=== PATIENT | male | born 1960 | race Caucasian/White ===

== ENCOUNTER 2020-02-11 12:26 | Emergency (ER) | payer MEDICARE, SELFPAY ==
[2020-02-11 12:27] VITALS: BP 150/74; PULSE 84; RESP 20; TEMP 36.9; O2SAT 97; BMI 57.3
--- NOTE | 2020-02-11 12:37 | XR_ITS ---
PROCEDURE: XR CHEST PORTABLE CLINICAL HISTORY: SOA COMPARISON: No exams were available for comparison FINDINGS: Study is limited technically due to patient's body habitus and performed with portable technique. Normal heart size. No evidence of CHF. Increased markings are present in the right lower lobe suspicious for right lower lobe pneumonia with effusion. IMPRESSION: Suspect right lower lobe pneumonia with effusion Dictated by: Wilder Teran MD 02/11/2020 14:08 Electronically signed by Wilder Teran MD in [place] 02/11/2020 14:08
--- NOTE | 2020-02-11 12:37 | HMH.EDGENADL ---
ED Disposition Clinical Impression: Community acquired pneumonia Qualifiers: Laterality: right Lung location: lower lobe of lung Qualified Code(s): J18.9 - Pneumonia, unspecified organism Disposition: Home, Self-Care Condition on Discharge: Good Instructions: DI for Pneumonia -- Adult Prescriptions: Azithromycin [Z-Virgil 250mg Tab*] 250 mg PO UD DOSE PK #6 tab Prescription Printed Referrals: Provider,Referral, MD [Primary Care Provider] - 3 days - Critical Care Critical Care Time: No Attestation: On 02/11/20, the high probability of a clinically significant, sudden or life threatening deterioration of the following system(s) required my full and direct attention, intervention and personal management. The time I documented below is in addition to time spent performing reported procedures but includes the following listed in this critical care notation. Medical Decision Making - Medical Records Medical records reviewed: Yes: I reviewed the patient's medical records. - Fito Inquiry Pt receiving controlled substance: No Vital Signs: 02/11/20 12:27 02/11/20 12:39 02/11/20 12:47 Temperature 98.5 F Temperature Source Oral Pulse Rate [Right Radial] 84 79 Respiratory Rate 20 Blood Pressure [Right Arm] 150/74 H 129/61 Blood Pressure Mean [Right Arm] 99 83 Blood Pressure Source [Right Arm] Automatic Cuff Automatic Cuff Blood Pressure Position [Right Arm] Sitting Sitting 02 Sat by Pulse Oximetry 97 97 97 Oxygen Delivery Method Room Air Nasal Cannula Nasal Cannula Oxygen Flow Rate (LPM) 2 2 - Lab Data Lab Results 02/11/20 12:37: WBC 7.0, RBC 4.09 L, Hgb 11.2 L, Hct 35.8 L, MCV 87.4, MCH 27.3, MCHC 31.2 L, RDW 15.9, Plt Count 253, MPV 8.7, Neut % (Auto) 76.7, Lymph % (Auto) 13.0, [place] % (Auto) 7.4, Eos % (Auto) 2.2, Baso % (Auto) 0.6, Neut # (Auto) 5.4, Lymph # (Auto) 0.9, [place] # (Auto) 0.5, Eos # (Auto) 0.2, Baso # (Auto) 0.0 02/11/20 12:37: Sodium 140, Potassium 3.0 L, Chloride 101, Carbon Dioxide 34 H, Anion Gap 8.0, BUN 10, Creatinine 0.70, Estimated Creat Clear 120, Estimated GFR 115, Est GFR ( Amer) 139, Glucose 176 H, Calcium 8.7, Total Bilirubin 0.7, AST 15 L, ALT 15, Alkaline Phosphatase 93, Troponin I < 0.01, Total Protein 6.0 L, Albumin 3.1 L, Globulin 2.9, Albumin/Globulin Ratio 1.1 02/11/20 12:37: D-Dimer 140 Result diagrams: 02/11/20 12:37 02/11/20 12:37 Orders (Tests/Meds): ED MEDICATIONS Discontinued Medications Generic Name Dose Route Start Last Admin Trade Name Freq PRN Reason Stop Dose Admin Potassium Chloride 20 meq 02/11/20 13:22 Klor-Con 20meq Tablet PO 02/11/20 13:23 ONCE ONE ORDERS Category Date Time Status Troponin I Q3H Lab 02/11/20 15:45 Ordered Troponin I Q3H Lab 02/11/20 18:45 Ordered - Radiology Data #1 Image(s): Chest Image Reviewed: Yes I reviewed the patient's radiology results Right lower lobe pneumonia - ECG Data Tracing #1 EKG at 1244 shows a sinus rhythm with a rate of 76. No acute ST segment elevation or depression. No hyperacute T waves. Normal intervals. EKG interpreted by me. Medical Decision Narrative: Patient with shortness of breath increasing over the last several days. He has a right lower lobe pneumonia on the chest x-ray. He is afebrile with no significant leukocytosis. Does not meet sepsis criteria. Will discharge home with prescription for antibiotics. D-dimer negative, unlikely pulmonary embolus and troponin is negative as well, no signs of acute ischemia on EKG and I have very low suspicion for ACS. Advised follow-up with primary care provider in 2 to 3 days for reevaluation. General Adult HPI - General Chief complaint: Shortness of Breath/Dyspnea Stated complaint: weakness Time Seen by Provider: 02/11/20 12:38 Mode of Arrival: EMS Limitations: No Limitations Description of Symptoms (Recalled from ER Triage Doc. by RN): Pt c/o increased SOA with exertion. Pt reports when h
[2020-02-11 12:39] VITALS: O2SAT 97
--- NOTE | 2020-02-11 12:44 | ECG_ITS ---
APPROVED REPORT Exam: Resting ECG HR:76 bpm ECG Measurements Heart Rate 76 AXES [place] 180 P 26 QRSd 142 QRS 264 QT 422 T -27 QTc 474 <Conclusion> Normal sinus rhythm Right bundle branch block Abnormal ECG Electronically signed by : Lenard Wiley, 02/13/2020 08:46:17
[2020-02-11 12:47] VITALS: BP 129/61; PULSE 79; O2SAT 97
[2020-02-11 12:51] LABS: Basophils % 0.6 % (0.1-2.0); Eosinophils # 0.2 K/mm3 (0.0-0.4); Eosinophils % 2.2 % (0.1-12.0); Hematocrit 35.8 % (42.0-52.0); Hemoglobin 11.2 g/dL (14.1-18.0); Lymphocytes # 0.9 K/mm3 (0.7-4.5); Mean Corpuscular HGB Conc 31.2 g/dL (31.8-35.4); Mean Corpuscular Hemoglobin 27.3 pg (27.0-31.2); Mean Corpuscular Volume 87.4 fl (80-94); Mean Platelet Volume 8.7 fl (7.4-10.4); Monocytes # 0.5 K/mm3 (0.1-1.0); Monocytes % 7.4 % (1.7-9.3); Neutrophils # 5.4 K/mm3 (1.8-7.8); Neutrophils % 76.7 % (37.0-80.0); Platelet Count 253 K/mm3 (142-424); Red Blood Count 4.09 M/mm3 (4.60-6.20); Red Cell Distribution Width 15.9 % (11.5-17.5)
[2020-02-11 12:55] LABS: Chloride 101 mmol/L (98-107); Sodium 140 mmol/L (136-145)
[2020-02-11 12:58] LABS: Alanine Aminotransferase 15 U/L (12-78); Albumin Level 3.1 g/dl (3.5-5.0); Albumin/Globulin Ratio 1.1 (1.1-1.8); Alkaline Phosphatase 93 U/L (38-126); Aspartate Amino Transferase 15 U/L (17-59); Bilirubin,Total 0.7 mg/dl (0.2-1.3); Blood Urea Nitrogen 10 mg/dl (9-20); Calcium 8.7 mg/dl (8.4-10.2); Carbon Dioxide 34 mmol/L (22.0-30.0); Creatinine Clearance Estimated 120 mL/min (50-200); Estimated Glomerular Filt Rate 115 ml/min (>60); GFR (African American) 139 ML/MIN (>60); Globulin 2.9 g/dL (1.3-3.2); Glucose 176 mg/dl (74-100)
[2020-02-11 13:18] LABS: Troponin I < 0.01 ng/ml (0.00-0.034)
[2020-02-11 13:34] LABS: D-Dimer 140 ng/mL (0-400)
[2020-02-11 14:51] VITALS: BP 155/74; PULSE 78; RESP 22; TEMP 36.6; O2SAT 98
== END 2020-02-11 14:53 | disposition home or self-care (01) ==
PROVIDERS: Emergency Provider Emergency Medicine
DX: J18.9 Pneumonia, unspecified organism (principal); I10 Essential (primary) hypertension; E11.65 Type 2 diabetes mellitus with hyperglycemia; E66.01 Morbid (severe) obesity due to excess calories; Z68.43 Body mass index [BMI] 50.0-59.9, adult; Z88.0 Allergy status to penicillin; Z88.5 Allergy status to narcotic agent
CPT/HCPCS: 36415; 71045; 80053; 84484; 85025; 85378; 93005; 99283

== ENCOUNTER 2024-04-05 11:07 | Outpatient (CLI) | payer MEDICARE, SELFPAY ==
[2024-04-05 11:54] LABS: Alanine Aminotransferase 12 U/L (12-78); Albumin Level 3.4 g/dl (3.5-5.0); Albumin/Globulin Ratio 1.2 (1.1-1.8); Alkaline Phosphatase 161 U/L (38-126); Anion Gap 8.6 mEq/L (5-15); Aspartate Amino Transferase 13 U/L (17-59); Bilirubin,Total 0.4 mg/dl (0.2-1.3); Blood Urea Nitrogen 18 mg/dl (9-20); Calcium 9.1 mg/dl (8.4-10.2); Carbon Dioxide 29 mmol/L (22.0-30.0); Chloride 102 mmol/L (98-107); Estimated Glomerular Filt Rate 85 ml/min (>60); GFR (African American) 103 ML/MIN (>60); Globulin 2.9 g/dL (1.3-3.2); Glucose 247 mg/dl (74-100); Potassium 4.6 mmoL/L (3.5-5.1); Sodium 135 mmol/L (136-145); Total Protein,Serum 6.3 g/dl (6.3-8.2)
[2024-04-05 12:11] LABS: Basophils % 0.5 % (0.1-2.0); Eosinophils # 0.2 K/mm3 (0.0-0.4); Eosinophils % 3.4 % (0.1-12.0); Hematocrit 37.6 % (42.0-52.0); Hemoglobin 12.3 g/dL (14.1-18.0); Lymphocytes # 1.1 K/mm3 (0.7-4.5); Lymphocytes % 20.4 % (10-50); Mean Corpuscular HGB Conc 32.7 g/dL (31.8-35.4); Mean Corpuscular Hemoglobin 27.1 pg (27.0-31.2); Mean Corpuscular Volume 83.1 fl (80-94); Mean Platelet Volume 7.6 fl (7.4-10.4); Monocytes # 0.3 K/mm3 (0.1-1.0); Monocytes % 6.1 % (1.7-9.3); Neutrophils # 3.8 K/mm3 (1.8-7.8); Neutrophils % 69.6 % (37.0-80.0); Platelet Count 243 K/mm3 (142-424); Red Blood Count 4.52 M/mm3 (4.60-6.20); Red Cell Distribution Width 16.3 % (11.5-17.5); White Blood Count 5.4 K/mm3 (4.8-10.8)
== END 2024-04-05 23:59 | disposition home or self-care (01) ==
LOC: LAB 11:10
PROVIDERS: PCP Family Medicine; Visit Provider Family Medicine
DX: R79.9 Abnormal finding of blood chemistry, unspecified (principal); R73.09 Other abnormal glucose; Z13.228 Encounter for screening for other metabolic disorders
CPT/HCPCS: 80053; 83036; 85025

== ENCOUNTER 2025-02-23 16:55 | Inpatient (IN) | payer MEDICARE, SELFPAY ==
--- OUTSIDE RECORDS SUMMARY | 2015-12-19 10:19 | XMS_ITS | Encounter Summary ---
Author Organization [place] [address] Care Team Providers Care Guidance Counselor Name Role Phone Kris Chavez DO, Viral Primary Care Provider [phone] Encounter Details Date Type Department Care Team (Latest Contact Info) Description 12/19/2015 10:19 AM EDT Hospital Encounter [facility] [place] [address] [place] [address] Spring Gaytan APRN [address] [place] [address] Left without seen Social History Tobacco Use Types Packs/Day Years Used Date Smoking Tobacco: Former Cigarettes 0 09/20/1972 - 10/21/1972 Smokeless Tobacco: Former Comments:SMOKED FOR 1 WEEK A S A TEENAGER Alcohol Use Standard Drinks/Week Comments No 0 (1 standard drink = 0.6 oz pur e alcohol) [facility] Utilities Answer Date Recorded In the past 12 months has [employer], gas, oil, or water company threatened to shut off services in your home? No 09/26/2024 Overall Financial Resource Strain (CARDIA) Answe r Date Recorded How hard is it for you to pa y for the very basics like food, housing, medical care, and heating? Somewhat hard 09/26/2024 PHQ-2 Answer Date Recorded PHQ-2 Total Score 2 09/26/2024 [facility] of Occupat ional [facility] - Occupational Stress Questionnaire Answer Date [...] things needed for daily living? No 09/14/2023 [facility] IP Transportation Answer D ate Recorded In [...] as of this encounter Functional Status * Cognitive and Functional Status Question Answer Date of Assessment Author Is the person deaf or does he/she have serious difficulty hearing? No 05/25/2023 9:54 AM EDT Patsy Vilchis CCMA Is the person blind or does he/she have serious difficulty seeing even when wearing glasses? No 05/25/2023 9:54 AM Patsy Sparks CCMA Does this person have seriou s difficulty walking or climbing stairs? No 05/25/2023 9:54 AM Patsy Sparks CCMA Does this person have difficulty dressing or bathing? No 05/25/2023 9:54 AM Patsy Sparks CCMA * Alcohol Screening Score Answer Date of Assessment Author 0 09/25/2024 12:00 AM Juana Griffith RN * Drug Screening Score Answer Date of Assessment Author 0 09/25/2024 12:00 AM Juana Griffith RN * Question Answer Date of Assessment Author How often do you have a drin k containing alcohol? 0 09/25/2024 12:00 AM Juana Griffith R N How many drinks containing a lcohol do you have on a typical day when you are drinking? 0 09/25/2024 12:00 AM Juana Griffith R N How often do you have six or more drinks on one occasion? 0 09/25/2024 12:00 AM Jamie Griffith RN AUDIT-C to Determine Rows 4-10 0 09/25/2024 12:00 AM Juana Griffith RN * Question Answer Date of Assessment Author Little interest or pleasure in doing things 1 09/26/2024 12:44 PM Osvaldo Redman RN Feeling down, depressed, or hopeless 1 09/26/2024 12:44 PM Osvaldo Redman RN PHQ-2 Total Score 2 09/26/2024 12:44 PM Jocelyn Redman RN * PHQ-9 Total Score Answer Date of Assessment Author 2 09/26/2024 12:44 PM Jocelyn Dover RN * Suicide Severity Rating Answer Date of Assessment Author No Risk 09/24/2024 2:00 PM Cassie Cee RN * [place] Suicide Severity Rating Scale (Q shift for moderate and high) Question Answer Date of Assessment Author 1. In the past month, have y ou wished you were or wished you could go to sleep and not wake up? 0 09/24/2024 2:00 PM Grecia Cee RN 2. In the past month, have y ou actually had any thoughts of killing yourself? (If no, skip to question 6) 0 09/24/2024 2:00 PM Zara Cee RN 6. Have you ever done anythi ng, started to do anything, or prepared to do anything to end your life? 0 09/24/2024 2:00 PM Zara Heart RN documented as of this encounter Mental Status * Cognitive and Functional Status Question Answer Entry Date Author Because of a physical, menta l or emotional condition, does this person have difficulty doing errands alone such as visiting a doctor's office or shopping? No 05/25/2023 9:54 AM Patsy Sparks CCMA Because of a physical, menta l or emotional condition, does this person have serious difficulty concentrating, remembering or making decisions? No 05/25/2023 9:54 AM Patsy Sparks CCMA documented in this encounter Plan of [...] documented as of this encounter Care Teams Guidance Counselor Relationship Specialty Start Date End Date Sunny Ponce DO [address] [place] [phone] PCP - General Family Medicine 07/22/11 documented as of this encounter
--- OUTSIDE RECORDS SUMMARY | 2015-12-19 10:19 | XMS_ITS | Encounter Summary ---
Author Organization [place] [address] Care Team Providers Care Floor Sander Name Role Phone Kris Chavez DO, Viral Primary Care Provider [phone] Encounter Details Date Type Department Care Team (Latest Contact Info) Description 12/19/2015 10:19 AM EDT Hospital Encounter [facility] W[facility] [place] [address] [place] [address] Spring Gaytan APRN [address] [place] [address] Left without seen Social History Tobacco Use Types Packs/Day Years Used Date Smoking Tobacco: Former Cigarettes 0 09/20/1972 - 10/21/1972 Smokeless Tobacco: Former Comments:SMOKED FOR 1 WEEK A S A TEENAGER Alcohol Use Standard Drinks/Week Comments No 0 (1 standard drink = 0.6 oz pur e alcohol) [facility] Utilities Answer Date Recorded In the past 12 months has [employer], gas, oil, or water company threatened to shut off services in your home? No 09/26/2024 Overall Financial Resource Strain (CARDIA) Answe r Date Recorded How hard is it for you to pa y for the very basics like food, housing, medical care, and heating? Somewhat hard 09/26/2024 PHQ-2 Answer Date Recorded PHQ-2 Total Score 2 09/26/2024 [facility] of Occupat ional [facility] - Occupational Stress Questionnaire Answer Date [...] things needed for daily living? No 09/14/2023 [facility] IP Transportation Answer D ate Recorded In [...] 09/24/2024 2:00 PM Cassie Cee RN * [place] Suicide Severity Rating Scale (Q shift for [...] documented as of this encounter Care Teams Floor Sander Relationship Specialty Start Date End Date Sunny Ponce DO [address] [place] [phone] PCP - General Family Medicine 07/22/11 documented as of this encounter
--- OUTSIDE RECORDS SUMMARY | 2019-11-29 14:21 | XMS_ITS | Encounter Summary ---
Author Organization [place] [address] Care Team Providers Care Leaf Size Picker Name Role Phone Kris Chavez DO, Viral Primary Care Provider [phone] Rajwinder Landaverde RN Unavailable Unavailable Encounter Details Date Type Department Care Team (Late st Contact Info) Description 11/29/2019 2:21 PM EDT Hospital Encounter [facility] Referral Lab 1 [place] [phone] Mario Tierney MD [address] [facility] [address] [place] [address] Social History Tobacco Use Types Packs/Day Years Used Date Smoking Tobacco: Former Cigarettes 0 09/20/1972 - 10/21/1972 Smokeless Tobacco: Former Comments:SMOKED FOR 1 WEEK A S A TEENAGER Alcohol Use Standard Drinks/Week Comments No 0 (1 standard drink = 0.6 oz pur e alcohol) [facility] Utilities Answer Date Recorded In the past 12 months has [employer], gas, oil, or water [employer] threatened to shut off services in your home? No 09/26/2024 Overall Financial Resource Strain (CARDIA) Answe r Date Recorded How hard is it for you to pa y for the very basics like food, housing, medical care, and heating? Somewhat hard 09/26/2024 PHQ-2 Answer Date Recorded PHQ-2 Total Score 2 09/26/2024 [facility] - Occupational Stress Questionnaire Answer [...] things needed for daily living? No 09/14/2023 [facility] IP Transportation Answer D ate Recorded [...] 09/24/2024 2:00 PM Cassie Cee RN * [place] Suicide Severity Rating Scale (Q shift for [...] or shopping? No 05/25/2023 9:54 AM Patsy Spraks CCMA Because of a physical, menta l [...] URINE ORDERABLES Final Result [facility], [employer] [address] [facility] [facility] , [address] [place] [phone] documented in this encounter Visit Diagnoses Not [...] documented as of this encounter Care Teams Leaf Size Picker Relationship Specialty Start Date End Date Sunny Ponce V, DO [address] [place] [phone] PCP - General Family Medicine 07/22/11 Rajwinder Landaverde, RN Aircraft Skin Burnisher 11/20/19 01/28/20 documented as of this encounter
--- OUTSIDE RECORDS SUMMARY | 2019-11-29 14:21 | XMS_ITS | Encounter Summary ---
Author Organization [place] [address] Care Team Providers Care Talent Acquisition Sourcer Name Role Phone Kris Chavez DO, Viral Primary Care Provider [phone] Rajwinder Landaverde RN Unavailable Unavailable Encounter Details Date Type Department Care Team (Late st Contact Info) Description 11/29/2019 2:21 PM EDT [facility] Ref[facility] 1 [place] [phone] Mario Tierney MD [address] [facility] [address] [place] [address] Social History Tobacco Use Types Packs/Day Years Used Date Smoking Tobacco: Former Cigarettes 0 09/20/1972 - 10/21/1972 Smokeless Tobacco: Former Comments:SMOKED FOR 1 WEEK A S A TEENAGER Alcohol Use Standard Drinks/Week Comments No 0 (1 standard drink = 0.6 oz pur e alcohol) [facility] Utilities Answer Date Recorded In the past 12 months has [employer], gas, oil, or water [employer] threatened to shut off services in your home? No 09/26/2024 Overall Financial Resource Strain (CARDIA) Answe r Date Recorded How hard is it for you to pa y for the very basics like food, housing, medical care, and heating? Somewhat hard 09/26/2024 PHQ-2 Answer Date Recorded PHQ-2 Total Score 2 09/26/2024 [facility] - Occupational Stress Questionnaire Answer Date [...] things needed for daily living? No 09/14/2023 [facility] IP Transportation Answer D ate [...] 09/24/2024 2:00 PM Cassie Cee RN * [place] Suicide Severity Rating Scale (Q shift for [...] URINE ORDERABLES Final Result [facility], [employer] 1 [facility] , [address] [place] [phone] documented in this encounter Visit Diagnoses Not [...] documented as of this encounter Care Teams Talent Acquisition Sourcer Relationship Specialty Start Date End Date Sunny Ponce V, DO [address] [place] [phone] PCP - General Family Medicine 07/22/11 Rajwinder Landaverde, RN Decontamination Technician 11/20/19 01/28/20 documented as of this encounter
--- OUTSIDE RECORDS SUMMARY | 2019-12-04 05:00 | XMS_ITS | Encounter Summary ---
Author Organization [place] [address] Care Team Providers Care Director Of Dance Name Role Phone Kris Chavez DO, Viral Primary Care Provider [phone] Rajwinder Landaverde RN Unavailable Unavailable Encounter Details Date Type Department Care Team (Late st Contact Info) Description 12/04/2019 5:00 AM EDT Hospital Encounter [facility] Referral Lab 1 [place] [phone] Mario Tierney MD [address] [facility] [address] [place] [address] Social History Tobacco Use Types Packs/Day Years Used Date Smoking Tobacco: Former Cigarettes 0 09/20/1972 - 10/21/1972 Smokeless Tobacco: Former Comments:SMOKED FOR 1 WEEK A S A TEENAGER Alcohol Use Standard Drinks/Week Comments No 0 (1 standard drink = 0.6 oz pur e alcohol) [facility] Utilities Answer Date Recorded In the past 12 months has [employer], gas, oil, or water [employer] threatened to shut off services in your home? No 09/26/2024 Overall Financial Resource Strain (CARDIA) Answe r Date Recorded How hard is it for you to pa y for the very basics like food, housing, medical care, and heating? Somewhat hard 09/26/2024 PHQ-2 Answer Date Recorded PHQ-2 Total Score 2 09/26/2024 [facility] - Occupational Stress Questionnaire Answer Date [...] things needed for daily living? No 09/14/2023 [facility] IP Transportation Answer [...] 09/24/2024 2:00 PM Cassie Cee RN * [place] Suicide Severity Rating Scale (Q shift for [...] documented as of this encounter Care Teams Director Of Dance Relationship Specialty Start Date End Date Sunny Ponce V, [address] [place] [phone] PCP - General Family Medicine 07/22/11 Rajwinder Landaverde, RN Double Bass Player 11/20/19 01/28/20 documented as of this encounter
--- OUTSIDE RECORDS SUMMARY | 2019-12-04 05:00 | XMS_ITS | Encounter Summary ---
Author Organization [place] [address] Care Team Providers Care Building Economist Name Role Phone Kris Chavez DO, Viral Primary Care Provider [phone] Rajwinder Landaverde RN Unavailable Unavailable Encounter Details Date Type Department Care Team (Late st Contact Info) Description 12/04/2019 5:00 AM EDT Hospital Encounter [facility] Referral Lab 1 [place] [phone] Mario Tierney MD [address] [facility] [address] [place] [address] Social History Tobacco Use Types Packs/Day Years Used Date Smoking Tobacco: Former Cigarettes 0 09/20/1972 - 10/21/1972 Smokeless Tobacco: Former Comments:SMOKED FOR 1 WEEK A S A TEENAGER Alcohol Use Standard Drinks/Week Comments No 0 (1 standard drink = 0.6 oz pur e alcohol) [facility] Utilities Answer Date Recorded In the past 12 months has [employer], gas, oil, or water [employer] threatened to shut off services in your home? No 09/26/2024 Overall Financial Resource Strain (CARDIA) Answe r Date Recorded How hard is it for you to pa y for the very basics like food, housing, medical care, and heating? Somewhat hard 09/26/2024 PHQ-2 Answer Date Recorded PHQ-2 Total Score 2 09/26/2024 [facility] - Occupational Stress Questionnaire Answer Date [...] things needed for daily living? No 09/14/2023 [facility] IP Transportation Answer D ate [...] 09/24/2024 2:00 PM Cassie Cee RN * [place] Suicide Severity Rating Scale (Q shift for [...] documented as of this encounter Care Teams Building Economist Relationship Specialty Start Date End Date Sunny Ponce V, [address] [place] [phone] PCP - General Family Medicine 07/22/11 Rajwinder Landaverde, RN Service Liaison Representative 11/20/19 01/28/20 documented as of this encounter
[2025-02-23] VITALS (10 sets, daily range): BP systolic 121–142; BP diastolic 62–84; PULSE 67–75; RESP 17–25; TEMP 37.1; O2SAT 91–99; BMI 62.7; BMI 59.6
--- OUTSIDE RECORDS SUMMARY | 2025-02-23 17:02 | XMS_ITS | Encounter Summary ---
Author Organization [facility] [address] Care Team Providers Care Template Worker Name Role Phone Kris Chavez DO, Viral Primary Care Provider Reason for Visit * Reason Comments Medication Refill Encounter Details Date Type Department Care Team (Late st Contact Info) Description 01/24/2025 [facility]ill [facility] [address] [place] [address] Sunny Ponce V, DO [address] [place] [address] Medication Refill Social History Tobacco Use Types Packs/Day Years Used Date Smoking Tobacco: Former Cigarettes 0 09/20/1972 - 10/21/1972 Smokeless Tobacco: Former Comments:SMOKED FOR 1 WEEK A S A TEENAGER Alcohol Use Standard Drinks/Week Comments No 0 (1 standard drink = 0.6 oz pur e alcohol) [facility] Utilities Answer Date Recorded In the past 12 months has [employer], gas, oil, or water [employer] threatened to shut off services in your home? No 09/26/2024 Overall Financial Resource Strain (CARDIA) Answe r Date Recorded How hard is it for you to pa y for the very basics like food, housing, medical care, and heating? Somewhat hard 09/26/2024 PHQ-2 Answer Date Recorded PHQ-2 Total Score 2 09/26/2024 [facility] - Occupational Stress Questionnaire Answer [...] things needed for daily living? No 09/14/2023 [facility] IP Transportation Answer D ate [...] on file Sexual Orientation Not on file documented as of this encounter Functional Status * Is the person deaf or does he/she have serious difficulty hearing? Answer Date of Assessment Author No 05/25/2023 9:54 AM Brenda Sparks CCMA * Is the person blind or does he/she have serious difficulty seeing even when wearing glasses? Answer Date of Assessment Author No 05/25/2023 9:54 AM Brenda Sparks CCMA * Does this person have serious difficulty walking or climbing stairs? Answer Date of Assessment Author No 05/25/2023 9:54 AM EDT Brenda Vilchis CCMA * Does this person have difficulty dressing or bathing? Answer Date of Assessment Author No 05/25/2023 9:54 AM EDT Brenda Vilchis CCMA * Because of a physical, mental or emotional condition, does this person have difficulty doing errands alone such as visiting a doctor's office or shopping? Answer Date of Assessment Author No 05/25/2023 9:54 AM EDT Brenda Vilchis CCMA documented as of this encounter Mental Status * Because of a physical, mental or emotional condition, does this person have serious difficulty concentrating, remembering or making decisions? Answer Entry Date Author No 05/25/2023 9:54 AM EDBrenda Dickson CCMA documented in this encounter Ordered Prescriptions Prescription Sig Dispense Quantity Refills Last Filled Start Date End Date atorvastatin (LIPITOR) 40 mg Oral TabletIndications:H yperlipidemia with target LDL less than 100 Take 1 tablet by mouth once daily 100 Tablet 2 01/25/2025 documented in this encounter Miscellaneous Notes * Telephone Encounter - Cristy Bolton CPhT - 01/25/2025 10:25 AM EDT Atorvastatin 40mg - Future Visit: na Last Assessed Visit: 10-02-24 Follow-Up Date: 10-02-25 All protocols passed. Refills approved and sent to requesting pharmacy. Routed to [facility] if applicable. documented in this encounter Plan of Treatment [...] General Not on track(2024 10:49 AM EST) Ursula Aguiar, RN Note: Patient will maintain optimal edema [...] documented as of this encounter Visit Diagnoses Diagnosis Hyperlipidemia with target LDL less than 100 Other and unspecified hyperlipidemia documented in this encounter Discontinued Medications Medication Sig Discontinue Reason Start Date End Da te atorvastatin (LIPITOR) 40 mg Oral TabletIndications:Hyperl ipidemia with target LDL less than 100 Take 1 Tablet by mouth daily. 06/20/2024 01/25/2025 documented as of this encounter Additional Health Concerns Assessment Noted Time PHQ-9 Depression Total Score: 2 09/26/19 12:44 PM EST PHQ-2 Depression Total Score: 2 09/26/19 12:44 PM EST documented as of this encounter Care Teams Template Worker Relationship Specialty Start Date End Date Sunny Ponce DO [address] [place] [address] PCP - General Family Medicine 07/22/11 documented as of this encounter
--- OUTSIDE RECORDS SUMMARY | 2025-02-23 17:02 | XMS_ITS | Encounter Summary ---
Author Organization [place] [address] Care Team Providers Care Administrative Tech Name Role Phone Kris Chavez DO, Viral Primary Care Provider Reason for Visit * Reason Comments Medication Refill Encounter Details Date Type Department Care Team (Late st Contact Info) Description 02/21/2025 Refill [facility] [address] [place] [address] Sunny Ponce V, DO [address] [place] [address] Medication Refill Social History Tobacco Use Types Packs/Day Years Used Date Smoking Tobacco: Former Cigarettes 0 09/20/1972 - 10/21/1972 Smokeless Tobacco: Former Comments:SMOKED FOR 1 WEEK A S A TEENAGER Alcohol Use Standard Drinks/Week Comments No 0 (1 standard drink = 0.6 oz pur e alcohol) [facility] Utilities Answer Date Recorded In the past 12 months has [employer], gas, oil, or water [employer] threatened to shut off services in your home? No 09/26/2024 Overall Financial Resource Strain (CARDIA) Answe r Date Recorded How hard is it for you to pa y for the very basics like food, housing, medical care, and heating? Somewhat hard 09/26/2024 PHQ-2 Answer Date Recorded PHQ-2 Total Score 2 09/26/2024 [facility] - Occupational Stress Questionnaire Answer Date [...] things needed for daily living? No 09/14/2023 [facility] IP Transportation Answer D ate Recorded In [...] Refills Last Filled Start Date End Date carvediloL (COREG) 12.5 mg Oral TabletIndications:E ssential hypertension Take 1 tablet by mouth twice daily 200 Tablet 2 02/21/2025 documented in this encounter Miscellaneous Notes * Telephone Encounter - Linda Guerra CPhT - 02/21/2025 1:54 PM EDT Carvedilol - Future Visit: N/A Last Assessed Visit: 10/02/24 Follow-Up Date: 10/02/25 All protocols passed. Refills approved and sent to requesting pharmacy. Routed to [facility] if applicable. documented in this encounter [...] as of this encounter Visit Diagnoses Diagnosis Essential hypertension Unspecified essential hypertension documented in this encounter Discontinued Medications Medication Sig Discontinue Reason Start Date End Da te carvediloL (COREG) 12.5 mg Oral TabletIndications:Jen al hypertension Take 1 Tablet by mouth 2 times daily. 11/21/2024 02/21/2025 documented as of this encounter Additional Health Concerns Assessment Noted Time PHQ-9 Depression Total Score: 2 09/26/19 12:44 PM EST PHQ-2 Depression Total Score: 2 09/26/19 12:44 PM EST documented as of this encounter Care Teams Administrative Tech Relationship Specialty Start Date End Date Sunny Ponce DO [address] [place] [address] PCP - General Family Medicine 07/22/11 documented as of this encounter
--- OUTSIDE RECORDS SUMMARY | 2025-02-23 17:02 | XMS_ITS | Clinical Summary ---
Author Organization [facility] are Address [address] [place] [address] Phone Care Team Providers Care Baller Tender Name Role Phone Dale Jeffries MD Primary Care Physician [phone] [ ] Conditions or Problems No information available. Medications No information available. Medications Administered No information available. Allergies, Adverse Reactions, Alerts No information available. Results No information available. Plan of Care No information available. Procedures No information available. Vital Signs No information available. Immunizations No information available. Advance Directives No information available.
--- OUTSIDE RECORDS SUMMARY | 2025-02-23 17:03 | XMS_ITS | Encounter Summary ---
Author Organization [place] [address] Care Team Providers Care Journalism Teacher Name Role Phone Ponce V, DO, Viral Primary Care Provider [phone] Miriam Muller BA, COS Unavailable Unavailable Miriam Muller BA, COS Unavailable Unavailable Rajwinder Landaverde RN Unavailable Unavailable Simran Hdz, COS Unavailable Unavail able Qi Mauricio RN Unavailable Unavailable Jenny Ortega RN Unavailable Unavail able Encounter Details Date Type Department Care Team (Late st Contact Info) Description 06/29/2018 Patient Outreach [facility] [address] [place] [address] Ponce, Viral V, DO [address] [place] [address] Social History Tobacco Use Types Packs/Day Years Used Date Smoking Tobacco: Former Cigarettes Smokeless Tobacco: Never Alcohol Use Standard Drinks/Week Comments No 0 (1 standard drink = 0.6 oz pur e alcohol) Sex and Gender Information Value Date Recorded Sex Assigned at Not on file Legal Sex Male 11:38 PM EDT Gender Identity Not on file Sexual Orientation Not on file documented as of this encounter Functional Status * Is the person deaf or does he/she have serious difficulty hearing? Answer Date of Assessment Author No 04/04/2018 3:30 PM EDT Devine RMA * Is the person blind or does he/she have serious difficulty seeing even when wearing glasses? Answer Date of Assessment Author No 04/04/2018 3:30 PM EDT Devine RMA * Does this person have serious difficulty walking or climbing stairs? Answer Date of Assessment Author Yes 04/04/2018 3:30 PM EDT Devine RMA * Does this person have difficulty dressing or bathing? Answer Date of Assessment Author No 04/04/2018 3:30 PM EDT Devine RMA * Because of a physical, mental or emotional condition, does this person have difficulty doing errands alone such as visiting a doctor's office or shopping? Answer Date of Assessment Author Yes 04/04/2018 3:30 PM EDT Devine RMA documented as of this encounter Mental Status * Because of a physical, mental or emotional condition, does this person have serious difficulty concentrating, remembering or making decisions? 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) 1 Occurrences starting 06/29/2018 until 09/29/2018 HEMOGLOBIN A1C Lab Routine 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 (HCC) 1 Occurrences starting 06/29/2018 until 09/29/2018 HEPATIC FUNCTION PANEL Lab Routine 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 (HCC) 1 Occurrences starting 06/29/2018 until 09/29/2018 LIPID SCREEN Lab Routine 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 (HCC) 1 Occurrences starting 06/29/2018 until 09/29/2018 documented as of this encounter Goals Goal [...] as of this encounter Visit Diagnoses Diagnosis 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 (HCC) documented in this encounter Orders Lab Orders Without Results Count Last Ordered D ate First Ordered Date MICROALBUMIN/CREATININE RATIO URINE 1 06/29 documented in this encounter Additional Health Concerns Infection Onset Date Last Indicated Resolved Time Ectoparasite (Lice, Bed Bugs , Scabies) 06/09/2023 06/10/2023 06/30/2023 10:12 PM EDT R/O COVID-19 09/10/2023 09/10/2023 09/10/2023 4:21 PM EST COVID-19 09/10/2023 09/10/2023 09/30/2023 10:1 2 PM EST Ectoparasite (Lice, Bed Bugs , Scabies) 09/28/2024 09/28/2024 10/18/2024 10:12 PM EST documented as of this encounter Care Teams Journalism Teacher Relationship Specialty Start Date End Date Ponce, Sunny Chavez DO [address] [place] [phone] PCP - General Family Medicine 07/22/11 Miriam Muller BA, COS Case Cool Roofing Installer 03/07/1902/18 Miriam Muller BA, COS Case Cool Roofing Installer 03/09/1902/19 Rajwinder Landaverde, RN Signals Intelligence Superintendent 11/20/19 01/28/20 Simran Hdz, BS, COS Case Cool Roofing Installer 01/15/23 02/02/23 Qi Mauricio, RN Signals Intelligence Superintendent Registered Nurse 09/21/23 10/19/23 Jenny Ortega, RN Signals Intelligence Superintendent 09/29/24 10/01/24 documented as of this encounter
--- OUTSIDE RECORDS SUMMARY | 2025-02-23 17:03 | XMS_ITS | Encounter Summary ---
Author Organization [place] [address] Care Team Providers Care Test Data Developer Name Role Phone Ponce V, DO, Viral Primary Care Provider [phone] Miriam Muller BA, COS Unavailable Unavailable Miriam Muller BA, COS Unavailable Unavailable Rajwinder Landaverde RN Unavailable Unavailable Simran Hdz, COS Unavailable Unavail able Qi Mauricio RN Unavailable Unavailable Jenny Ortega RN Unavailable Unavail able Encounter Details Date Type Department Care Team (Late st Contact Info) Description 05/24/2018 Patient Outreach [facility] [address] [place] [address] Ponce, Viral V, DO [address] [place] [address] Social History Tobacco Use Types [...] fat layer exposed (HCC) 1 Occurrences starting 05/24/2018 until 08/23/2018 HEMOGLOBIN A1C Lab Routine 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 (HCC) 1 Occurrences starting 05/24/2018 until 08/23/2018 HEPATIC FUNCTION PANEL Lab Routine 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 (HCC) 1 Occurrences starting 05/24/2018 until 08/23/2018 LIPID SCREEN Lab Routine 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 (HCC) 1 Occurrences starting 05/24/2018 until 08/23/2018 documented as of this encounter Goals Goal [...] First Ordered Date MICROALBUMIN/CREATININE RATIO URINE 1 05/24 documented in this encounter Additional Health Concerns Infection Onset Date Last Indicated Resolved Time Ectoparasite (Lice, Bed Bugs , Scabies) 06/09/2023 06/10/2023 06/30/2023 10:12 PM EDT R/O COVID-19 09/10/2023 09/10/2023 09/10/2023 4:21 PM EST COVID-19 09/10/2023 09/10/2023 09/30/2023 10:1 2 PM EST Ectoparasite (Lice, Bed Bugs , Scabies) 09/28/2024 09/28/2024 10/18/2024 10:12 PM EST documented as of this encounter Care Teams Test Data Developer Relationship Specialty Start Date End Date Ponce, Sunny Chavez DO [address] [place] [phone] PCP - General Family Medicine 07/22/11 Miriam Muller BA, COS Case Biomedical Service Engineer 03/07/1902/18 Miriam Muller BA, COS Case Biomedical Service Engineer 03/09/1902/19 Rajwinder Landaverde, RN Reconstructive Dentist 11/20/19 01/28/20 Simran Hdz, BS, COS Case Biomedical Service Engineer 01/15/23 02/02/23 Qi Mauricio, RN Reconstructive Dentist Registered Nurse 09/21/23 10/19/23 Jenny Ortega, RN Reconstructive Dentist 09/29/24 10/01/24 documented as of this encounter
--- OUTSIDE RECORDS SUMMARY | 2025-02-23 17:03 | XMS_ITS | Encounter Summary ---
Author Organization [place] [address] Care Team Providers Care Wellfield Technician Name Role Phone Ponce V, DO, Viral Primary Care Provider [phone] Miriam Muller BA, COS Unavailable Unavailable Miriam Muller BA, COS Unavailable Unavailable Rajwinder Landaverde RN Unavailable Unavailable Simran Hdz, COS Unavailable Unavail able Qi Mauricio RN Unavailable Unavailable Jenny Ortega RN Unavailable Unavail able Encounter Details Date Type Department Care Team (Late st Contact Info) Description 04/20/2018 Patient Outreach [facility] [address] [place] [address] Ponce, Viral V, DO [address] [place] [address] Social History Tobacco Use Types [...] fat layer exposed (HCC) 1 Occurrences starting 04/20/2018 until 07/21/2018 HEPATIC FUNCTION PANEL Lab Routine 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 (HCC) 1 Occurrences starting 04/20/2018 until 07/21/2018 LIPID SCREEN Lab Routine 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 (HCC) 1 Occurrences starting 04/20/2018 until 07/21/2018 HEMOGLOBIN A1C Lab Routine 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 (HCC) 1 Occurrences starting 04/20/2018 until 07/21/2018 documented as of this encounter Goals Goal [...] as of this encounter Results * (ABNORMAL) MICROALBUMIN/CREATININE RATIO URINE (10/07/2018 11:48 AM EST) Urine Microalb 192.5 mg/L 10/07/2018 8:38 PM EST [facility] Urine Creatinine 177.4 mg/dL 10/07/2018 8:38 PM EST [facility] Ur Microalb/Creat 109(H) 0 - 30 mg/g 10/07/2018 8:38 PM EST [facility] Urine STRUCTURE OF URINARY TRACT PROPER / Unknown 10/07/2018 11:48 AM EST 10/07/2018 11:48 AM EST us Viral Ponce V, DO URINE ORDERABLES Final Result 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 (HCC) documented in this encounter Additional Health Concerns Infection Onset Date Last Indicated Resolved Time Ectoparasite (Lice, Bed Bugs , Scabies) 06/09/2023 06/10/2023 06/30/2023 10:12 PM EDT R/O COVID-09/10/2023 09/10/2023 09/10/2023 4:21 PM EST COVID-09/10/2023 09/10/2023 09/30/2023 10:1 2 PM EST Ectoparasite (Lice, Bed Bugs , Scabies) 09/28/2024 09/28/2024 10/18/2024 10:12 PM EST documented as of this encounter Care Teams Wellfield Technician Relationship Specialty Start Date End Date Sunny Ponce V, DO [address] [place] [phone] PCP - General Family Medicine 07/22/11 Miriam Muller BA, COS Case Power Systems Engineer 03/07/1902/18 Miriam Muller BA, COS Case Power Systems Engineer 03/09/1902/19 Rajwinder Landaverde, RN Dimmer Board Operator 11/20/19 01/28/20 Simran Hdz BS, COS Case Power Systems Engineer 01/15/23 02/02/23 Qi Mauricio, RN Dimmer Board Operator Registered Nurse 09/21/23 10/19/23 Jenny Ortega, RN Dimmer Board Operator 09/29/24 10/01/24 documented as of this encounter
--- OUTSIDE RECORDS SUMMARY | 2025-02-23 17:03 | XMS_ITS | Encounter Summary ---
Author Organization [place] [address] Care Team Providers Care Mortician Investigator Name Role Phone Ponce V, DO, Viral Primary Care Provider [phone] Miriam Muller BA, COS Unavailable Unavailable Miriam Muller BA, COS Unavailable Unavailable Rajwinder Landaverde RN Unavailable Unavailable Simran Hdz, COS Unavailable Unavail able Qi Mauricio RN Unavailable Unavailable Jenny Ortega RN Unavailable Unavail able Encounter Details Date Type Department Care Team (Late st Contact Info) Description 03/17/2018 Patient Outreach [facility] [address] [place] [address] Ponce, Viral V, DO [address] [place] [address] Social History Tobacco Use Types [...] on file documented as of this encounter Plan of Treatment Scheduled Orders Name Type Priority Associated Diagnoses Orde r Schedule BASIC METABOLIC PANEL Lab Routine 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 (HCC) 1 Occurrences starting 03/17/2018 until 06/17/2018 HEPATIC FUNCTION PANEL Lab Routine 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 (HCC) 1 Occurrences starting 03/17/2018 until 06/17/2018 HEMOGLOBIN A1C Lab Routine 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 (HCC) 1 Occurrences starting 03/17/2018 until 06/17/2018 LIPID SCREEN Lab Routine 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 (HCC) 1 Occurrences starting 03/17/2018 until 06/17/2018 MICROALBUMIN/CREATININE RATIO URINE Lab Routine 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 (HCC) 1 Occurrences starting 03/17/2018 until 06/17/2018 documented as of this encounter Goals Goal [...] documented as of this encounter Care Teams Mortician Investigator Relationship Specialty Start Date End Date Sunny Ponce DO [address] [place] [phone] PCP - General Family Medicine 07/22/11 Miriam Muller BA, COS Case Clinical Application Consultant 03/07/1902/18 Miriam Muller BA, COS Case Clinical Application Consultant 03/09/1902/19 Rajwinder Landaverde, RN Off Track Betting Manager 11/20/19 01/28/20 Simran Hdz BS, COS Case Clinical Application Consultant 01/15/23 02/02/23 Qi Mauricio, RN Off Track Betting Manager Registered Nurse 09/21/23 10/19/23 Jenny Ortega, RN Off Track Betting Manager 09/29/24 10/01/24 documented as of this encounter
--- OUTSIDE RECORDS SUMMARY | 2025-02-23 17:03 | XMS_ITS | Encounter Summary ---
Author Organization [place] Address [facility] [place] [address] Care Team Providers Care [facility] Partner Name Role Phone Kris Chavez DO, Viral Primary Care Provider [phone] Miriam Muller BA, COS Unavailable Unavailable Miriam Muller BA, COS Unavailable Unavailable Rajwinder Landaverde RN Unavailable Unavailable Simran Hdz, COS Unavailable Unavail able Qi Mauricio RN Unavailable Unavailable Jenny Ortega RN Unavailable Unavail able Encounter Details Date Type Department Care Team (Late st Contact Info) Description 02/28/2019 Lab Requisition [facility] CLAUDIA Mauricio [id number] Sergio Bobo, DPM [address] [facility], [address] [place] [id number] Cellulitis of left lower extremity Social History Tobacco Use Types Packs/Day Years Used Date Smoking Tobacco: Former Cigarettes Smokeless Tobacco: Never Alcohol Use Standard Drinks/Week Comments No 0 (1 standard drink = 0.6 oz pur e alcohol) PHQ-2 Answer Date Recorded PHQ-2 Score 2 02/07/2019 Sex and Gender Information Value Date Recorded Sex Assigned at Not on file Legal Sex Male 11:38 PM EDT Gender Identity Not on file Sexual Orientation Not on file documented as of this encounter Functional Status * Is the person deaf or does he/she have serious difficulty hearing? Answer Date of Assessment Author No 09/26/2018 1:55 PM EST Benito ren, RMA * Is the person blind or does he/she have serious difficulty seeing even when wearing glasses? Answer Date of Assessment Author No 09/26/2018 1:55 PM EST Benito ren, RMA * Does this person have serious difficulty walking or climbing stairs? Answer Date of Assessment Author Yes 09/26/2018 1:55 PM EST Benito ren, RMA * Does this person have difficulty dressing or bathing? Answer Date of Assessment Author Yes 09/26/2018 1:55 PM EST Benito ren, RMA * Because of a physical, mental or emotional condition, does this person have difficulty doing errands alone such as visiting a doctor's office or shopping? Answer Date of Assessment Author Yes 09/26/2018 1:55 PM EST Benito ren, RMA documented as of this encounter Mental Status * Because of a physical, mental or emotional condition, does this person have serious difficulty concentrating, remembering or making decisions? Answer Entry Date Author Yes 09/26/2018 1:55 PM EST Benito ren, RMA documented in this encounter Plan of [...] Stevens RMA documented as of this encounter Procedures Procedure Name Priority Date/Time Associated Diagnosis Comments WOUND CULTURE (STAIN INCLUDED) Routine 02/28/2019 3:30 PM EDT Cellulitis of left lower extremity documented in this encounter Results * (ABNORMAL) WOUND CULTURE (STAIN INCLUDED) (02/28/2019 3:30 PM EDT) Culture Positive Growth(A) 03/03/2019 1:18 PM EDT [facility] Culture Sparse growth of Staphylococcus aureus SUSCEPTIB ILITY RESULT 03/03/2019 1:18 PM EDT [facility] Culture Sparse growth of Streptococcus agalactiae (Group B) SUSCEPTIB ILITY RESULT 03/03/2019 1:18 PM EDT [facility] Comment:Penicillin and Ampic illin are antibiotics of choice for treatment of beta-hemolytic streptococcal infections. Stain Few Gram positive cocci(A) 03/03/2019 1:18 PM EDT [facility] Stain Few Gram positive rods(A) 03/03/2019 1:18 PM EDT [facility] Stain Few WBCs 03/03/2019 1:18 PM EDT [facility] Swab STRUCTURE OF LEFT LOWER LEG / Unknown 02/28/2019 3:30 PM EDT 02/28/2019 6:47 PM EDT Narrative Organism Antibiotic Method Susceptibility Staphylococcus aureus Ampicillin SUSCEPTIBILITY RESU LT Staphylococcus aureus Benzylpenicillin SUSCEPTIBILITY RESULT >=0.5 ug/mL: Resistant Staphylococcus aureus Beta Lactamase SUSCEPTIBILITY RE SULT ug/mL Staphylococcus aureus Ciprofloxacin SUSCEPTIBILITY RES ULT <=0.5 ug/mL: Susceptible Staphylococcus aureus Clindamycin SUSCEPTIBILITY RESU LT <=0.25 ug/mL: Resistant Staphylococcus aureus Erythromycin SUSCEPTIBILITY RESU LT 1 ug/mL: Resistant Staphylococcus aureus Gentamicin SUSCEPTIBILITY RESU LT <=0.5 ug/mL: Susceptible Staphylococcus aureus Gentamicin synergy SUSCEPTIBILIT Y RESULT Staphylococcus aureus Levofloxacin SUSCEPTIBILITY RESU LT <=0.12 ug/mL: Susceptible Staphylococcus aureus Linezolid SUSCEPTIBILITY RESU LT Staphylococcus aureus Moxifloxacin SUSCEPTIBILITY RESU LT <=0.25 ug/mL: Susceptible Staphylococcus aureus Nitrofurantoin SUSCEPTIBILITY RE SULT Staphylococcus aureus Oxacillin SUSCEPTIBILITY RESU LT 0.5 ug/mL: Susceptible Staphylococcus aureus Synercid SUSCEPTIBILITY RESU LT Staphylococcus aureus Rifampin SUSCEPTIBILITY RESU LT <=0.5 ug/mL: Susceptible Staphylococcus aureus Streptomycin synergy SUSCEPTIBIL ITY RESULT Staphylococcus aureus Tetracycline SUSCEPTIBILITY RESU LT <=1 ug/mL: Susceptible Staphylococcus aureus Tigecycline SUSCEPTIBILITY RESU LT Staphylococcus aureus Trimethoprim/Sulfa metho xazole SUSCEPTIBILITY RESULT <=10 ug/mL: Susceptible Staphylococcus aureus Vancomycin SUSCEPTIBILITY RESU LT 1 ug/mL: Susceptible Comment: Rifampin and Gentamicin should not be used alone for antimicrobial therapy. For methicillin resistant staphylococci, ciprofloxacin should also not be used alone. This organism is presumed to be Clindamycin resistant based on detection of inducible resistance to this drug. Sergio Bobo DPM MICROBIOLOGY - GENERAL ORD ERABLES Final Result [facility], [facility] [address] [facility] , [place] [address] documented in this encounter Visit Diagnoses Diagnosis Cellulitis of left lower extremity Cellulitis and abscess of leg, except foot documented in this encounter Additional Health Concerns Infection Onset Date Last Indicated Resolved Time Ectoparasite (Lice, Bed Bugs , Scabies) 06/09/2023 06/10/2023 06/30/2023 10:12 PM EDT R/O COVID-19 09/10/2023 09/10/2023 09/10/2023 4:21 PM EST COVID-19 09/10/2023 09/10/2023 09/30/2023 10:1 2 PM EST Ectoparasite (Lice, Bed Bugs , Scabies) 09/28/2024 09/28/2024 10/18/2024 10:12 PM EST Assessment Noted Time PHQ-9 Depression Total Score: 2 09/26/19 1:55 PM EST PHQ-2 Depression Total Score: 2 09/26/19 1:55 PM EST documented as of this encounter Care Teams Research Center Partner Relationship Specialty Start Date End Date Sunny Ponce V, DO [address] [place] [phone] PCP - General Family Medicine 07/22/11 Miriam Muller BA, COS Case Railroad Worker 03/07/1902/18 Miriam Muller BA, COS Case Railroad Worker 03/09/1902/19 Rajwinder Landaverde, RN Record Producer 11/20/19 01/28/20 Simran Hdz BS, COS Case Railroad Worker 01/15/23 02/02/23 Qi Mauricio, RN Record Producer Registered Nurse 09/21/23 10/19/23 Jenny Ortega, RN Record Producer 09/29/24 10/01/24 documented as of this encounter
--- OUTSIDE RECORDS SUMMARY | 2025-02-23 17:03 | XMS_ITS | Encounter Summary ---
Author Organization [place] [address] Care Team Providers Care Physiotherapy Aide Name Role Phone Ponce V, DO, Viral Primary Care Provider [phone] Miriam Muller BA, COS Unavailable Unavailable Miriam Muller BA, COS Unavailable Unavailable Rajwinder Landaverde RN Unavailable Unavailable Simran dHz, COS Unavailable Unavail able Qi Mauricio RN Unavailable Unavailable Jenny Ortega RN Unavailable Unavail able Encounter Details Date Type Department Care Team (Late st Contact Info) Description 09/08/2018 Patient Outreach [facility] [address] [place] [address] Ponce, Viral V, DO [address] [place] [address] Social History Tobacco Use Types [...] as of this encounter Visit Diagnoses Diagnosis DM type 2 (diabetes mellitus, type 2) (HCC) Type II or unspecified type diabetes mellitus without mention of complication, not stated as uncontrolled documented in this encounter Orders Lab Orders Without Results Count Last Ordered D ate First Ordered Date BASIC METABOLIC PANEL 1 09/08/2018 HEMOGLOBIN A1C 1 09/08/2018 HEPATIC FUNCTION PANEL 1 09/08/2018 LIPID SCREEN 1 09/08/2018 MICROALBUMIN/CREATININE RATIO URINE 1 09/08 documented in this encounter Additional Health Concerns Infection Onset Date Last Indicated Resolved Time Ectoparasite (Lice, Bed Bugs , Scabies) 06/09/2023 06/10/2023 06/30/2023 10:12 PM EDT R/O COVID-19 09/10/2023 09/10/2023 09/10/2023 4:21 PM EST COVID-19 09/10/2023 09/10/2023 09/30/2023 10:1 2 PM EST Ectoparasite (Lice, Bed Bugs , Scabies) 09/28/2024 09/28/2024 10/18/2024 10:12 PM EST documented as of this encounter Care Teams Physiotherapy Aide Relationship Specialty Start Date End Date Sunny Ponce DO [address] [place] [id number] PCP - General Family Medicine 07/22/11 Miriam Muller BA, COS Case Central Office Worker 03/07/1902/18 Miriam Muller BA, COS Case Central Office Worker 03/09/1902/19 Rajwinder Landaverde, RN Yeast Fermentation Attendant 11/20/19 01/28/20 Simran Hdz BS, COS Case Central Office Worker 01/15/23 02/02/23 Qi Mauricio, RN Yeast Fermentation Attendant Registered Nurse 09/21/23 10/19/23 Jenny Ortega, RN Yeast Fermentation Attendant 09/29/24 10/01/24 documented as of this encounter
--- OUTSIDE RECORDS SUMMARY | 2025-02-23 17:03 | XMS_ITS | Clinical Summary ---
Author Organization [facility] Address [address] [place] [address] [place] [address] Phone Care Team Providers Care Gas Appliance Mechanic Name Role Phone Kris Chavez DO, Viral Primary Care Provider [phone] Allergies Active Allergy Reactions Criticality Noted Date Comments Codeine Swelling 11/04/2010 Erythromycin Swelling 01/03/1996 Cephalexin Swelling 11/04/2010 Minocycline 11/17/2012 Penicillins Swelling 11/04/2010 PCN Family Unable To Assess Swelling 11/04/2010 mycin Medications MULTI-VITAMIN ORALIndications:S creening for colon cancer,Gastroesop hageal reflux disease without esophagitis,Essen tial hypertension,Type 2 diabetes mellitus with complication, without long-term current use of insulin ([facility]),Hyperlipide silviano with target LDL less than 100,Weakness,Leeann lity Take by mouth daily. Active aspirin 325 mg Oral Tablet Take 1 Tablet by mouth daily. Patient due for doctor appointment and fasting blood work. No refills until seen. 30 Tablet 023 Active Cholecalciferol, Vitamin D3, 50 mcg (2,000 unit) Oral CapsuleIndication s:History of vitamin D deficiency Take 1 Capsule by mouth daily. 90 Capsule 1 023 Active Blood Sugar Diagnostic Misc StripIndications: DM type 2 (diabetes mellitus, type 2) ([facility]) Patient has accu chek roman needs supplies dx 250.00 test twice day Patient states he only checks a FSBS every other day. 200 Each 11 023 Active Blood-Glucose Meter [facility] KitIndications:DM type 2 (diabetes mellitus, type 2) ([facility]) Test twice daily 1 Kit 023 Active cyanocobalamin 1,000 mcg Oral Tablet Take 1,000 mcg by mouth daily. Active Lancets [facility] MiscIndications:D M type 2 (diabetes mellitus, type 2) ([facility]) accu chek roman dx 250.00 test 2x day 200 Each 11 024 Active cyclobenzaprine (FLEXERIL) 5 mg Oral TabletIndications :Muscle spasm TAKE 1 TABLET BY MOUTH EVERY 8 HOURS NEEDED FOR MUSCLE SPASM 90 Tablet 024 Active metFORMIN (GLUCOPHAGE) 850 mg Oral TabletIndications :Type 2 diabetes mellitus with complication, without long-term current use of insulin ([facility]) Take 1 tablet by mouth twice daily 180 Tablet 1 024 Active fUROsemide (LASIX) 40 mg Oral TabletIndications :Lymphedema,Fluid retention in legs,Peripheral edema Take 1 Tablet by mouth every 12 hours. 180 Tablet 1 025 Active glimepiride (AMARYL) 4 mg Oral TabletIndications :Type 2 diabetes mellitus with complication, without long-term current use of insulin ([facility]) TAKE 1 TAB BY MOUTH EVERY MORNING. THIS REPLACES GLIPIZIDE. 90 Tablet 1 025 Active lisinopriL (PRINIVIL;ZESTRIL ) 40 mg Oral TabletIndications :Essential hypertension Take 1 Tablet by mouth daily. 90 Tablet 1 025 Active potassium chloride (KLOR-CON) 10 mEq Oral Tablet Sustained ReleaseIndication s:Lymphedema,Flui d retention in legs,Peripheral edema,Essential hypertension,Type 2 diabetes mellitus with complication, without long-term current use of insulin ([facility]) Take 1 Tablet by mouth 2 times daily. 60 Tablet 025 Active Brompheniramine-P seudoeph-DM 2-30-10 mg/5 mL Oral SyrupIndications: Acute bronchitis, unspecified organism,Seasonal allergic rhinitis due to pollen Take 10 mL by mouth every 4 hours as needed. 240 mL 025 Active atorvastatin (LIPITOR) 40 mg Oral TabletIndications :Hyperlipidemia with target LDL less than 100 Take 1 tablet by mouth once daily 100 Tablet 2 025 Active carvediloL (COREG) 12.5 mg Oral TabletIndications :Essential hypertension Take 1 tablet by mouth twice daily 200 Tablet 2 025 Active atorvastatin (LIPITOR) 40 mg Oral TabletIndications :Hyperlipidemia with target LDL less than 100 Take 1 Tablet by mouth daily. 90 Tablet 1 024 2024 Discontinued carvediloL (COREG) 12.5 mg Oral TabletIndications :Essential hypertension Take 1 Tablet by mouth 2 times daily. 90 Tablet 1 025 2024 Discontinued Active Problems Patient Care Coordination No te Formatting of this note migh t be different from the original. Care gap audit completed by Eugenia Mar RN on 09/08/2023. Pt refused wound care supply 02/28/14 from med care Pt needs hemoccult, colonoscopy screening,micral, Dm screening,LDL screening 08/02/2014 Problem Noted Date Diagnosed Date Status post amputation of lesser toe of right fo ot 10/11/2024 Pain due to onychomycosis of nail 10/10/2024 Cellulitis and abscess of toe 09/25/2024 Type 2 diabetes mellitus wit h diabetic polyneuropathy, without long-term current use of insulin 09/25/2024 Assessment & Plan (09/28/2024 1:38 PM EST): - A1C 8.7 -diabetic diet -FSBG ACHS-->reviewed 09/28 -HD SSI -monitor and adjust Assessment & Plan (09/28/2024 8:27 AM EST): - A1C 8.7 -diabetic diet -FSBG ACHS-->reviewed 09/28 -HD SSI -monitor and adjust Assessment & Plan (09/27/2024 8:19 AM EST): - A1C 8.7 -diabetic diet -FSBG ACHS-->reviewed -HD SSI -monitor and adjust Assessment & Plan (09/26/2024 8:52 AM EST): - A1C 8.7 -diabetic diet -FSBG ACHS -HD SSI -monitor and adjust Assessment & Plan (09/25/2024 6:07 PM EST): - SSI Assessment & Plan (09/25/2024 6:00 PM EST): - SSI PVD (peripheral vascular disease) 09/25/2024 Assessment & Plan (09/28/2024 4:46 PM EST): - Arterial duplex results reviewed Assessment & Plan (09/28/2024 8:27 AM EST): - Arterial duplex results reviewed Assessment & Plan (09/27/2024 8:19 AM EST): - Arterial duplex results reviewed Assessment & Plan (09/26/2024 8:52 AM EST): - Arterial duplex 06/10/23 reviewed -- repeat Assessment & Plan (09/25/2024 6:07 PM EST): - Arterial duplex 06/10/23 reviewed -- repeat Assessment & Plan (09/25/2024 6:00 PM EST): - Arterial duplex 06/10/23 reviewed -- repeat Complication of foot amputation stump 09/25/2024 Partial nontraumatic amputation of foot, left Assessment & Plan (09/28/2024 4:46 PM EST): - Hx osteomyelitis of fifth metatarsal bone s/p left foot fifth ray amputation 2022 - Stable Assessment & Plan (09/28/2024 8:27 AM EST): - Hx osteomyelitis of fifth metatarsal bone s/p left foot fifth ray amputation 2022 - Stable Assessment & Plan (09/27/2024 8:19 AM EST): - Hx osteomyelitis of fifth metatarsal bone s/p left foot fifth ray amputation 2022 - Stable Assessment & Plan (09/26/2024 8:52 AM EST): - Hx osteomyelitis of fifth metatarsal bone s/p left foot fifth ray amputation 2022 - Stable Assessment & Plan (09/25/2024 6:07 PM EST): - Hx osteomyelitis of fifth metatarsal bone s/p left foot fifth ray amputation 2022 - Stable Assessment & Plan (09/25/2024 6:00 PM EST): - Hx osteomyelitis of fifth metatarsal bone s/p left foot fifth ray amputation 2022 - Stable Diabetic ulcer of toe associ ated with type 2 diabetes mellitus, unspecified laterality, unspecified ulcer stage 09/24/2024 Assessment & Plan (09/28/2024 1:38 PM EST): - Failed outpatient treatment necessitating inpatient care - XR w/o evidence of osteo - MRI ordered by podiatry is pending - Empiric abx: Vanc/Levaquin/Flagyl based on allergies -monitor renal panel and other signs of vanc toxicity - Podiatry following--> S/p right 3rd toe amputation (DOS: 09/27/24) -Podiatry OK with discharge; pt to follow up with the Wound Care -L foot MRI: No evidence of osteomyelitis or abscess in the left foot. -R foot MRI: MRI findings are worrisome for osteomyelitis involving the third digit Assessment & Plan (09/28/2024 8:27 AM EST): - Failed outpatient treatment necessitating inpatient care - XR w/o evidence of osteo - MRI ordered by podiatry is pending - Empiric abx: Vanc/Levaquin/Flagyl based on allergies -monitor renal panel and other signs of vanc toxicity - Podiatry following--> OR in am -L foot MRI: No evidence of osteomyelitis or abscess in the left foot. -R foot MRI: MRI findings are worrisome for osteomyelitis involving the third digit Assessment & Plan (09/27/2024 8:19 AM EST): - Failed outpatient treatment necessitating inpatient care - XR w/o evidence of osteo - MRI ordered by podiatry is pending - Empiric abx: Vanc/Levaquin/Flagyl based on allergies -monitor renal panel and other signs of vanc toxicity - Podiatry following--> OR in am -L foot MRI: No evidence of osteomyelitis or abscess in the left foot. -R foot MRI: MRI findings are worrisome for osteomyelitis involving the third digit Assessment & Plan (09/26/2024 3:26 PM EST): - Failed outpatient treatment necessitating inpatient care - XR w/o evidence of osteo - MRI ordered by podiatry is pending - Empiric abx: Vanc/Levaquin/Flagyl based on allergies -monitor renal panel and other signs of vanc toxicity - Podiatry following--> OR in am -L foot MRI: No evidence of osteomyelitis or abscess in the left foot. -R foot MRI: MRI findings are worrisome for osteomyelitis involving the third digit Assessment & Plan (09/25/2024 6:07 PM EST): - Failed outpatient treatment necessitating inpatient care - XR w/o evidence of osteo - MRI ordered by podiatry is pending - Empiric abx: Vanc/Levaquin/Flagyl based on allergies - Podiatry consulted Assessment & Plan (09/25/2024 6:00 PM EST): - Failed outpatient treatment necessitating inpatient care - XR w/o evidence of osteo - ESR 15 and CRP pending - With normal sed rate will defer MRI for now - Empiric abx - Podiatry consulted Diabetic ulcer of toe of rig ht foot associated with type 2 diabetes mellitus, with fat layer exposed 07/18/2024 Acute COVID-19 09/14/2023 Acute cystitis without hematuria 09/14/2023 Other acute osteomyelitis of left foot 3 Acute osteomyelitis of left foot 08/05/2023 Type 2 diabetes mellitus with diabetic heel ulce r 07/01/2023 Encounter for postoperative wound check 06/09/20 23 Gangrene of toe of left foot, 5th 05/17/2023 Type 2 diabetes mellitus wit h complication, without long-term current use of insulin 12/05/2019 Debility 11/10/2019 Morbid obesity with BMI of 50.0-59.9, adult 10/22 Assessment & Plan (09/28/2024 4:46 PM EST): - Body mass index is 57.41 kg/m . - Complicates all aspects of care Assessment & Plan (09/28/2024 8:27 AM EST): - Body mass index is 57.41 kg/m . - Complicates all aspects of care Assessment & Plan (09/27/2024 8:19 AM EST): - Body mass index is 57.41 kg/m . - Complicates all aspects of care Assessment & Plan (09/26/2024 8:52 AM EST): - Body mass index is 57.41 kg/m . - Complicates all aspects of care Assessment & Plan (09/25/2024 6:07 PM EST): - Body mass index is 56.27 kg/m . - Complicates all aspects of care Assessment & Plan (09/25/2024 6:00 PM EST): - Body mass index is 56.27 kg/m . - Complicates all aspects of care Fall 11/10/2019 Venous insufficiency of both lower extremities 0 01/19/2019 Venous insufficiency 04/29/2017 Lymphedema 01/24/2016 Infestation by bed bug 11/14/2015 Peripheral edema Dyslipidemia Bipolar disorder Assessment & Plan (09/28/2024 1:38 PM EST): - Not on meds per med rec - Stable -Date of Admission:09/24/2024 Chief Complaint:non healing ulcers DVT Prophylaxis: Lovenox Diet: diabetic Code Status: full PT/OT Eval Status: n/a at this time Dispo:Today home Assessment & Plan (09/28/2024 8:27 AM EST): - Not on meds per med rec - Stable Date of Admission:09/24/2024 Chief Complaint:non healing ulcers DVT Prophylaxis: Lovenox Diet: NPO Code Status: full PT/OT Eval Status: n/a at this time Dispo:TBD Assessment & Plan (09/27/2024 8:19 AM EST): - Not on meds per med rec - Stable -Date of Admission:09/24/2024 Chief Complaint:non healing ulcers DVT Prophylaxis: Lovenox Diet: NPO Code Status: full PT/OT Eval Status: n/a at this time Dispo:TBD Assessment & Plan (09/26/2024 3:26 PM EST): - Not on meds per med rec - Stable -Date of Admission:09/24/2024 Chief Complaint:non healing ulcers DVT Prophylaxis: Lovenox Diet: diabetic Code Status: full PT/OT Eval Status: n/a at this time Dispo:TBD Assessment & Plan (09/25/2024 6:07 PM EST): - Not on meds per med rec - Stable Rheumatic heart disease ASHD (arteriosclerotic heart disease) Assessment & Plan (09/28/2024 4:46 PM EST): - ASA, Coreg, Lipitor Assessment & Plan (09/28/2024 8:27 AM EST): - ASA, Coreg, Lipitor Assessment & Plan (09/27/2024 8:19 AM EST): - ASA, Coreg, Lipitor Assessment & Plan (09/26/2024 8:52 AM EST): - ASA, Coreg, Lipitor Assessment & Plan (09/25/2024 6:07 PM EST): - ASA, Coreg, Lipitor Assessment & Plan (09/25/2024 6:00 PM EST): - ASA, Coreg, Lipitor CHF (congestive heart failure) Overview (05/09/2013): 1. Echo 813 Normal LV wall motion, function. EF 54% Pt feels he is becoming more intolerant to activity. MOre SOB upon minimal exertion. NO congestion, cough or new / increased LE edema. Unable to walk per his SOB, fatigue Need tighter BP control. Lisinpril BID and follow. May need to change Atenolol to Coreg Lasix 80 mg daily, may need to be BID BMP Wednesday Appt in 2 weeks Assessment & Plan (09/28/2024 1:38 PM EST): - ASA, Coreg, Lisinopril, Lipitor, Lasix - BLE edema/improving Assessment & Plan (09/28/2024 8:27 AM EST): - ASA, Coreg, Lisinopril, Lipitor, Lasix - BLE edema Assessment & Plan (09/27/2024 8:19 AM EST): - ASA, Coreg, Lisinopril, Lipitor, Lasix - BLE edema Assessment & Plan (09/26/2024 3:26 PM EST): - ASA, Coreg, Lisinopril, Lipitor, Lasix - BLE edema Assessment & Plan (09/25/2024 6:07 PM EST): - ASA, Coreg, Lisinopril, Lipitor, Lasix - Sig lower ext edema, but looks compensated Assessment & Plan (09/25/2024 6:00 PM EST): - ASA, Coreg, Lisinopril, Lipitor, Lasix - Sig lower ext edema, but looks compensated DM type 2 (diabetes mellitus, type 2) Overview (02/23/2013): Controlled Lab Results Component Value Date GFRAFRAM >60 08/26/2012 GFRNONAFRAM >60 08/26/2012 No results found for this basename: MICROALBUR, [id number], URINEMICROAL Retinopathy unavailable Neuropathy negative Hypertension complicating diabetes Assessment & Plan (09/28/2024 4:46 PM EST): -BP 93/58; meds were held this am - Lisinopril, Coreg Assessment & Plan (09/28/2024 8:27 AM EST): -BP 118/77 - Lisinopril, Coreg Assessment & Plan (09/27/2024 12:18 PM EST): -BP 93/58; meds were held this am - Lisinopril, Coreg Assessment & Plan (09/26/2024 8:52 AM EST): -BP 142/80 - Lisinopril, Coreg Assessment & Plan (09/25/2024 6:07 PM EST): - Lisinopril, Coreg Assessment & Plan (09/25/2024 6:00 PM EST): - Lisinopril, Coreg Obstructive sleep apnea Assessment & Plan (09/28/2024 4:46 PM EST): - CPAP QHS Assessment & Plan (09/28/2024 8:27 AM EST): - CPAP QHS Assessment & Plan (09/27/2024 8:19 AM EST): - CPAP QHS Assessment & Plan (09/26/2024 8:52 AM EST): - CPAP QHS Assessment & Plan (09/25/2024 6:07 PM EST): - CPAP QHS Assessment & Plan (09/25/2024 6:00 PM EST): - CPAP QHS Resolved Problems Problem Noted Date Diagnosed Date Resolved Date Cellulitis and abscess of foot, except toes 09/25/2024 10/11/2024 Pain due to onychomycosis of nail 07/18/2024 10/11/2024 Diabetic foot infection 09/14/2023 02/0 03/2024 Open wound of left foot 08/09/2023 02/0 03/2024 Diabetic ulcer of toe of lef t foot associated with diabetes mellitus due to underlying condition, with fat layer exposed 08/04/20232023 Diabetic ulcer of left heel associated with type 2 diabetes mellitus, with fat layer exposed 08/04/2023 10/27/2023 Skin ulcer of left heel with fat layer exposed 06/10/2023 10/27/2023 Status post amputation of le sser toe of left foot 06/09/2023 10/11/2024 Osteomyelitis of fifth toe of left foot 05/17/2023 10/27/2023 Diabetic ulcer of toe of lef t foot associated with type 2 diabetes mellitus, with necrosis of muscle 05/16/2023 10/27/2023 Non-pressure chronic ulcer o f left 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 12/08/2018 01/18/2020 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 12/16/2017 08/18/2018 Atherosclerosis of [place] of left leg with ulceration of other part of lower left leg 01/16/2016 08/05/2017 Atherosclerosis of [place] of right leg with ulceration of other part of lower right leg 01/16/2016 08/05/2017 Idiopathic chronic venous HT N of both legs with ulcer and inflammation 01/02/2016 08/05/2017 Venous stasis ulcers of both lower extremities 01/02/2016 08/05/2017 Diabetes mellitus with skin ulcer 08/29/2015 08/05/2017 Skin ulcer of left 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 08/29/2015 12/08/2018 Varicose veins of lower extr emities with ulcer and inflammation 04/20/2014 07/11/2015 Ulcer of other part of foot 01/04/2014 07/11/2015 Cellulitis of leg, left 11/02/201306/21 Morbid obesity 11/02/2013 11/20/2019 Overview (11/20/2019): More specific condition on problem list Stasis dermatitis 07/11/2015 Obesity 03/09/2019 Encounters Date Type Department Care Team Description 02/21/[address] [phone] Ponce, Viral V, DO Medication Refill 01/24/[address] [phone] Ponce, Viral V, DO Medication Refill 12/08/2024 11:00 AM EDT Telemedicine [address] [phone] Ponce, Viral V, DO Acute bronchitis, unspecified organism (Primary Dx); Seasonal allergic rhinitis due to pollen; Type 2 diabetes mellitus without complication, without long-term current use of insulin ([facility]) 12/08/2024 Travel from Last 3 Months Immunizations Immunization Administration Dates Next Due Influenza High Dose 05/30/2024 Influenza Virus Vaccine Quadrivalant, Flublok Influenza, Injectable, MDCK, PF, Quadrivalent Moderna SARS-CoV-2 Vaccine 12+ Yrs (Light blue b order) 05/23/2021 Pneumococcal Conjugate Vaccine 20 Valent 023 Tdap 11/01/2013 Surgical History Surgery Date Site/Laterality Comments STOMACH SURGERY 2007 gastric bypass KNEE SURGERY knee tendon repair PILONIDAL CYST EXCISION TONSILLECTOMY TOE AMPUTATION 05/18/2023 Foot/Ankle/Left LEFT FIFTH TOE AMPUTATION; Surgeon: Moe Guerrero DPM; Location: [facility] OR; Service: Podiatry IR PICC INSERTION EQUAL OR > 5 YEARS 08/07/2023 IR PICC INSERTION EQUAL OR > 5 YEARS 08/07/2023 Sujey Suresh PA-C [facility] IR FOOT SURGERY 08/09/2023 Foot/Ankle/Left LEFT FOOT INCISION AND DRAINAGE HEEL DEBRIDMENT with SKIN SUBSTITUTE; Surgeon: Ramírez Garcia DPM; Location: [facility]; Service: Podiatry Medical devices from this surgery are in the Medical Devices section. FOOT SURGERY 09/12/2023 Foot/Ankle/Left INCISION AND DRAINAGE/DEBRIDEMENT left foot; Surgeon: Angelia Vences DPM; Location: [facility] OR; Service: Podiatry FOOT SURGERY 09/15/2023 Foot/Ankle/Left LEFT FOOT FIFTH RAY AMPUTATION WITH DELAYED PRIMARY CLOSURE; Surgeon: Angelia Vences DPM; Location: [facility]; Service: Podiatry LAYER WOUND CLOSURE 09/15/2023 Left Surgeon: Angelia Vences DPM; Location: [facility]; Service: Podiatry TOE SURGERY 09/27/2024 Foot/Ankle/Right RIGHT FOOT THIRD TOE AMPUTATION; Surgeon: Angelia Vences DPM; Location: [facility]; Service: Podiatry Medical History Medical History Date Comments Unspecified sleep apnea Rheumatic disease as child CHF (congestive heart failure) ([facility]) Heart murmur Hypertension Arthritis Cancer (HCC) skin cancer face Morbid obesity ([facility]) Diabetes mellitus ([facility]) type II [place] (myocardial infarction) ([facility]) x2 Diabetic ulcer of left heel associated with type 2 diabetes mellitus, with fat layer exposed ([facility]) 08/04/2023 Diabetic ulcer of toe of lef t foot associated with diabetes mellitus due to underlying condition, with fat layer exposed ([facility]) 08/04/2023 Diabetic ulcer of toe of lef t foot associated with type 2 diabetes mellitus, with necrosis of muscle ([facility]) 05/16/2023 Diabetic foot infection ([facility]) 09/14/2023 Open wound of left foot 08/09/2023 Osteomyelitis of fifth toe of left foot Skin ulcer of left heel with fat layer exposed ( [facility]) 06/10/2023 Pain due to onychomycosis of nail 07/18/2024 Cellulitis and abscess of foot, except toes 02/2025 Status post amputation of lesser toe of left vilma t 06/09/2023 Family History Medical History Relation Name Comments Diabetes Brother High Blood Pressure Brother Aneurysm Father COPD Mother Diabetes Mother Heart Disease Mother High Blood Pressure Mother Cancer Sister Diabetes Sister Relation Name Status Comments Brother Father Mother Sister Alive Social History Tobacco Use Types Packs/Day Years Used Date Smoking Tobacco: Former Cigarettes 0 09/20/1972 - 10/21/1972 Smokeless Tobacco: Former Tobacco Cessation:Counseling Given: Not Answered Comments:SMOKED FOR 1 WEEK A TEENAGER Alcohol Use Standard Drinks/Week Comments No 0 (1 standard drink = 0.6 oz pur e alcohol) [facility] Utilities Answer Date Recorded In the past 12 months has [employer] electric, gas, oil, or water [employer] threatened to shut off services in your home? No 09/26/2024 Overall Financial Resource Strain (CARDIA) Answe r Date Recorded How hard is it for you to pa y for the very basics like food, housing, medical care, and heating? Somewhat hard 09/26/2024 PHQ-2 Answer Date Recorded PHQ-2 Total Score 2 09/26/2024 [facility] - Occupational Stress Questionnaire Answer Date Recorded [...] things needed for daily living? No 09/14/2023 [facility] Transportation Answer D ate Recorded [...] on file Sexual Orientation Not on file Obstetrics History Last Filed Vital Signs Vital Sign Reading Time Taken Comments Blood Pressure 166/89 10/10/2024 2:25 PM EST Pulse 93 10/10/2024 2:25 PM EST Temperature 36.4 C (97.5 F) 10/10/2024 2:25 PM EST Respiratory Rate 20 10/10/2024 2:25 PM EST Oxygen Saturation 93% 09/28/2024 8:52 AM EST Inhaled Oxygen Concentration - - Weight 186.7 kg (411 lb 9.6 oz) 09/26/2024 6:42 AM EST Height 180.3 cm (5' 11 ) 09/24/2024 7:32 PM EST Body Mass Index 57.41 09/24/2024 7:32 PM EST Plan of Treatment Health Maintenance Due Date Last Done Comments Colonoscopy 2004 Sigmoidoscopy 2004 Virtual Colonography 2004 Zoster (1 of 2) 2009 RSV or 60+ (1 - Ris k 60-74 years 1-dose series) 2019 FIT 05/14/2021 05/14/2020 Microalbuminuria 07/29/2021 07/29/2020, , 10/07/2018, Additional history exists Cologuard 04/18/2022 04/18/2019, 03/20/2019 Colon Cancer Screening 04/18/2022 DTaP/TDaP/Td (2 - Td or Tdap) 11/01/2023 11/01/2013, 09/20/2011 COVID-19 Vaccine (2 - 2023-2 5 season) 2024 05/23/2021 AAA Screening 2024 Hemoglobin A1c 03/25/2025 09/25/2024, 05/21, 05/30/2024, Additional history exists Lipids 05/30/2025 05/30/2024, 05/21, 07/29/2020, Additional history exists Wellness Exam Medicare 05/31/2025 05/30/2024 Diabetic Eye Exam 06/21/2025 06/21/2023, 02/18/2018 Hepatitis C Screening Completed 10/07/2018 Pneumococcal Vaccine 50+ Completed 08/08/2023 Influenza Vaccine Completed 05/30/2024, , 07/29/2020, Additional history exists Hepatitis B Vaccine Aged Out No longe r eligible based on patient's age to complete this topic Meningococcal B Vaccine Aged Out No l onger eligible based on patient's age to complete this topic Goals Goal Patient Goal Type Associated Problems [...] 11:51 AM EST) No [place] [employer] Medical Devices Implanted Type Area Loan Operations Manager Device Identifier Shelf Expiration Date Model / Serial / Lot Graft Tissue Myriad Thin 5 X 5cm - [id number] Implanted:Qty: 1 on 08/09/2023 by Ramírez Garcia DPM at [facility] Left: Foot [employer] 12/18/2025 [id number] / / [id number] Procedures Procedure Name Priority Date/Time Associated Diagnosis Comments HEMOGLOBIN A1C Routine 09/25/2024 11:51 AM EST LIPID PANEL REFLEX Routine 05/30/2024 3: 15 PM EDT Dyslipidemia POCT URINE MICROALBUMIN Routine 07/29/2020 11:12 AM EST Type 2 diabetes mellitus with complication, without long-term current use of insulin (HCC) HM FIT Routine 05/14/2020 HCV ANTIBODY SCREEN W/ REFLEX Routine 10/07/2018 11:48 AM EST Need for hepatitis C screening test DIABETES EYE EXAM Routine 02/18/2018 from Last 3 Months or Most Recently Relevant to Health Maintenance Results * (ABNORMAL) HEMOGLOBIN A1C (09/25/2024 11:51 AM EST) Hgb A1C 8.7(H) 4.2 - 5.6 % 09/25/2024 1:42 PM EST [facility] Est. Avg Glucose 203 mg/dL 09/25/2024 1:42 PM EST [facility] Blood VENOUS BLOOD / Unknown Venipuncture / Unknown 09/25/2024 11:51 AM EST 09/25/2024 11:55 AM EST Narrative [facility] - 09/25/2024 1:42 PM EST REFERENCE RANGE: Normal: 4.0-5.6% Pre-diabetes: 5.7-6.4% Provisional diagnosis of diabetes: >6.4% Hgb F>10% and anything which shortens red cell survival, such as hemolytic anemia, or unstable hemoglobin variants such as HbSS, HbSC, or HbCC, will lower the HbA1c value associated with a given level of glycemic control. us Carolynn Thomas MD CHEMISTRY ORDERABLES Final R esult [employer] [address] [place] [address], [address] [place] [id number] [facility] [address] [place] [address] * (ABNORMAL) LIPID PANEL REFLEX (05/30/2024 3:15 PM EDT) Cholesterol 118 <200 mg/dL 05/30/2024 9:22 PM EDT [facility] [employer], [facility] Comment: < 200 Desirable 200 - 239 Borderline High >= 240 High Triglyceride 93 <150 mg/dL 05/30/2024 9:22 PM EDT [facility] [employer], [facility] Comment: < 150 Normal 150 - 199 Borderline High 200 - 499 High >= 500 Very High HDL 35(L) >=40 mg/dL 05/30/2024 9:22 PM EDT [facility] [employer], [facility] Comment: > 60 Optimal 40 - 60 Acceptable < 40 Low LDL Calculated 65 <100 mg/dL 05/30/2024 9:22 PM EDT [facility] [facility] Non-HDL-C Calculated 83 <=129 mg/dL 05/30/2024 9:22 PM EDT [facility] [employer], [facility] Comment: <130 Desirable 130-159 Above Desirable 160-189 Borderline High 190-219 High >= 220 Very High Fasting Specimen? No None 024 9:22 PM EDT [facility] Blood VENOUS BLOOD / Unknown Venipuncture / Unknown 05/30/2024 3:15 PM EDT 05/30/2024 3:15 PM EDT us Viral Ponce V, DO CHEMISTRY ORDERABLES Final Res ult [facility] [employer], [address] , [place] [address] [facility] [address] [place], [place] [id number] * (ABNORMAL) POCT URINE MICROALBUMIN TELCOR (07/29/2020 11:12 AM EST) [employer], Ur 10 mg/L 07/29/2020 11:14 AM EST SEP DOC Creatinine Urine 50 mg/dL 07/29/2020 11:14 AM EST SEP DOC [employer]. Ratio 30 - 300(A) <30 mg/g 07/29/2020 11:14 AM EST SEP DOC Urine STRUCTURE OF URINARY TRACT PROPER / Unknown 07/29/2020 11:12 AM EST 07/29/2020 11:14 AM EST us Viral Ponce V, DO POINT OF CARE TEST ORDERABLES Final Result Performing Organization Address City/[facility]/ZIP Co de Phone Number [facility] [address] CLAUDIA Katz [phone] * FIT (05/14/2020) Fecal Immunochemical Test Negative Negative SEP OFFICE Historical Provider HEALTH MAINTENANCE Final Res ult SEP OFFICE * HEPATITIS C ANTIBODY - SCREENING (10/07/2018 11:48 AM EST) Hep C Ab Non-Reactiv e Non-Reacti ve 10/07/2018 9:07 PM EST [facility] Blood VENOUS BLOOD / Unknown Venipuncture / Unknown 10/07/2018 11:48 AM EST 10/07/2018 11:48 AM EST us Viral Ponce V, DO HEMATOLOGY ORDERABLES Final Re sult Performing Organization Address City/[facility] Co de Phone Number [facility] [address] [place] [address] , [place] [address] * DIABETES EYE EXAM (02/18/2018) Left Diabetic Retinopathy Not Present Present/Not Present SEP OFFICE Comment:[facility] Right Diabetic Retinopathy Not Present Present/Not Present SEP OFFICE 02/18/2018 Historical Provider HEALTH MAINTENANCE Final Res ult SEP OFFICE from Last 3 Months or Most Recently Relevant to Health Maintenance Insurance [employer] MEDICARE PPO MR HU[employer] MEDICARE PPO MR * Guarantor: Suzan Whitehead Account Type Relation to Patient Date of Phone Billing Address [place] Personal Family Self [address] [facility] Advance Directives For more information, please contact: [phone] * Full Code (Latest Code Status on File) Date Activated Date Inactivated Comments 09/24/2024 7:37 PM 09/28/2024 8:51 PM * Full Code Date Activated Date Inactivated Comments 09/10/2023 7:58 PM 09/19/2023 7:41 PM * Full Code Date Activated Date Inactivated Comments 08/11/2023 12:59 PM 08/11/2023 10:02 PM * Full Code Date Activated Date Inactivated Comments 06/09/2023 9:48 PM 06/14/2023 6:49 PM * Full Code Date Activated Date Inactivated Comments 06/09/2023 7:40 PM 06/09/2023 9:48 PM Care Teams Gas Appliance Mechanic Relationship Specialty Start Date End Date Sunny Ponce V, DO [address] [place] [phone] PCP - General Family Medicine 07/22/11
--- OUTSIDE RECORDS SUMMARY | 2025-02-23 17:03 | XMS_ITS | Encounter Summary ---
Author [place] [address] Care Team Providers Care Senior Construction Estimator Name Role Phone Ponce V, DO, Viral Primary Care Provider [phone] Miriam Muller BA, COS Unavailable Unavailable Miriam Muller BA, COS Unavailable Unavailable Rajwinder Landaverde RN Unavailable Unavailable Simran Hdz, COS Unavailable Unavail able Qi Mauricio RN Unavailable Unavailable Jenny Ortega RN Unavailable Unavail able Encounter Details Date Type Department Care Team (Late st Contact Info) Description 08/04/2018 Patient Outreach [facility] [address] [place] [address] Ponce, Viral V, DO [address] [place] [address] Social History Tobacco Use Types [...] as of this encounter Results * (ABNORMAL) LIPID SCREEN (10/07/2018 11:48 AM EST) Pathologist [facility] Cholesterol 102 <=200 mg/dL 10/07/2018 8:27 PM EST [facility] Comment: < 200 Desirable 200 - 239 Borderline High >= 240 High Triglyceride 107 <=150 mg/dL 10/07/2018 8:27 PM EST [facility] Comment: < 150 Normal 150 - 199 Borderline High 200 - 499 High >= 500 Very High HDL 34(L) >=40 mg/dL 10/07/2018 8:27 PM EST [facility] Comment: > 60 Optimal 40 - 60 Acceptable < 40 Low LDL Calculated 47 <=100 mg/dL 10/07/2018 8:27 PM EST [facility] Comment: < 100 Optimal 100 - 129 Near or above optimal 130 - 159 Borderline High 160 - 189 High >= 190 Very High Non-HDL-C Calculated 68 <=129 mg/dL 10/07/2018 8:27 PM EST [facility] Comment: <130 Desirable 130-159 Above Desirable 160-189 Borderline High 190-219 High >= 220 Very High Blood VENOUS BLOOD / Unknown Venipuncture / Unknown 10/07/2018 11:48 AM EST 10/07/2018 11:48 AM EST us Viral Ponce V, DO CHEMISTRY ORDERABLES Final Res ult Performing Organization Address [facility]/ZIP Co de Phone Number [facility] [address] [facility] , [place] [address] * (ABNORMAL) HEPATIC FUNCTION PANEL (10/07/2018 11:48 AM EST) Total Protein 7.0 6.4 - 8.3 gm/dL 10/07/2018 8:27 PM EST [facility] Albumin 3.4(L) 3.5 - 5.2 gm/dL 10/07/2018 8:27 PM EST [facility] Bili Direct <0.2 0.0 - 0.3 mg/dL 10/07/2018 8:27 PM EST [facility] Bili Total 0.3 0.1 - 1.4 mg/dL 10/07/2018 8:27 PM EST [facility] AST 12 <=40 IU/L 10/07/2018 8:27 PM EST [facility] ALT 19 <=41 IU/L 10/07/2018 8:27 PM EST [facility] Alk Phos 126 40 - 129 IU/L 10/07/2018 8:27 PM EST [facility] Blood VENOUS BLOOD / Unknown Venipuncture / Unknown 10/07/2018 11:48 AM EST 10/07/2018 11:48 AM EST us Viral Ponce V, DO CHEMISTRY ORDERABLES Final Res ult Performing Organization Address [facility]/ZIP Co de Phone Number [facility] [address] [facility] , [place] [address] * (ABNORMAL) HEMOGLOBIN A1C (10/07/2018 11:48 AM EST) Hgb A1C 8.0(H) 4.2 - 5.6 % 10/07/2018 8:32 PM EST [facility] Est. Avg Glucose 183 mg/dL 10/07/2018 8:32 PM EST [facility] Blood VENOUS BLOOD / Unknown Venipuncture / Unknown 10/07/2018 11:48 AM EST 10/07/2018 11:48 AM EST Narrative [facility] - 10/07/2018 8:32 PM EST REFERENCE RANGE: Normal: 4.0-5.6% Pre-diabetes: 5.7-6.4% Provisional diagnosis of diabetes: >6.4% Hgb F>10% and anything which shortens red cell survival, such as hemolytic anemia, or unstable hemoglobin variants such as HbSS, HbSC, or HbCC, will lower the HbA1c value associated with a given level of glycemic control. us Viral Ponce V, DO CHEMISTRY ORDERABLES Final Res ult [facility] [address] [facility] , [place] [address] * (ABNORMAL) BASIC METABOLIC PANEL (10/07/2018 11:48 AM EST) Sodium 139 136 - 145 mmol/L 10/07/2018 8:27 PM EST [facility] Potassium 4.3 3.5 - 5.0 mmol/L 10/07/2018 8:27 PM EST [facility] Chloride 100 98 - 107 mmol/L 10/07/2018 8:27 PM EST [facility] Total CO2 26 22 - 29 mmol/L 10/07/2018 8:27 PM EST [facility] Anion Gap 13 7 - 16 mmol/L 10/07/2018 8:27 PM EST [facility] Calcium 9.3 8.6 - 10.2 mg/dL 10/07/2018 8:27 PM EST [facility] Glucose Lvl 250(H) 74 - 100 mg/dL 10/07/2018 8:27 PM EST [facility] BUN 15 6 - 20 mg/dL 10/07/2018 8:27 PM EST [facility] Creatinine 0.92 0.67 - 1.30 mg/dL 10/07/2018 8:27 PM EST [facility] GFR Afr Am 105 >=60 mL/min/1.7 3 m2 10/07/2018 8:27 PM EST [facility] GFR Non Afr Am 91 >=60 mL/min/1.7 3 m2 10/07/2018 8:27 PM EST [facility] Comment: This estimated GFR was calculated using CKD-EPI equation which is modified based on ethnicity for Non Americans and Americans. Both results are reported since it is not always possible to determine the patient's ethnicity. This equation should only be used for individuals 18 and older. It has not been validated for use with the elderly (>70 years), women, or in some racial or ethnic subgroups, such as Hispanics. The equation will be less accurate in people with differences in nutritional status or muscle mass. 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 (HCC) documented in this encounter Orders Lab Orders Without Results Count Last Ordered D ate First Ordered Date MICROALBUMIN/CREATININE RATIO URINE 1 08/04 documented in this encounter Additional Health Concerns Infection Onset Date Last Indicated Resolved Time Ectoparasite (Lice, Bed Bugs , Scabies) 06/09/2023 06/10/2023 06/30/2023 10:12 PM EDT R/O COVID-19 09/10/2023 09/10/2023 09/10/2023 4:21 PM EST COVID-19 09/10/2023 09/10/2023 09/30/2023 10:1 2 PM EST Ectoparasite (Lice, Bed Bugs , Scabies) 09/28/2024 09/28/2024 10/18/2024 10:12 PM EST documented as of this encounter Care Teams Senior Construction Estimator Relationship Specialty Start Date End Date Sunny Ponce DO [address] [place] [phone] PCP - General Family Medicine 07/22/11 Miriam Muller BA, COS Case Base Wad Operator Adjuster 03/07/1902/18 Miriam Muller BA, COS Case Base Wad Operator Adjuster 03/09/1902/19 Rajwinder Landaverde, RN Business Development Associate 11/20/19 01/28/20 Simran Hdz, BS, COS Case Base Wad Operator Adjuster 01/15/23 02/02/23 Qi Mauricio, RN Business Development Associate Registered Nurse 09/21/23 10/19/23 Jenny Ortega, RN Business Development Associate 09/29/24 10/01/24 documented as of this encounter
--- NOTE | 2025-02-23 18:16 | XR_ITS ---
PROCEDURE INFORMATION: Exam: XR Chest Exam date and time: 02/23/2025 6:21 PM Age: 64 years old Clinical indication: Dyspnea TECHNIQUE: Imaging protocol: Radiologic exam of the chest. Views: 1 view. Total images: 1 COMPARISON: CR XR CHEST PORTABLE 02/11/2020 12:53 PM FINDINGS: Lungs: Left basilar opacification/consolidation. Right lung is relatively clear. Cannot exclude mild central vascular congestion. Pleural spaces: Probable left pleural effusion. No pneumothorax. Heart/Mediastinum: Mild cardiomegaly. No mediastinal widening. Vasculature: Atherosclerotic aortic arch. Bones/joints: Partially visualized moderate degenerative changes thoracic spine. Other findings: Lordotic position. Notes: Limited by portable technique and large body habitus with considerable attenuation artifact at the lung bases. IMPRESSION: 1. Left basilar opacification/consolidation concerning for pneumonia and or atelectasis. Cannot exclude left pleural effusion. 2. Suspect mild central vascular congestion.
--- NOTE | 2025-02-23 18:16 | HMH.EDGENADL ---
Discharge Plan Disposition Patient Disposition: Admitted Prescriptions Prescriptions: No Action furosemide [Lasix] 40 mg tablet 40 mg PO ONCE glipizide 10 mg tablet 10 mg PO BID atorvastatin [Lipitor] 80 mg tablet 80 mg PO ONCE lisinopril 40 mg tablet 40 mg PO ONCE metformin 850 mg tablet 850 mg PO BID potassium chloride 10 mEq tablet extended release 10 meq PO BID Qty: 60 0RF carvedilol 25 mg tablet 25 mg PO BID Qty: 60 6RF aspirin 325 MG Tablet 325 mg PO DAILY azithromycin 250 MG tablet 250 mg PO UD DOSE PK Qty: 6 0RF Rx Instructions: Take two (2) tablets today, then one (1) tablet days #2 thru #5 doxycycline hyclate 100 MG capsule 100 mg PO BID 7 Days Qty: 14 0RF Referrals Follow up/Referrals: Provider,Referral, MD [Primary Care Provider, Medical] - See instructions Clinical Impressions Clinical Impression: Anasarca, Acute dyspnea, Unable to care for self Print Language Print Language: Croatian Discharge ED Provider: Anurag Chen General Adult HPI General Chief complaint: Weakness Stated complaint: SOA, weakness Time Seen by Provider: 02/23/25 17:48 Mode of Arrival: EMS Source of Information: Patient and EMS Description of Symptoms (Recalled from ER Triage Doc. by RN): pt presents to the ED after EMS was called out for generalized weakness. per EMS pt reported his feet were very weak but no numbness noted. pt states he was up walking to his chair and he got really weak and got short of breath. EMS placed the pt on 2L prior to arrival. On arrival pt was taken off 2L and 02 was 95%. History of Present Illness HPI narrative: 64-year-old who is morbidly obese has history of sleep apnea wears CPAP at home at night who comes in primarily because he has had increasing shortness of breath and cannot care for himself at home. States his is severely debilitated at home and his son is the only person who can care for them and is having a hard time. States that he cannot even wash himself or go to the bathroom on his own typically walks with a walker but is to the point where he basically cannot function. Has no home health at the moment. States his overall swelling has worsened as well. Related Data Home Medications ?Medication ?Instructions ?Recorded ?Confirmed atorvastatin 80 mg tablet (Lipitor) 80 mg PO ONCE Cholesterol 10/04/17 12/17/18 furosemide 40 mg tablet (Lasix) 40 mg PO ONCE CAD 10/04/17 12/17/18 glipizide 10 mg tablet 10 mg PO BID Diabetes 10/04/17 12/17/18 lisinopril 40 mg tablet 40 mg PO ONCE CAD 10/04/17 12/17/18 metformin 850 mg tablet 850 mg PO BID Diabetes 10/04/17 12/17/18 aspirin 325 mg tablet,delayed 325 mg PO DAILY CAD 12/17/18 12/17/18 release Previous Rx's ?Medication ?Instructions ?Recorded potassium chloride 10 mEq 10 meq PO BID Diet supplement #60 02/22/19 tablet,extended release tabs carvedilol 25 mg tablet 25 mg PO BID CAD #60 tabs 08/01/19 azithromycin 250 mg tablet 250 mg PO UD DOSE PK #6 tabs 02/11/20 doxycycline hyclate 100 mg capsule 100 mg PO BID 7 days #14 caps 02/11/20 Allergies Allergy/AdvReac Type Severity Reaction Status Date / Time cephalexin (From KEFLEX) Allergy Unknown Verified 12/17/18 19:43 codeine (CODEINE) Allergy Unknown Verified 12/17/18 19:43 Penicillins (PENICILLINS) Allergy Unknown Verified 12/17/18 19:43 [facility] Disclaimer: The information contained in this section may have been updated after the patient was seen, as this information can be updated by other users. Social History Smoking Status: Never smoker alcohol intake: never current occupational status: other Travel in the last 8 weeks?: None Have you lived/traveled outside US in past 30 days?: No Contact w/someone who lives/traveled outside US past 30 days?: No Exposure to someone with infectious disease in past 14 days?: No Do you have a fever (greater than 100.4 F or 38 C)?: No Have you tested positive for COVID-19?: No Exposed to someone with COVID-19 in past 14 days?: No Do you have a sore throat?: No Do you have a cough?: No Do you have any weakness?: No Do you have any diarrhea?: No Are you experiencing any unusual bleeding?: No Do you have any muscle aches/pain?: No Do you have any abdominal pain?: No Are you experiencing loss of taste or smell?: No Other Medical History Have you received the Flu Vaccine for this season: No Have you received the Pneumonia Vaccine: No ROS Obtained: Yes All systems reviewed & no additional complaints except as documented Physical Exam General General appearance: other (In tears regarding the knowledge of the fact that he cannot care for himself) Respiratory Respiratory exam: Present normal lung sounds bilaterally Cardiovascular Cardiovascular exam: Present regular rate Neurological Exam Neurological exam: Present alert and oriented X3 Skin Skin exam: Present other (Diffuse anasarca) Medical Decision Making Medical Records Screening: Per USPSTF and CDC recommendations, given the prevalence of disease in our region, it is our hospital?s policy to screen for HIV and viral Hepatitis for all patients aged 18 and over and those with ongoing risk factors. Fito Inquiry Pt receiving controlled substance: No Vital Signs: 02/23/25 16:45 02/23/25 16:59 02/23/25 17:00 Temperature 98.7 F 98.7 F Temperature Source Oral Oral Pulse Rate 75 67 Pulse Rate [Right] 75 Respiratory Rate 25 H 25 H Blood Pressure 142/84 H 129/77 Blood Pressure [Right Arm] 142/84 H Blood Pressure Mean [Right Arm] 103 Blood Pressure Source Automatic Cuff Blood Pressure Source [Right Arm] Automatic Cuff Blood Pressure Position Supine Blood Pressure Position [Right Arm] Supine 02 Sat by Pulse Oximetry 95 95 91 L Oxygen Delivery Method Room Air Room Air 02/23/25 17:07 02/23/25 17:30 02/23/25 18:49 Temperature Temperature Source Pulse Rate 67 69 Pulse Rate [Right] Respiratory Rate 17 Blood Pressure 141/77 H 125/62 Blood Pressure [Right Arm] Blood Pressure Mean [Right Arm] Blood Pressure Source Automatic Cuff Blood Pressure Source [Right Arm] Blood Pressure Position Supine Blood Pressure Position [Right Arm] 02 Sat by Pulse Oximetry 95 94 L 98 Oxygen Delivery Method Room Air Room Air 02/23/25 19:00 Temperature Temperature Source Pulse Rate 70 Pulse Rate [Right] Respiratory Rate Blood Pressure 121/78 Blood Pressure [Right Arm] Blood Pressure Mean [Right Arm] Blood Pressure Source Blood Pressure Source [Right Arm] Blood Pressure Position Blood Pressure Position [Right Arm] 02 Sat by Pulse Oximetry 99 Oxygen Delivery Method Lab Data Lab results reviewed: Yes I reviewed the patient's lab results. Lab Results 02/23/25 17:53: WBC 5.7, RBC 4.93, Hgb 11.6 L, Hct 39.9 L, MCV 80.9, MCH 23.5 L, MCHC 29.1 L, RDW 16.9, Plt Count 246, MPV 9.0, Neut % (Auto) 71.2, Lymph % (Auto) 14.7, [place] % (Auto) 10.2 H, Eos % (Auto) 3.0, Baso % (Auto) 0.7, Neut # (Auto) 4.0, Lymph # (Auto) 0.8, [place] # (Auto) 0.6, Eos # (Auto) 0.2, Baso # (Auto) 0.0, D-Dimer 0.69 H, Sodium 135 L, Potassium 4.1, Chloride 99, Carbon Dioxide 34 H, Anion Gap 6.1, BUN 16, Creatinine 1.10, Estimated Creat Clear 71, Estimated GFR 67, Est GFR ( Amer) 81, Glucose 136 H, Calcium 8.6, Total Bilirubin 0.8, AST 21, ALT 17, Alkaline Phosphatase 110, Troponin I 0.05 H, NT-Pro-B Natriuret Pep 7990 H, Total Protein 7.0, Albumin 3.6, Globulin 3.4 H, Albumin/Globulin Ratio 1.1, TSH 1.95, HIV Ag/Ab Combo Qual Negative 02/23/25 17:53 02/23/25 17:53 Orders (Tests/Meds): ORDERS Category Date Time Status CXR --portable [XR chest portable] Stat Exams 02/23/25 18:16 Completed BNP [NT Pro Brain Natriuretic Pep.] Stat Lab 02/23/25 17:53 Completed CBC w/Auto Diff [Complete Blood Count Auto Diff] Stat Lab 02/23/25 17:53 Completed CMP [Comprehensive Metabolic Panel] Stat Lab 02/23/25 17:53 Completed D-Dimer Stat Lab 02/23/25 17:53 Completed HIV Combo Stat Lab 02/23/25 17:53 Completed Hepatitis C Ab Qual. W/ RFX Stat Lab 02/23/25 17:53 Received TSH [Thyroid Stimulating Hormone] Stat Lab 02/23/25 17:53 Completed Trop I [Troponin I] Stat Lab 02/23/25 17:53 Completed Troponin I Q3H Lab 02/23/25 21:30 Ordered Troponin I Q3H Lab 02/24/25 00:30 Ordered Medical Decision Narrative: Morbidly obese and debilitated 64-year-old male with history of decompensated heart failure and sleep apnea with diffuse anasarca and inability to care for himself. Will work him up for dyspnea but this seems to be chronic in nature and he will need to be admitted for placement. Chest x-ray performed I personally interpreted this shows a poor inspiratory film with no definitive focal consolidation. Labs remarkable for significantly elevated BNP and mildly elevated troponin likely chronic in nature from chronic myocardial injury and heart failure. Otherwise labs essentially unremarkable from emergency standpoint patient will need to be admitted for diuresis and for case management to get involved in his placement. I spoke with hospital medicine who agreed to admit for further management. Critical Care Critical Care Time Critical Care Time: No
[2025-02-23 18:39] LABS: Chloride 99 mmol/L (98-107)
[2025-02-23 18:40] LABS: Albumin Level 3.6 g/dl (3.5-5.0); Potassium 4.1 mmoL/L (3.5-5.1); Sodium 135 mmol/L (136-145)
[2025-02-23 18:41] LABS: D-Dimer 0.69 ug/mL (0.0-0.5)
[2025-02-23 18:42] LABS: Alanine Aminotransferase 17 U/L (12-78); Anion Gap 6.1 mEq/L (5-15); Aspartate Amino Transferase 21 U/L (17-59); Blood Urea Nitrogen 16 mg/dl (9-20); Carbon Dioxide 34 mmol/L (22.0-30.0); Creatinine Clearance Estimated 71 mL/min (50-200); Estimated Glomerular Filt Rate 67 ml/min (>60); GFR (African American) 81 ML/MIN (>60)
[2025-02-23 18:43] LABS: Albumin/Globulin Ratio 1.1 (1.1-1.8); Alkaline Phosphatase 110 U/L (38-126); Bilirubin,Total 0.8 mg/dl (0.2-1.3); Calcium 8.6 mg/dl (8.4-10.2); Globulin 3.4 g/dL (1.3-3.2); Glucose 136 mg/dl (74-100)
--- NOTE | 2025-02-23 18:45 | ECG_ITS ---
APPROVED REPORT Exam: Resting ECG HR:67 bpm ECG Measurements Heart Rate 67 AXES TN 110 P -26 QRSd 54 QRS 163 QT 376 T 52 QTc 392 Conclusion SINUS RHYTHM WITH SHORT TN INTERVAL LEFT ATRIAL ENLARGEMENT [-0.15mV P-WAVE IN V1/V2] RIGHT AXIS DEVIATION [QRS AXIS > 100] LOW QRS VOLTAGE [QRS DEFLECTION < 0.5/1.0 mV IN LIMB/CHEST LEADS] ANTERIOR MYOCARDIAL INFARCTION , OF INDETERMINATE AGE [40+ ms Q WAVE AND/OR ST/T ABNORMALITY IN V3/V4] MARKED ST ELEVATION, CONSIDER LATERAL INJURY [MARKED ST ELEVATION W/O NORMALLY INFLECTED T-WAVE IN I/aVL/V5/V6] MARKED ST ELEVATION, CONSIDER INFERIOR INJURY [MARKED ST ELEVATION W/O NORMALLY INFLECTED T-WAVE IN II/aVF] ACUTE [place] UNCONFIRMED REPORT Electronically signed by : Mike Cunningham MD 02/26/2025 08:43:51
[2025-02-23 18:54] LABS: Basophils % 0.7 % (0.1-2.0); Eosinophils # 0.2 Kmm3 (0.0-0.4); Hematocrit 39.9 % (42.0-52.0); Hemoglobin 11.6 g/dL (14.1-18.0); Immature Granulocytes # 0.01 10^3uL; Immature Granulocytes % 0.2 %; Lymphocytes # 0.8 K/mm3 (0.7-4.5); Lymphocytes % 14.7 % (10-50); Mean Corpuscular HGB Conc 29.1 g/dL (31.8-35.4); Mean Corpuscular Hemoglobin 23.5 pg (27.0-31.2); Mean Corpuscular Volume 80.9 fl (80-94); Monocytes # 0.6 K/mm3 (0.1-1.0); Monocytes % 10.2 % (1.7-9.3); Neutrophils % 71.2 % (37.0-80.0); Nucleated Red Blood Cells # 0 10^3/uL; Nucleated Red Blood Cells % 0 %; Platelet Count 246 K/mm3 (142-424); Red Blood Count 4.93 M/mm3 (4.60-6.20); Red Cell Distribution Width 16.9 % (11.5-17.5); Red Cell Distribution Width-SD 49.7 fL; White Blood Count 5.7 K/mm3 (4.8-10.8)
[2025-02-23 19:03] LABS: NT Pro Brain Natriuretic Pep. 7990 pg/mL (0-125); Troponin I 0.05 ng/ml (0.00-0.034)
[2025-02-23 19:21] LABS: Thyroid Stimulating Hormone 1.95 uIU/mL (0.465-4.68)
[2025-02-23 19:29] LABS: HIV Combo NEGATIVE (Negative)
[2025-02-23 19:37] LABS: Hepatitis C Ab Qual. W/ RFX NEGATIVE (Negative)
--- NOTE | 2025-02-23 19:41 | EXP.HP ---
History of Present Illness *Admission Date: 02/23/25 *Reason for visit:: Heart failure *History of present illness: 64-year-old who is morbidly obese has history of sleep apnea wears CPAP at home at night who comes in primarily because he has had increasing shortness of breath and cannot care for himself at home. States his is severely debilitated at home and his son is the only person who can care for them and is having a hard time. States that he cannot even wash himself or go to the bathroom on his own typically walks with a walker but is to the point where he basically cannot function. Has no home health at the moment. States his overall swelling has worsened as well. His inability to take care of himself as well as swelling wanted to be seen for evaluation. He is unable to ambulate. He is unable to take care of himself. He is short of breath. he cannot complete ADLs. No other concerns or complaints History independently obtained. Laboratory and diagnostic studies independently interpreted. Prior records reviewed. Case discussed with emergency room physician. [facility] Disclaimer: The information contained in this section may have been updated after the patient was seen, as this information can be updated by other users. Social History Smoking Status: Never smoker alcohol intake: never current occupational status: other Travel in the last 8 weeks?: None Have you lived/traveled outside US in past 30 days?: No Contact w/someone who lives/traveled outside US past 30 days?: No Exposure to someone with infectious disease in past 14 days?: No Do you have a fever (greater than 100.4 F or 38 C)?: No Have you tested positive for COVID-19?: No Exposed to someone with COVID-19 in past 14 days?: No Do you have a sore throat?: No Do you have a cough?: No Do you have any weakness?: No Do you have any diarrhea?: No Are you experiencing any unusual bleeding?: No Do you have any muscle aches/pain?: No Do you have any abdominal pain?: No Are you experiencing loss of taste or smell?: No Other Medical History Have you received the Flu Vaccine for this season: No Have you received the Pneumonia Vaccine: No Review of Systems Review of Systems Review of systems:: pertinent systems reviewed and negative unless documented below Meds Home Medications and Allergies Home Medications ?Medication ?Instructions ?Recorded ?Confirmed ?Type atorvastatin 80 mg tablet (Lipitor) 80 mg PO ONCE Cholesterol 10/04/17 12/17/18 History furosemide 40 mg tablet (Lasix) 40 mg PO ONCE CAD 10/04/17 12/17/18 History glipizide 10 mg tablet 10 mg PO BID Diabetes 10/04/17 12/17/18 History lisinopril 40 mg tablet 40 mg PO ONCE CAD 10/04/17 12/17/18 History metformin 850 mg tablet 850 mg PO BID Diabetes 10/04/17 12/17/18 History aspirin 325 mg tablet,delayed 325 mg PO DAILY CAD 12/17/18 12/17/18 History release potassium chloride 10 mEq 10 meq PO BID Diet supplement #60 02/22/19 Rx tablet,extended release tabs carvedilol 25 mg tablet 25 mg PO BID CAD #60 tabs 08/01/19 Rx azithromycin 250 mg tablet 250 mg PO UD DOSE PK #6 tabs 02/11/20 Rx doxycycline hyclate 100 mg capsule 100 mg PO BID 7 days #14 caps 02/11/20 Rx New Prescriptions to Start Prescriptions: Allergies Allergy/AdvReac Type Severity Reaction Status Date / Time cephalexin (From KEFLEX) Allergy Unknown Verified 12/17/18 19:43 codeine (CODEINE) Allergy Unknown Verified 12/17/18 19:43 Penicillins (PENICILLINS) Allergy Unknown Verified 12/17/18 19:43 Exam Data for Last 24 hours Vital signs and Labs for Last 24 Hours: Temp Pulse Resp BP Pulse Ox O2 Del Method 98.7 F 70 17 121/78 99 Room Air 02/23/25 16:59 02/23/25 19:00 02/23/25 18:49 02/23/25 19:00 02/23/25 19:00 02/23/25 18:49 Laboratory Results - last 24 hr 02/23/25 17:53: WBC 5.7, RBC 4.93, Hgb 11.6 L, Hct 39.9 L, MCV 80.9, MCH 23.5 L, MCHC 29.1 L, RDW 16.9, Plt Count 246, MPV 9.0, Neut % (Auto) 71.2, Lymph % (Auto) 14.7, Levy % (Auto) 10.2 H, Eos % (Auto) 3.0, Baso % (Auto) 0.7, Neut # (Auto) 4.0, Lymph # (Auto) 0.8, Levy # (Auto) 0.6, Eos # (Auto) 0.2, Baso # (Auto) 0.0, D-Dimer 0.69 H, Sodium 135 L, Potassium 4.1, Chloride 99, Carbon Dioxide 34 H, Anion Gap 6.1, BUN 16, Creatinine 1.10, Estimated Creat Clear 71, Estimated GFR 67, Est GFR ( Amer) 81, Glucose 136 H, Calcium 8.6, Total Bilirubin 0.8, AST 21, ALT 17, Alkaline Phosphatase 110, Troponin I 0.05 H, NT-Pro-B Natriuret Pep 7990 H, Total Protein 7.0, Albumin 3.6, Globulin 3.4 H, Albumin/Globulin Ratio 1.1, TSH 1.95, HCV Ab NADIRA w/Rflx PCR Qn Negative, HIV Ag/Ab Combo Qual Negative I & O for Last 24 hours: Intake & Output 02/20/25 02/21/25 02/22/25 02/23/25 23:59 23:59 23:59 23:59 Weight 193.214 kg Constitutional Constitutional: mild distress and morbidly obese *Routine HEENT Exam Head: Present normocephalic Eye: Present EOMI and PERRL ENT: Present mucous membranes moist *Routine Neck Exam Neck: Present supple; Absent lymphadenopathy *Routine Respiratory Exam Respiratory: Present decreased breath sounds *Routine Cardiovascular Exam Cardiovascular: Present RRR *Routine Abdominal Exam Abdominal: Present soft and normoactive bowel sounds; Absent tenderness *Routine Rectal Exam Rectal:: deferred *Routine Genitalia Exam Genitalia:: deferred *Routine Extremities Exam Extremities: Present edema and tenderness; Absent cyanosis or clubbing *Routine Skin Exam Skin: Present warm; Absent rash *Routine Neurological Exam Neurological: Present alert and oriented X3 Assessment and Plan *Assessment and plan (1) Unable to care for self: Status: Acute Category: Medical Code(s): Z78.9 - Other specified health status (2) Acute dyspnea: Status: Acute Category: Medical Code(s): R06.00 - Dyspnea, unspecified (3) Anasarca: Status: Acute Category: Medical Code(s): R60.1 - Generalized edema (4) Fall: Status: Acute Qualifiers: Encounter type: initial encounter Qualified Code(s): W19.XXXA - Unspecified fall, initial encounter Category: Medical Code(s): W19.XXXA - Unspecified fall, initial encounter Plan 64-year-old morbidly obese and with heart failure presenting to inability to self manage and severe anasarca Heart failure - Echo - Telemetry - IV Lasix 40 mg twice daily - Strict I's and O's - initiate GDMT following echo Inability to care for himself -PT -health information manager consult -Will need placement Lower extremity edema - Bilateral venous Doppler Diabetes - SSI Normocytic anemia - Monitor
--- NOTE | 2025-02-23 19:53 | PC.NURSE ---
Report given to Berenice ALEJANDRA on the floor.
--- NOTE | 2025-02-23 20:26 | PC.NURSE ---
Patient arrived to floor via stretcher from ED at 20:09.
[2025-02-23] MEDS: CARVEDILOL 25MG TABLET 25 MG PO (21:18)
[2025-02-23] MEDS: FUROSEMIDE 20 MG/2 ML VIAL 40 MG IV (21:19)
[2025-02-23] MEDS: PANTOPRAZOLE 40MG TABLET 40 MG PO (21:19)
--- NOTE | 2025-02-23 22:53 | PC.WOUNDNOTE ---
Lt. lower leg
--- NOTE | 2025-02-23 22:55 | PC.WOUNDNOTE ---
lt. lower leg
[2025-02-24] VITALS (9 sets, daily range): BP systolic 106–155; BP diastolic 38–78; PULSE 55–72; RESP 16–24; TEMP 36.4–37.2; O2SAT 91–100; BMI 59.7
--- NOTE | 2025-02-24 00:49 | PC.NURSE ---
Pt. began to desat upon falling asleep was placed on bipap per respiratory therapist.
--- NOTE | 2025-02-24 01:12 | PC.NURSE ---
Pt had small landers like insect crawling on his bedside table. This nurse was able to catch insect and sent it to lab to be identified. Lab did confirm it was a landers. cement finishing supervisor and charge nurse consulted on policy for bug infestation. Pt was decontaminated and linens and trash were double bagged.
[2025-02-24 01:43] LABS: Troponin I 0.04 ng/ml (0.00-0.034)
[2025-02-24 03:40] LABS: Troponin I 0.04 ng/ml (0.00-0.034)
[2025-02-24 05:17] LABS: POC Glucose,Bedside 186 (70-110)
[2025-02-24] MEDS: humaLOG 100 UNITS/ML 10ML VIAL (SSI) SUBCUT ×3 (05:28→16:54)
--- NOTE | 2025-02-24 05:44 | PC.NURSE ---
Pt. alert and oriented x 4. Pt. is currently tolerating bipap well and sat 02 is 99%. Pt. has rested intermittently this shift. Pt. remains in contact precautions for insect infestations. Excoriation noted to pt abdominal folds and large red weeping area to LLE, dressed with petroleum gauze, kurlex and edith bandage. Pt. has had adequate output this shift (1700 total).
[2025-02-24 07:35] LABS: Basophils % 0.4 % (0.1-2.0); Eosinophils # 0.2 Kmm3 (0.0-0.4); Hemoglobin 10.8 g/dL (14.1-18.0); Immature Granulocytes # 0.01 10^3uL; Immature Granulocytes % 0.2 %; Lymphocytes % 21.1 % (10-50); Mean Corpuscular HGB Conc 27.7 g/dL (31.8-35.4); Mean Corpuscular Hemoglobin 22.7 pg (27.0-31.2); Mean Corpuscular Volume 82.1 fl (80-94); Mean Platelet Volume 9.1 fl (7.4-10.4); Monocytes # 0.6 K/mm3 (0.1-1.0); Monocytes % 12.3 % (1.7-9.3); Neutrophils # 2.9 K/mm3 (1.8-7.8); Nucleated Red Blood Cells # 0 10^3/uL; Nucleated Red Blood Cells % 0 %; Platelet Count 211 K/mm3 (142-424); Red Blood Count 4.75 M/mm3 (4.60-6.20); Red Cell Distribution Width 16.8 % (11.5-17.5); White Blood Count 4.7 K/mm3 (4.8-10.8)
[2025-02-24 08:00] LABS: Albumin Level 3.1 g/dl (3.5-5.0); Chloride 102 mmol/L (98-107)
[2025-02-24 08:01] LABS: Potassium 3.8 mmoL/L (3.5-5.1); Sodium 133 mmol/L (136-145)
[2025-02-24 08:03] LABS: Alanine Aminotransferase 15 U/L (12-78); Alkaline Phosphatase 107 U/L (38-126); Anion Gap 6.8 mEq/L (5-15); Aspartate Amino Transferase 34 U/L (17-59); Bilirubin,Total 0.9 mg/dl (0.2-1.3); Blood Urea Nitrogen 15 mg/dl (9-20); Carbon Dioxide 28 mmol/L (22.0-30.0); Cholesterol 124 mg/dl (140-200); Creatinine Clearance Estimated 76 mL/min (50-200); Estimated Glomerular Filt Rate 75 ml/min (>60); GFR (African American) 91 ML/MIN (>60); Globulin 3.1 g/dL (1.3-3.2); Total Protein,Serum 6.2 g/dl (6.3-8.2); Triglycerides 81 mg/dl (30-150); VLDL Cholesterol 16 mg/dL (0-40)
[2025-02-24 08:04] LABS: Chol/HDL Ratio 4.4 (1-3.5); Glucose 159 mg/dl (74-100); HDL Cholesterol 28 mg/dl (40-60); Magnesium 1.7 mg/dl (1.6-2.3); Phosphorous 4.1 mg/dl (2.5-4.5)
[2025-02-24 08:15] LABS: Direct LDL Cholesterol 58.22 mg/dL (100-129)
[2025-02-24] MEDS: FUROSEMIDE 20 MG/2 ML VIAL 40 MG IV (08:34)
[2025-02-24] MEDS: ENOXAPARIN 60MG/0.6ML SYRINGE 60 MG SUBCUT ×2 (08:34→20:19)
--- NOTE | 2025-02-24 09:31 | HMH.PHAINT1 ---
Pharmacy Intervention Comments: MEDICATION RECONCILIATION COMPLETE USING RX BOTTLES PROVIDED BY PATIENT.
[2025-02-24] MEDS: levoFLOXacin 750 MG TABLET PO (10:40)
[2025-02-24] MEDS: MAGNESIUM SULFATE IN WATER 2 GM/50 ML PIGGYBACK IV ×2 (10:58→11:31)
[2025-02-24 11:10] LABS: POC Glucose,Bedside 176 (70-110)
--- NOTE | 2025-02-24 14:39 | HMH.PTEV ---
Physical Therapy Evaluation Rehab PT IP Evaluation Start: 02/24/25 14:05 Freq: ONCE Status: Active Protocol: Document 02/24/25 14:30 AALIYAHMARU (Rec: 02/24/25 14:39 AALIYAHMARU [id number]) Subjective/History History History Pt is a 64 y/o male morbidly obese has history of sleep apnea wears CPAP at home at night who presented to [facility] on 02/23/25 primarily because he has had increasing shortness of breath and cannot care for himself at home . Per history & physical noted, States his is severely debilitated at home and his son is the only person who can care for them and is having a hard time. States that he cannot even wash himself or go to the bathroom on his own typically walks with a walker but is to the point where he basically cannot function. Has no home health at the moment. States his overall swelling has worsened as well.His inability to take care of himself as well as swelling wanted to be seen for evaluation. He is unable to ambulate. He is unable to take care of himself. He is short of breath. he cannot complete ADLs. Subjective Subjective Pt resting in bed upon arrival to room agreeable to PT evaluation. Pt reports he lives with his and son in single-story home without CASE. Pt states he typically uses a rolling walker for ambulation, but is currently unable to get around. Pt denies recent falls. Pt also reports difficulty with ADLs is unable to care for himself. Pt uses CPAP at night, currently on 2LNC, denies SOA. Pt states his son works 12-14hr shifts and his also needs assistance with ADLs/self-care. New diagnosis of No cancer in past 12 months? [facility] How much help from another person do you currently need... Turning from your A little back to your side while in a flat bed without using bedrails? Moving from lying on A lot back to sitting on the side of a flat bed without using bedrails? Moving to and from a A lot bed to a chair ( including a wheelchair)? Standing up from a A lot chair using your arms? (e.g., wheelchair, bedside chair) Walking in hospital A lot room? Climbing 3-5 steps Total with a railing? Mobility Score 12 Mobility Level [facility] Mobility 4 Move to chair/commode Mobility Calculator Rehab PT IP Eval Objective Appearance Patient Behavior Appropriate,Cooperative Patient Orientation Place,Name,Birthday Difficulty following none instructions Speech Pattern Clear,Appropriate Ambulation Patient Able to No Ambulate Balance Ability to Arise Able, uses arms to help Sitting Balance Leans or slides in chair Dynamic Sitting Fair Balance Ability Transfers Bed Transfer Ability Moderate x 1 (50% assist) Rehab PT IP prob,goals,plan Problems Date of Evaluation: 02/24/25 PT IP Problems Bed Mobility,Transfers,Gait,Balance,Self care,Safety Rehab Potential Rehab Potential Good Equipment Needs Assistive Devices Rolling / Wheeled Walker,Wheelchair Plan PT Intervention Plan Bed Mobility,Transfers,Gait,Balance,Self care,Safety, Therapeutic Exercise Other Intervention 1-2x/day Plan PT Plan Frequency Daily Duration LOS Discharge Goals Bed Transfer Ability Minimal x 2 (25% assist) Sit to Stand Chair Maximum x 1 (75% assist) Transfer Ability Discharge Plan PT Discharge Plan Pt would benefit from skilled PT while at [facility] and is most appropriate for long-term placement at SNF once deemed medically stable by MD. Without skilled therapy pt is at an increased risk for wounds, fractures, falls , and further functional decline. Eval Complexity Eval Charge Codes 54617 - Moderate Complexity PHYSICIAN CERTIFICATION: I certify the specified therapy services for Suzan Whitehead are required, authorized, and reviewed every 30 days.
[2025-02-24] MEDS: FUROSEMIDE 40MG/4ML VIAL 40 MG IV (16:29)
[2025-02-24 16:48] LABS: POC Glucose,Bedside 174 (70-110)
--- NOTE | 2025-02-24 18:28 | P.PN_ITS ---
Subjective *Date: 02/24/25 *Time: 18:28 Exam Data for Last 24 hours Vital signs and Labs for Last 24 Hours: Temp Pulse Resp BP Pulse Ox O2 Del Method O2 Flow Rate 97.6 F 68 16 155/76 H 92 L Room Air 2 02/24/25 16:00 02/24/25 16:00 02/24/25 16:00 02/24/25 16:00 02/24/25 16:00 02/24/25 17:00 02/24/25 15:00 FiO2 28 02/24/25 06:47 Laboratory Results - last 24 hr 02/23/25 17:53: WBC 5.7, RBC 4.93, Hgb 11.6 L, Hct 39.9 L, MCV 80.9, MCH 23.5 L, MCHC 29.1 L, RDW 16.9, Plt Count 246, MPV 9.0, Neut % (Auto) 71.2, Lymph % (Auto) 14.7, [place] % (Auto) 10.2 H, Eos % (Auto) 3.0, Baso % (Auto) 0.7, Neut # (Auto) 4.0, Lymph # (Auto) 0.8, [place] # (Auto) 0.6, Eos # (Auto) 0.2, Baso # (Auto) 0.0, D-Dimer 0.69 H, Sodium 135 L, Potassium 4.1, Chloride 99, Carbon Dioxide 34 H, Anion Gap 6.1, BUN 16, Creatinine 1.10, Estimated Creat Clear 71, Estimated GFR 67, Est GFR ( Amer) 81, Glucose 136 H, Calcium 8.6, Total Bilirubin 0.8, AST 21, ALT 17, Alkaline Phosphatase 110, Troponin I 0.05 H, NT-Pro-B Natriuret Pep 7990 H, Total Protein 7.0, Albumin 3.6, Globulin 3.4 H, Albumin/Globulin Ratio 1.1, TSH 1.95, HCV Ab NADIRA w/Rflx PCR Qn Negative, HIV Ag/Ab Combo Qual Negative 02/24/25 00:27: Troponin I 0.04 H 02/24/25 03:10: Troponin I 0.04 H 02/24/25 04:56: POC Glucose 186 H 02/24/25 06:40: WBC 4.7 L, RBC 4.75, Hgb 10.8 L, Hct 39.0 L, MCV 82.1, MCH 22.7 L, MCHC 27.7 L, RDW 16.8, Plt Count 211, MPV 9.1, Neut % (Auto) 62.0, Lymph % (Auto) 21.1, [place] % (Auto) 12.3 H, Eos % (Auto) 4.0, Baso % (Auto) 0.4, Neut # (Auto) 2.9, Lymph # (Auto) 1.0, [place] # (Auto) 0.6, Eos # (Auto) 0.2, Baso # (Auto) 0.0, Sodium 133 L, Potassium 3.8, Chloride 102, Carbon Dioxide 28, Anion Gap 6.8, BUN 15, Creatinine 1.00, Estimated Creat Clear 76, Estimated GFR 75, Est GFR ( Amer) 91, Glucose 159 H, Calcium 8.0 L, Phosphorus 4.1, Magnesium 1.7, Total Bilirubin 0.9, AST 34 D, ALT 15, Alkaline Phosphatase 107, Total Protein 6.2 L, Albumin 3.1 L D, Globulin 3.1, Albumin/Globulin Ratio 1.0 L , Triglycerides 81, Cholesterol 124 L, LDL Cholesterol Direct 58.22 L, VLDL Cholesterol 16, HDL Cholesterol 28 L, Cholesterol/HDL Ratio 4.4 H 02/24/25 10:56: POC Glucose 176 H 02/24/25 16:28: POC Glucose 174 H I & O for Last 24 hours: Intake & Output 02/21/25 02/22/25 02/23/25 02/24/25 23:59 23:59 23:59 23:59 Intake Total 950 / 950 Output Total 3700 / 3700 Balance -2750 / -2750 Weight 193.214 kg 193.457 kg Constitutional Constitutional: no acute distress and obese *Routine HEENT Exam Head: Present normocephalic Eye: Present EOMI and PERRL ENT: Present mucous membranes moist *Routine Neck Exam Neck: Present supple; Absent lymphadenopathy *Routine Respiratory Exam Respiratory: Present CTA bilaterally *Routine Cardiovascular Exam Cardiovascular: Present RRR *Routine Abdominal Exam Abdominal: Present soft and normoactive bowel sounds; Absent tenderness *Routine Extremities Exam Extremities: Present edema; Absent cyanosis or clubbing *Routine Skin Exam Skin: Present warm; Absent rash *Routine Neurological Exam Neurological: Present alert and oriented X3 Assessment and Plan *Assessment and plan (1) Unable to care for self: Status: Acute Category: Medical Code(s): Z78.9 - Other specified health status (2) Acute dyspnea: Status: Acute Category: Medical Code(s): R06.00 - Dyspnea, unspecified (3) Anasarca: Status: Acute Category: Medical Code(s): R60.1 - Generalized edema (4) Fall: Status: Acute Qualifiers: Encounter type: initial encounter Qualified Code(s): W19.XXXA - Unspecified fall, initial encounter Category: Medical Code(s): W19.XXXA - Unspecified fall, initial encounter Plan Suzan Whitehead is a 64-year-old morbidly obese and with heart failure presenting to inability to self manage and severe anasarca. #HFpEF exacerbation #Community-acquired pneumonia #Anasarca ? Presented with weakness, shortness of breath, and overload. BNP 7990. CXR with left lower lobe pneumonia. On room air. No signs of sepsis. ? Continue IV Lasix 40 mg twice daily, diuresing really well. Put out almost 4 L today. ? Started spironolactone 25 mg. ? Started levofloxacin 750 mg. ? On room air. ? Follow-up CMP in the morning. ? Follow-up ECHO. #Physical deconditioning ? PT/OT consulted, recommend SNF. Case management assisting with placement. Lower extremity edema - Bilateral venous Doppler Diabetes - SSI Normocytic anemia - Monitor Full code DVT prophylaxis: Lovenox 60 mg twice daily
--- NOTE | 2025-02-24 18:34 | PC.NURSE ---
pt resting supine in bed. zay replaced per protocol this shift. fsbs checked ACHS and treated with SSI per nov. a&ox4. no complaints of pain this shift. dressing to LLE remains dry and intact. on RA w/ sats >90%. no needs at this time. call light within reach.
[2025-02-24] MEDS: PANTOPRAZOLE 40MG TABLET 40 MG PO (20:19)
[2025-02-24] MEDS: CARVEDILOL 12.5MG TABLET 12.5 MG PO (20:19)
[2025-02-25] VITALS (8 sets, daily range): BP systolic 100–133; BP diastolic 57–87; PULSE 60–72; RESP 12–22; TEMP 36.3–36.8; O2SAT 93–100; BMI 59.5
[2025-02-25 05:26] LABS: POC Glucose,Bedside 122 (70-110)
[2025-02-25 05:26] LABS: POC Glucose,Bedside 114 (70-110)
--- NOTE | 2025-02-25 05:32 | PC.NURSE ---
Pt is A&Ox4 and currently tolerating 2.5 L well @ this time. Pt did refuse to wear Bi-pap throughout this shift and stated that it was too tight on his face. Pt has had no other complaints and denies pain. Dressing to LLE remains in place and is clean and intact.
[2025-02-25] MEDS: ENOXAPARIN 60MG/0.6ML SYRINGE 60 MG SUBCUT ×2 (09:37→21:19)
[2025-02-25] MEDS: PT OWN MED *ATORVASTATIN 40 MG TAB 1 EACH PO (09:37)
[2025-02-25] MEDS: SPIRONOLACTONE 25MG TABLET 25 MG PO (09:38)
[2025-02-25] MEDS: CARVEDILOL 12.5MG TABLET 12.5 MG PO (09:38)
[2025-02-25] MEDS: FUROSEMIDE 40MG/4ML VIAL 40 MG IV ×2 (09:38→17:21)
[2025-02-25] MEDS: levoFLOXacin 750 MG TABLET PO (12:09)
[2025-02-25] MEDS: humaLOG 100 UNITS/ML 10ML VIAL (SSI) SUBCUT ×2 (12:14→17:21)
[2025-02-25 12:19] LABS: POC Glucose,Bedside 175 (70-110)
--- NOTE | 2025-02-25 18:19 | PC.NURSE ---
pt up to chair for the majority of the shift. tolerating well. fsbs treated per protocol with ssi. pt has no complaints of pain. using 2.5l o2 NC when sleeping. diuresing well. tolerating PO intake. no needs at this time. call light within reach.
[2025-02-25] MEDS: PANTOPRAZOLE 40MG TABLET 40 MG PO (21:19)
--- NOTE | 2025-02-25 22:37 | EXP.PN ---
Subjective *Date: 02/25/25 *Time: 22:37 Exam Data for Last 24 hours Vital signs and Labs for Last 24 Hours: Temp Pulse Resp BP Pulse Ox O2 Del Method O2 Flow Rate 98.2 F 60 20 100/65 L 99 Nasal Cannula 3 02/25/25 19:48 02/25/25 20:00 02/25/25 19:48 02/25/25 19:48 02/25/25 19:48 02/25/25 19:48 02/25/25 19:48 FiO2 28 02/24/25 06:47 Laboratory Results - last 24 hr 02/23/25 20:42: POC Glucose 114 H 02/25/25 05:11: POC Glucose 122 H 02/25/25 12:10: POC Glucose 175 H I & O for Last 24 hours: Intake & Output 02/22/25 02/23/25 02/24/25 02/25/25 23:59 23:59 23:59 23:59 Intake Total 1220 / 1460 1420 / 1420 Output Total 4700 / 5200 3350 / 3350 Balance -3480 / -3740 -1930 / -1930 Weight 193.214 kg 193.45 kg 192.919 kg Constitutional Constitutional: no acute distress and obese *Routine HEENT Exam Head: Present normocephalic Eye: Present EOMI and PERRL ENT: Present mucous membranes moist *Routine Neck Exam Neck: Present supple; Absent lymphadenopathy *Routine Respiratory Exam Respiratory: Present CTA bilaterally *Routine Cardiovascular Exam Cardiovascular: Present RRR *Routine Abdominal Exam Abdominal: Present soft and normoactive bowel sounds; Absent tenderness *Routine Extremities Exam Extremities: Present edema; Absent cyanosis or clubbing *Routine Skin Exam Skin: Present warm; Absent rash *Routine Neurological Exam Neurological: Present alert and oriented X3 Assessment and Plan *Assessment and plan (1) Unable to care for self: Status: Acute Category: Medical Code(s): Z78.9 - Other specified health status (2) Acute dyspnea: Status: Acute Category: Medical Code(s): R06.00 - Dyspnea, unspecified (3) Anasarca: Status: Acute Category: Medical Code(s): R60.1 - Generalized edema (4) Fall: Status: Acute Qualifiers: Encounter type: initial encounter Qualified Code(s): W19.XXXA - Unspecified fall, initial encounter Category: Medical Code(s): W19.XXXA - Unspecified fall, initial encounter Plan Suzan Whitehead is a 64-year-old morbidly obese and with heart failure presenting to inability to self manage and severe anasarca. #HFpEF exacerbation #Community-acquired pneumonia #Anasarca ? Presented with weakness, shortness of breath, and overload. BNP 7990. CXR with left lower lobe pneumonia. On room air. No signs of sepsis. ? Continue IV Lasix 40 mg twice daily, diuresing really well. Net -5.4 L. ? Continue spironolactone 25 mg. ? Continue levofloxacin 750 mg day 10/25. ? On room air. ? Follow-up CMP in the morning. ? Follow-up ECHO. #Physical deconditioning ? PT/OT consulted, recommend SNF. Case management assisting with placement. Lower extremity edema - Bilateral venous Doppler Diabetes - SSI Normocytic anemia - Monitor Full code DVT prophylaxis: Lovenox 60 mg twice daily
[2025-02-26] VITALS (8 sets, daily range): BP systolic 103–129; BP diastolic 60–74; PULSE 60–80; RESP 16–20; TEMP 36.4–36.7; O2SAT 96–100; BMI 58.9
[2025-02-26 01:34] LABS: POC Glucose,Bedside 134 (70-110)
[2025-02-26 02:28] LABS: POC Glucose,Bedside 218 (70-110)
--- NOTE | 2025-02-26 04:33 | INFXCTL.NOTE ---
Pt. is alert and orientated x 4. Pt. was up in the chair and transferred to bed at nage of shift. Pt. on 3 liters of oxygen for sleep, it was weaned to 2.5 liters. Pt. tolerated well. Pt. has no c/o pain. Pt. has a dressing to LLE, clean, dry, intact. Purewick in place . Pt's blood pressure low overnight. Carvediolol 12.5 mg decreased to 3.125 mg. Pt. has had no c/o this shift. sleeping well. Personal items and call cruz in reach.
[2025-02-26 06:06] LABS: POC Glucose,Bedside 113 (70-110)
[2025-02-26] MEDS: DEFINITY US ECHO CONTRAST 2ML INJ 2 MG IV (08:38)
--- NOTE | 2025-02-26 09:07 | SW/DCPLANNER ---
Addendum entered by Ely Evans RN 02/27/25 16:06: Patient not going today. Cards decided to keep until tomorrow. Let [facility] know. Addendum entered by Ely Evans RN 02/27/25 15:14: Patient approved by insurance and will discharge to [facility] today SNF. Addendum entered by Neelima Rodriguez 02/26/25 14:08: Per Ana w/ [facility] she can accept patient ICF level of care and from home. Precert is pending at this time per Ana. Addendum entered by Neelima Rodriguez 02/26/25 12:39: [facility] is unable to accept patient. [facility] and [facility] are reviewing information. I am still waiting director of first impressions back from [facility]. Original Note: I spoke w/ patient regarding plans once medically stable for discharge. PT evaluated patient and recommended SNF level of care. Patient stated that he has been to rehab twice in the past two years. Patient voiced that he believes him and his are ready for LTC. Patient prefers [facility] facility in [facility] or a local facility. I will follow up w/ facilities and fax patient information. Discharge date is unknown at this time.
[2025-02-26 09:36] LABS: Basophils % 0.7 % (0.1-2.0); Eosinophils # 0.2 Kmm3 (0.0-0.4); Eosinophils % 3.7 % (0.1-12.0); Hematocrit 39.4 % (42.0-52.0); Hemoglobin 11.1 g/dL (14.1-18.0); Immature Granulocytes # 0.01 10^3uL; Immature Granulocytes % 0.2 %; Lymphocytes # 0.9 K/mm3 (0.7-4.5); Mean Corpuscular HGB Conc 28.2 g/dL (31.8-35.4); Mean Corpuscular Volume 81.7 fl (80-94); Mean Platelet Volume 8.6 fl (7.4-10.4); Monocytes # 0.4 K/mm3 (0.1-1.0); Monocytes % 9.9 % (1.7-9.3); Neutrophils # 2.8 K/mm3 (1.8-7.8); Neutrophils % 64.5 % (37.0-80.0); Nucleated Red Blood Cells # 0 10^3/uL; Nucleated Red Blood Cells % 0 %; Platelet Count 198 K/mm3 (142-424); Red Blood Count 4.82 M/mm3 (4.60-6.20); Red Cell Distribution Width 16.7 % (11.5-17.5); Red Cell Distribution Width-SD 49.4 fL; White Blood Count 4.3 K/mm3 (4.8-10.8)
--- NOTE | 2025-02-26 10:03 | HMH.OTEV ---
OT Inpatient Evaluation Rehab OT IP Evaluation Start: 02/26/25 07:55 Freq: ONCE Status: Active Protocol: Document 02/26/25 09:56 ZOFIA (Rec: 02/26/25 10:03 ZOFIA [id number]) Rehab OT IP Assessment Subjective History PER HPI narrative: 64-year-old who is morbidly obese has history of sleep apnea wears CPAP at home at night who comes in primarily because he has had increasing shortness of breath and cannot care for himself at home. States his is severely debilitated at home and his son is the only person who can care for them and is having a hard time. States that he cannot even wash himself or go to the bathroom on his own typically walks with a walker but is to the point where he basically cannot function. Has no home health at the moment. States his overall swelling has worsened as well. Subjective I need to go somewhere. Pt was supine in bed when therapy arrived. Pt was orient x3. Pt is a 64 y/o male morbidly obese has history of sleep apnea wears CPAP at home at night who presented to [facility] on 02/23/25 primarily because he has had increasing shortness of breath and cannot care for himself at home . Per history & physical noted, States his is severely debilitated at home and his son is the only person who can care for them and is having a hard time. States that he cannot even wash himself or go to the bathroom on his own typically walks with a walker but is to the point where he basically cannot function. Has no home health at the moment. States his overall swelling has worsened as well.His inability to take care of himself as well as swelling wanted to be seen for evaluation. He is unable to ambulate. He is unable to take care of himself. He is short of breath. he cannot complete ADLs. Pt reports they live in one story home with no steps. pt reports they have shower chair and grab bars. pt reports they do not drive. pt reports they are not on O2 at home, currently on 2 1/2 L at [facility]. Pt agreed to sit in chair. Pt went from supine to EOB with CGA. Pt then completed a sit to stand transfer with walker with Min A. Pt able to pivot to chair and sit using good body mechanics. Pt left with call light and all other needs within reach. Objective Patient Orientation Person,Place,Birthday Right Upper WFL Extremity Gross ROM Left Upper Extremity WFL Gross ROM Bed Mobility bed mobility-scooting,bed mobility - supine/sit Assist Level Contact Guard/Hand Hold Transfer Training Sit/Stand Transfer,Sit/Stand/Pivot Transfer Assist Level Minimal x 1 (25% assist) Chair Transfer Minimal x 1 (25% assist) Ability Chair Transfer Stand Step Pivot Technique Chair Transfer Standard Walker Assistive Devices Decrease in Yes Endurance Rehab OT IP prob,goals,plan Problems Date of Evaluation: 02/26/25 OT IP Problems Bed Mobility,Transfers,Balance,Self care,Safety Rehab Potential Rehab Potential Good Equipment Needs Assistive Devices Standard Walker Plan OT intervention Plan Bed Mobility,Transfers,Balance,Self care,Safety, Therapeutic Exercise OT Plan Frequency Daily Duration LOS Discharge Goals Bed Mobility Ability Standby Assistance Sit to Stand Chair Contact Guard/Hand Hold Transfer Ability Chair Transfer Contact Guard/Hand Hold Ability Chair Transfer Sit to/from Ambulatory Technique Chair Transfer Standard Walker Assistive Devices Feeding Ability Assist with Tray Set Up Commode/Toilet Raised Toilet Seat,Grab Bars Transfer Assistive Devices Decrease in No Endurance Discharge Plan OT Discharge Plan At this time, pt would benefit from skilled acute OT to address functional limitations in occupational performance while admitted at [facility]. Pt would benefit from rehab placement to further address functional limitations in occupational performance once DC from [facility]. Eval Complexity Eval Charge Codes 15066 - Moderate Complexity PHYSICIAN CERTIFICATION: I certify the specified therapy services for Suzan Whitehead are required, authorized, and reviewed every 30 days.
[2025-02-26 10:09] LABS: Albumin Level 3.2 g/dl (3.5-5.0); Chloride 98 mmol/L (98-107); Potassium 3.9 mmoL/L (3.5-5.1); Sodium 135 mmol/L (136-145)
[2025-02-26 10:12] LABS: Alanine Aminotransferase 15 U/L (12-78); Albumin/Globulin Ratio 1.1 (1.1-1.8); Alkaline Phosphatase 93 U/L (38-126); Anion Gap 5.9 mEq/L (5-15); Aspartate Amino Transferase 15 U/L (17-59); Bilirubin,Total 0.6 mg/dl (0.2-1.3); Blood Urea Nitrogen 17 mg/dl (9-20); Calcium 8.4 mg/dl (8.4-10.2); Carbon Dioxide 35 mmol/L (22.0-30.0); Creatinine Clearance Estimated 76 mL/min (50-200); Estimated Glomerular Filt Rate 75 ml/min (>60); GFR (African American) 91 ML/MIN (>60); Globulin 2.9 g/dL (1.3-3.2); Glucose 144 mg/dl (74-100); Total Protein,Serum 6.1 g/dl (6.3-8.2)
[2025-02-26 10:13] LABS: Magnesium 1.6 mg/dl (1.6-2.3)
[2025-02-26] MEDS: SPIRONOLACTONE 25MG TABLET 25 MG PO (10:17)
[2025-02-26] MEDS: PT OWN MED *ATORVASTATIN 40 MG TAB 1 EACH PO (10:17)
[2025-02-26] MEDS: ENOXAPARIN 60MG/0.6ML SYRINGE 60 MG SUBCUT ×2 (10:17→20:12)
[2025-02-26] MEDS: levoFLOXacin 750 MG TABLET PO (10:17)
[2025-02-26] MEDS: FUROSEMIDE 40MG/4ML VIAL 40 MG IV ×2 (10:17→16:53)
[2025-02-26] MEDS: CARVEDILOL 3.125MG TABLET 3.125 MG PO ×2 (10:24→20:11)
[2025-02-26 10:37] LABS: POC Glucose,Bedside 136 (70-110)
[2025-02-26] MEDS: MAGNESIUM SULFATE IN WATER 2 GM/50 ML PIGGYBACK IV ×2 (12:49→15:46)
--- NOTE | 2025-02-26 14:53 | PC.NURSE ---
Aox 4, up with assistance times one with walker, purewick in place, on RA and uses 02-2.5L at HS same as at home, 20g R ac sl.
--- OUTSIDE RECORDS SUMMARY | 2025-02-26 15:20 | XMS_ITS | Clinical Summary ---
Author Organization [employer] [facility] are Address [address] [place] [address] Phone Care Team Providers Care Ticket Dispatcher Name Role Phone Dale Jeffries MD Primary Care Physician [phone] [ ] Conditions or Problems No information available. Medications No information available. Medications Administered No information available. Allergies, Adverse Reactions, Alerts No information available. Results No information available. Plan of Care No information available. Procedures No information available. Vital Signs No information available. Immunizations No information available. Advance Directives No information available.
--- OUTSIDE RECORDS SUMMARY | 2025-02-26 15:20 | XMS_ITS | Encounter Summary ---
Author Organization [place] [address] Care Team Providers Care Centerless Grinder Operator Name Role Phone Kris Chavez DO, Viral Primary Care Provider [phone] Reason for Visit * Reason Comments Medication Refill Encounter Details Date Type Department Care Team (Late st Contact Info) Description 01/24/2025 Refill [facility] [address] [place] [address] Sunny Ponce V, DO [address] [place] [address] Medication Refill Social History Tobacco Use Types Packs/Day Years Used Date Smoking Tobacco: Former Cigarettes 0 09/20/1972 - 10/21/1972 Smokeless Tobacco: Former Comments:SMOKED FOR 1 WEEK A S A TEENAGER Alcohol Use Standard Drinks/Week Comments No 0 (1 standard drink = 0.6 oz pur e alcohol) [facility] Utilities Answer Date Recorded In the past 12 months has [employer], gas, oil, or water [employer] threatened to shut off services in your home? No 09/26/2024 Overall Financial Resource Strain (CARDIA) Answe r Date Recorded How hard is it for you to pa y for the very basics like food, housing, medical care, and heating? Somewhat hard 09/26/2024 PHQ-2 Answer Date Recorded PHQ-2 Total Score 2 09/26/2024 [facility] - Occupational Stress Questionnaire Answer Date [...] things needed for daily living? No 09/14/2023 [facility] IP Transportation Answer D ate [...] and sent to requesting pharmacy. Routed to [facility] if applicable. documented in this encounter [...] documented as of this encounter Care Teams Centerless Grinder Operator Relationship Specialty Start Date End Date Sunny Ponce DO [address] [place] [address] PCP - General Family Medicine 07/22/11 documented as of this encounter
--- OUTSIDE RECORDS SUMMARY | 2025-02-26 15:20 | XMS_ITS | Encounter Summary ---
Author Organization [place] [address] Care Team Providers Care Seam Rubbing Machine Operator Name Role Phone Kris Chavez DO, Viral Primary Care Provider [phone] Reason for Visit * Reason Comments Medication Refill Encounter Details Date Type Department Care Team (Late st Contact Info) Description 02/21/2025 Refill [facility] [address] [place] [address] Sunny Ponce V, DO [address] [place] [address] Medication Refill Social History Tobacco Use Types Packs/Day Years Used Date Smoking Tobacco: Former Cigarettes 0 09/20/1972 - 10/21/1972 Smokeless Tobacco: Former Comments:SMOKED FOR 1 WEEK A S A TEENAGER Alcohol Use Standard Drinks/Week Comments No 0 (1 standard drink = 0.6 oz pur e alcohol) [facility] Utilities Answer Date Recorded In the past 12 months has [employer], gas, oil, or water [employer] threatened to shut off services in your home? No 09/26/2024 Overall Financial Resource Strain (CARDIA) Answe r Date Recorded How hard is it for you to pa y for the very basics like food, housing, medical care, and heating? Somewhat hard 09/26/2024 PHQ-2 Answer Date Recorded PHQ-2 Total Score 2 09/26/2024 [facility] - Occupational Stress Questionnaire Answer Date [...] things needed for daily living? No 09/14/2023 [facility] IP Transportation Answer D ate Recorded In [...] and sent to requesting pharmacy. Routed to [facility] if applicable. documented in this encounter [...] documented as of this encounter Care Teams Seam Rubbing Machine Operator Relationship Specialty Start Date End Date Sunny Ponce DO [address] [place] [phone] PCP - General Family Medicine 07/22/11 documented as of this encounter
--- OUTSIDE RECORDS SUMMARY | 2025-02-26 15:21 | XMS_ITS | Clinical Summary ---
Author Organization [facility] Address [address] [place] [address] [place] [address] Phone Care Team Providers Care Truck Greaser Name Role Phone Kris Chavez DO, Viral Primary Care Provider [phone] Allergies Active Allergy Reactions Criticality Noted Date Comments Codeine Swelling 11/04/2010 Erythromycin Swelling 01/03/1996 Cephalexin Swelling 11/04/2010 Minocycline 11/17/2012 Penicillins Swelling 11/04/2010 PCN Family Unable To Assess Swelling 11/04/2010 mycin Medications MULTI-VITAMIN ORALIndications:S creening for colon cancer,Gastroesop hageal reflux disease without esophagitis,Essen tial hypertension,Type 2 diabetes mellitus with complication, without long-term current use of insulin ([facility]),Hyperlipide silviano with target LDL less than [...] DM type 2 (diabetes mellitus, type 2) ([facility]) Patient has accu chek roman needs supplies dx 250.00 test twice day Patient states he only checks a FSBS every other day. 200 Each 11 023 Active Blood-Glucose Meter [facility] KitIndications:DM type 2 (diabetes mellitus, type 2) ([facility]) Test twice daily 1 Kit 023 Active cyanocobalamin 1,000 mcg Oral Tablet Take 1,000 mcg by mouth daily. Active Lancets [facility] MiscIndications:D M type 2 (diabetes mellitus, type 2) ([facility]) accu chek roman dx 250.00 test 2x day 200 Each 11 024 Active cyclobenzaprine (FLEXERIL) 5 mg Oral TabletIndications :Muscle spasm TAKE 1 TABLET BY MOUTH EVERY 8 HOURS NEEDED FOR MUSCLE SPASM 90 Tablet 024 Active metFORMIN (GLUCOPHAGE) 850 mg Oral TabletIndications :Type 2 diabetes mellitus with complication, without long-term current use of insulin ([facility]) Take 1 tablet by mouth twice daily 180 Tablet 1 024 Active fUROsemide (LASIX) 40 mg Oral TabletIndications :Lymphedema,Fluid retention in legs,Peripheral edema Take 1 Tablet by mouth every 12 hours. 180 Tablet 1 025 Active glimepiride (AMARYL) 4 mg Oral TabletIndications :Type 2 diabetes mellitus with complication, without long-term current use of insulin ([facility]) TAKE 1 TAB BY MOUTH EVERY MORNING. THIS REPLACES GLIPIZIDE. 90 Tablet 1 025 Active lisinopriL (PRINIVIL;ZESTRIL ) 40 mg Oral TabletIndications :Essential hypertension Take 1 Tablet by mouth daily. 90 Tablet 1 025 Active potassium chloride (KLOR-CON) 10 mEq Oral Tablet Sustained ReleaseIndication s:Lymphedema,Flui d retention in legs,Peripheral edema,Essential hypertension,Type 2 diabetes mellitus with complication, without long-term current use of insulin ([facility]) Take 1 Tablet by mouth 2 [...] twice daily 200 Tablet 2 025 Active carvediloL (COREG) 12.5 [...] (congestive heart failure) Overview (05/09/2013): 1. Echo 04-26-13 Normal LV wall motion, function. EF 54% [...] No results found for this basename: MICROALBUR, [id number], URINEMICROAL Retinopathy unavailable Neuropathy negative Hypertension complicating [...] of nail 07/18/2024 10/11/2024 Diabetic foot infection 09/14/20230 03/2024 Open wound of left foot 08/09/20230 03/2024 Diabetic ulcer of toe of lef [...] fat layer exposed 12/16/2017 08/18/2018 Atherosclerosis of [place] of left leg with ulceration of other part of lower left leg 01/16/2016 08/05/2017 Atherosclerosis of [place] of right leg with ulceration [...] Type Department Care Team Description 02/21/2025 Refill [facility] [address] [place] [address] Ponce, Viral V, DO Medication Refill 01/24/2025 Refill [facility] [address] [place] [address] Ponce, Viral V, DO Medication Refill 12/08/2024 11:00 AM EDT Telemedicine [address] [address] Ponce, Viral V, DO Acute bronchitis, unspecified organism (Primary Dx); Seasonal allergic rhinitis due to pollen; Type 2 diabetes mellitus without complication, without long-term current use of insulin ([facility]) 12/08/2024 Travel from Last 3 Months [...] TOE AMPUTATION; Surgeon: Moe Guerrero DPM; Location: [facility] MAIN OR; Service: Podiatry IR PICC INSERTION EQUAL OR > 5 YEARS 08/07/2023 IR PICC INSERTION EQUAL OR > 5 YEARS 08/07/2023 Sujey Suresh PA-C [facility] IR FOOT SURGERY 08/09/2023 Foot/Ankle/Left LEFT FOOT INCISION AND DRAINAGE HEEL DEBRIDMENT with SKIN SUBSTITUTE; Surgeon: Ramírez Garcia DPM; Location: [facility] MAIN OR; Service: Podiatry Medical devices from this surgery are in the Medical Devices section. FOOT SURGERY 09/12/2023 Foot/Ankle/Left INCISION AND DRAINAGE/DEBRIDEMENT left foot; Surgeon: Angelia Vences DPM; Location: [facility] MAIN OR; Service: Podiatry FOOT SURGERY 09/15/2023 Foot/Ankle/Left LEFT FOOT FIFTH RAY AMPUTATION WITH DELAYED PRIMARY CLOSURE; Surgeon: Angelia Vences DPM; Location: [facility] MAIN OR; Service: Podiatry LAYER WOUND CLOSURE 09/15/2023 Left Surgeon: Angelia Vences DPM; Location: [facility] MAIN OR; Service: Podiatry TOE SURGERY 09/27/2024 Foot/Ankle/Right RIGHT FOOT THIRD TOE AMPUTATION; Surgeon: Angelia Vences DPM; Location: [facility] MAIN OR; Service: Podiatry Medical History Medical History Date Comments Unspecified sleep apnea Rheumatic disease as child CHF (congestive heart failure) (HCC) Heart murmur Hypertension Arthritis Cancer (HCC) skin cancer face Morbid obesity (HCC) Diabetes mellitus (HCC) type II Red bugs [place] (myocardial infarction) (HCC) x2 Diabetic ulcer of left heel associated with type 2 diabetes mellitus, with fat layer exposed (HCC) 08/04/2023 Diabetic ulcer of toe of lef t foot associated with diabetes mellitus due to underlying condition, with fat layer exposed (HCC) 08/04/2023 Diabetic ulcer of toe of lef t foot associated with type 2 diabetes mellitus, with necrosis of muscle ([facility]) 05/16/2023 Diabetic foot infection ([facility]) 09/14/2023 Open wound of left foot 08/09/2023 Osteomyelitis of fifth toe of left foot Skin ulcer of left heel with fat layer exposed ( [facility]) 06/10/2023 Pain due to onychomycosis of [...] Recorded In the past 12 months has e electric, gas, oil, or water company threatened to shut off services in your home? No 09/26/2024 Overall Financial Resource Strain (CARDIA) Answe r Date Recorded How hard is it for you to pa y for the very basics like food, housing, medical care, and heating? Somewhat hard 09/26/2024 PHQ-2 Answer Date Recorded PHQ-2 Total Score 2 09/26/2024 [facility] [place] [facility] - Occupational Stress [...] things needed for daily living? No 09/14/2023 [facility] IP Transportation Answer D ate Recorded In [...] Free Lifestyle On track(2018 10:55 AM EDT) Anjana Hall LPN HEMOGLOBIN A1C < 7.0 Result Component 8.7(09/25/19 11:51 AM EST) Spring Izquierdo RMA Medical Devices Implanted Type Area Fur Polisher Device Identifier Shelf Expiration Date Model / Serial / Lot Graft Tissue Myriad Thin 5 X 5cm - [id number] Implanted:Qty: 1 on 08/09/2023 by Ramírez Garcia DPM at [facility] Left: Foot [employer] 12/18/2025 [id number] / / [id number] Procedures Procedure Name Priority Date/Time Associated Diagnosis Comments HEMOGLOBIN A1C Routine 09/25/2024 11:51 AM EST LIPID PANEL REFLEX Routine 05/30/2024 3: 15 PM EDT Dyslipidemia POCT URINE MICROALBUMIN Routine 07/29/2020 11:12 AM EST Type 2 diabetes mellitus with complication, without long-term current use of insulin (HCC) FIT Routine 05/14/2020 HCV ANTIBODY SCREEN W/ REFLEX Routine 10/07/2018 11:48 AM EST Need for hepatitis C screening test DIABETES EYE EXAM Routine 02/18/2018 from Last 3 Months or Most Recently Relevant to Health Maintenance Results * (ABNORMAL) HEMOGLOBIN A1C (09/25/2024 11:51 AM EST) Hgb A1C 8.7(H) 4.2 - 5.6 % 09/25/2024 1:42 PM EST [employer] Est. Avg Glucose 203 mg/dL 09/25/2024 1:42 PM EST [facility] Blood VENOUS BLOOD / Unknown Venipuncture / Unknown 09/25/2024 11:51 AM EST 09/25/2024 11:55 AM EST Narrative [facility] - 09/25/2024 1:42 PM EST REFERENCE RANGE: Normal: 4.0-5.6% Pre-diabetes: 5.7-6.4% Provisional diagnosis of diabetes: >6.4% Hgb F>10% and anything which shortens red cell survival, such as hemolytic anemia, or unstable hemoglobin variants such as HbSS, HbSC, or HbCC, will lower the HbA1c value associated with a given level of glycemic control. us Carolynn Thomas MD CHEMISTRY ORDERABLES Final R esult [employer] [address] [facility] , [place] [address] [facility] [address] [place] [id number] * (ABNORMAL) LIPID PANEL REFLEX (05/30/2024 3:15 PM EDT) Pathologist [facility] Cholesterol 118 <200 mg/dL 05/30/2024 9:22 PM EDT [facility] Comment: < 200 Desirable 200 - 239 Borderline High >= 240 High Triglyceride 93 <150 mg/dL 05/30/2024 9:22 PM EDT [facility] Comment: < 150 Normal 150 - 199 Borderline High 200 - 499 High >= 500 Very High HDL 35(L) >=40 mg/dL 05/30/2024 9:22 PM EDT [facility], [facility] Comment: > 60 Optimal 40 - 60 Acceptable < 40 Low LDL Calculated 65 <100 mg/dL 05/30/2024 9:22 PM EDT [facility], [facility] Non-HDL-C Calculated 83 <=129 mg/dL 05/30/2024 9:22 PM EDT [facility], [facility] Comment: <130 Desirable 130-159 Above Desirable 160-189 Borderline High 190-219 High >= 220 Very High Fasting Specimen? No None 024 9:22 PM EDT [facility] Blood VENOUS BLOOD / Unknown Venipuncture / Unknown 05/30/2024 3:15 PM EDT 05/30/2024 3:15 PM EDT us Viral Ponce V, DO CHEMISTRY ORDERABLES Final Res ult [facility], [facility] [address] [facility], [address] [place] [id number] [facility] [address] [place] [address] * (ABNORMAL) POCT URINE MICROALBUMIN TELCOR (07/29/2020 11:12 AM EST) [employer], Ur 10 mg/L 07/29/2020 11:14 AM EST SE[facility] Creatinine Urine 50 mg/dL 07/29/2020 11:14 AM EST [facility]P [facility] [employer]/Tax Manager. Ratio 30 - 300(A) <30 mg/g 07/29/2020 11:14 AM EST [facility] Urine STRUCTURE OF URINARY TRACT PROPER / Unknown 07/29/2020 11:12 AM EST 07/29/2020 11:14 AM EST Viral Ponce V, DO POINT OF CARE TEST ORDERABLES Final Result Performing Organization Address [facility] Co de Phone Number [facility] DOC [address] [address] * FIT (05/14/2020) Fecal Immunochemical Test Negative Negative SEP OFFICE Historical Provider HEALTH MAINTENANCE Final Res ult Performing Organization Address [facility] Co de Phone Number SEP OFFICE * HEPATITIS C ANTIBODY - SCREENING (10/07/2018 11:48 AM EST) Hep C Ab Non-Reactiv e Non-Reacti ve 10/07/2018 9:07 PM EST [facility] Blood VENOUS BLOOD / Unknown Venipuncture / Unknown 10/07/2018 11:48 AM EST 10/07/2018 11:48 AM EST Viral Ponce V, DO HEMATOLOGY ORDERABLES Final Re sult Performing Organization Address [facility]/ZIP Co de Phone Number [facility] [address] [place] [address] , [place] [address] * DIABETES EYE EXAM (02/18/2018) Left Diabetic Retinopathy Not Present Present/Not Present [facility] Comment:[facility] Right Diabetic Retinopathy Not Present Present/Not Present [facility] OFF[facility] 02/18/2018 Historical Provider HEALTH MAINTENANCE Final Res ult [facility]P OFFICE from Last 3 Months or Most Recently Relevant to Health Maintenance Insurance [employer] MEDICARE PPO MR [employer] MEDICARE PPO MR * Guarantor: Suzan Whitehead Account Type Relation to Patient Date of Phone Billing Address [place] Personal Family Self Advance Directives For more information, please contact: [phone] * Full Code (Latest Code Status on [...] 7:40 PM 06/09/2023 9:48 PM Care Teams Truck Greaser Relationship Specialty Start Date End Date Sunny Ponce V, DO [address] [place] [address] PCP - General Family Medicine 07/22/11
--- OUTSIDE RECORDS SUMMARY | 2025-02-26 15:21 | XMS_ITS | Encounter Summary ---
Author [place] [address] Care Team Providers Care Wire Frame Lampshade Maker Name Role Phone Ponce V, DO, Viral Primary Care Provider [phone] Miriam Muller BA, COS Unavailable Unavailable Miriam Muller BA, COS Unavailable Unavailable Rajwinder Landaverde RN Unavailable Unavailable Simran Hdz, COS Unavailable Unavail able Qi Mauricio RN Unavailable Unavailable Jenny Ortega RN Unavailable Unavail able Encounter Details Date Type Department Care Team (Late st Contact Info) Description 06/29/2018 Patient Outreach [facility] [address] [place] [address] Ponce, Viral V, DO [address] [place] [address] Social History Tobacco Use Types [...] Not on track(2024 10:49 AM EST) No Urslua Vazquez, RN Note: Patient will maintain optimal [...] documented as of this encounter Care Teams Wire Frame Lampshade Maker Relationship Specialty Start Date End Date Ponce, Sunny Chavez DO [address] [place] [phone] PCP - General Family Medicine 07/22/11 Miriam Muller BA, COS Case Heel Former 03/07/1902/18 Miriam Muller BA, COS Case Heel Former 03/09/1902/19 Rajwinder Landaverde, RN Shell[employer] 11/20/19 01/28/20 Simran Hdz, BS, COS Case Heel Former 01/15/23 02/02/23 Qi Mauricio, RN Shellac [employer]isher Registered Nurse 09/21/23 10/19/23 Jenny Ortega, RN Shellac Polisher 09/29/24 10/01/24 documented as of this encounter
--- OUTSIDE RECORDS SUMMARY | 2025-02-26 15:21 | XMS_ITS | Encounter Summary ---
Author Organization [place] [address] Care Team Providers Care Circle Edger Name Role Phone Ponce V, DO, Viral Primary Care Provider [phone] Miriam Muller BA, COS Unavailable Unavailable Miriam Muller BA, COS Unavailable Unavailable Rajwinder Landaverde RN Unavailable Unavailable Simran Hdz, COS Unavailable Unavail able Qi Mauricio RN Unavailable Unavailable Jenny Ortega RN Unavailable Unavail able Encounter Details Date Type Department Care Team (Late st Contact Info) Description 04/20/2018 Patient Outreach [facility] [address] [place] [address] Ponce, Viral V, DO [address] [place] [address] Social History Tobacco Use Types [...] mg/L 10/07/2018 8:38 PM EST [facility]REF[facility] Urine Creatinine 177.4 mg/dL 10/07/2018 8:38 PM EST [facility] Ur Microalb/Creat 109(H) 0 - 30 mg/g 10/07/2018 8:38 PM EST [facility] Urine STRUCTURE OF URINARY TRACT PROPER / Unknown 10/07/2018 11:48 AM EST 10/07/2018 11:48 AM EST us Viral Ponce V, DO URINE ORDERABLES Final Result [facility] [address] [facility] , [address] [place] [id number] documented in this encounter Visit Diagnoses Diagnosis [...] documented as of this encounter Care Teams Circle Edger Relationship Specialty Start Date End Date Sunny Pnoce V, DO [address] [place] [address] PCP - General Family Medicine 07/22/11 Miriam Muller BA, COS Case Automated Access Systems Technician 03/07/1902/18 Miriam Muller BA, COS Case Automated Access Systems Technician 03/09/1902/19 Rajwinder Landaverde, RN Sheet Rock Nailer 11/20/19 01/28/20 Simran Hdz BS, COS Case Automated Access Systems Technician 01/15/23 02/02/23 Qi Mauricio, RN Sheet Rock Nailer Registered Nurse 09/21/23 10/19/23 Jenny Ortega, RN Sheet Rock Nailer 09/29/24 10/01/24 documented as of this encounter
--- OUTSIDE RECORDS SUMMARY | 2025-02-26 15:21 | XMS_ITS | Encounter Summary ---
Author Organization [place] [address] Care Team Providers Care Honing Job Setter Name Role Phone Ponce V, DO, Viral Primary Care Provider [phone] Miriam Muller BA, COS Unavailable Unavailable Miriam Muller BA, COS Unavailable Unavailable Rajwinder Landaverde RN Unavailable Unavailable Simran Hdz, COS Unavailable Unavail able Qi Mauricio RN Unavailable Unavailable Jenny Ortega RN Unavailable Unavail able Encounter Details Date Type Department Care Team (Late st Contact Info) Description 08/04/2018 Patient Outreach [facility] [address] [place] [address] Ponce, Viral V, DO [address] [place] [address] Social History Tobacco Use Types [...] LIPID SCREEN (10/07/2018 11:48 AM EST) Pathologist [facility] Cholesterol 102 <=200 mg/dL 10/07/2018 8:27 PM EST [facility] Comment: < 200 Desirable 200 - 239 Borderline High >= 240 High Triglyceride 107 <=150 mg/dL 10/07/2018 8:27 PM EST [facility] Comment: < 150 Normal 150 - 199 Borderline High 200 - 499 High >= 500 Very High HDL 34(L) >=40 mg/dL 10/07/2018 8:27 PM EST [facility] Comment: > 60 Optimal 40 - 60 Acceptable < 40 Low LDL Calculated 47 <=100 mg/dL 10/07/2018 8:27 PM EST [facility] Comment: < 100 Optimal 100 - 129 Near or above optimal 130 - 159 Borderline High 160 - 189 High >= 190 Very High Non-HDL-C Calculated 68 <=129 mg/dL 10/07/2018 8:27 PM EST [facility] Comment: <130 Desirable 130-159 Above Desirable 160-189 Borderline High 190-219 High >= 220 Very High Blood VENOUS BLOOD / Unknown Venipuncture / Unknown 10/07/2018 11:48 AM EST 10/07/2018 11:48 AM EST us Viral Ponce V, DO CHEMISTRY ORDERABLES Final Res ult Performing Organization Address [facility]/ZIP Co de Phone Number [facility] [address] , [place] [address] * (ABNORMAL) HEPATIC FUNCTION PANEL (10/07/2018 11:48 [...] ORDERABLES Final Res ult Performing Organization Address [facility]/ZIP Co de Phone Number [facility] [address] , [place] [address] * (ABNORMAL) HEMOGLOBIN A1C (10/07/2018 [...] ORDERABLES Final Res ult [facility] [address] , [place] [address] * (ABNORMAL) BASIC METABOLIC PANEL (10/07/2018 11:48 [...] mL/min/1.7 3 m2 10/07/2018 8:27 PM EST [facility] GFR Non Afr Am 91 >=60 mL/min/1.7 3 m2 10/07/2018 8:27 PM EST [facility] Comment: This estimated GFR was calculated [...] CHEMISTRY ORDERABLES Final Res ult [facility] [address] [facility], [place] [address] [facility] [address] [place] [id number] documented in this encounter Visit Diagnoses [...] documented as of this encounter Care Teams Honing Job Setter Relationship Specialty Start Date End Date Sunny Ponce DO [address] [place] [address] PCP - General Family Medicine 07/22/11 Miriam Muller BA, COS Case Cellular Tower Climber 03/07/1902/18 Miriam Muller BA, COS Case Cellular Tower Climber 03/09/1902/19 Rajwinder Landaverde, RN Transfer Pumper 11/20/19 01/28/20 Simran Hdz, BS, COS Case Cellular Tower Climber 01/15/23 02/02/23 Qi Mauricio, RN Transfer Pumper Registered Nurse 09/21/23 10/19/23 Jenny Ortega, RN Transfer Pumper 09/29/24 10/01/24 documented as of this encounter
--- OUTSIDE RECORDS SUMMARY | 2025-02-26 15:21 | XMS_ITS | Encounter Summary ---
Author Organization [place] [address] Care Team Providers Care Television Script Writer Name Role Phone Ponce V, DO, Viral Primary Care Provider [phone] Miriam Muller BA, COS Unavailable Unavailable Miriam Muller BA, COS Unavailable Unavailable Rajwinder Landaverde RN Unavailable Unavailable Simran Hdz, COS Unavailable Unavail able Qi Mauricio RN Unavailable Unavailable Jenny Ortega RN Unavailable Unavail able Encounter Details Date Type Department Care Team (Late st Contact Info) Description 09/08/2018 Patient Outreach [facility] [address] [place] [address] Ponce, Viral V, DO [address] [place] [address] Social History Tobacco Use Types [...] documented as of this encounter Care Teams Television Script Writer Relationship Specialty Start Date End Date Sunny Ponce DO [address] [place] [address] PCP - General Family Medicine 07/22/11 Miriam Muller BA, COS Case Physical Therapy Attendant 03/07/1902/18 Miriam Muller BA, COS Case Physical Therapy Attendant 03/09/1902/19 Rajwinder Landaverde, RN Corporate Investigator 11/20/19 01/28/20 Simran Hdz BS, COS Case Physical Therapy Attendant 01/15/23 02/02/23 Qi Mauricio, RN Corporate Investigator Registered Nurse 09/21/23 10/19/23 Jenny Ortega, RN Corporate Investigator 09/29/24 10/01/24 documented as of this encounter
--- OUTSIDE RECORDS SUMMARY | 2025-02-26 15:21 | XMS_ITS | Encounter Summary ---
Author [place] [address] Care Team Providers Care Sand Caster Apprentice Name Role Phone Ponce V, DO, Viral Primary Care Provider [phone] Miriam Muller BA, COS Unavailable Unavailable Miriam Muller BA, COS Unavailable Unavailable Rajwinder Landaverde RN Unavailable Unavailable Simran Hdz, COS Unavailable Unavail able Qi Mauricio RN Unavailable Unavailable Jenny Ortega RN Unavailable Unavail able Encounter Details Date Type Department Care Team (Late st Contact Info) Description 05/24/2018 Patient Out[facility] [address] [place] [address] Ponce, Viral V, DO [address] [place] [address] Social History Tobacco Use Types [...] documented as of this encounter Care Teams Sand Caster Apprentice Relationship Specialty Start Date End Date Ponce, Sunny Chavez DO [address] [place] [address] PCP - General Family Medicine 07/22/11 Miriam Muller BA, COS Case Aircraft Time Clerk 03/07/1902/18 Miriam Muller BA, COS Case Aircraft Time Clerk 03/09/1902/19 Rajwinder Landaverde, RN Olive Packer 11/20/19 01/28/20 Simran Hdz, BS, COS Case Aircraft Time Clerk 01/15/23 02/02/23 Qi Mauricio, RN Olive Packer Registered Nurse 09/21/23 10/19/23 Jenny Ortega, RN Olive Packer 09/29/24 10/01/24 documented as of this encounter
--- OUTSIDE RECORDS SUMMARY | 2025-02-26 15:21 | XMS_ITS | Encounter Summary ---
Author Organization [place] Address [facility] [address] Care Team Providers Care Tentmaker Name Role Phone Kris Chavez DO, Viral Primary Care Provider [phone] Miriam Muller BA, COS Unavailable Unavailable Miriam Muller BA, COS Unavailable Unavailable Rajwinder Landaverde RN Unavailable Unavailable Simran Hdz, COS Unavailable Unavail able Qi Mauricio RN Unavailable Unavailable Jenny Ortega RN Unavailable Unavail able Encounter Details Date Type Department Care Team (Late st Contact Info) Description 02/28/2019 Lab Requisition [facility] [place] Mauricio [id number] Sergio Bobo, DPM [address] [facility], [address] [place] [id number] Cellulitis of left lower extremity Social History [...] Growth(A) 03/03/2019 1:18 PM EDT [facility] Culture Sparse growth of Staphylococcus aureus SUSCEPTIB ILITY RESULT 03/03/2019 1:18 PM EDT [facility] Culture Sparse growth of Streptococcus agalactiae (Group B) SUSCEPTIB ILITY RESULT 03/03/2019 1:18 PM EDT [facility] Comment:Penicillin and Ampic illin are antibiotics of choice for treatment of beta-hemolytic streptococcal infections. Stain Few Gram positive cocci(A) 03/03/2019 1:18 PM EDT [facility] Stain Few Gram positive rods(A) 03/03/2019 1:18 PM EDT [facility] Stain Few WBCs 03/03/2019 1:18 PM EDT [facility] Swab STRUCTURE OF LEFT LOWER LEG / [...] MICROBIOLOGY - GENERAL ORD ERABLES Final Result [facility] [address] [facility] , [place] [address] documented in this encounter Visit Diagnoses Diagnosis [...] documented as of this encounter Care Teams Tentmaker Relationship Specialty Start Date End Date Sunny Ponce V, DO [address] [place] [address] PCP - General Family Medicine 07/22/11 Miriam Muller BA, COS Case Lung Gun Operator 03/07/1902/18 Miriam Muller BA, COS Case Lung Gun Operator 03/09/1902/19 Rajwinder Landaverde, RN Land Manager 11/20/19 01/28/20 Simran Hdz BS, COS Case Lung Gun Operator 01/15/23 02/02/23 Qi Mauricio, RN Land Manager Registered Nurse 09/21/23 10/19/23 Jenny Ortega, RN Land Manager 09/29/24 10/01/24 documented as of this encounter
--- OUTSIDE RECORDS SUMMARY | 2025-02-26 15:21 | XMS_ITS | Encounter Summary ---
Author Organization [place] [address] Care Team Providers Care Credentials Specialist Name Role Phone Ponce V, DO, Viral Primary Care Provider [phone] Miriam Muller BA, COS Unavailable Unavailable Miriam Muller BA, COS Unavailable Unavailable Rajwinder Landaverde RN Unavailable Unavailable Simran Hdz, COS Unavailable Unavail able Qi Mauricio RN Unavailable Unavailable Jenny Ortega RN Unavailable Unavail able Encounter Details Date Type Department Care Team (Late st Contact Info) Description 03/17/2018 Patient Outreach [facility] [place] [address] [place] [address] Ponce, Viral V, DO [address] [place] [address] Social History Tobacco Use Types [...] documented as of this encounter Care Teams Credentials Specialist Relationship Specialty Start Date End Date Sunny Ponce DO [address] [place] [address] PCP - General Family Medicine 07/22/11 Miriam Muller BA, COS Case Email Marketing Intern 03/07/1902/18 Miriam Muller BA, COS Case Email Marketing Intern 03/09/1902/19 Rajwinder Landaverde, RN Supervisor Paint Department 11/20/19 01/28/20 Simran Hdz BS, COS Case Email Marketing Intern 01/15/23 02/02/23 Qi Mauricio, RN Supervisor Paint Department Registered Nurse 09/21/23 10/19/23 eJnny Ortega, RN Supervisor Paint Department 09/29/24 10/01/24 documented as of this encounter
[2025-02-26 17:03] LABS: POC Glucose,Bedside 178 (70-110)
[2025-02-26] MEDS: humaLOG 100 UNITS/ML 10ML VIAL (SSI) SUBCUT ×2 (17:30→20:12)
--- NOTE | 2025-02-26 18:39 | P.PN_ITS ---
Subjective *Date: 02/26/25 *Time: 19:36 Interval history: Having good response to diuresis. -2.7 L in past 24 hours, -6.6 L since admission. Awaiting placement for rehab. Patient does not have the ability to care for himself anymore. Concerned about his 's wellbeing as well. [place] ating p.o. intake. On 2 L on morning rounds. Needing it while he sleeps but able to wean to room air during the day. Denies any chest pain or shortness of breath Medical Exam Vital signs and Labs for Last 24 Hours: Vital Signs Temp Pulse Pulse Resp BP Pulse Ox O2 Del Method 02/26/25 18:15 Room Air 02/26/25 16:00 60 02/26/25 16:00 97.5 F L 72 20 129/74 100 Nasal Cannula 02/26/25 15:00 Room Air 02/26/25 12:33 Room Air 02/26/25 12:00 97.6 F 72 20 114/60 99 Nasal Cannula 02/26/25 12:00 80 02/26/25 11:00 Room Air 02/26/25 09:00 Room Air 02/26/25 08:41 60 02/26/25 08:00 Room Air 02/26/25 08:00 97.7 F 69 20 103/64 L 96 Nasal Cannula 02/26/25 07:00 Nasal Cannula 02/26/25 05:00 Nasal Cannula 02/26/25 04:00 60 02/26/25 03:47 98.1 F 60 16 119/71 99 Nasal Cannula 02/26/25 03:00 Nasal Cannula 02/26/25 01:00 Nasal Cannula 02/26/25 00:00 60 02/25/25 23:46 98 F 62 12 115/63 99 Nasal Cannula 02/25/25 23:00 Nasal Cannula 02/25/25 21:00 Nasal Cannula 02/25/25 20:00 99 Room Air 02/25/25 20:00 60 02/25/25 19:48 98.2 F 65 20 100/65 L 99 Nasal Cannula 02/25/25 18:54 Nasal Cannula 02/25/25 18:50 Nasal Cannula O2 Flow Rate 02/26/25 18:15 02/26/25 16:00 02/26/25 16:00 2 02/26/25 15:00 02/26/25 12:33 02/26/25 12:00 2 02/26/25 12:00 02/26/25 11:00 02/26/25 09:00 02/26/25 08:41 02/26/25 08:00 02/26/25 08:00 2 02/26/25 07:00 2.5 02/26/25 05:00 2.5 02/26/25 04:00 02/26/25 03:47 2.5 02/26/25 03:00 2.5 02/26/25 01:00 3 02/26/25 00:00 02/25/25 23:46 3 02/25/25 23:00 3 02/25/25 21:00 3 02/25/25 20:00 3 02/25/25 20:00 02/25/25 19:48 3 02/25/25 18:54 2.5 02/25/25 18:50 2.5 Intake and Output 02/26/25 02/26/25 02/26/25 07:59 15:59 23:59 Intake Total 120 / 1830 1710 / 1830 Output Total 1350 / 3000 1250 / 3000 400 / 3000 Balance -1230 / -1170 460 / -1170 -400 / -1170 Intake: Intake, Oral Amount 120 / 1730 1610 / 1730 Intake, Total IV Amount 100 / 100 Magnesium Sulfate in Water 2 gm 100 / 100 In 50 ml @ 50 mls/hr IV Q1H [facility] Rx#:[id number] Output: Output, Urine Amount 1350 / 3000 1250 / 3000 400 / 3000 Other: Number of Unmeasured Voids 0 0 Number of Bowel Movements 1 Weight 191.098 kg Patient Weight 02/26/25 23:59 Weight 191.098 kg Laboratory Results - last 24 hr 02/25/25 17:12: POC Glucose 218 H 02/25/25 21:04: POC Glucose 134 H 02/26/25 05:26: POC Glucose 113 H 02/26/25 09:30: WBC 4.3 L, RBC 4.82, Hgb 11.1 L, Hct 39.4 L, MCV 81.7, MCH 23.0 L, MCHC 28.2 L, RDW 16.7, Plt Count 198, MPV 8.6, Neut % (Auto) 64.5, Lymph % (Auto) 21.0, [place] % (Auto) 9.9 H, Eos % (Auto) 3.7, Baso % (Auto) 0.7, Neut # (Auto) 2.8, Lymph # (Auto) 0.9, [place] # (Auto) 0.4, Eos # (Auto) 0.2, Baso # (Auto) 0.0, Sodium 135 L, Potassium 3.9, Chloride 98, Carbon Dioxide 35 H, Anion Gap 5.9, BUN 17, Creatinine 1.00, Estimated Creat Clear 76, Estimated GFR 75, Est GFR ( Amer) 91, Glucose 144 H, Calcium 8.4, Magnesium 1.6, Total Bilirubin 0.6, AST 15 L D, ALT 15, Alkaline Phosphatase 93, Total Protein 6.1 L, Albumin 3.2 L, Globulin 2.9, Albumin/Globulin Ratio 1.1 02/26/25 10:26: POC Glucose 136 H 02/26/25 16:55: POC Glucose 178 H I & O for Labs for Last 24 Hours: Intake & Output 02/23/25 02/24/25 02/25/25 02/26/25 23:59 23:59 23:59 23:59 Intake Total 1220 / 1460 1420 / 1540 1830 / 1830 Output Total 4700 / 5200 3350 / 4050 3000 / 3000 Balance -3480 / -3740 -1930 / -2510 -1170 / -1170 Weight 193.214 kg 193.45 kg 192.919 kg 191.098 kg Constitutional: Present no acute distress, morbidly obese, chronically ill appearing and cooperative Head: Present atraumatic and normocephalic ENT: Present normal exam Respiratory: Present distant breath sounds, diminished air movement and normal respiratory effort; Absent rhonchi, wheezes or crackles Cardiac: Present Reg Rate and Rhythm GI: Present soft and normal bowel sounds; Absent distention or tenderness Extremities: Present normal inspection, full ROM and edema (Chronic stasis changes lower legs. Trace edema bilateral lower extremities.) Skin: Present erythema (Chronic stasis changes lower legs) Neuro: Present Grossly Intact, alert, awake, oriented x 3 and moves all extremities Assessment and Plan *Assessment and plan (1) Unable to care for self: Status: Acute Category: Medical Code(s): Z78.9 - Other specified health status (2) Acute dyspnea: Status: Acute Category: Medical Code(s): R06.00 - Dyspnea, unspecified (3) Anasarca: Status: Acute Category: Medical Code(s): R60.1 - Generalized edema (4) Fall: Status: Acute Qualifiers: Encounter type: initial encounter Qualified Code(s): W19.XXXA - Unspecified fall, initial encounter Category: Medical Code(s): W19.XXXA - Unspecified fall, initial encounter (5) Morbid obesity: Status: Acute Category: Medical Code(s): E66.01 - Morbid (severe) obesity due to excess calories Plan Suzan Whitehead is a 64-year-old morbidly obese and with heart failure presenting to inability to self manage and severe anasarca. Patient being evaluated for placement at [facility] and rehab. Continues to require inpatient management due to inability to care for self. Awaiting stable discharge plan. Responding to treatment for heart failure exacerbation. With diuresing well. Will have cardiology evaluate patient in the morning. #HFpEF exacerbation #Community-acquired pneumonia #Anasarca ? Presented with weakness, shortness of breath, and overload. BNP 7990. CXR with left lower lobe pneumonia. On room air. No signs of sepsis. ? Continue IV Lasix 40 mg twice daily, diuresing really well. Net -6.6 L. ? Continue spironolactone 25 mg. ? Continue levofloxacin 750 mg day 3/5. ? On room air during day, CPAP at night ? echo obtained today showing EF 40 to 45%. Asynchronous septum. Cardiology consulted to assist with care - Continue carvedilol 3.125 mg twice daily. Initiate Entresto 24/26 mg twice daily. Monitor for tolerance of GDMT #Physical deconditioning: PT/OT consulted, recommend SNF. Case management assisting with placement. Lower extremity edema: Bilateral venous Doppler Diabetes: SSI, fingersticks ACHS. Blood sugar this morning 144. - Kidney function normal with BUN 17, creatinine 1. Potassium 3.9, magnesium 1.6. Replacing per protocol Normocytic anemia: No active signs of bleeding, will monitor daily. Repeat CBC, CMP, magnesium ordered for the morning Full code DVT prophylaxis: Lovenox 60 mg twice daily
--- NOTE | 2025-02-26 19:39 | CA_ITS ---
APPROVED REPORT EXAM: Comprehensive 2D, Doppler, and color-flow Echocardiogram Bottle House Pumper: Nita Head RT(R) Ht: 5 ft 11 in Wt: 425lbs BSA: 2.90 BP: 145/86 mmHg Indications: Shortness of breath, weakness, diabetes, edema Echo Enhancing Agent Indication: Endocardial border delineation Agent(s) / Amount(s) Used: Definity 2 cc 2D Dimensions Left Atrium 5.13 cm M: 3.0 - 4.0 LVOT 1.96 cm (M/F) 1.5-2.5 M-Mode Dimensions RVDd 3.59 cm (0.9-2.6) LVDd 4.13 cm (3.5-5.7) Ao Diam 4.04 cm (2.0-3.7) LVDs 2.75 cm (3.5-5.7) IVSd 1.28 cm (0.6-1.1) PWd 1.03 cm (0.6-1.1) EF (Teich) 62.50% FS 33.40% EDV (Teich) 75.50 mL ESV (Teich) 28.30 mL LV Diastology E Decel Time 247 (160-240 msec) E/A Ratio 1.6 MED E' 8.6 (>= 7 cm/sec) E'/MED E' Ratio 16.71 (<= 14) LAT E' 8.3 (>= 10 cm/sec) E/LAT E' Ratio 17.31 (<= 14) Mitral Valve MV E Max Julio C. 144.0 (40-130 cm/s) MV A Velocity 88.0 (40-130 cm/s) E/A Ratio 1.62 MV Decel. Time 247 (160-240 ms) Left Ventricle The left ventricle is normal size. Left ventricular systolic function is mildly decreased. There is increased overall thickness. There is mild global hypokinesis present. The septum is asynchronous. Diastolic function is indeterminate. LVEF is 40-45%. Right Ventricle The right ventricle is not well-visualized. Atria The left atrium is not well-visualized, but is at least mildly dilated. The right atrium is not well-visualized. The interatrial septum is not well-visualized. Aortic Valve Aortic valve is mildly thickened. Trace aortic regurgitation. Mitral Valve The mitral valve is mildly thickened. Trace mitral regurgitation. Tricuspid Valve The tricuspid valve leaflets are not well-visualized. Pulmonic Valve The pulmonic valve is not well-visualized. Great Vessels The aortic root is normal in size. The IVC is not well-visualized. Pericardium There is no pericardial effusion. Other Information Study Quality: Technically Difficult Conclusion Technically very difficult study due to poor acoustic windows. Mild reduction global LV systolic function (LVEF 40-45%). Asynchronous septum. RV is not well-visualized. No significant valvular stenosis or regurgitation of the AV or MV. The TV and PV are not well-visualized. Electronically signed by : Yenni Ma MD 02/26/2025 13:05:47
--- NOTE | 2025-02-26 19:41 | CA_ITS ---
FINAL REPORT TECHNIQUE: Bilateral lower extremity venous duplex was performed with augmentation and compression. CLINICAL HISTORY: Bilateral lower extremity edema, morbid obesity (400+ lbs), weakness, SOB, DM. FINDINGS: Proper flow is seen throughout the deep venous systems bilaterally. There is no evidence of deep venous thrombosis or superficial venous thrombosis. IMPRESSION: No evidence of deep/superficial venous thrombosis. Reviewed, Interpreted and Dictated by Ronald Fierro MD Transcribed by Kathy Schwartz Authenticated and [facility]
[2025-02-26] MEDS: PANTOPRAZOLE 40MG TABLET 40 MG PO (20:11)
[2025-02-26] MEDS: SACUBITRIL/VALSARTAN 24-26MG TABLET 1 EACH PO (20:11)
[2025-02-26 22:02] LABS: POC Glucose,Bedside 248 (70-110)
[2025-02-27] VITALS (8 sets, daily range): BP systolic 98–122; BP diastolic 53–82; PULSE 60–83; RESP 16–22; TEMP 36.4–36.8; O2SAT 94–100; BMI 58.1; BMI 56.0
[2025-02-27] MEDS: humaLOG 100 UNITS/ML 10ML VIAL (SSI) SUBCUT ×4 (06:04→20:30)
[2025-02-27 06:31] LABS: POC Glucose,Bedside 194 (70-110)
[2025-02-27 06:50] LABS: Basophils % 0.5 % (0.1-2.0); Eosinophils # 0.2 Kmm3 (0.0-0.4); Eosinophils % 4.4 % (0.1-12.0); Hematocrit 38.6 % (42.0-52.0); Hemoglobin 10.5 g/dL (14.1-18.0); Immature Granulocytes # 0.01 10^3uL; Immature Granulocytes % 0.2 %; Lymphocytes # 0.8 K/mm3 (0.7-4.5); Lymphocytes % 20.7 % (10-50); Mean Corpuscular HGB Conc 27.2 g/dL (31.8-35.4); Mean Corpuscular Hemoglobin 22.2 pg (27.0-31.2); Mean Corpuscular Volume 81.4 fl (80-94); Mean Platelet Volume 10.3 fl (7.4-10.4); Monocytes # 0.4 K/mm3 (0.1-1.0); Monocytes % 9.6 % (1.7-9.3); Neutrophils # 2.6 K/mm3 (1.8-7.8); Neutrophils % 64.6 % (37.0-80.0); Nucleated Red Blood Cells # 0 10^3/uL; Nucleated Red Blood Cells % 0 %; Platelet Count 178 K/mm3 (142-424); Red Blood Count 4.74 M/mm3 (4.60-6.20); Red Cell Distribution Width 16.7 % (11.5-17.5); Red Cell Distribution Width-SD 49.4 fL; White Blood Count 4.1 K/mm3 (4.8-10.8)
[2025-02-27 07:10] LABS: Chloride 98 mmol/L (98-107); Sodium 134 mmol/L (136-145)
[2025-02-27 07:13] LABS: Alanine Aminotransferase 12 U/L (12-78); Alkaline Phosphatase 84 U/L (38-126); Aspartate Amino Transferase 26 U/L (17-59); Bilirubin,Total 0.6 mg/dl (0.2-1.3); Blood Urea Nitrogen 17 mg/dl (9-20); Calcium 7.9 mg/dl (8.4-10.2); Carbon Dioxide 35 mmol/L (22.0-30.0); Creatinine Clearance Estimated 76 mL/min (50-200); Estimated Glomerular Filt Rate 75 ml/min (>60); GFR (African American) 91 ML/MIN (>60); Globulin 2.9 g/dL (1.3-3.2); Glucose 126 mg/dl (74-100); Total Protein,Serum 5.9 g/dl (6.3-8.2)
[2025-02-27 07:14] LABS: Magnesium 1.8 mg/dl (1.6-2.3)
--- NOTE | 2025-02-27 07:53 | P.PN_ITS ---
Subjective *Date: 02/27/25 *Time: 07:53 Medical Exam Vital signs and Labs for Last 24 Hours: Vital Signs Temp Pulse Pulse Resp BP Pulse Ox O2 Del Method 02/27/25 07:00 Nasal Cannula 02/27/25 04:49 Nasal Cannula 02/27/25 04:00 60 02/27/25 04:00 97.6 F 63 18 116/65 100 Nasal Cannula 02/27/25 03:00 Nasal Cannula 02/27/25 01:00 Nasal Cannula 02/27/25 00:00 60 02/27/25 00:00 98.2 F 83 18 105/54 L 94 L Nasal Cannula 02/26/25 23:00 Nasal Cannula 02/26/25 21:00 Nasal Cannula 02/26/25 20:00 70 02/26/25 20:00 Nasal Cannula 02/26/25 20:00 97.5 F L 70 20 106/61 L 96 Nasal Cannula 02/26/25 18:15 Room Air 02/26/25 16:00 60 02/26/25 16:00 97.5 F L 72 20 129/74 100 Nasal Cannula 02/26/25 15:00 Room Air 02/26/25 12:33 Room Air 02/26/25 12:00 97.6 F 72 20 114/60 99 Nasal Cannula 02/26/25 12:00 80 02/26/25 11:00 Room Air 02/26/25 09:00 Room Air 02/26/25 08:41 60 02/26/25 08:00 Room Air 02/26/25 08:00 97.7 F 69 20 103/64 L 96 Nasal Cannula O2 Flow Rate 02/27/25 07:00 3 02/27/25 04:49 3 02/27/25 04:00 02/27/25 04:00 3 02/27/25 03:00 3 02/27/25 01:00 3 02/27/25 00:00 02/27/25 00:00 2 02/26/25 23:00 3 02/26/25 21:00 2 02/26/25 20:00 02/26/25 20:00 3 02/26/25 20:00 2 02/26/25 18:15 02/26/25 16:00 02/26/25 16:00 2 02/26/25 15:00 02/26/25 12:33 02/26/25 12:00 2 02/26/25 12:00 02/26/25 11:00 02/26/25 09:00 02/26/25 08:41 02/26/25 08:00 02/26/25 08:00 2 Intake and Output 02/26/25 02/26/25 02/27/25 15:59 23:59 07:59 Intake Total 1710 / 2510 480 / 2510 200 / 200 Output Total 2150 / 5200 1100 / 5200 1100 / 1100 Balance -440 / -2690 -620 / -2690 -900 / -900 Intake: Intake, Oral Amount 1610 / 2410 480 / 2410 200 / 200 Intake, Total IV Amount 100 / 100 Magnesium Sulfate in Water 2 gm 100 / 100 In 50 ml @ 50 mls/hr IV Q1H [facility] Rx#:[id number] Output: Output, Urine Amount 2150 / 5200 1100 / 5200 1100 / 1100 Other: Number of Unmeasured Voids 0 0 Number of Bowel Movements 1 Weight 188.332 kg Patient Weight 02/27/25 23:59 Weight 188.332 kg Laboratory Results - last 24 hr 02/26/25 09:30: WBC 4.3 L, RBC 4.82, Hgb 11.1 L, Hct 39.4 L, MCV 81.7, MCH 23.0 L, MCHC 28.2 L, RDW 16.7, Plt Count 198, MPV 8.6, Neut % (Auto) 64.5, Lymph % (Auto) 21.0, [place] % (Auto) 9.9 H, Eos % (Auto) 3.7, Baso % (Auto) 0.7, Neut # (Auto) 2.8, Lymph # (Auto) 0.9, [place] # (Auto) 0.4, Eos # (Auto) 0.2, Baso # (Auto) 0.0, Sodium 135 L, Potassium 3.9, Chloride 98, Carbon Dioxide 35 H, Anion Gap 5.9, BUN 17, Creatinine 1.00, Estimated Creat Clear 76, Estimated GFR 75, Est GFR ( Amer) 91, Glucose 144 H, Calcium 8.4, Magnesium 1.6, Total Bilirubin 0.6, AST 15 L D, ALT 15, Alkaline Phosphatase 93, Total Protein 6.1 L, Albumin 3.2 L, Globulin 2.9, Albumin/Globulin Ratio 1.1 02/26/25 10:26: POC Glucose 136 H 02/26/25 16:55: POC Glucose 178 H 02/26/25 20:10: POC Glucose 248 H 02/27/25 06:02: WBC 4.1 L, RBC 4.74, Hgb 10.5 L, Hct 38.6 L, MCV 81.4, MCH 22.2 L, MCHC 27.2 L, RDW 16.7, Plt Count 178, MPV 10.3, Neut % (Auto) 64.6, Lymph % (Auto) 20.7, [place] % (Auto) 9.6 H, Eos % (Auto) 4.4, Baso % (Auto) 0.5, Neut # (Auto) 2.6, Lymph # (Auto) 0.8, [place] # (Auto) 0.4, Eos # (Auto) 0.2, Baso # (Auto) 0.0, Sodium 134 L, Potassium 4.0, Chloride 98, Carbon Dioxide 35 H, Anion Gap 5.0, BUN 17, Creatinine 1.00, Estimated Creat Clear 76, Estimated GFR 75, Est GFR ( Amer) 91, Glucose 126 H, Calcium 7.9 L, Magnesium 1.8 D, Total Bilirubin 0.6, AST 26 D, ALT 12, Alkaline Phosphatase 84, Total Protein 5.9 L, Albumin 3.0 L, Globulin 2.9, Albumin/Globulin Ratio 1.0 L 02/27/25 06:03: POC Glucose 194 H I & O for Labs for Last 24 Hours: Intake & Output 02/24/25 02/25/25 02/26/25 02/27/25 23:59 23:59 23:59 23:59 Intake Total 1220 / 1460 1420 / 1540 2310 / 2510 200 / 200 Output Total 4700 / 5200 3350 / 4050 4600 / 5200 1100 / 1100 Balance -3480 / -3740 -1930 / -2510 -2290 / -2690 -900 / -900 Weight 193.45 kg 192.919 kg 191.098 kg 188.332 kg The patient's infection will respond to the chosen ABx?: Yes Is the patient receiving the right drug, dose, and route?: Yes Could a more targeted ABx be ordered?: No (WBC WNL, AFEBRILE, WANTS TO CONTINUE FOR TOTAL OF 5 DAYS. HAS HAD 3 DAY)
--- NOTE | 2025-02-27 07:53 | EXP.PHA.CONS ---
Pharmacy Consult Date: 02/27/25 Time: 07:53 Referring provider: DR. BURGER Allergies Allergy/AdvReac Type Severity Reaction Status Date / Time cephalexin (From KEFLEX) Allergy Unknown Swelling Verified 02/23/25 21:47 of Lip/Tongue/Throat codeine (CODEINE) Allergy Unknown Swelling Verified 02/23/25 21:47 of Lip/Tongue/Throat Penicillins (PENICILLINS) Allergy Unknown Anaphylaxis Verified 02/23/25 21:47 Home Medications ?Medication ?Instructions ?Recorded ?Confirmed ?Type furosemide 40 mg tablet (Lasix) 40 mg PO BIDL 10/04/17 02/24/25 History lisinopril 40 mg tablet 40 mg PO DAILY 10/04/17 02/24/25 History metformin 850 mg tablet 850 mg PO BIDWMEAL Diabetes 10/04/17 02/24/25 History carvedilol 12.5 mg tablet 12.5 mg PO BID 02/23/25 02/24/25 History glimepiride 4 mg tablet 4 mg PO DAILY 02/23/25 02/24/25 History atorvastatin 40 mg tablet 40 mg PO DAILY 02/24/25 02/24/25 History cyanocobalamin (vitamin B-12) 1,000 mcg PO DAILY 02/24/25 02/24/25 History 1,000 mcg tablet potassium chloride 10 mEq 10 meq PO BID 02/24/25 02/24/25 History tablet,extended release New Prescriptions to Start Prescriptions: Height: 1.8 m Weight: 188.332 kg Laboratory Results:: Laboratory Results - last 24 hr 02/26/25 09:30: WBC 4.3 L, RBC 4.82, Hgb 11.1 L, Hct 39.4 L, MCV 81.7, MCH 23.0 L, MCHC 28.2 L, RDW 16.7, Plt Count 198, MPV 8.6, Neut % (Auto) 64.5, Lymph % (Auto) 21.0, [place] % (Auto) 9.9 H, Eos % (Auto) 3.7, Baso % (Auto) 0.7, Neut # (Auto) 2.8, Lymph # (Auto) 0.9, [place] # (Auto) 0.4, Eos # (Auto) 0.2, Baso # (Auto) 0.0, Sodium 135 L, Potassium 3.9, Chloride 98, Carbon Dioxide 35 H, Anion Gap 5.9, BUN 17, Creatinine 1.00, Estimated Creat Clear 76, Estimated GFR 75, Est GFR ( Amer) 91, Glucose 144 H, Calcium 8.4, Magnesium 1.6, Total Bilirubin 0.6, AST 15 L D, ALT 15, Alkaline Phosphatase 93, Total Protein 6.1 L, Albumin 3.2 L, Globulin 2.9, Albumin/Globulin Ratio 1.1 02/26/25 10:26: POC Glucose 136 H 02/26/25 16:55: POC Glucose 178 H 02/26/25 20:10: POC Glucose 248 H 02/27/25 06:02: WBC 4.1 L, RBC 4.74, Hgb 10.5 L, Hct 38.6 L, MCV 81.4, MCH 22.2 L, MCHC 27.2 L, RDW 16.7, Plt Count 178, MPV 10.3, Neut % (Auto) 64.6, Lymph % (Auto) 20.7, [place] % (Auto) 9.6 H, Eos % (Auto) 4.4, Baso % (Auto) 0.5, Neut # (Auto) 2.6, Lymph # (Auto) 0.8, [place] # (Auto) 0.4, Eos # (Auto) 0.2, Baso # (Auto) 0.0, Sodium 134 L, Potassium 4.0, Chloride 98, Carbon Dioxide 35 H, Anion Gap 5.0, BUN 17, Creatinine 1.00, Estimated Creat Clear 76, Estimated GFR 75, Est GFR ( Amer) 91, Glucose 126 H, Calcium 7.9 L, Magnesium 1.8 D, Total Bilirubin 0.6, AST 26 D, ALT 12, Alkaline Phosphatase 84, Total Protein 5.9 L, Albumin 3.0 L, Globulin 2.9, Albumin/Globulin Ratio 1.0 L 02/27/25 06:03: POC Glucose 194 H Medical History: Medical History (Updated 02/23/25 @ 22:16 by Devika Tompkins, JUSTYN) Congestive heart failure Diabetes
[2025-02-27] MEDS: FUROSEMIDE 40MG/4ML VIAL 40 MG IV ×2 (09:09→16:46)
[2025-02-27] MEDS: SPIRONOLACTONE 25MG TABLET 25 MG PO (09:09)
[2025-02-27] MEDS: ENOXAPARIN 60MG/0.6ML SYRINGE 60 MG SUBCUT ×2 (09:09→20:29)
[2025-02-27] MEDS: SACUBITRIL/VALSARTAN 24-26MG TABLET 1 EACH PO ×2 (09:09→20:29)
[2025-02-27] MEDS: CARVEDILOL 3.125MG TABLET 3.125 MG PO ×2 (09:09→20:29)
[2025-02-27] MEDS: PT OWN MED *ATORVASTATIN 40 MG TAB 1 EACH PO (09:09)
[2025-02-27 11:20] LABS: POC Glucose,Bedside 175 (70-110)
[2025-02-27] MEDS: FUROSEMIDE 40MG/4ML VIAL 80 MG IV (12:05)
[2025-02-27] MEDS: levoFLOXacin 750 MG TABLET PO (12:05)
--- NOTE | 2025-02-27 13:49 | EXP.CARD.CON ---
History of Present Illness History of Present Illness Consult date: 02/27/25 Consult reason: congestive heart failure Chief complaint: SOA History of present illness: 64-year-old white male with morbid obesity, BMI 58, presented to the emergency room on February 23 for worsening shortness of breath and peripheral edema. Symptoms worse with activity and not improving with rest. Baseline debility. ER workup reveals proBNP 7990, chest x-ray with left lower lobe pneumonia. Patient was admitted and started on diuresis. He has diuresed 8.6 L. Echo shows EF is 40%, troponin 0.05, 0.04, 0.04. EKG shows sinus rhythm but inferior Q waves with intraventricular conduction delay. Patient reports he has a history of 2 prior MIs but denies caths and stenting. Reports history of heart failure but does not know details. States he has a history of rheumatic fever as a child but no known valvular disease. [facility] Disclaimer: The information contained in this section may have been updated after the patient was seen, as this information can be updated by other users. Medical History Congestive heart failure Diabetes Surgical History History of left knee surgery Family History Other Cancer Heart attack Social History Smoking Status: Never smoker alcohol intake: never current occupational status: disabled and other Travel in the last 8 weeks?: None Have you lived/traveled outside [place] in past 30 days?: No Contact w/someone who lives/traveled outside US past 30 days?: No Exposure to someone with infectious disease in past 14 days?: No Do you have a fever (greater than 100.4 F or 38 C)?: No Have you tested positive for COVID-19?: No Exposed to someone with COVID-19 in past 14 days?: No Do you have a sore throat?: No Do you have a cough?: No Do you have any weakness?: No Do you have any diarrhea?: No Are you experiencing any unusual bleeding?: No Do you have any muscle aches/pain?: No Do you have any abdominal pain?: No Are you experiencing loss of taste or smell?: No Review of Systems Constitutional Constitutional: Reports fatigue and Reports weakness Eyes Eyes: Denies loss of vision ENT Ears, Nose, Mouth, and Throat: Denies hearing loss and Denies vertigo *Cardiovascular Cardiovascular: Denies chest pain, Reports dyspnea and Denies syncope *Respiratory Respiratory: Denies cough and Reports dyspnea *Gastrointestinal Gastrointestinal: Denies change in stool character, Denies nausea and Denies vomiting *Genitourinary Genitourinary: Denies difficulty urinating *Musculoskeletal Musculoskeletal: Denies muscle weakness Integumentary/Breasts Skin/Breast: Denies changing lesions *Neurologic Neurologic: Denies loss of vision, Denies syncope, Denies vertigo and Reports weakness Endocrine Endocrine: Reports fatigue Exam Data for Last 24 hours Vital signs and Labs for Last 24 Hours: Temp Pulse Resp BP Pulse Ox O2 Del Method O2 Flow Rate 98 F 66 18 109/53 L 94 L Nasal Cannula 3 02/27/25 12:00 02/27/25 12:00 02/27/25 12:00 02/27/25 12:00 02/27/25 12:00 02/27/25 12:00 02/27/25 12:00 FiO2 28 02/24/25 06:47 Laboratory Results - last 24 hr 02/26/25 16:55: POC Glucose 178 H 02/26/25 20:10: POC Glucose 248 H 02/27/25 06:02: WBC 4.1 L, RBC 4.74, Hgb 10.5 L, Hct 38.6 L, MCV 81.4, MCH 22.2 L, MCHC 27.2 L, RDW 16.7, Plt Count 178, MPV 10.3, Neut % (Auto) 64.6, Lymph % (Auto) 20.7, [place] % (Auto) 9.6 H, Eos % (Auto) 4.4, Baso % (Auto) 0.5, Neut # (Auto) 2.6, Lymph # (Auto) 0.8, [place] # (Auto) 0.4, Eos # (Auto) 0.2, Baso # (Auto) 0.0, Sodium 134 L, Potassium 4.0, Chloride 98, Carbon Dioxide 35 H, Anion Gap 5.0, BUN 17, Creatinine 1.00, Estimated Creat Clear 76, Estimated GFR 75, Est GFR ( Amer) 91, Glucose 126 H, Calcium 7.9 L, Magnesium 1.8 D, Total Bilirubin 0.6, AST 26 D, ALT 12, Alkaline Phosphatase 84, Total Protein 5.9 L, Albumin 3.0 L, Globulin 2.9, Albumin/Globulin Ratio 1.0 L 02/27/25 06:03: POC Glucose 194 H 02/27/25 11:10: POC Glucose 175 H I & O for Last 24 hours: Intake & Output 02/24/25 02/25/25 02/26/25 02/27/25 23:59 23:59 23:59 23:59 Intake Total 1220 / 1460 1420 / 1540 2310 / 2510 900 / 900 Output Total 4700 / 5200 3350 / 4050 4600 / 5200 2100 / 2100 Balance -3480 / -3740 -1930 / -2510 -2290 / -2690 -1200 / -1200 Weight 426 lb 7.748 oz 425 lb 5 oz 421 lb 4.8 oz 415 lb 3.2 oz Constitutional Constitutional: no acute distress, obese and cooperative *Routine HEENT Exam Eye: Present PERRL *Routine Respiratory Exam Respiratory: Present CTA bilaterally; Absent accessory muscle use, wheezes or crackles *Routine Cardiovascular Exam Cardiovascular: Present RRR, Normal S1 and Normal S2; Absent murmur, gallop or rubs *Routine Abdominal Exam Abdominal: Present soft; Absent tenderness *Routine Extremities Exam Extremities: Present pulses intact; Absent cyanosis or edema *Routine Skin Exam Skin: Present intact; Absent erythema or wounds *Routine Neurological Exam Neurological: Present alert and oriented X3 Routine Psychiatric Exam Psychiatric: Present cooperative [facility] Home Medications and Allergies Home Medications ?Medication ?Instructions ?Recorded ?Confirmed ?Type furosemide 40 mg tablet (Lasix) 40 mg PO BIDL 10/04/17 02/24/25 History lisinopril 40 mg tablet 40 mg PO DAILY 10/04/17 02/24/25 History metformin 850 mg tablet 850 mg PO BIDWMEAL Diabetes 10/04/17 02/24/25 History carvedilol 12.5 mg tablet 12.5 mg PO BID 02/23/25 02/24/25 History glimepiride 4 mg tablet 4 mg PO DAILY 02/23/25 02/24/25 History atorvastatin 40 mg tablet 40 mg PO DAILY 02/24/25 02/24/25 History cyanocobalamin (vitamin B-12) 1,000 mcg PO DAILY 02/24/25 02/24/25 History 1,000 mcg tablet potassium chloride 10 mEq 10 meq PO BID 02/24/25 02/24/25 History tablet,extended release New Prescriptions to Start Prescriptions: Allergies Allergy/AdvReac Type Severity Reaction Status Date / Time cephalexin (From KEFLEX) Allergy Unknown Swelling Verified 02/23/25 21:47 of Lip/Tongue/Throat codeine (CODEINE) Allergy Unknown Swelling Verified 02/23/25 21:47 of Lip/Tongue/Throat Penicillins (PENICILLINS) Allergy Unknown Anaphylaxis Verified 02/23/25 21:47 Assessment and Plan *Assessment and plan (1) HFrEF (heart failure with reduced ejection fraction): Status: Acute Category: Medical Code(s): I50.20 - Unspecified systolic (congestive) heart failure (2) Community acquired pneumonia: Status: Acute Qualifiers: Laterality: right Lung location: lower lobe of lung Qualified Code(s): J18.9 - Pneumonia, unspecified organism Category: Medical Code(s): J18.9 - Pneumonia, unspecified organism (3) NSTEMI (non-ST elevated myocardial infarction): Status: Acute Category: Medical Code(s): I21.4 - Non-ST elevation (NSTEMI) myocardial infarction Plan HFrEF - pt reports hx of 'CHF' but details uncelar - presented here with worsening CABA, NYHA = 4, peripheral edema, ProBNP 7,990 - Diuresed 8.6L so far and feeling significantly better - ECHO shows EF 40% and q-waves on EKG, pt agreeable to ischemic evaluation - Cont Entresto, Aldactone, Coreg, add Jardiance. Increase diuresis. NSTEMI - pt reports 2 prior MIs but denies cath/stenting - presented here with CABA, CCS = 4 equivalent, Elevated Trop, EF 40% and q-waves on EKG - we dicsussed [facility] to evaluate for ischemia and he is agreeable. Currently weight is greater than the limit for our Information Security Engineer table which is 400 pounds. Will add an extra 80 mg of Lasix and see if we can get closer to 400 pound weight limit so he can proceed today. - Continue Lovenox, beta-chandrika, statin, add aspirin. DM-II - poorly controlled with A1C 8 - add Jardiance for DM and CV benefit, consider OP GLP-1 CAP, LLL - on antibiotics Debility, Inability to care for self - eval/plans per hospitalist - complicates all aspects of care
[2025-02-27] MEDS: EMPAGLIFLOZIN 10MG TABLET 10 MG PO (14:10)
[2025-02-27 15:00] LABS: POC Glucose,Bedside 139 (70-110)
--- NOTE | 2025-02-27 15:55 | P.PN_ITS ---
Subjective *Date: 02/27/25 *Time: 17:21 Interval history: Patient wore oxygen overnight, back to room air this morning. Denies shortness of breath, nausea or vomiting. Complaining of some mild left-sided chest pressure, 2 out of 10 on the pain scale. Present at rest but also present with exertion. Not reproducible on exam. Medical Exam Vital signs and Labs for Last 24 Hours: Vital Signs Temp Pulse Pulse Resp BP Pulse Ox O2 Del Method 02/27/25 12:00 98 F 66 18 109/53 L 94 L Nasal Cannula 02/27/25 11:00 Nasal Cannula 02/27/25 09:00 Nasal Cannula 02/27/25 08:00 Nasal Cannula 02/27/25 08:00 97.9 F 67 18 109/56 L 99 Room Air 02/27/25 07:00 Nasal Cannula 02/27/25 04:49 Nasal Cannula 02/27/25 04:00 60 02/27/25 04:00 97.6 F 63 18 116/65 100 Nasal Cannula 02/27/25 03:00 Nasal Cannula 02/27/25 01:00 Nasal Cannula 02/27/25 00:00 60 02/27/25 00:00 98.2 F 83 18 105/54 L 94 L Nasal Cannula 02/26/25 23:00 Nasal Cannula 02/26/25 21:00 Nasal Cannula 02/26/25 20:00 70 02/26/25 20:00 Nasal Cannula 02/26/25 20:00 97.5 F L 70 20 106/61 L 96 Nasal Cannula 02/26/25 18:15 Room Air 02/26/25 16:00 60 02/26/25 16:00 97.5 F L 72 20 129/74 100 Nasal Cannula O2 Flow Rate 02/27/25 12:00 3 02/27/25 11:00 2 02/27/25 09:00 2 02/27/25 08:00 3 02/27/25 08:00 02/27/25 07:00 3 02/27/25 04:49 3 02/27/25 04:00 02/27/25 04:00 3 02/27/25 03:00 3 02/27/25 01:00 3 02/27/25 00:00 02/27/25 00:00 2 02/26/25 23:00 3 02/26/25 21:00 2 02/26/25 20:00 02/26/25 20:00 3 02/26/25 20:00 2 02/26/25 18:15 02/26/25 16:00 02/26/25 16:00 2 Intake and Output 02/26/25 02/27/25 02/27/25 23:59 07:59 15:59 Intake Total 480 / 2510 200 / 900 700 / 900 Output Total 1100 / 5200 1100 / 3600 2500 / 3600 Balance -620 / -2690 -900 / -2700 -1800 / -2700 Intake: Intake, Oral Amount 480 / 2410 200 / 900 700 / 900 Output: Output, Urine Amount 1100 / 5200 1100 / 3600 2500 / 3600 Other: Number of Unmeasured Voids 0 0 Weight 188.332 kg 181.522 kg Patient Weight 02/27/25 23:59 Weight 181.522 kg Laboratory Results - last 24 hr 02/24/25 20:17: POC Glucose 139 H 02/26/25 16:55: POC Glucose 178 H 02/26/25 20:10: POC Glucose 248 H 02/27/25 06:02: WBC 4.1 L, RBC 4.74, Hgb 10.5 L, Hct 38.6 L, MCV 81.4, MCH 22.2 L, MCHC 27.2 L, RDW 16.7, Plt Count 178, MPV 10.3, Neut % (Auto) 64.6, Lymph % (Auto) 20.7, [place] % (Auto) 9.6 H, Eos % (Auto) 4.4, Baso % (Auto) 0.5, Neut # (Auto) 2.6, Lymph # (Auto) 0.8, [place] # (Auto) 0.4, Eos # (Auto) 0.2, Baso # (Auto) 0.0, Sodium 134 L, Potassium 4.0, Chloride 98, Carbon Dioxide 35 H, Anion Gap 5.0, BUN 17, Creatinine 1.00, Estimated Creat Clear 76, Estimated GFR 75, Est GFR ( Amer) 91, Glucose 126 H, Calcium 7.9 L, Magnesium 1.8 D, Total Bilirubin 0.6, AST 26 D, ALT 12, Alkaline Phosphatase 84, Total Protein 5.9 L, Albumin 3.0 L, Globulin 2.9, Albumin/Globulin Ratio 1.0 L 02/27/25 06:03: POC Glucose 194 H 02/27/25 11:10: POC Glucose 175 H I & O for Labs for Last 24 Hours: Intake & Output 02/24/25 02/25/25 02/26/25 02/27/25 23:59 23:59 23:59 23:59 Intake Total 1220 / 1460 1420 / 1540 2310 / 2510 900 / 900 Output Total 4700 / 5200 3350 / 4050 4600 / 5200 3600 / 3600 Balance -3480 / -3740 -1930 / -2510 -2290 / -2690 -2700 / -2700 Weight 193.45 kg 192.919 kg 191.098 kg 181.522 kg Constitutional: Present no acute distress, morbidly obese, chronically ill appearing and cooperative Head: Present atraumatic and normocephalic ENT: Present normal exam Respiratory: Present distant breath sounds, diminished air movement and normal respiratory effort; Absent rhonchi, wheezes or crackles Cardiac: Present Reg Rate and Rhythm GI: Present soft and normal bowel sounds; Absent distention or tenderness Extremities: Present normal inspection, full ROM and edema (Chronic stasis changes lower legs. Trace edema bilateral lower extremities.) Skin: Present erythema (Chronic stasis changes lower legs) Neuro: Present Grossly Intact, alert, awake, oriented x 3 and moves all extremities Assessment and Plan *Assessment and plan (1) HFrEF (heart failure with reduced ejection fraction): Status: Acute Category: Medical Code(s): I50.20 - Unspecified systolic (congestive) heart failure (2) NSTEMI (non-ST elevated myocardial infarction): Status: Acute Category: Medical Code(s): I21.4 - Non-ST elevation (NSTEMI) myocardial infarction (3) Unable to care for self: Status: Acute Category: Medical Code(s): Z78.9 - Other specified health status (4) Acute dyspnea: Status: Acute Category: Medical Code(s): R06.00 - Dyspnea, unspecified (5) Anasarca: Status: Acute Category: Medical Code(s): R60.1 - Generalized edema (6) Fall: Status: Acute Qualifiers: Encounter type: initial encounter Qualified Code(s): W19.XXXA - Unspecified fall, initial encounter Category: Medical Code(s): W19.XXXA - Unspecified fall, initial encounter (7) Morbid obesity: Status: Acute Category: Medical Code(s): E66.01 - Morbid (severe) obesity due to excess calories Plan Suzan Whitehead is a 64-year-old morbidly obese and with heart failure presenting to inability to self manage and severe anasarca. Patient being evaluated for placement at [facility]. Continues to require inpatient management due to inability to care for self. Awaiting stable discharge plan. Responding to treatment for heart failure exacerbation. Sinew to diurese well. Excepted to [facility] for skilled care when stable to discharge. Planning for heart cath in the morning. Anticipate discharge thereafter. Problems addressed as follows: #HFrEF exacerbation #Community-acquired pneumonia #Anasarca ? Presented with weakness, shortness of breath, and overload. BNP 7990. CXR with left lower lobe pneumonia. On room air. No signs of sepsis. ? Continue IV Lasix 40 mg twice daily, diuresing really well. Net negative volume status since admission ? Continue spironolactone 25 mg. ? Continue levofloxacin 750 mg day /5. ? On room air during day, CPAP at night ? echo obtained during admission showing EF of 40 to 45%. Asynchronous septum. Discussed case with cardiology today, with history of CHF and risk factors, along with troponin elevated at 0.05 on presentation. Recommend proceeding with heart cath. Patient is at the cutoff limit of 400 pounds for Medical Records Technician, will proceed in the morning with left heart cath. - Continue carvedilol 3.125 mg twice daily. Continue Entresto 24/26 mg twice daily. Monitor for tolerance of GDMT #Physical deconditioning: PT/OT consulted, recommend SNF. Accepted to [facility]. Anticipate discharge tomorrow Lower extremity edema: Bilateral venous Doppler negative for DVT Diabetes: SSI, fingersticks ACHS. Blood sugar this morning 126. - Kidney function normal with BUN 17, creatinine 1. Potassium 4.0, magnesium 1.8. Repeat CBC, CMP, magnesium ordered for the morning. Replacing electrol ytes per protocol Normocytic anemia: No active signs of bleeding, will monitor daily. Transfused 200 mg IV Venofer today. Hemoglobin 10.5 Full code DVT prophylaxis: Lovenox 60 mg twice daily
[2025-02-27 17:13] LABS: POC Glucose,Bedside 346 (70-110)
[2025-02-27] MEDS: PANTOPRAZOLE 40MG TABLET 40 MG PO (20:29)
[2025-02-27 20:56] LABS: POC Glucose,Bedside 279 (70-110)
[2025-02-28] VITALS (16 sets, daily range): BP systolic 94–139; BP diastolic 57–80; PULSE 60–80; RESP 17–19; TEMP 36.5–36.8; O2SAT 90–100; BMI 55.7; BMI 55.0
[2025-02-28 06:59] LABS: POC Glucose,Bedside 103 (70-110)
[2025-02-28 07:36] LABS: Basophils % 0.7 % (0.1-2.0); Eosinophils # 0.2 Kmm3 (0.0-0.4); Eosinophils % 4.3 % (0.1-12.0); Hematocrit 40.2 % (42.0-52.0); Hemoglobin 11.7 g/dL (14.1-18.0); Immature Granulocytes # 0.01 10^3uL; Immature Granulocytes % 0.2 %; Lymphocytes # 1.1 K/mm3 (0.7-4.5); Mean Corpuscular HGB Conc 29.1 g/dL (31.8-35.4); Mean Corpuscular Hemoglobin 23.3 pg (27.0-31.2); Mean Corpuscular Volume 80.1 fl (80-94); Mean Platelet Volume 8.7 fl (7.4-10.4); Monocytes # 0.5 K/mm3 (0.1-1.0); Monocytes % 11.2 % (1.7-9.3); Neutrophils # 2.5 K/mm3 (1.8-7.8); Neutrophils % 58.6 % (37.0-80.0); Nucleated Red Blood Cells # 0 10^3/uL; Nucleated Red Blood Cells % 0 %; Platelet Count 230 K/mm3 (142-424); Red Blood Count 5.02 M/mm3 (4.60-6.20); Red Cell Distribution Width 16.5 % (11.5-17.5); White Blood Count 4.2 K/mm3 (4.8-10.8)
[2025-02-28 07:50] LABS: Albumin Level 3.1 g/dl (3.5-5.0); Chloride 92 mmol/L (98-107); Potassium 3.5 mmoL/L (3.5-5.1); Sodium 135 mmol/L (136-145)
[2025-02-28 07:53] LABS: Alanine Aminotransferase 13 U/L (12-78); Alkaline Phosphatase 87 U/L (38-126); Aspartate Amino Transferase 19 U/L (17-59); Bilirubin,Total 0.7 mg/dl (0.2-1.3); Blood Urea Nitrogen 17 mg/dl (9-20); Calcium 8.2 mg/dl (8.4-10.2); Creatinine Clearance Estimated 76 mL/min (50-200); Estimated Glomerular Filt Rate 75 ml/min (>60); GFR (African American) 91 ML/MIN (>60); Globulin 3.1 g/dL (1.3-3.2); Glucose 91 mg/dl (74-100); Total Protein,Serum 6.2 g/dl (6.3-8.2)
[2025-02-28 08:01] LABS: Anion Gap 5.5 mEq/L (5-15); Carbon Dioxide 41 mmol/L (22.0-30.0)
[2025-02-28] MEDS: EMPAGLIFLOZIN 10MG TABLET 10 MG PO (08:16)
[2025-02-28] MEDS: SPIRONOLACTONE 25MG TABLET 25 MG PO (08:16)
[2025-02-28] MEDS: CARVEDILOL 3.125MG TABLET 3.125 MG PO (08:16)
[2025-02-28] MEDS: PT OWN MED *ATORVASTATIN 40 MG TAB 1 EACH PO (08:17)
[2025-02-28] MEDS: ENOXAPARIN 60MG/0.6ML SYRINGE 60 MG SUBCUT (08:17)
[2025-02-28] MEDS: SACUBITRIL/VALSARTAN 24-26MG TABLET 1 EACH PO (08:17)
[2025-02-28] MEDS: FUROSEMIDE 40MG/4ML VIAL 40 MG IV (08:17)
[2025-02-28 08:19] LABS: Magnesium 1.6 mg/dl (1.6-2.3)
--- NOTE | 2025-02-28 09:24 | IR_ITS ---
APPROVED REPORT Patient Location: [facility]: ALEKSEY Hughes RT (R) PROCEDURES Left heart catheterization Left ventriculogram Selective coronary angiogram Drug-eluting stent deployment to the ostial proximal left main artery extending into the LAD INDICATION Acute non-ST elevation myocardial infarction, Coronary artery disease, Severe distal left main disease with chronically occluded ostial circumflex artery, Informed consent was obtained prior to the procedure. COMPLICATIONS None Estimated Blood Loss: Less than 10 mls TECHNIQUE One percent lidocaine used to anesthetize the right anterior aspect of the wrist. The right radial artery was accessed via the Seldinger technique. A 6 [place] sheath was placed in the right radial artery. 2.5 mg of Verapamil, 800 mcg of nitroglycerin, 1mg Lidocaine and 5000 U Heparin were given through the arterial sheath. The JL3 catheter was also used to perform left heart catheterization, left ventriculogram and selective coronary angiogram. A JL 4 guide catheter was used to perform left coronary artery angiography. At the end the diagnostic angiogram therapeutic heparin was administered giving a therapeutic ACT guide catheter was placed in left main artery followed by Choice PT extra-support wire down the LAD. A 4 mm x 22 mm Srinivasan frontier stent was deployed at 20 negra in the ostial left main artery stenting in the proximal LAD. A 5 mm x 12 mm noncompliant balloon was deployed at 20 negra in the ostial and proximal segment of the stent to post dilate and get better transition into the ostial LAD. MINE-3 flow was present before and after the procedure. At the end the procedure the apparatus was removed good hemostasis was achieved using TR banding patient was transferred to the postop putting in stable condition at the end of the procedure the sheath was removed good hemostasis was achieved using Traclet band, patient was transferred to the postop holding area in stable condition. ANGIOGRAPHIC RESULTS The left main artery Has a distal concentric 50 to 60% stenosis The left anterior descending artery Is a large-caliber vessel which is proximally normal and has a mid vessel 40% stenosis The circumflex artery Ostially occluded and fills via right to left collaterals The right coronary artery Is dominant has proximal 30 and then 40% tandem mid vessel stenoses. Distally the vessel has 40% stenoses collaterals from the distal right supply of the circumflex artery The LIU ventriculogram reveals Reduced ejection fraction estimated at 35 to 40% The left ventricular end-diastolic pressure Less than 10 mmHg IMPRESSION Chronically occluded circumflex artery which fills via right to left collaterals Moderate to severe distal left main disease Mild to moderate mid LAD disease Successful stenting of the ostial left main artery extending the proximal LAD severe disease reduced to 0% with 1 drug-eluting stent Reduced ejection fraction Normal LVEDP PLAN 1. Effient and aspirin 2. LDL less than 55 to be achieved with high intensity statin 3. Avoidance of tobacco products 4. Risk factor modification 5. Cardiac rehabilitation 6. GDMT for LV dysfunction 7. Recommend sleep study Electronically signed by : Moe Christine MD 02/28/2025 10:50:11
[2025-02-28] MEDS: HEPARIN 1,000 UNITS/500ML NS (CATH LAB) 3000 UNIT IV (10:40)
[2025-02-28] MEDS: LIDOCAINE 1% 10ML MDV 10 ML IJ (10:40)
[2025-02-28] MEDS: diphenhydrAMINE 50MG/ML VIAL 50 MG IV (10:40)
[2025-02-28] MEDS: 0.9 % SODIUM CHLORIDE 500 ML 25 ML IV (10:41)
[2025-02-28] MEDS: HEPARIN 1,000 UNITS/ML 10ML VIAL (CATH LAB) 5000 UNIT IV (10:41)
[2025-02-28] MEDS: NITROGLYCERIN 800MCG/8ML SYR (CATH LAB) 800 MCG IA (10:41)
[2025-02-28] MEDS: VERAPAMIL 2.5MG/ML 2ML VIAL 2.5 MG IV (10:41)
[2025-02-28] MEDS: FENTANYL 100MCG/2ML VIAL 50 MCG IV (10:44)
[2025-02-28] MEDS: MIDAZOLAM HCL 1MG/ML 5ML VIAL 1 MG IV (10:45)
[2025-02-28] MEDS: ASPIRIN 325MG TABLET 325 MG PO (11:03)
[2025-02-28] MEDS: PRASUGREL 10MG TAB 60 MG PO (11:03)
[2025-02-28] MEDS: IOPAMIDOL-370 (76%);100ML BOTTLE 95 ML IV (11:06)
[2025-02-28 11:09] LABS: CATHL Activated Clotting Time 398 SEC (74-125)
[2025-02-28] MEDS: levoFLOXacin 750 MG TABLET PO (11:47)
--- NOTE | 2025-02-28 12:58 | EXP.DC.SUM ---
General Admission date:: 02/23/25 Discharge date: 02/27/25 HPI HPI HPI: 64-year-old who is morbidly obese has history of sleep apnea wears CPAP at home at night who comes in primarily because he has had increasing shortness of breath and cannot care for himself at home. States his is severely debilitated at home and his son is the only person who can care for them and is having a hard time. States that he cannot even wash himself or go to the bathroom on his own typically walks with a walker but is to the point where he basically cannot function. Has no home health at the moment. States his overall swelling has worsened as well. His inability to take care of himself as well as swelling wanted to be seen for evaluation. He is unable to ambulate. He is unable to take care of himself. He is short of breath. he cannot complete ADLs. No other concerns or complaints History independently obtained. Laboratory and diagnostic studies independently interpreted. Prior records reviewed. Case discussed with emergency room physician. Hospital Course Hospital Course Hospital Course: Suzan Whitehead is a 64-year-old morbidly obese and with heart failure presenting to inability to self manage and severe anasarca. Patient found to have HFrEF and NSTEMI. Taken for heart cath on 02/28 with stenosis of left main artery and LAD. Stent placed. Doing well. Stable discharge to [facility] for further care. Problems addressed as follows: #HFrEF exacerbation #Community-acquired pneumonia #Anasarca NSTEMI CAD ? Presented with weakness, shortness of breath, and overload. BNP 7990. CXR with left lower lobe pneumonia. Continues to wear oxygen at night, weaned to room air during the day. Has responded very well to diuresis. Negative over 9 L since admission. Will continue diuresis with Lasix and spironolactone. Patient completed 5 days of Levaquin. Last dose given on day of discharge. Continue CPAP at night. Echo obtained today showing EF 40 to 45%. Asynchronous septum. Cardiology consulted to assist with care. Taken for heart cath on 02/28. Found to have moderate to severe distal left main disease and mild to moderate mid LAD disease. Successful stenting of left main into the LAD. Will continue aspirin and Effient daily. For heart failure continue carvedilol 3.125 mg twice daily, Entresto 24/26 mg twice daily. Will need follow-up with cardiology in the next 1 to 2 weeks. #Physical deconditioning: PT/OT consulted, recommend SNF. Case management assisting with placement. Lower extremity edema: Bilateral venous Doppler negative for DVT Diabetes: SSI, fingersticks ACHS. Blood sugar on morning check between 90 and 150 the past few days. Monitor with treatment of Jardiance, glimepiride, metformin at discharge. Reevaluate need for insulin Kidney function normal on day of discharge with BUN of 17, creatinine 1.0. Normocytic anemia: No active signs of bleeding, will monitor daily. Transfused 200 mg IV Venofer 02/27/25. Hemoglobin 11 on morning of discharge Needs repeat CBC, CMP, magnesium in 5 days to monitor kidney function and electrolytes Total time spent on discharge 38 minutes in counseling, documentation, chart review, and direct care with patient. Exam Data for Last 24 hours Vital signs and Labs for Last 24 Hours: Temp Pulse Resp BP Pulse Ox O2 Del Method O2 Flow Rate 98 F 66 18 109/53 L 94 L Nasal Cannula 3 02/27/25 12:00 02/27/25 12:00 02/27/25 12:00 02/27/25 12:00 02/27/25 12:00 02/27/25 12:00 02/27/25 12:00 FiO2 28 02/24/25 06:47 Laboratory Results - last 24 hr 02/24/25 20:17: POC Glucose 139 H 02/26/25 16:55: POC Glucose 178 H 02/26/25 20:10: POC Glucose 248 H 02/27/25 06:02: WBC 4.1 L, RBC 4.74, Hgb 10.5 L, Hct 38.6 L, MCV 81.4, MCH 22.2 L, MCHC 27.2 L, RDW 16.7, Plt Count 178, MPV 10.3, Neut % (Auto) 64.6, Lymph % (Auto) 20.7, [place] % (Auto) 9.6 H, Eos % (Auto) 4.4, Baso % (Auto) 0.5, Neut # (Auto) 2.6, Lymph # (Auto) 0.8, [place] # (Auto) 0.4, Eos # (Auto) 0.2, Baso # (Auto) 0.0, Sodium 134 L, Potassium 4.0, Chloride 98, Carbon Dioxide 35 H, Anion Gap 5.0, BUN 17, Creatinine 1.00, Estimated Creat Clear 76, Estimated GFR 75, Est GFR ( Amer) 91, Glucose 126 H, Calcium 7.9 L, Magnesium 1.8 D, Total Bilirubin 0.6, AST 26 D, ALT 12, Alkaline Phosphatase 84, Total Protein 5.9 L, Albumin 3.0 L, Globulin 2.9, Albumin/Globulin Ratio 1.0 L 02/27/25 06:03: POC Glucose 194 H 02/27/25 11:10: POC Glucose 175 H I & O for Last 24 hours: Intake & Output 02/24/25 02/25/25 02/26/25 02/27/25 23:59 23:59 23:59 23:59 Intake Total 1220 / 1460 1420 / 1540 2310 / 2510 900 / 900 Output Total 4700 / 5200 3350 / 4050 4600 / 5200 2100 / 2100 Balance -3480 / -3740 -1930 / -2510 -2290 / -2690 -1200 / -1200 Weight 193.45 kg 192.919 kg 191.098 kg 188.332 kg Constitutional Constitutional: no acute distress, morbidly obese, chronically ill appearing, disheveled and cooperative *Routine HEENT Exam Head: Present normocephalic Eye: Present EOMI and PERRL ENT: Present mucous membranes moist Comments: Mild erythema on bridge of nose from CPAP *Routine Neck Exam Neck: Present supple; Absent lymphadenopathy *Routine Respiratory Exam Respiratory: Present CTA bilaterally; Absent respiratory distress, stridor, wheezes or crackles *Routine Cardiovascular Exam Cardiovascular: Present RRR *Routine Abdominal Exam Abdominal: Present soft and normoactive bowel sounds; Absent tenderness *Routine Rectal Exam Patient deferred: visual exam *Routine Exam Patient deferred: penile exam *Routine Extremities Exam Extremities: Present edema (Chronic state this and dense edema. 1+ to knees); Absent cyanosis or clubbing *Routine Skin Exam Skin: Present intact and warm; Absent rash Comments: Stasis dermatitis legs bilaterally *Routine Neurological Exam Neurological: Present alert, oriented X3 and moving all extremities; Absent altered mental status Results Data Completed and Pending Labs on day of discharge: Labs from last 24 hours 02/27/25 02/27/2525 11:10 06:03 06:02 WBC 4.1 L RBC 4.74 Hgb 10.5 L Hct 38.6 L MCV 81.4 MCH 22.2 L MCHC 27.2 L RDW 16.7 Plt Count 178 MPV 10.3 Neut % (Auto) 64.6 Lymph % (Auto) 20.7 [place] % (Auto) 9.6 H Eos % (Auto) 4.4 Baso % (Auto) 0.5 Neut # (Auto) 2.6 Lymph # (Auto) 0.8 [place] # (Auto) 0.4 Eos # (Auto) 0.2 Baso # (Auto) 0.0 Sodium 134 L Potassium 4.0 Chloride 98 Carbon Dioxide 35 H Anion Gap 5.0 BUN 17 Creatinine 1.00 Estimated Creat Clear 76 Estimated GFR 75 Est GFR ( Amer) 91 Glucose 126 H POC Glucose 175 H 194 H Calcium 7.9 L Magnesium 1.8 D Total Bilirubin 0.6 AST 26 D ALT 12 Alkaline Phosphatase 84 Total Protein 5.9 L Albumin 3.0 L Globulin 2.9 Albumin/Globulin Ratio 1.0 L 02/26/25 02/26/25 02/24/25 20:10 16:55 20:17 WBC RBC Hgb Hct MCV MCH MCHC RDW Plt Count MPV Neut % (Auto) Lymph % (Auto) [place] % (Auto) Eos % (Auto) Baso % (Auto) Neut # (Auto) Lymph # (Auto) [place] # (Auto) Eos # (Auto) Baso # (Auto) Sodium Potassium Chloride Carbon Dioxide Anion Gap BUN Creatinine Estimated Creat Clear Estimated GFR Est GFR ( Amer) Glucose POC Glucose 248 H 178 H 139 H Calcium Magnesium Total Bilirubin AST ALT Alkaline Phosphatase Total Protein Albumin Globulin Albumin/Globulin Ratio DS: Diagnosis Discharge Diagnosis (1) HFrEF (heart failure with reduced ejection fraction): Status: Acute Code(s): I50.20 - Unspecified systolic (congestive) heart failure (2) Community acquired pneumonia: Status: Acute Code(s): J18.9 - Pneumonia, unspecified organism Qualifiers: Laterality: right Lung location: lower lobe of lung Qualified Code(s): J18.9 - Pneumonia, unspecified organism (3) NSTEMI (non-ST elevated myocardial infarction): Status: Acute Code(s): I21.4 - Non-ST elevation (NSTEMI) myocardial infarction Meds Home Medications and Allergies Home Medications ?Medication ?Instructions ?Recorded ?Confirmed ?Type glimepiride 4 mg tablet 4 mg PO DAILY 02/23/25 02/24/25 History cyanocobalamin (vitamin B-12) 1,000 mcg PO DAILY 02/24/25 02/24/25 History 1,000 mcg tablet aspirin 81 mg tablet 81 mg PO DAILY #30 tabs 02/27/25 Rx atorvastatin 40 mg tablet 40 mg PO DAILY 30 days #30 tabs 02/27/25 Rx carvedilol 3.125 mg tablet 3.125 mg PO BID 30 days #60 tabs 02/27/25 Rx empagliflozin 10 mg tablet 10 mg PO DAILY 30 days #30 tabs 02/27/25 Rx (Jardiance) furosemide 40 mg tablet (Lasix) 40 mg PO BIDL 30 days #60 tabs 02/27/25 Rx metformin 850 mg tablet 850 mg PO BIDWMEAL Diabetes 30 02/27/25 Rx days #60 tabs pantoprazole 40 mg tablet,delayed 40 mg PO HS 30 days #30 tabs 02/27/25 Rx release sacubitril 24 mg-valsartan 26 mg 1 tab PO BID 30 days #60 tabs 02/27/25 Rx tablet (Entresto) spironolactone 25 mg tablet 25 mg PO DAILY 30 days #30 tabs 02/27/25 Rx prasugrel HCl 10 mg tablet 10 mg PO DAILY 30 days #30 tabs 02/28/25 Rx New Prescriptions to Start Prescriptions: aspirin Fredrick,Ramírez atorvastatin Fredrick,Ramírez carvedilol Ramírez Alcala empagliflozin [Jardiance] Ramírez Alcala furosemide [Lasix] Ramírez Alcala metformin Ramírez Alcala pantoprazole Fredrick,Ramírez prasugrel HCl Fredrick,Ramírez sacubitril-valsartan [Entresto] Ramírez Alcala spironolactone Ramírez Alcala Allergies Allergy/AdvReac Type Severity Reaction Status Date / Time cephalexin (From KEFLEX) Allergy Unknown Swelling Verified 02/23/25 21:47 of Lip/Tongue/Throat codeine (CODEINE) Allergy Unknown Swelling Verified 02/23/25 21:47 of Lip/Tongue/Throat Penicillins (PENICILLINS) Allergy Unknown Anaphylaxis Verified 02/23/25 21:47 Discharge Plan Disposition Patient Disposition: Xfer Intermediate Care Fac Condition: Fair Discharge Order Discharge Orders: Discharge Order (Routine); Ordered 02/28/25 Ordered By: Ramírez Alcala Follow up Plan Follow up with: Gabriel Ma MD [Staff Physician, Cardiology] - Enter time for follow up Prescriptions/Medication Reconciliation: New spironolactone 25 mg Tablet 25 mg PO DAILY 30 Days Qty: 30 0RF carvedilol 3.125 mg Tablet 3.125 mg PO BID 30 Days Qty: 60 0RF pantoprazole 40 mg Tablet,Delayed Release (Dr/Ec) 40 mg PO HS 30 Days Qty: 30 0RF Jardiance 10 mg Tablet 10 mg PO DAILY 30 Days Qty: 30 0RF Entresto 24-26 mg Tablet 1 tab PO BID 30 Days Qty: 60 0RF aspirin 81 mg tablet 81 mg PO DAILY Qty: 30 0RF prasugrel HCl 10 mg Tablet 10 mg PO DAILY 30 Days Qty: 30 0RF Continued glimepiride 4 mg tablet 4 mg PO DAILY cyanocobalamin (vitamin B-12) 1,000 mcg Tablet 1,000 mcg PO DAILY furosemide [Lasix] 40 mg tablet 40 mg PO BIDL 30 Days Qty: 60 0RF atorvastatin 40 mg tablet 40 mg PO DAILY 30 Days Qty: 30 0RF metformin 850 mg tablet 850 mg PO BIDWMEAL 30 Days Qty: 60 0RF Discontinued lisinopril 40 mg tablet 40 mg PO DAILY carvedilol 12.5 mg tablet 12.5 mg PO BID potassium chloride 10 mEq tablet extended release 10 meq PO BID Problem Reconciliation Problems Reviewed?: Yes Patient Discharge Instructions ACTIVITY: Continue current activity DIET: continue same diet Patient Instructions: DI for Heart Failure, DI for Shortness of Breath, Stop Light Pneumonia, Stop Light Heart Failure Print Language: Citizen Of [place] Providers Primary Care Provider: Provider,Referral Admit Provider: Mukesh Cárdenas Attending Provider: Mukesh Cárdenas
[2025-02-28 13:52] LABS: POC Glucose,Bedside 108 (70-110)
--- NOTE | 2025-02-28 14:27 | P.PN_ITS ---
Subjective Subjective Date: 02/28/25 Time: 09:30 Interval history: No events overnight, weight is down further to 393 pounds. Awaiting left heart cath today. Exam Data for Last 24 hours Vital signs and Labs for Last 24 Hours: Temp Pulse Resp BP Pulse Ox O2 Del Method O2 Flow Rate 97.9 F 80 17 101/62 L 98 Simple Mask 6 02/28/25 11:10 02/28/25 11:10 02/28/25 11:10 02/28/25 11:10 02/28/25 11:10 02/28/25 11:10 02/28/25 11:10 FiO2 28 02/24/25 06:47 Laboratory Results - last 24 hr 02/24/25 20:17: POC Glucose 139 H 02/27/25 16:45: POC Glucose 346 H* 02/27/25 20:29: POC Glucose 279 H 02/28/25 06:36: POC Glucose 103 02/28/25 07:15: WBC 4.2 L, RBC 5.02, Hgb 11.7 L, Hct 40.2 L, MCV 80.1, MCH 23.3 L, MCHC 29.1 L, RDW 16.5, Plt Count 230 D, MPV 8.7, Neut % (Auto) 58.6, Lymph % (Auto) 25.0, [place] % (Auto) 11.2 H, Eos % (Auto) 4.3, Baso % (Auto) 0.7, Neut # (Auto) 2.5, Lymph # (Auto) 1.1, [place] # (Auto) 0.5, Eos # (Auto) 0.2, Baso # (Auto) 0.0, Sodium 135 L, Potassium 3.5, Chloride 92 L, Carbon Dioxide 41 H*, Anion Gap 5.5, BUN 17, Creatinine 1.00, Estimated Creat Clear 76, Estimated GFR 75, Est GFR ( Amer) 91, Glucose 91, Calcium 8.2 L, Magnesium 1.6 D, Total Bilirubin 0.7, AST 19 D, ALT 13, Alkaline Phosphatase 87, Total Protein 6.2 L, Albumin 3.1 L, Globulin 3.1, Albumin/Globulin Ratio 1.0 L 02/28/25 10:25: Activated Clotting Time 398 H* 02/28/25 11:50: POC Glucose 108 I & O for Last 24 hours: Intake & Output 02/25/25 02/26/25 02/27/25 02/28/25 23:59 23:59 23:59 23:59 Intake Total 1420 / 1540 2310 / 2510 1220 / 1370 150 / 150 Output Total 3350 / 4050 4600 / 5200 7200 / 7200 2400 / 2400 Balance -1930 / -2510 -2290 / -2690 -5980 / -5830 -2250 / -2250 Weight 425 lb 5 oz 421 lb 4.8 oz 400 lb 3 oz 393 lb 7 oz Constitutional Constitutional: no acute distress and cooperative *Routine HEENT Exam Eye: Present PERRL *Routine Respiratory Exam Respiratory: Present CTA bilaterally; Absent accessory muscle use, wheezes or crackles *Routine Cardiovascular Exam Cardiovascular: Present RRR, Normal S1 and Normal S2; Absent murmur, gallop or rubs *Routine Abdominal Exam Abdominal: Present soft; Absent tenderness *Routine Extremities Exam Extremities: Present pulses intact; Absent cyanosis or edema *Routine Skin Exam Skin: Present intact; Absent erythema or wounds *Routine Neurological Exam Neurological: Present alert and oriented X3 Routine Psychiatric Exam Psychiatric: Present cooperative Progress Note: A&P Assessment and plan (1) Coronary artery disease: Status: Acute (2) HFrEF (heart failure with reduced ejection fraction): Status: Acute (3) Community acquired pneumonia: Status: Acute (4) NSTEMI (non-ST elevated myocardial infarction): Status: Acute Assessment and Plan Assessment and Plan for All Diagnoses:: HFrEF - pt reports hx of 'CHF' but details uncelar - presented here with worsening CABA, NYHA = 4, peripheral edema, ProBNP 7,990 - Diuresed 8.6L so far and feeling significantly better - ECHO shows EF 40% and q-waves on EKG, pt agreeable to ischemic evaluation - 02/28/25 - Diuresed 16L here. Cont Entresto, Aldactone, Coreg, Jardiance MV-CAD s/p NSTEMI - pt reports 2 prior MIs but denies cath/stenting - presented here with CABA, CCS = 4 equivalent, Elevated Trop, EF 40% and q-waves on EKG - 02/28: Left heart cath this morning revealed chronically occluded circumflex with collaterals, moderate to severe distal left main and mild to moderate mid L AD disease. Patient has successful stenting of the ostial left main extending into the proximal LAD. DC to rehab w/DAPT, BB, Statin, Entresto DM-II - poorly controlled with A1C 8 - add Jardiance for DM and CV benefit, consider OP GLP-1 CAP, LLL - on antibiotics Debility, Inability to care for self - eval/plans per hospitalist - complicates all aspects of care CV stable for discharge to rehab. Patient needs follow-up in our office within 2 weeks. CV discharge medication: Aspirin 81 mg 1 p.o. daily Effient 10 mg 1 p.o. daily Atorvastatin 80 mg daily Carvedilol 3.125 mg p.o. twice daily Entresto 24-26 mg 1 p.o. twice daily Jardiance 10 mg 1 p.o. daily Spironolactone 25 mg 1 p.o. daily
== END 2025-02-28 14:27 | DRG 321 ==
LOC: ER 19:34 → 2ND 20:20
PROVIDERS: Internal Medicine; Internal Medicine Adolescent Medicine; Student in an Organized Health Care Education/Training Program; Admitting Provider Student in an Organized Health Care Education/Training Program; Emergency Provider Student in an Organized Health Care Education/Training Program; Visit Provider Student in an Organized Health Care Education/Training Program
PROC: 4A023N7 Measurement of Cardiac Sampling and Pressure, Left Heart, Percutaneous Approach (ICD-10-PCS; CPT 93452; principal; 2025-02-28 09:00)
DX: I50.23 Acute on chronic systolic (congestive) heart failure (principal); I21.4 Non-ST elevation (NSTEMI) myocardial infarction; J18.9 Pneumonia, unspecified organism; Z68.43 Body mass index [BMI] 50.0-59.9, adult; E66.01 Morbid (severe) obesity due to excess calories; G47.30 Sleep apnea, unspecified; I25.10 Atherosclerotic heart disease of native coronary artery without angina pectoris; E11.9 Type 2 diabetes mellitus without complications; D64.9 Anemia, unspecified; R53.81 Other malaise; Z78.9 Other specified health status; Z79.899 Other long term (current) drug therapy; Z79.84 Long term (current) use of oral hypoglycemic drugs; Z79.82 Long term (current) use of aspirin; Z88.8 Allergy status to other drugs, medicaments and biological substances; Z88.0 Allergy status to penicillin; I25.2 Old myocardial infarction
CPT/HCPCS: 36415; 71045; 80053; 80061; 82962; 83735; 83880; 84100; 84443; 84484; 85025; 85347; 85378; 86803; 87389; 93005; 93306; 93970; 94660; 97110; 97162; 97166; 97530; 97535; 99152; C1725; C1760; C1769; C1874; J1200; J1644; J1650; J1938; J2250; J3010; J3475; Q9957; Q9967

== ENCOUNTER 2025-04-30 15:48 | Emergency (ER) | payer MEDICARE, SELFPAY ==
--- OUTSIDE RECORDS SUMMARY | 2015-12-19 10:19 | XMS_ITS | Encounter Summary ---
Author Organization [place] [address] Care Team Providers Care Sports Management Professor Name Role Phone Kris Chavez DO, Viral Primary Care Provider [phone] Encounter Details Date Type Department Care Team (Latest Contact Info) Description 12/19/2015 10:19 AM EDT Hospital Encounter [facility] W[facility] [place] [address] [place] [address] Spring Gaytan APRN [address] [place] [address] Left without seen Social History Tobacco Use Types Packs/Day Years Used Date Smoking Tobacco: Former Cigarettes 0 09/20/1972 - 10/21/1972 Smokeless Tobacco: Former Comments:SMOKED FOR 1 WEEK A S A TEENAGER Alcohol Use Standard Drinks/Week Comments No 0 (1 standard drink = 0.6 oz pur e alcohol) [facility] Utilities Answer Date Recorded In the past 12 months has [employer], gas, oil, or water company threatened to shut off services in your home? No 09/26/2024 Overall Financial Resource Strain (CARDIA) Answe r Date Recorded How hard is it for you to pa y for the very basics like food, housing, medical care, and heating? Somewhat hard 09/26/2024 PHQ-2 Answer Date Recorded PHQ-2 Total Score 2 09/26/2024 [facility] of Occupat ional [facility] - Occupational Stress Questionnaire Answer Date [...] needed for daily living? No 09/14/2023 [facility] IP Transportation Answer D ate Recorded [...] 09/24/2024 2:00 PM Cassie Cee RN * [place] Suicide Severity Rating Scale (Q shift for [...] documented as of this encounter Care Teams Sports Management Professor Relationship Specialty Start Date End Date Sunny Ponce DO [address] [place] [phone] PCP - General Family Medicine 07/22/11 documented as of this encounter
--- OUTSIDE RECORDS SUMMARY | 2019-11-29 14:21 | XMS_ITS | Encounter Summary ---
Author Organization [place] [address] Care Team Providers Care Facilities Maintenance Engineer Name Role Phone Kris Chavez DO, Viral Primary Care Provider [phone] Rajwinder Landaverde RN Unavailable Unavailable Encounter Details Date Type Department Care Team (Late st Contact Info) Description 11/29/2019 2:21 PM EDT Hospital Encounter [facility] Referral Lab [address] [place] [phone] Mario Tierney MD [address] [facility] [address] [place] [address] Social History Tobacco Use Types Packs/Day Years Used Date Smoking Tobacco: Former Cigarettes 0 09/20/1972 - 10/21/1972 Smokeless Tobacco: Former Comments:SMOKED FOR 1 WEEK A S A TEENAGER Alcohol Use Standard Drinks/Week Comments No 0 (1 standard drink = 0.6 oz pur e alcohol) [facility] Utilities Answer Date Recorded In the past 12 months has [employer], gas, oil, or water [employer] threatened to shut off services in your home? No 09/26/2024 Overall Financial Resource Strain (CARDIA) Answe r Date Recorded How hard is it for you to pa y for the very basics like food, housing, medical care, and heating? Somewhat hard 09/26/2024 PHQ-2 Answer Date Recorded PHQ-2 Total Score 2 09/26/2024 [facility] - Occupational Stress Questionnaire Answer Date [...] things needed for daily living? No 09/14/2023 [facility] IP Transportation Answer D ate Recorded [...] 09/24/2024 2:00 PM Cassie Cee RN * [place] Suicide Severity Rating Scale (Q shift for [...] URINE ORDERABLES Final Result [facility] [employer] [address] [facility] , [address] [place] [phone] documented in this encounter Visit Diagnoses Not [...] documented as of this encounter Care Teams Facilities Maintenance Engineer Relationship Specialty Start Date End Date Sunny Ponce V, DO [address] [place] [phone] PCP - General Family Medicine 07/22/11 Rajwinder Landaverde, RN Choker Hooker 11/20/19 01/28/20 documented as of this encounter
[2025-04-30] VITALS (26 sets, daily range): BP systolic 92–134; BP diastolic 56–73; PULSE 65–80; RESP 13–27; TEMP 36.8–36.9; O2SAT 95–99; BMI 49.1
--- NOTE | 2025-04-30 16:00 | ECG_ITS ---
APPROVED REPORT Exam: Resting ECG HR:74 bpm ECG Measurements Heart Rate 74 AXES [place] 215 P 80 QRSd 153 QRS 264 QT 421 T 63 QTc 448 Conclusion SINUS RHYTHM WITH FIRST DEGREE AV BLOCK RIGHT AXIS DEVIATION [QRS AXIS > 100] INTRAVENTRICULAR CONDUCTION DELAY [130+ ms QRS DURATION] ABNORMAL ECG UNCONFIRMED REPORT Electronically signed by : JOCELINE PRAJAPATI, 04/30/2025 23:42:13
--- NOTE | 2025-04-30 16:04 | XR_ITS ---
PROCEDURE INFORMATION: Exam: XR Chest Exam date and time: 04/30/2025 4:32 PM Age: 64 years old Clinical indication: Shortness of breath; Additional info: Short of breath TECHNIQUE: Imaging protocol: Radiologic exam of the chest. Views: 1 view. COMPARISON: CR XR CHEST PORTABLE 02/23/2025 6:21 PM FINDINGS: Lungs: Poor visualization/opacification of the left lateral lower hemithorax. Pleural spaces: There is no evidence for pneumothorax. Heart/Mediastinum: Moderate enlargement of the cardiac silhouette noted. Diaphragm: Probable elevation of the left hemidiaphragm. Bones/joints: Unremarkable. Soft tissues: Unclear if this is due to overlapping soft tissue or if there is an underlying infiltrate or effusion. A follow-up two-view chest x-ray may help distinguish. IMPRESSION: 1. Probable elevation of the left hemidiaphragm. Poor visualization/opacification of the left lateral lower hemithorax. Unclear if this is due to overlapping soft tissue or if there is an underlying infiltrate or effusion. A follow-up two-view chest x-ray may help distinguish. 2. Moderate enlargement of the cardiac silhouette noted. 3. There is no evidence for pneumothorax.
--- OUTSIDE RECORDS SUMMARY | 2025-04-30 16:06 | XMS_ITS | Clinical Summary ---
Author Organization [facility] are Address [address] [place] [address] Phone Care Team Providers Care Customer Accounts Advisor Name Role Phone Dale Jeffries MD Primary Care Physician [phone] [ ] Conditions or Problems No information available. Medications No information available. Medications Administered No information available. Allergies, Adverse Reactions, Alerts No information available. Results No information available. Plan of Care No information available. Procedures No information available. Vital Signs No information available. Immunizations No information available. Advance Directives No information available.
--- OUTSIDE RECORDS SUMMARY | 2025-04-30 16:07 | XMS_ITS | Clinical Summary ---
Author Organization [facility] Address [address] [place] [address] [place] [address] Phone Care Team Providers Care Director Human Services Name Role Phone Kris Chavez DO, Viral Primary Care Provider [phone] Allergies Active Allergy Reactions Criticality Noted Date Comments Codeine Swelling 11/04/2010 Erythromycin Swelling 01/03/1996 Cephalexin Swelling 11/04/2010 Minocycline 11/17/2012 Penicillins Swelling 11/04/2010 PCN Family Unable To Assess Swelling 11/04/2010 mycin Medications MULTI-VITAMIN ORALIndications:Sc reening for colon cancer,Gastroesoph ageal reflux disease without esophagitis,Essent ial hypertension,Type 2 diabetes mellitus with complication, without long-term current use of insulin ([facility]),Hyperlipidem ia with target LDL less than 100,Weakness,Debil ity Take by mouth daily. Active aspirin 325 mg Oral Tablet Take 1 Tablet by mouth daily. Patient due for doctor appointment and fasting blood work. No refills until seen. 30 Tablet 03/03/20 23 Active Cholecalciferol, Vitamin D3, 50 mcg (2,000 unit) Oral CapsuleIndications :History of vitamin D deficiency Take 1 Capsule by mouth daily. 90 Capsule 1 05/25/20 23 Active Blood Sugar Diagnostic Misc StripIndications:D M type 2 (diabetes mellitus, type 2) ([facility]) Patient has accu chek roman needs supplies dx 250.00 test twice day Patient states he only checks a FSBS every other day. 200 Each 11 07/16/20 23 Active Blood-Glucose Meter [facility] KitIndications:DM type 2 (diabetes mellitus, type 2) ([facility]) Test twice daily 1 Kit 07/16/20 23 Active cyanocobalamin 1,000 mcg Oral Tablet Take 1,000 mcg by mouth daily. Active Lancets [facility] MiscIndications:DM type 2 (diabetes mellitus, type 2) ([facility]) accu chek roman dx 250.00 test 2x day 200 Each 11 11/02/19 24 Active cyclobenzaprine (FLEXERIL) 5 mg Oral TabletIndications: Muscle spasm TAKE 1 TABLET BY MOUTH EVERY 8 HOURS NEEDED FOR MUSCLE SPASM 90 Tablet 03/15/20 24 Active metFORMIN (GLUCOPHAGE) 850 mg Oral TabletIndications: Type 2 diabetes mellitus with complication, without long-term current use of insulin ([facility]) Take 1 tablet by mouth twice daily 180 Tablet 1 07/21/20 24 Active fUROsemide (LASIX) 40 mg Oral TabletIndications: Lymphedema,Fluid retention in legs,Peripheral edema Take 1 Tablet by mouth every 12 hours. 180 Tablet 1 11/22/19 25 Active glimepiride (AMARYL) 4 mg Oral TabletIndications: Type 2 diabetes mellitus with complication, without long-term current use of insulin ([facility]) TAKE 1 TAB BY MOUTH EVERY MORNING. THIS REPLACES GLIPIZIDE. 90 Tablet 1 11/22/19 25 Active lisinopriL (PRINIVIL;ZESTRIL) 40 mg Oral TabletIndications: Essential hypertension Take 1 Tablet by mouth daily. 90 Tablet 1 11/22/19 25 Active potassium chloride (KLOR-CON) 10 mEq Oral Tablet Sustained ReleaseIndications :Lymphedema,Fluid retention in legs,Peripheral edema,Essential hypertension,Type 2 diabetes mellitus with complication, without long-term current use of insulin ([facility]) Take 1 Tablet by mouth 2 times daily. 60 Tablet 11/22/19 25 Active Brompheniramine-Ps eudoeph-DM 2-30-10 mg/5 mL Oral SyrupIndications:A cute bronchitis, unspecified organism,Seasonal allergic rhinitis due to pollen Take 10 mL by mouth every 4 hours as needed. 240 mL 12/09/19 25 Active atorvastatin (LIPITOR) 40 mg Oral TabletIndications: Hyperlipidemia with target LDL less than 100 Take 1 tablet by mouth once daily 100 Tablet 2 01/26/20 25 Active carvediloL (COREG) 12.5 mg Oral TabletIndications: Essential hypertension Take 1 tablet by mouth twice daily 200 Tablet 2 02/22/20 25 Active Active Problems Patient Care Coordination No te [...] No results found for this basename: MICROALBUR, [id number], URINEMICROAL Retinopathy unavailable Neuropathy negative Hypertension complicating [...] 09/14/20230 03/2024 Open wound of left foot 08/09/202303/2024 Diabetic ulcer of toe of lef t [...] fat layer exposed 12/16/2017 08/18/2018 Atherosclerosis of [place] of left leg with ulceration of other part of lower left leg 01/16/2016 08/05/2017 Atherosclerosis [place] of right leg with ulceration [...] Type Department Care Team Description 02/21/[address] [address] Kris, Viral V, DO Medication Refill from Last 3 Months Immunizations Immunization Administration [...] TOE AMPUTATION; Surgeon: Moe Guerrero DPM; Location: [facility] OR; Service: Podiatry IR PICC INSERTION EQUAL OR > 5 YEARS 08/07/2023 IR PICC INSERTION EQUAL OR > 5 YEARS 08/07/2023 Sujey Suresh PA-C [facility] IR FOOT SURGERY 08/09/2023 Foot/Ankle/Left LEFT FOOT INCISION AND DRAINAGE HEEL DEBRIDMENT with SKIN SUBSTITUTE; Surgeon: Ramírez Garcia DPM; Location: [facility] OR; Service: Podiatry Medical devices from this surgery are in the Medical Devices section. FOOT SURGERY 09/12/2023 Foot/Ankle/Left INCISION AND DRAINAGE/DEBRIDEMENT left foot; Surgeon: Angelia Vences DPM; Location: [facility] OR; Service: Podiatry FOOT SURGERY 09/15/2023 Foot/Ankle/Left LEFT FOOT [place]TH RAY AMPUTATION WITH DELAYED PRIMARY CLOSURE; Surgeon: Angelia Vences DPM; Location: [facility] OR; Service: Podiatry LAYER WOUND CLOSURE 09/15/2023 Left Surgeon: Angelia Vences DPM; Location: [facility]; Service: Podiatry TOE SURGERY 09/27/2024 Foot/Ankle/Right RIGHT FOOT THIRD TOE AMPUTATION; Surgeon: Angelia Vences DPM; Location: [facility]; Service: Podiatry Medical History Medical History Date Comments Unspecified sleep apnea Rheumatic disease as child CHF (congestive heart failure) ([facility]) Heart murmur Hypertension Arthritis Cancer (HCC) skin cancer face Morbid obesity (HCC) Diabetes mellitus (HCC) type II [place] (myocardial infarction) ([facility]) x2 Diabetic ulcer of left heel associated with type 2 diabetes mellitus, with fat layer exposed (HCC) 08/04/2023 Diabetic ulcer of toe of lef t foot associated with diabetes mellitus due to underlying condition, with fat layer exposed (HCC) 08/04/2023 Diabetic ulcer of toe of lef t foot associated with type 2 diabetes mellitus, with necrosis of muscle (HCC) 05/16/2023 Diabetic foot infection (HCC) 09/14/2023 Open wound of left foot 08/09/2023 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 No 09/26/2024 Overall Financial Resource Strain (CARDIA) Answe r Date Recorded How hard is it for you to pa y for the very basics like food, housing, medical care, and heating? Somewhat hard 09/26/2024 PHQ-2 Answer Date Recorded PHQ-2 Total Score 2 09/26/2024 [facility] - Occupational Stress [...] things needed for daily living? No 09/14/2023 [facility] IP Transportation Answer D ate [...] 2) 2009 RSV or 60+ (1 - Risk 60-74 years 1-dose series) 2019 Kidney Health: uACR 10/07/2019 10/07/2018 FIT 05/14/2021 05/14/2020 Cologuard 04/18/2022 04/18/2019, 03/20/2019 Colon Cancer Screening 04/18/2022 DTaP/TDaP/Td (2 - Td or Tdap) 11/01/2023 11/01/2013, 09/20/2011 COVID-19 Vaccine ( season) 2024 05/23/2021 AAA Screening 2024 Hemoglobin A1c 03/25/2025 09/25/2024, 05/21, 05/30/2024, Additional history exists Influenza Vaccine (#1) 2025 , 08/08/2023, 07/29/2020, Additional history exists Lipids 05/30/2025 05/30/2024, 05/21, 07/29/2020, Additional history exists Wellness Exam Medicare 05/31/2025 05/30/2024 Diabetic Eye Exam 06/21/2025 06/21/2023, 02/18/2018 Kidney Health: eGFR 09/28/2025 09/28/2024, 09/27/2024, 09/26/2024, Additional history exists Hepatitis C Screening Completed 10/07/2018 Pneumococcal Vaccine 50+ Completed 08/08/2023 Hepatitis B Vaccine Aged Out No longe [...] Stevens [employer] Medical Devices Implanted Type Area Bulk Pallet Builder Device Identifier Shelf Expiration Date Model / Serial / Lot Graft Tissue Myriad Thin 5 X 5cm - [id number] Implanted:Qty: 1 on 08/09/2023 by Ramírez Garcia DPM at [facility] Left: Foot [employer] 12/18/2025 [id number] / / [id number] Procedures Procedure Name Priority Date/Time Associated Diagnosis Comments BASIC METABOLIC PANEL STEF 09/28/2024 3:34 AM EST HEMOGLOBIN A1C Routine 09/25/2024 11:51 AM EST LIPID PANEL REFLEX Routine 05/30/2024 3: 15 PM EDT Dyslipidemia FIT Routine 05/14/2020 MICROALBUMIN/CREATIN INE RATIO URINE Routine 10/07/2018 11:48 AM EST HCV ANTIBODY SCREEN W/ REFLEX Routine 10/07/2018 11:48 AM EST Need for hepatitis C screening test DIABETES EYE EXAM Routine 02/18/2018 from Last 3 Months or Most Recently Relevant to Health Maintenance Results * (ABNORMAL) BASIC METABOLIC PANEL (09/28/2024 3:34 AM EST) Sodium 135(L) 136 - 145 mmol/L 09/28/2024 4:39 AM EST [facility] Potassium 4.3 3.5 - 5.0 mmol/L 09/28/2024 4:39 AM EST [facility] Chloride 103 98 - 107 mmol/L 09/28/2024 4:39 AM EST [facility] Total CO2 25 22 - 29 mmol/L 09/28/2024 4:39 AM EST [facility] Anion Gap 7 7 - 16 mmol/L 09/28/2024 4:39 AM EST [facility] Calcium 8.4(L) 8.8 - 10.4 mg/dL 09/28/2024 4:39 AM EST [facility] Glucose Lvl 167(H) 70 - 99 mg/dL 09/28/2024 4:39 AM EST [facility] BUN 21 8 - 23 mg/dL 09/28/2024 4:39 AM [facility] Creatinine 1.21 0.67 - 1.30 mg/dL 09/28/2024 4:39 AM [facility] eGFR (CKD-EPIcr 2020) 66 >=60 mL/min/1.7 3 m2 09/28/2024 4:39 AM EST [facility] Comment:Estimated GFR was ca lculated using the CKD-EPIcr (2020) equation refit without race. The equation is recommended by the National Kidney Foundation - [place] [employer] of Nephrology Task Force. Blood VENOUS BLOOD / Unknown Venipuncture / Unknown 09/28/2024 3:34 AM EST 09/28/2024 4:00 AM EST Angelia Vences DPM CHEMISTRY ORDERABLES Rebekah jurado Result [facility] [address] [place] [address] * (ABNORMAL) HEMOGLOBIN A1C (09/25/2024 11:51 AM EST) Hgb A1C 8.7(H) 4.2 - 5.6 % 09/25/2024 1:42 PM EST [facility] Est. Avg Glucose 203 mg/dL 09/25/2024 1:42 PM EST [facility] Blood VENOUS BLOOD / Unknown Venipuncture / Unknown 09/25/2024 11:51 AM EST 09/25/2024 11:55 AM EST Narrative PREFERRED [facility], [facility] - 09/25/2024 1:42 PM EST REFERENCE RANGE: Normal: 4.0-5.6% Pre-diabetes: 5.7-6.4% Provisional diagnosis of diabetes: >6.4% Hgb F>10% and anything which shortens red cell survival, such as hemolytic anemia, or unstable hemoglobin variants such as HbSS, HbSC, or HbCC, will lower the HbA1c value associated with a given level of glycemic control. us Carolynn Thomas MD CHEMISTRY ORDERABLES Final R esult [facility], [facility] [address] [facility] , [place] [address] [facility] [address] [place] [address] * (ABNORMAL) LIPID PANEL REFLEX (05/30/2024 3:15 PM EDT) Cholesterol 118 <200 mg/dL 05/30/2024 9:22 PM EDT [facility] [employer] Comment: < 200 Desirable 200 - 239 Borderline High >= 240 High Triglyceride 93 <150 mg/dL 05/30/2024 9:22 PM EDT [facility], [employer] Comment: < 150 Normal 150 - 199 Borderline High 200 - 499 High >= 500 Very High HDL 35(L) >=40 mg/dL 05/30/2024 9:22 PM EDT [facility] [employer] Comment: > 60 Optimal 40 - 60 Acceptable < 40 Low LDL Calculated 65 <100 mg/dL 05/30/2024 9:22 PM EDT [facility] [employer] Non-HDL-C Calculated 83 <=129 mg/dL 05/30/2024 9:22 PM EDT [facility] [employer] Comment: <130 Desirable 130-159 Above Desirable 160-189 Borderline High 190-219 High >= 220 Very High Fasting Specimen? No None 024 9:22 PM EDT [facility] Blood VENOUS BLOOD / Unknown Venipuncture / Unknown 05/30/2024 3:15 PM EDT 05/30/2024 3:15 PM EDT Viral Ponce V, DO CHEMISTRY ORDERABLES Final Res ult Performing Organization Address [facility] de Phone Number [facility] [address] [place] [address] , [place] [address] [facility] [address] [place] [id number] * HM FIT (05/14/2020) Pathologist [facility] Fecal Immunochemical Test Negative Negative SEP OFFICE Historical Provider HEALTH MAINTENANCE Final Res ult Performing Organization Address [facility] de Phone Number SEP OFFICE * HEPATITIS C ANTIBODY - SCREENING (10/07/2018 11:48 AM EST) Pathologist [facility] Hep C Ab Non-Reactiv e Non-Reacti ve 10/07/2018 9:07 PM EST [facility] Blood VENOUS BLOOD / Unknown Venipuncture / Unknown 10/07/2018 11:48 AM EST 10/07/2018 11:48 AM EST Viral Ponce V, DO HEMATOLOGY ORDERABLES Final Re sult Performing Organization Address [facility] de Phone Number [facility] [address] [place] [address] , [place] [address] * (ABNORMAL) MICROALBUMIN/CREATININE RATIO URINE (10/07/2018 11:48 AM EST) Pathologist [facility] Urine Microalb 192.5 mg/L 10/07/2018 8:38 PM EST [facility] Urine Creatinine 177.4 mg/dL 10/07/2018 8:38 PM EST [facility] Ur Microalb/Creat 109(H) 0 - 30 mg/g 10/07/2018 8:38 PM EST [facility] Urine STRUCTURE OF URINARY TRACT PROPER / Unknown 10/07/2018 11:48 AM EST 10/07/2018 11:48 AM EST us Viral Ponce V, DO URINE ORDERABLES Final Result [facility] [address] [facility] , [address] [place] [id number] * DIABETES EYE EXAM (02/18/2018) Left Diabetic Retinopathy Not Present Present/Not Present [facility]P OFFICE Comment:[facility] Right Diabetic Retinopathy Not Present Present/Not Present SEP OFFICE 02/18/2018 us Historical Provider HEALTH MAINTENANCE Final Res ult SEP OFFICE from Last 3 Months or Most Recently Relevant to Health Maintenance Insurance [employer] MEDICARE PPO MR [employer] MEDICARE PPO MR * Guarantor: Suzan Whitehead Account Type Relation to Patient Date of Phone Billing Address [place] Personal Family Self Advance Directives For more information, please contact: [phone] * Full Code (Latest Code Status on [...] 7:40 PM 06/09/2023 9:48 PM Care Teams Director Human Services Relationship Specialty Start Date End Date Sunny Ponce V, DO [address] [place] [address] PCP - General Family Medicine 07/22/11
--- OUTSIDE RECORDS SUMMARY | 2025-04-30 16:08 | XMS_ITS | Encounter Summary ---
Author Organization [place] Address [facility] [place] [address] Care Team Providers Care Laboratory Supervisor Name Role Phone Kris Chavez DO, Viral Primary Care Provider [phone] Miriam Muller BA, COS Unavailable Unavailable Miriam Muller BA, COS Unavailable Unavailable Rajwinder Landaverde RN Unavailable Unavailable Simran Hdz, COS Unavailable Unavail able Qi Mauricio RN Unavailable Unavailable Jenny Ortega RN Unavailable Unavail able Encounter Details Date Type Department Care Team (Late st Contact Info) Description 02/28/2019 Lab Requisition [facility] CLAUD[place] Mauricio [id number] Sergio Bobo, DPM [address] [facility], [address] [place] [id number] Cellulitis of left lower extremity Social History [...] Growth(A) 03/03/2019 1:18 PM EDT [facility] [employer] Culture Sparse growth of Staphylococcus aureus SUSCEPTIB ILITY RESULT 03/03/2019 1:18 PM EDT [facility] [employer] Culture Sparse growth of Streptococcus agalactiae (Group B) SUSCEPTIB ILITY RESULT 03/03/2019 1:18 PM EDT [email or web address] [employer] Comment:Penicillin and Ampic illin are antibiotics of choice for treatment of beta-hemolytic streptococcal infections. Stain Few Gram positive cocci(A) 03/03/2019 1:18 PM EDT [facility] [employer] Stain Few Gram positive rods(A) 03/03/2019 1:18 PM EDT [email or web address] [employer] Stain Few WBCs 03/03/2019 1:18 PM EDT [email or web address] [employer] Swab STRUCTURE OF LEFT LOWER LEG / [...] MICROBIOLOGY - GENERAL ORD ERABLES Final Result [facility], [facility] [address] [facility] , [place] [address] documented in this encounter Visit Diagnoses Diagnosis [...] documented as of this encounter Care Teams Laboratory Supervisor Relationship Specialty Start Date End Date Sunny Ponce V, DO [address] [place] [phone] PCP - General Family Medicine 07/22/11 Miriam Muller BA, COS Case Class B Driver 03/07/1902/18 Miriam Muller BA, COS Case Class B Driver 03/09/1902/19 Rajwinder Landaverde, RN Digital Performance Analyst 11/20/19 01/28/20 Simran Hdz BS, COS Case Class B Driver 01/15/23 02/02/23 Qi Mauricio, RN Digital Performance Analyst Registered Nurse 09/21/23 10/19/23 Jenny Ortega, RN Digital Performance Analyst 09/29/24 10/01/24 documented as of this encounter
--- OUTSIDE RECORDS SUMMARY | 2025-04-30 16:08 | XMS_ITS | Encounter Summary ---
Author Organization [place] [address] Care Team Providers Care Wildlife Removal Specialist Name Role Phone Ponce V, DO, Viral Primary Care Provider Miriam Muller BA, COS Unavailable Unavailable Miriam Muller BA, COS Unavailable Unavailable Rajwinder Landaverde RN Unavailable Unavailable Simran Hdz, COS Unavailable Unavail able Qi Mauricio RN Unavailable Unavailable Jenny Ortega RN Unavailable Unavail able Encounter Details Date Type Department Care Team (Late st Contact Info) Description 09/08/2018 Patient Outreach [facility] [address] [place] [address] Ponce, Viral V, DO [address] [place] [address] Social History Tobacco Use Types [...] documented as of this encounter Care Teams Wildlife Removal Specialist Relationship Specialty Start Date End Date Sunny Ponce DO [address] [place] [phone] PCP - General Family Medicine 07/22/11 Miriam Muller BA, COS Case Carver Hand 03/07/1902/18 Miriam Muller BA, COS Case Carver Hand 03/09/1902/19 Rajwinder Landaverde, RN Field Marketing Manager 11/20/19 01/28/20 Simran Hdz BS, COS Case Carver Hand 01/15/23 02/02/23 Qi Mauricio, RN Field Marketing Manager Registered Nurse 09/21/23 10/19/23 Jenny Ortega, RN Field Marketing Manager 09/29/24 10/01/24 documented as of this encounter
--- OUTSIDE RECORDS SUMMARY | 2025-04-30 16:08 | XMS_ITS | Encounter Summary ---
Author Organization [place] [address] Care Team Providers Care Garage Door Service Technician Name Role Phone Ponce V, DO, Viral Primary Care Provider [phone] Miriam Muller BA, COS Unavailable Unavailable Miriam Muller BA, COS Unavailable Unavailable Rajwinder Landaverde RN Unavailable Unavailable Simran Hdz, COS Unavailable Unavail able Qi Mauricio RN Unavailable Unavailable Jenny Ortega RN Unavailable Unavail able Encounter Details Date Type Department Care Team (Late st Contact Info) Description 04/20/2018 Patient Outreach [facility] [address] [place] [address] Ponce, Viral V, DO [address] [place] [address] Social History Tobacco Use Types [...] mg/L 10/07/2018 8:38 PM EST [facility] [employer] Urine Creatinine 177.4 mg/dL 10/07/2018 8:38 PM EST [facility] [employer] Ur Microalb/Creat 109(H) 0 - 30 mg/g 10/07/2018 8:38 PM EST [facility] [employer] Urine STRUCTURE OF URINARY TRACT PROPER / Unknown 10/07/2018 11:48 AM EST 10/07/2018 11:48 AM EST us Viral Ponce V, DO URINE ORDERABLES Final Result [facility] [address] [facility] [facility] , [address] [place] [id number] documented in this encounter Visit Diagnoses Diagnosis [...] documented as of this encounter Care Teams Garage Door Service Technician Relationship Specialty Start Date End Date Sunny Ponce V, DO [address] [place] [phone] PCP - General Family Medicine 07/22/11 Miriam Muller BA, COS Case Conference Assistant 03/07/1902/18 Miriam Muller BA, COS Case Conference Assistant 03/09/1902/19 Rajwinder Landaverde, RN Medical Assistant Cardiology 11/20/19 01/28/20 Simran Hdz BS, COS Case Conference Assistant 01/15/23 02/02/23 Qi Mauricio, RN Medical Assistant Cardiology Registered Nurse 09/21/23 10/19/23 Jenny Ortega, RN Medical Assistant Cardiology 09/29/24 10/01/24 documented as of this encounter
--- OUTSIDE RECORDS SUMMARY | 2025-04-30 16:08 | XMS_ITS | Encounter Summary ---
Author Organization [place] [address] Care Team Providers Care Levelman Name Role Phone Ponce V, DO, Viral Primary Care Provider [phone] Miriam Muller BA, COS Unavailable Unavailable Miriam Muller BA, COS Unavailable Unavailable Rajwinder Landaverde RN Unavailable Unavailable Simran Hdz, COS Unavailable Unavail able Qi Mauricio RN Unavailable Unavailable eJnny Ortega RN Unavailable Unavail able Encounter Details Date Type Department Care Team (Late st Contact Info) Description 03/17/2018 Patient Outreach [facility] [address] [place] [address] Ponce, Viral V, DO [address] [place] [address] Social History Tobacco Use Types [...] documented as of this encounter Care Teams Levelman Relationship Specialty Start Date End Date Sunny Ponce DO [address] [place] [phone] PCP - General Family Medicine 07/22/11 Miriam Muller BA, COS Case Security Operations Center Operator 03/07/1902/18 Miriam Muller BA, COS Case Security Operations Center Operator 03/09/1902/19 Rajwinder Landaverde, RN Gas Engine Repairer 11/20/19 01/28/20 Simarn Hdz BS, COS Case Security Operations Center Operator 01/15/23 02/02/23 Qi Mauricio, RN Gas Engine Repairer Registered Nurse 09/21/23 10/19/23 Jenny Ortega, RN Gas Engine Repairer 09/29/24 10/01/24 documented as of this encounter
--- OUTSIDE RECORDS SUMMARY | 2025-04-30 16:08 | XMS_ITS | Encounter Summary ---
Author Organization [place] [address] Care Team Providers Care City Treasurer Name Role Phone Ponce V, DO, Viral Primary Care Provider [phone] Miriam uMller BA, COS Unavailable Unavailable Miriam Muller BA, COS Unavailable Unavailable Rajwinder Landaverde RN Unavailable Unavailable Simran Hdz, COS Unavailable Unavail able Qi Mauricio RN Unavailable Unavailable Jenny Ortega RN Unavailable Unavail able Encounter Details Date Type Department Care Team (Late st Contact Info) Description 08/04/2018 Patient Outreach [facility] [address] [place] [address] Ponce, Viral V, DO [address] [place] [address] Social History Tobacco Use Types [...] SCREEN (10/07/2018 11:48 AM EST) Pathologist [facility] [place] Cholesterol 102 <=200 mg/dL 10/07/2018 8:27 PM EST [employer] Comment: < 200 Desirable 200 - 239 Borderline High >= 240 High Triglyceride 107 <=150 mg/dL 10/07/2018 8:27 PM EST [employer] Comment: < 150 Normal 150 - 199 Borderline High 200 - 499 High >= 500 Very High HDL 34(L) >=40 mg/dL 10/07/2018 8:27 PM EST [employer] Comment: > 60 Optimal 40 - 60 Acceptable < 40 Low LDL Calculated 47 <=100 mg/dL 10/07/2018 8:27 PM EST [employer] Comment: < 100 Optimal 100 - 129 Near or above optimal 130 - 159 Borderline High 160 - 189 High >= 190 Very High Non-HDL-C Calculated 68 <=129 mg/dL 10/07/2018 8:27 PM EST [employer] Comment: <130 Desirable 130-159 Above Desirable 160-189 Borderline High 190-219 High >= 220 Very High Blood VENOUS BLOOD / Unknown Venipuncture / Unknown 10/07/2018 11:48 AM EST 10/07/2018 11:48 AM EST us Viral Ponce V, DO CHEMISTRY ORDERABLES Final Res ult Performing Organization Address [facility]/ZIP Co de Phone Number [facility] [address] [facility] , [place] [address] * (ABNORMAL) HEPATIC FUNCTION PANEL (10/07/2018 11:48 [...] Res ult Performing Organization Address [facility]/ZIP Co de Phone Number [facility] [address] [facility] , [place] [address] * (ABNORMAL) HEMOGLOBIN A1C (10/07/2018 [...] ORDERABLES Final Res ult [facility] [address] [facility] , [place] [address] * (ABNORMAL) BASIC METABOLIC PANEL (10/07/2018 11:48 [...] mL/min/1.7 3 m2 10/07/2018 8:27 PM EST [facility] GFR Non Afr Am 91 >=60 mL/min/1.7 3 m2 10/07/2018 8:27 PM EST [facility] Comment: This estimated GFR was [...] CHEMISTRY ORDERABLES Final Res ult [facility] [address] [facility], [place] [address] [facility] [address] [place] [id number] documented in this encounter Visit Diagnoses [...] documented as of this encounter Care Teams City Treasurer Relationship Specialty Start Date End Date Sunny Ponce DO [address] [place] [phone] PCP - General Family Medicine 07/22/11 Miriam Muller BA, COS Case Supervisor Net Making 03/07/1902/18 Miriam Muller BA, COS Case Supervisor Net Making 03/09/1902/19 Rajwinder Landaverde, RN Scheduling Administrator 11/20/19 01/28/20 Simran Hdz, BS, COS Case Supervisor Net Making 01/15/23 02/02/23 Qi Mauricio, RN Scheduling Administrator Registered Nurse 09/21/23 10/19/23 Jenny Ortega, RN Scheduling Administrator 09/29/24 10/01/24 documented as of this encounter
--- OUTSIDE RECORDS SUMMARY | 2025-04-30 16:08 | XMS_ITS | Encounter Summary ---
Author Organization [place] [address] Care Team Providers Care Sprinkling System Installer Name Role Phone Ponce V, DO, Viral Primary Care Provider [phone] Miriam Muller BA, COS Unavailable Unavailable Miriam Muller BA, COS Unavailable Unavailable Rajwinder Landaverde RN Unavailable Unavailable Simran Hdz, COS Unavailable Unavail able Qi Mauricio RN Unavailable Unavailable Jenny Ortega RN Unavailable Unavail able Encounter Details Date Type Department Care Team (Late st Contact Info) Description 05/24/2018 Patient Out[facility] [address] [place] [address] Ponce, Viral V, DO [address] [place] [address] Social History Tobacco Use Types [...] documented as of this encounter Care Teams Sprinkling System Installer Relationship Specialty Start Date End Date Ponce, Sunny Chavez DO [address] [place] [phone] PCP - General Family Medicine 07/22/11 Mriiam Muller BA, COS Case Undercutter 03/07/1902/18 Miriam Muller BA, COS Case Undercutter 03/09/1902/19 Rajwinder Landaverde, RN Senior Accounting Analyst 11/20/19 01/28/20 Simran Hdz, BS, COS Case Undercutter 01/15/23 02/02/23 Qi Mauricio, RN Senior Accounting Analyst Registered Nurse 09/21/23 10/19/23 Jenny Ortega, RN Senior Accounting Analyst 09/29/24 10/01/24 documented as of this encounter
--- OUTSIDE RECORDS SUMMARY | 2025-04-30 16:08 | XMS_ITS | Encounter Summary ---
Author Organization [place] [address] Care Team Providers Care Automatic Thread Winder Name Role Phone Ponce V, DO, Viral Primary Care Provider [phone] Miriam Muller BA, COS Unavailable Unavailable Miriam Muller BA, COS Unavailable Unavailable Rajwinder Landaverde RN Unavailable Unavailable Simran Hdz, COS Unavailable Unavail able Qi Mauricio RN Unavailable Unavailable Jenny Ortega RN Unavailable Unavail able Encounter Details Date Type Department Care Team (Late st Contact Info) Description 06/29/2018 Patient Outreach [facility] [address] [place] [address] Ponce, Viral V, DO [address] [place] [address] Social History Tobacco Use Types [...] documented as of this encounter Care Teams Automatic Thread Winder Relationship Specialty Start Date End Date Ponce, Sunny Chavez DO [address] [place] [phone] PCP - General Family Medicine 07/22/11 Miriam Muller BA, COS Case Entry Level Drafter 03/07/1902/18 Miriam Muller BA, COS Case Entry Level Drafter 03/09/1902/19 Rajwinder Landaverde, RN Hotel Superintendent 11/20/19 01/28/20 Simran Hdz, BS, COS Case Entry Level Drafter 01/15/23 02/02/23 Qi Mauricio, RN Hotel Superintendent Registered Nurse 09/21/23 10/19/23 Jenny Ortega, RN Hotel Superintendent 09/29/24 10/01/24 documented as of this encounter
--- NOTE | 2025-04-30 16:09 | ED_ITS ---
<Statement entered by Rayne Read DO - 05/02/25 23:15> I was consulted by the VENU, and we discussed the complexity of problems being addressed. I approve the treatment and management plan for this patient's care in the emergency department, thus performing a substantial portion of the medical decision making. Rayne Read DO Discharge Plan Disposition Patient Disposition: Home, Self-Care Prescriptions Prescriptions: No Action glimepiride 4 mg tablet 4 mg PO DAILY cyanocobalamin (vitamin B-12) 1,000 mcg Tablet 1,000 mcg PO DAILY spironolactone 25 mg Tablet 25 mg PO DAILY 30 Days Qty: 30 0RF carvedilol 3.125 mg Tablet 3.125 mg PO BID 30 Days Qty: 60 0RF pantoprazole 40 mg Tablet,Delayed Release (Dr/Ec) 40 mg PO HS 30 Days Qty: 30 0RF Jardiance 10 mg Tablet 10 mg PO DAILY 30 Days Qty: 30 0RF Entresto 24-26 mg Tablet 1 tab PO BID 30 Days Qty: 60 0RF furosemide [Lasix] 40 mg tablet 40 mg PO BIDL 30 Days Qty: 60 0RF atorvastatin 40 mg tablet 40 mg PO DAILY 30 Days Qty: 30 0RF metformin 850 mg tablet 850 mg PO BIDWMEAL 30 Days Qty: 60 0RF aspirin 81 mg tablet 81 mg PO DAILY Qty: 30 0RF prasugrel HCl 10 mg Tablet 10 mg PO DAILY 30 Days Qty: 30 0RF Referrals Follow up/Referrals: Moe Christine MD [Staff Physician, Cardiology] - See instructions Referral Note: 9 AM Wednesday Clinical Impressions Clinical Impression: Coronary arteriosclerosis, Chest pain, HFrEF (heart failure with reduced ejection fraction) Instructions Patient Instructions: Heart Failure, Coronary Artery Disease, DI for Chest Pain Print Language Print Language: [place] Discharge ED Provider: Rayne Read HPI General Chief Complaint: Chest Pain Stated Complaint: chest pain Time Seen by Provider: 04/30/25 16:00 Mode of Arrival: EMS Source of Information: Patient Description of Symptoms (Recalled from ER Triage Doc. by RN): patient states arpund 10am today he began having sudden left sided chest tightness, that radiates up his left shoulder. the tightness is intermittent. 5/10 pain. ems gave 324 aspirin, and one nitro prior to arrival. patient reports no change in condition. History of Present Illness HPI narrative: 64-year-old male presents via EMS for complaint of chest pain that started about 10 AM. He is a patient of [facility]. He started having left-sided chest tightness that he tells me he does not go anywhere just stays in the same place. He said it has been about the same. EMS gave him nitro and aspirin and he reports no change. He does have a small amount of shortness of breath. He tells me that 1 month ago he had a heart cath and a stent placement here at [facility]. He denies nausea or vomiting. No other symptoms today. Related Data Home Medications ?Medication ?Instructions ?Recorded ?Confirmed glimepiride 4 mg tablet 4 mg PO DAILY 02/23/2504/19 cyanocobalamin (vitamin B-12) 1,000 mcg PO DAILY 02/2404/19/25 1,000 mcg tablet Previous Rx's ?Medication ?Instructions ?Recorded aspirin 81 mg tablet 81 mg PO DAILY #30 tabs 02/18 atorvastatin 40 mg tablet 40 mg PO DAILY 30 days #30 t abs 02/27/25 carvedilol 3.125 mg tablet 3.125 mg PO BID 30 days #60 tabs 02/27/25 empagliflozin 10 mg tablet 10 mg PO DAILY 30 days #30 tabs 02/27/25 (Jardiance) furosemide 40 mg tablet (Lasix) 40 mg PO BIDL 30 days #60 tabs 02/27/25 metformin 850 mg tablet 850 mg PO BIDWMEAL Diabetes 30 02/27/25 days #60 tabs pantoprazole 40 mg tablet,delayed 40 mg PO HS 30 days #30 tabs 02/27/25 release sacubitril 24 mg-valsartan 26 mg 1 tab PO BID 30 days #60 tabs 02/27/25 tablet (Entresto) spironolactone 25 mg tablet 25 mg PO DAILY 30 days #30 tabs 02/27/25 prasugrel HCl 10 mg tablet 10 mg PO DAILY 30 days #30 tabs 02/28/25 Allergies Allergy/AdvReac Type Severity Reaction Status Date / Time cephalexin (From KEFLEX) Allergy Unknown Swelling Verified 02/23/25 21:47 of Lip/Tongue/Throat codeine (CODEINE) Allergy Unknown Swelling Verified 02/23/25 21:47 of Lip/Tongue/Throat Penicillins (PENICILLINS) Allergy Unknown Anaphylaxis Verified 02/23/25 21:47 [facility] Disclaimer: The information contained in this section may have been updated after the patient was seen, as this information can be updated by other users. Medical History Congestive heart failure Diabetes Surgical History History of left knee surgery Family History Other Cancer Heart attack Social History Smoking Status: Never smoker alcohol intake: never current occupational status: disabled and other Travel in the last 8 weeks?: None Have you lived/traveled outside US in past 30 days?: No Contact w/someone who lives/traveled outside US past 30 days?: No Exposure to someone with infectious disease in past 14 days?: No Do you have a fever (greater than 100.4 F or 38 C)?: No Have you tested positive for COVID-19?: No Exposed to someone with COVID-19 in past 14 days?: No Do you have a sore throat?: No Do you have a cough?: No Do you have any weakness?: No Do you have any diarrhea?: No Are you experiencing any unusual bleeding?: No Do you have any muscle aches/pain?: No Do you have any abdominal pain?: No Are you experiencing loss of taste or smell?: No Other Medical History Have you received the Flu Vaccine for this season: No Have you received the Pneumonia Vaccine: No ROS Obtained: Yes Systems reviewed as appropriate & no additional complaints except as documented Constitutional Constitutional: Reports as per HPI Physical Exam General General appearance: alert Head Head exam: normocephalic Eye Eye exam: Present PERRL ENT ENT exam: Present mucous membranes moist Neck Neck exam: Present trachea midline Chest Chest inspection: Present symmetric chest wall rise Respiratory Respiratory exam: Present normal lung sounds bilaterally Cardiovascular Cardiovascular exam: Present regular rate, normal rhythm, normal heart sounds, +S1 and +S2 Abdominal Exam Abdominal exam: Present soft and normal bowel sounds Extremities Exam Extremities exam: Present full ROM and edema Neurological Exam Neurological exam: Present alert and oriented X3 Psychiatric Psychiatric exam: Present normal mood Skin Skin exam: Present warm and dry HEART Score HEART Score HEART Score assessment performed?: Yes History (anamnesis): Slightly suspicious ECG: Normal Age: >65 years Risk factors: 3 or more risk factors Troponin: </= normal limit HEART Score: 4 Critical Care Critical Care Time Critical Care Time: No Medical Decision Making Fito Inquiry Pt receiving controlled substance: No Fito was queried for this patient: No Vital Signs Vital Signs: 04/30/25 16:01 04/30/25 16:01 04/30/25 16:10 Temperature 98.4 F Temperature Source Oral Pulse Rate 77 78 Pulse Rate [Right Radial] 80 Respiratory Rate 19 22 24 Blood Pressure 92/57 L 134/73 Blood Pressure [Right Arm] 134/63 Blood Pressure Mean Blood Pressure Mean [Right Arm] 86 Blood Pressure Source Blood Pressure Source [Right Arm] Automatic Cuff Blood Pressure Position Blood Pressure Position [Right Arm] Supine 02 Sat by Pulse Oximetry 95 95 97 Oxygen Delivery Method Room Air 04/30/25 16:21 04/30/25 16:30 04/30/25 16:40 Temperature Temperature Source Pulse Rate 80 73 73 Pulse Rate [Right Radial] Respiratory Rate 27 H 17 18 Blood Pressure 108/71 L 98/62 L 119/68 Blood Pressure [Right Arm] Blood Pressure Mean Blood Pressure Mean [Right Arm] Blood Pressure Source Blood Pressure Source [Right Arm] Blood Pressure Position Blood Pressure Position [Right Arm] 02 Sat by Pulse Oximetry 96 97 96 Oxygen Delivery Method 04/30/25 17:00 04/30/25 17:10 04/30/25 17:20 Temperature Temperature Source Pulse Rate 68 72 68 Pulse Rate [Right Radial] Respiratory Rate 15 15 16 Blood Pressure 110/65 98/68 L 110/70 Blood Pressure [Right Arm] Blood Pressure Mean Blood Pressure Mean [Right Arm] Blood Pressure Source Blood Pressure Source [Right Arm] Blood Pressure Position Blood Pressure Position [Right Arm] 02 Sat by Pulse Oximetry 96 98 98 Oxygen Delivery Method 04/30/25 17:31 04/30/25 17:40 04/30/25 17:50 Temperature Temperature Source Pulse Rate 67 69 65 Pulse Rate [Right Radial] Respiratory Rate 14 15 16 Blood Pressure 105/56 L 104/62 L 117/65 Blood Pressure [Right Arm] Blood Pressure Mean Blood Pressure Mean [Right Arm] Blood Pressure Source Blood Pressure Source [Right Arm] Blood Pressure Position Blood Pressure Position [Right Arm] 02 Sat by Pulse Oximetry 97 98 96 Oxygen Delivery Method 04/30/25 18:00 04/30/25 18:10 04/30/25 18:21 Temperature Temperature Source Pulse Rate 69 69 Pulse Rate [Right Radial] Respiratory Rate 17 16 Blood Pressure 103/66 L 128/67 114/68 Blood Pressure [Right Arm] Blood Pressure Mean 84 Blood Pressure Mean [Right Arm] Blood Pressure Source Blood Pressure Source [Right Arm] Blood Pressure Position Blood Pressure Position [Right Arm] 02 Sat by Pulse Oximetry 99 99 Oxygen Delivery Method 04/30/25 18:21 04/30/25 18:40 04/30/25 18:50 Temperature Temperature Source Pulse Rate 67 71 71 Pulse Rate [Right Radial] Respiratory Rate 18 15 19 Blood Pressure 106/60 L 120/62 115/64 Blood Pressure [Right Arm] Blood Pressure Mean Blood Pressure Mean [Right Arm] Blood Pressure Source Blood Pressure Source [Right Arm] Blood Pressure Position Blood Pressure Position [Right Arm] 02 Sat by Pulse Oximetry 96 99 97 Oxygen Delivery Method 04/30/25 19:00 04/30/25 19:10 04/30/25 19:20 Temperature Temperature Source Pulse Rate 73 69 73 Pulse Rate [Right Radial] Respiratory Rate 20 18 13 Blood Pressure 109/59 L 114/67 126/71 Blood Pressure [Right Arm] Blood Pressure Mean Blood Pressure Mean [Right Arm] Blood Pressure Source Blood Pressure Source [Right Arm] Blood Pressure Position Blood Pressure Position [Right Arm] 02 Sat by Pulse Oximetry 98 96 98 Oxygen Delivery Method 04/30/25 19:30 04/30/25 19:40 04/30/25 19:50 Temperature Temperature Source Pulse Rate 71 71 70 Pulse Rate [Right Radial] Respiratory Rate 16 18 17 Blood Pressure 115/71 112/64 126/62 Blood Pressure [Right Arm] Blood Pressure Mean Blood Pressure Mean [Right Arm] Blood Pressure Source Blood Pressure Source [Right Arm] Blood Pressure Position Blood Pressure Position [Right Arm] 02 Sat by Pulse Oximetry 98 96 99 Oxygen Delivery Method 04/30/25 20:00 04/30/25 20:10 04/30/25 21:36 Temperature 98.2 F Temperature Source Temporal Artery Scan Pulse Rate 72 72 68 Pulse Rate [Right Radial] Respiratory Rate 13 14 18 Blood Pressure 126/69 120/73 130/73 Blood Pressure [Right Arm] Blood Pressure Mean Blood Pressure Mean [Right Arm] Blood Pressure Source Automatic Cuff Blood Pressure Source [Right Arm] Blood Pressure Position Supine Blood Pressure Position [Right Arm] 02 Sat by Pulse Oximetry 97 98 99 Oxygen Delivery Method Room Air Lab Data Labs: Lab Results 04/30/25 15:46: WBC 4.9, RBC 4.52 L, Hgb 12.0 L, Hct 37.3 L, MCV 82.5, MCH 26.5 L, MCHC 32.2, RDW 21.8 H, Plt Count 211, MPV 8.8, Neut % (Auto) 66.3, Lymph % (Auto) 20.2, [place] % (Auto) 9.3, Eos % (Auto) 3.6, Baso % (Auto) 0.4, Neut # (Auto) 3.3, Lymph # (Auto) 1.0, [place] # (Auto) 0.5, Eos # (Auto) 0.2, Baso # (Auto) 0.0 04/30/25 16:34: Sodium 136, Potassium 4.1, Chloride 101, Carbon Dioxide 28, Anion Gap 11.1, BUN 16, Creatinine 0.80, Estimated Creat Clear 78, Estimated GFR 97, Est GFR ( Amer) 117, Glucose 221 H, Calcium 8.7, Magnesium 2.0, Total Bilirubin 0.5, AST 20, ALT 17, Alkaline Phosphatase 126, Troponin I < 0.01, N T-Pro-B Natriuret Pep 2690 H, Total Protein 6.4, Albumin 3.5, Globulin 2.9, Albumin/Globulin Ratio 1.2, Lipase 47 04/30/25 19:24: Troponin I < 0.01 04/30/25 15:46 04/30/25 16:34 Response Orders (Tests/Meds): ED MEDICATIONS Discontinued Medications Generic Name Dose Route Start Last Admin Trade Name Freq PRN Reason Stop Dose Admin Furosemide 120 mg 04/30/25 21:08 04/30/25 21:19 Furosemide 100mg/10ml Vial IV 04/30/25 21:09 120 mg ONCE ONE Administration Morphine Sulfate 2 mg 04/30/25 16:04 04/30/25 16:31 Morphine 2mg/Ml Syringe IV 04/30/25 16:05 Not Given ONCE ONE Ondansetron HCl 4 mg 04/30/25 16:07 04/30/25 16:31 Ondansetron 4mg/2ml Vial IV 04/30/25 16:08 Not Given ONCE ONE ORDERS Category Date Time Status Chest XR -- portable [XR chest portable] Stat Exams 04/30/25 16:04 Completed BNP [NT Pro Brain Natriuretic Pep.] Stat Lab 04/30/25 16:34 Completed CBC [Complete Blood Count Auto Diff] Stat Lab 04/30/25 15:46 Completed Comprehensive Metabolic Panel Stat Lab 04/30/25 16:34 Completed Lipase Stat Lab 04/30/25 16:34 Completed Magnesium Stat Lab 04/30/25 16:34 Completed Trop I [Troponin I] Stat Lab 04/30/25 16:34 Completed Troponin I Q3H Lab 04/30/25 19:24 Completed Troponin I Q3H Lab 04/30/25 22:15 Ordered MDM Narrative Medical Decision Narrative: patient is a 64-year-old male presenting to the emergency department for evaluation of chest pain that started at 10 AM. Patient is hemodynamically stable and nontoxic-appearing upon arrival, afebrile. Differential diagnosis includes ACS, CHF, anxiety, among others. Workup will be conducted with hematologic labs, specific imaging Initial inventions include analgesics. Initial workup reviewed by me hematologic labs are remarkable for normal troponins. BNP 2690. Imaging informally interpreted by me and remarkable for possible pleural effusion. Please see formal imaging report for radiology read. Upon repeat evaluation patient does feel better after intervention. However, I did call Dr. Christine since he had a heart cath 1 month ago with stenting of the LAD. Patient does have cardiovascular disease and I wanted to make sure that Dr. Christine did not want to keep patient Dr. Christine suggest giving Lasix 120 mg IV and then he comes back in the morning to his office at 9 AM. Patient is aware so we will send him back to [facility] and he will come back to Dr. Christine's office in the morning at 9 AM.
[2025-04-30 16:17] LABS: Hematocrit 37.3 % (42.0-52.0); Hemoglobin 12.0 g/dL (14.1-18.0); Immature Granulocytes % 0.2 %; Mean Corpuscular HGB Conc 32.2 g/dL (31.8-35.4); Mean Corpuscular Hemoglobin 26.5 pg (27.0-31.2); Mean Corpuscular Volume 82.5 fl (80-94); Nucleated Red Blood Cells % 0 %; Platelet Count 211 K/mm3 (142-424); Red Blood Count 4.52 M/mm3 (4.60-6.20); Red Cell Distribution Width-SD 65.5 fL; White Blood Count 4.9 K/mm3 (4.8-10.8)
[2025-04-30 17:04] LABS: Albumin Level 3.5 g/dl (3.5-5.0); Chloride 101 mmol/L (98-107); Sodium 136 mmol/L (136-145)
[2025-04-30 17:05] LABS: Potassium 4.1 mmoL/L (3.5-5.1)
[2025-04-30 17:07] LABS: Alanine Aminotransferase 17 U/L (12-78); Albumin/Globulin Ratio 1.2 (1.1-1.8); Alkaline Phosphatase 126 U/L (38-126); Anion Gap 11.1 mEq/L (5-15); Aspartate Amino Transferase 20 U/L (17-59); Bilirubin,Total 0.5 mg/dl (0.2-1.3); Blood Urea Nitrogen 16 mg/dl (9-20); Calcium 8.7 mg/dl (8.4-10.2); Carbon Dioxide 28 mmol/L (22.0-30.0); Creatinine Clearance Estimated 78 mL/min (50-200); Creatinine,Serum 0.80 mg/dl (0.66-1.25); Estimated Glomerular Filt Rate 97 ml/min (>60); GFR (African American) 117 ML/MIN (>60); Globulin 2.9 g/dL (1.3-3.2); Glucose 221 mg/dl (74-100); Lipase 47 U/L (23-300); Total Protein,Serum 6.4 g/dl (6.3-8.2)
[2025-04-30 17:08] LABS: Magnesium 2.0 mg/dl (1.6-2.3)
[2025-04-30 17:17] LABS: NT Pro Brain Natriuretic Pep. 2690 pg/mL (0-125)
[2025-04-30 17:26] LABS: Troponin I < 0.01 ng/ml (0.00-0.034)
--- NOTE | 2025-04-30 19:19 | PC.NURSE ---
family given update over the phone.
--- NOTE | 2025-04-30 19:26 | PC.NURSE ---
2nd troponin sent to lab
[2025-04-30 19:52] LABS: Troponin I < 0.01 ng/ml (0.00-0.034)
[2025-04-30] MEDS: FUROSEMIDE 100MG/10ML VIAL 120 MG IV (21:19)
--- NOTE | 2025-04-30 21:46 | PC.NURSE ---
Report called to Anh WILLIAMSON RN
== END 2025-04-30 22:03 | disposition home or self-care (01) ==
PROVIDERS: Nurse Practitioner; Emergency Provider Student in an Organized Health Care Education/Training Program
DX: R07.9 Chest pain, unspecified (principal); I11.0 Hypertensive heart disease with heart failure; I50.20 Unspecified systolic (congestive) heart failure; I25.10 Atherosclerotic heart disease of native coronary artery without angina pectoris; E11.65 Type 2 diabetes mellitus with hyperglycemia; Z95.5 Presence of coronary angioplasty implant and graft
CPT/HCPCS: 71045; 80053; 83690; 83735; 83880; 84484; 85025; 93005; 96374; 99284; J1938

== ENCOUNTER 2025-05-10 13:38 | Outpatient (CLI) | payer MEDICARE, MEDICAID, SELFPAY ==
--- OUTSIDE RECORDS SUMMARY | 2015-12-19 10:19 | XMS_ITS | Encounter Summary ---
Author Organization [place] [address] Care Team Providers Care Internal Control Analyst Name Role Phone Kris Chavez DO, Viral Primary Care Provider [phone] Encounter Details Date Type Department Care Team (Latest Contact Info) Description 12/19/2015 10:19 AM EDT Hospital Encounter [facility] W[facility] [place] [address] [place] [address] Spring Gaytan APRN [address] [place] [address] Left without seen Social History Tobacco Use Types Packs/Day Years Used Date Smoking Tobacco: Former Cigarettes 0 09/20/1972 - 10/21/1972 Smokeless Tobacco: Former Comments:SMOKED FOR 1 WEEK A S A TEENAGER Alcohol Use Standard Drinks/Week Comments No 0 (1 standard drink = 0.6 oz pur e alcohol) [facility] Utilities Answer Date Recorded In the past 12 months has [employer], gas, oil, or water company threatened to shut off services in your home? No 09/26/2024 Overall Financial Resource Strain (CARDIA) Answe r Date Recorded How hard is it for you to pa y for the very basics like food, housing, medical care, and heating? Somewhat hard 09/26/2024 PHQ-2 Answer Date Recorded PHQ-2 Total Score 2 09/26/2024 [facility] of Occupat ional [facility] - Occupational Stress Questionnaire Answer Date Recorded [...] things needed for daily living? No 09/14/2023 [facility] IP Transportation Answer D ate [...] 09/24/2024 2:00 PM Cassie Cee RN * [place] Suicide Severity Rating Scale (Q shift for [...] documented as of this encounter Care Teams Internal Control Analyst Relationship Specialty Start Date End Date Sunny Ponce DO [address] [place] [phone] PCP - General Family Medicine 07/22/11 documented as of this encounter
--- OUTSIDE RECORDS SUMMARY | 2019-11-29 14:21 | XMS_ITS | Encounter Summary ---
Author Organization [place] [address] Care Team Providers Care Logistics/Shipper Name Role Phone Kris Chavez DO, Viral Primary Care Provider [phone] Rajwinder Landaverde RN Unavailable Unavailable Encounter Details Date Type Department Care Team (Late st Contact Info) Description 11/29/2019 2:21 PM EDT Hospital Encounter [facility] Referral Lab [address] [place] [phone] Mario Tierney MD [address] [facility] [address] [place] [address] Social History Tobacco Use Types Packs/Day Years Used Date Smoking Tobacco: Former Cigarettes 0 09/20/1972 - 10/21/1972 Smokeless Tobacco: Former Comments:SMOKED FOR 1 WEEK A S A TEENAGER Alcohol Use Standard Drinks/Week Comments No 0 (1 standard drink = 0.6 oz pur e alcohol) [facility] Utilities Answer Date Recorded In the past 12 months has [employer], gas, oil, or water [email or web address] threatened to shut off services in your home? No 09/26/2024 Overall Financial Resource Strain (CARDIA) Answe r Date Recorded How hard is it for you to pa y for the very basics like food, housing, medical care, and heating? Somewhat hard 09/26/2024 PHQ-2 Answer Date Recorded PHQ-2 Total Score 2 09/26/2024 [facility] - Occupational Stress Questionnaire Answer Date Recorded [...] things needed for daily living? No 09/14/2023 [facility] IP Transportation Answer D ate [...] 09/24/2024 2:00 PM Cassie Cee RN * [place] Suicide Severity Rating Scale (Q shift for [...] URINE ORDERABLES Final Result [facility], [employer] [address] [facility] , [address] [place] [phone] documented in this encounter Visit Diagnoses Not [...] documented as of this encounter Care Teams Logistics/Shipper Relationship Specialty Start Date End Date Sunny Ponce V, DO [address] [place] [phone] PCP - General Family Medicine 07/22/11 Rajwinder Landaverde, RN Furnace Installer Helper 11/20/19 01/28/20 documented as of this encounter
--- OUTSIDE RECORDS SUMMARY | 2019-12-04 05:00 | XMS_ITS | Encounter Summary ---
Author Organization [place] [address] Care Team Providers Care Sensitized Paper Tester Name Role Phone Kris Chavez DO, Viral Primary Care Provider [phone] Rajwinder Landaverde RN Unavailable Unavailable Encounter Details Date Type Department Care Team (Late st Contact Info) Description 12/04/2019 5:00 AM EDT Hospital Encounter [facility] Referral Lab 1 [place] [phone] Mario Tierney MD [address] [facility] [address] [place] [address] Social History Tobacco Use Types Packs/Day Years Used Date Smoking Tobacco: Former Cigarettes 0 09/20/1972 - 10/21/1972 Smokeless Tobacco: Former Comments:SMOKED FOR 1 WEEK A S A TEENAGER Alcohol Use Standard Drinks/Week Comments No 0 (1 standard drink = 0.6 oz pur e alcohol) [facility] Utilities Answer Date Recorded In the past 12 months has [employer], gas, oil, or water [employer] threatened to shut off services in your home? No 09/26/2024 Overall Financial Resource Strain (CARDIA) Answe r Date Recorded How hard is it for you to pa y for the very basics like food, housing, medical care, and heating? Somewhat hard 09/26/2024 PHQ-2 Answer Date Recorded PHQ-2 Total Score 2 09/26/2024 [facility] - Occupational Stress Questionnaire Answer Date Recorded [...] things needed for daily living? No 09/14/2023 [facility] IP Transportation Answer D ate Recorded In [...] 09/24/2024 2:00 PM Cassie Cee RN * [place] Suicide Severity Rating Scale (Q shift for [...] documented as of this encounter Care Teams Sensitized Paper Tester Relationship Specialty Start Date End Date Sunny Ponce V, [address] [place] [phone] PCP - General Family Medicine 07/22/11 Rajwinder Landaverde, RN Leather Goods Maker 11/20/19 01/28/20 documented as of this encounter
--- NOTE | 2025-05-10 13:45 | CA_ITS ---
APPROVED REPORT EXAM: Comprehensive 2D, Doppler, and color-flow Echocardiogram Medical Record Administrator: Cynthia Forman CRT Ht: 5 ft 11 in Wt: 425lbs BSA: 2.90 BP: 108/67 mmHg Indications: HFrEF, chest pain, dm, edema , sob full echo 02-26-25 40-45% M-Mode Dimensions RVDd 2.97 cm (0.9-2.6) LA Diam 4.61 cm (1.9-4.0) LVDd 6.30 cm (3.5-5.7) LVDs 4.86 cm (3.5-5.7) IVSd 1.76 cm (0.6-1.1) PWd 0.95 cm (0.6-1.1) EF (Teich) 45.00% FS 22.90% EDV (Teich) 201.20 mL ESV (Teich) 110.70 mL LV Diastology E Decel Time 150 (160-240 msec) E/A Ratio 0.56 Aortic Valve AO Peak GR. 3.00 mmHg Mitral Valve MV E Max Julio C. 28.0 (40-130 cm/s) MV A Velocity 50.0 (40-130 cm/s) E/A Ratio 0.56 MV PHT 44.0 ms Pulmonary Valve PV Peak Velocity 112.0 (50-150 cm/s) Left Ventricle The left ventricle is normal size. Left ventricular systolic function is normal. The left ventricular ejection fraction is within the normal range. There is increased left ventricular wall thickness. There is normal LV segmental wall motion. The left ventricular diastolic function is indeterminate. LVEF is 55% Right Ventricle The right ventricle is normal size. The right ventricular systolic function is normal. Atria The left atrium size is normal. The right atrium size is normal. There is no color Doppler evidence of interatrial shunt. Aortic Valve The aortic valve is mildly thickened. There is no hemodynamically significant aortic valvular stenosis. Trace aortic regurgitation is present. Mitral Valve The mitral valve is normal in structure. No evidence of mitral valve stenosis. Trace mitral regurgitation is present. Tricuspid Valve The tricuspid valve leaflets are thin and pliable. Trace tricuspid regurgitation. There is insufficient TR jet to estimate RVSP. Pulmonic Valve The pulmonary valve is grossly normal in structure. Trace pulmonic valve regurgitation is present. Great Vessels The aortic root is normal in size. Borderline dilated ascending aorta, measuring 3.7 cm in diameter. IVC is normal in size and collapses >50% with inspiration. Pericardium There is no pericardial effusion. Other Information Study Quality: Fair Conclusion Normal biventricular systolic function. No significant valvular stenosis or regurgitation. Borderline dilated ascending aorta, measuring 3.7 cm in diameter. Electronically signed by : Yenni Ma MD 05/12/2025 22:07:24
--- OUTSIDE RECORDS SUMMARY | 2025-05-10 13:53 | XMS_ITS | Clinical Summary ---
Author Organization [facility] are Address [address] [place] [address] Phone Care Team Providers Care Waste Picker Name Role Phone Dale Jeffries MD Primary Care Physician [phone] [ ] Conditions or Problems No information available. Medications No information available. Medications Administered No information available. Allergies, Adverse Reactions, Alerts No information available. Results No information available. Plan of Care No information available. Procedures No information available. Vital Signs No information available. Immunizations No information available. Advance Directives No information available.
--- OUTSIDE RECORDS SUMMARY | 2025-05-10 13:55 | XMS_ITS | Encounter Summary ---
Author Organization [place] [address] Care Team Providers Care Bottle Filler Name Role Phone Ponce V, DO, Viral Primary Care Provider [phone] Miriam Muller BA, COS Unavailable Unavailable Miriam Muller BA, COS Unavailable Unavailable Rajwinder Landaverde RN Unavailable Unavailable Simran Hdz, COS Unavailable Unavail able Qi Mauricio RN Unavailable Unavailable Jenny Ortega RN Unavailable Unavail able Encounter Details Date Type Department Care Team (Late st Contact Info) Description 09/08/2018 Patient Outreach [facility] [address] [place] [address] Ponce, Viral V, DO [address] [place] [address] Social History Tobacco Use Types [...] documented as of this encounter Care Teams Bottle Filler Relationship Specialty Start Date End Date Sunny Ponce DO [address] [place] [address] PCP - General Family Medicine 07/22/11 Miriam Muller BA, COS Case Gis Consultant 03/07/1902/18 Miriam Muller BA, COS Case Gis Consultant 03/09/1902/19 Rajwinder Landaverde, RN Fuel Efficient Automobile Designer 11/20/19 01/28/20 Simran Hdz BS, COS Case Gis Consultant 01/15/23 02/02/23 Qi Mauricio, RN Fuel Efficient Automobile Designer Registered Nurse 09/21/23 10/19/23 Jenny Ortega, RN Fuel Efficient Automobile Designer 09/29/24 10/01/24 documented as of this encounter
--- OUTSIDE RECORDS SUMMARY | 2025-05-10 13:55 | XMS_ITS | Encounter Summary ---
Author Organization [place] Address [facility] [place] [address] Care Team Providers Care Sociology Instructor Name Role Phone Kris Chavez DO, Viral Primary Care Provider [phone] Miriam Muller BA, COS Unavailable Unavailable Miriam Muller BA, COS Unavailable Unavailable Rajwinder Landaverde RN Unavailable Unavailable Simran Hdz, COS Unavailable Unavail able Qi Mauricio RN Unavailable Unavailable Jenny Ortega RN Unavailable Unavail able Encounter Details Date Type Department Care Team (Late st Contact Info) Description 02/28/2019 Lab Requisition [facility] [place] Mauricio [address] Sergio Bobo, DPM [address] [facility], [address] [place] [id number] Cellulitis of left lower extremity Social History [...] Growth(A) 03/03/2019 1:18 PM EDT [facility] [employer] [facility] Sparse growth of Staphylococcus aureus SUSCEPTIB ILITY RESULT 03/03/2019 1:18 PM EDT [facility] [facility] [employer] [facility] Sparse growth of Streptococcus agalactiae (Group B) SUSCEPTIB ILITY RESULT 03/03/2019 1:18 PM EDT [facility] [employer] [facility] Comment:Penicillin and Ampic illin are antibiotics of choice for treatment of beta-hemolytic streptococcal infections. Stain Few Gram positive cocci(A) 03/03/2019 1:18 PM EDT [facility] Stain Few Gram positive rods(A) 03/03/2019 1:18 PM EDT [facility] Stain Few WBCs 03/03/2019 1:18 PM EDT [facility] Swab STRUCTURE OF LEFT LOWER LEG / [...] MICROBIOLOGY - GENERAL ORD ERABLES Final Result [facility], [facility] [address] [facility] , [place] [address] documented in this encounter Visit Diagnoses Diagnosis [...] documented as of this encounter Care Teams Sociology Instructor Relationship Specialty Start Date End Date Sunny Ponce V, DO [address] [place] [address] PCP - General Family Medicine 07/22/11 Miriam Muller BA, COS Case Welder Fabricator 03/07/1902/18 Miriam Muller BA, COS Case Welder Fabricator 03/09/1902/19 Rajwinder Landaverde, RN Vault Worker 11/20/19 01/28/20 Simran Hdz BS, COS Case Welder Fabricator 01/15/23 02/02/23 Qi Mauricio, RN Vault Worker Registered Nurse 09/21/23 10/19/23 Jenny Ortega, RN Vault Worker 09/29/24 10/01/24 documented as of this encounter
--- OUTSIDE RECORDS SUMMARY | 2025-05-10 13:55 | XMS_ITS | Encounter Summary ---
Author Organization [place] [address] Care Team Providers Care Consulting Solution Director Name Role Phone Ponce V, DO, Viral Primary Care Provider Miriam Muller BA, COS Unavailable Unavailable Miriam Muller BA, COS Unavailable Unavailable Rajwinder Landaverde RN Unavailable Unavailable Simran Hdz, COS Unavailable Unavail able Qi Mauricio RN Unavailable Unavailable Jenny Ortega RN Unavailable Unavail able Encounter Details Date Type Department Care Team (Late st Contact Info) Description 08/04/2018 Patient Outreach [facility] [address] [place] [address] Ponce, Viral V, DO [address] [place] [address] Social History Tobacco Use Types [...] LIPID SCREEN (10/07/2018 11:48 AM EST) Pathologist [facility] [place] Cholesterol 102 <=200 mg/dL 10/07/2018 8:27 PM EST [facility] Comment: < 200 Desirable 200 - 239 Borderline High >= 240 High Triglyceride 107 <=150 mg/dL 10/07/2018 8:27 PM EST [facility] Comment: < 150 Normal 150 - 199 Borderline High 200 - 499 High >= 500 Very High HDL 34(L) >=40 mg/dL 10/07/2018 8:27 PM EST [facility] Comment: > 60 Optimal 40 - 60 Acceptable < 40 Low LDL Calculated 47 <=100 mg/dL 10/07/2018 8:27 PM EST [facility] Comment: < 100 Optimal 100 - 129 Near or above optimal 130 - 159 Borderline High 160 - 189 High >= 190 Very High Non-HDL-C Calculated 68 <=129 mg/dL 10/07/2018 8:27 PM EST [facility] Comment: <130 Desirable 130-159 Above Desirable 160-189 Borderline High 190-219 High >= 220 Very High Blood VENOUS BLOOD / Unknown Venipuncture / Unknown 10/07/2018 11:48 AM EST 10/07/2018 11:48 AM EST us Viral Ponce V, DO CHEMISTRY ORDERABLES Final Res ult Performing Organization Address [facility]/ZIP Co de Phone Number [facility] [address] , [place] [address] * (ABNORMAL) HEPATIC FUNCTION PANEL (10/07/2018 11:48 [...] ORDERABLES Final Res ult Performing Organization Address [facility]/ZIP Co de Phone Number [facility] [address] , [place] [address] * (ABNORMAL) HEMOGLOBIN A1C (10/07/2018 [...] ORDERABLES Final Res ult [facility] [address] , [place] [address] * (ABNORMAL) BASIC METABOLIC PANEL (10/07/2018 11:48 [...] mL/min/1.7 3 m2 10/07/2018 8:27 PM EST [facility] GFR Non Afr Am 91 >=60 mL/min/1.7 3 m2 10/07/2018 8:27 PM EST [facility] Comment: This estimated GFR was calculated [...] CHEMISTRY ORDERABLES Final Res ult [facility] [address] [facility], [place] [address] [facility] [address] [place] [address] documented in this encounter Visit Diagnoses [...] documented as of this encounter Care Teams Consulting Solution Director Relationship Specialty Start Date End Date Sunny Ponce DO [address] [place] [address] PCP - General Family Medicine 07/22/11 Miriam Muller BA, COS Case Line Cleaner 03/07/1902/18 Miriam Muller BA, COS Case Line Cleaner 03/09/1902/19 Rajwinder Landaverde, RN Vegetable Specker 11/20/19 01/28/20 Simran Hdz, BS, COS Case Line Cleaner 01/15/23 02/02/23 Qi Mauricio, RN Vegetable Specker Registered Nurse 09/21/23 10/19/23 Jenny Ortega, RN Vegetable Specker 09/29/24 10/01/24 documented as of this encounter
--- OUTSIDE RECORDS SUMMARY | 2025-05-10 13:55 | XMS_ITS | Encounter Summary ---
Author Organization [place] [address] Care Team Providers Care Stripe Matcher Name Role Phone Ponce V, DO, Viral Primary Care Provider [phone] Miriam Muller BA, COS Unavailable Unavailable Miriam Muller BA, COS Unavailable Unavailable Rajwinder Landaverde RN Unavailable Unavailable Simran Hdz, COS Unavailable Unavail able Qi Mauricio RN Unavailable Unavailable Jenny Ortega RN Unavailable Unavail able Encounter Details Date Type Department Care Team (Late st Contact Info) Description 06/29/2018 Patient Outreach [facility] [address] [place] [address] Ponce, Viral V, DO [address] [place] [address] Social History Tobacco Use Types [...] documented as of this encounter Care Teams Stripe Matcher Relationship Specialty Start Date End Date Ponce, Sunny Chavez DO [address] [place] [address] PCP - General Family Medicine 07/22/11 Miriam Muller BA, COS Case Foreign Food Cook Specialty 03/07/1902/18 Miriam Muller BA, COS Case Foreign Food Cook Specialty 03/09/1902/19 Rajwinder Landaverde, RN Equipment Cleaner 11/20/19 01/28/20 Simran Hdz, BS, COS Case Foreign Food Cook Specialty 01/15/23 02/02/23 Qi Mauricio, RN Equipment Cleaner Registered Nurse 09/21/23 10/19/23 Jenny Ortega, RN Equipment Cleaner 09/29/24 10/01/24 documented as of this encounter
--- OUTSIDE RECORDS SUMMARY | 2025-05-10 13:55 | XMS_ITS | Clinical Summary ---
Author Organization [facility] Address [address] [place] [address] [place] [address] Phone Care Team Providers Care Binding Nicker Name Role Phone Kris Chavez DO, Viral Primary Care Provider [phone] Allergies Active Allergy Reactions Criticality Noted Date Comments Codeine Swelling 11/04/2010 Erythromycin Swelling 01/03/1996 Cephalexin Swelling 11/04/2010 Minocycline 11/17/2012 Penicillins Swelling 11/04/2010 PCN Family Unable To Assess Swelling 11/04/2010 mycin Medications MULTI-VITAMIN ORALIndications:Sc reening for colon cancer,Gastroesoph ageal reflux disease without esophagitis,Essent ial hypertension,Type 2 diabetes mellitus with complication, without long-term current use of insulin ([facility]),Hyperlipidem ia with target LDL less than 100,Weakness,Debil [...] 2 (diabetes mellitus, type 2) ([facility]) Patient has accu chek roman needs supplies dx 250.00 test twice day Patient states he only checks a FSBS every other day. 200 Each 11 07/16/20 23 Active Blood-Glucose Meter [facility] [place] Kit[place]ications:DM type 2 (diabetes mellitus, type 2) ([facility]) Test twice daily 1 Kit 07/16/20 23 Active cyanocobalamin 1,000 mcg Oral Tablet Take 1,000 mcg by mouth daily. Active Lancets [facility] [place] MiscIndications:DM type 2 (diabetes mellitus, type 2) ([facility]) accu chek roman dx 250.00 test 2x day 200 Each 11 11/02/19 24 Active cyclobenzaprine (FLEXERIL) 5 mg Oral TabletIndications: Muscle spasm TAKE 1 TABLET BY MOUTH EVERY 8 HOURS NEEDED FOR MUSCLE SPASM 90 Tablet 03/15/20 24 Active metFORMIN (GLUCOPHAGE) 850 mg Oral TabletIndications: Type 2 diabetes mellitus with complication, without long-term current use of insulin ([facility]) Take 1 tablet by mouth twice daily 180 Tablet 1 07/21/20 24 Active fUROsemide (LASIX) 40 mg Oral TabletIndications: Lymphedema,Fluid retention in legs,Peripheral edema Take 1 Tablet by mouth every 12 hours. 180 Tablet 1 11/22/19 25 Active glimepiride (AMARYL) 4 mg Oral TabletIndications: Type 2 diabetes mellitus with complication, without long-term current use of insulin ([facility]) TAKE 1 TAB BY MOUTH EVERY [...] long-term current use of insulin ([facility]) Take 1 Tablet by mouth 2 [...] No results found for this basename: MICROALBUR, [id number], URINEMICROAL Retinopathy unavailable Neuropathy negative Hypertension complicating [...] fat layer exposed 12/16/2017 08/18/2018 Atherosclerosis of ute ar teries of left leg with ulceration of other part of lower left leg 01/16/2016 08/05/2017 Atherosclerosis of ute ar teries of right leg with ulceration [...] Type Department Care Team Description 02/21/[address] [address] Kris, Viral V, DO Medication [...] TOE AMPUTATION; Surgeon: Moe Guerrero DPM; Location: [facility] MAIN OR; Service: Podiatry IR PICC INSERTION EQUAL OR > 5 YEARS 08/07/2023 IR PICC INSERTION EQUAL OR > 5 YEARS 08/07/2023 Sujey Suresh PA-C [facility] IR FOOT SURGERY 08/09/2023 Foot/Ankle/Left LEFT FOOT INCISION AND DRAINAGE HEEL DEBRIDMENT with SKIN SUBSTITUTE; Surgeon: Ramírez Garcia DPM; Location: [facility] MAIN OR; Service: Podiatry Medical devices from this surgery are in the Medical Devices section. FOOT SURGERY 09/12/2023 Foot/Ankle/Left INCISION AND DRAINAGE/DEBRIDEMENT left foot; Surgeon: Angelia Vences DPM; Location: [facility] MAIN OR; Service: Podiatry FOOT SURGERY 09/15/2023 Foot/Ankle/Left LEFT FOOT FIFTH RAY AMPUTATION WITH DELAYED PRIMARY CLOSURE; Surgeon: Angelia Vences DPM; Location: [facility] MAIN OR; Service: Podiatry LAYER WOUND CLOSURE 09/15/2023 Left Surgeon: Angelia Vences DPM; Location: [facility] MAIN OR; Service: Podiatry TOE SURGERY 09/27/2024 Foot/Ankle/Right RIGHT FOOT THIRD TOE AMPUTATION; Surgeon: Angelia Vences DPM; Location: [facility] MAIN OR; Service: Podiatry Medical History Medical History Date Comments Unspecified sleep apnea Rheumatic disease as child CHF (congestive heart failure) ([facility]) Heart murmur Hypertension Arthritis Cancer (HCC) skin cancer face Morbid obesity (HCC) Diabetes mellitus (HCC) type II [place] bugs [place] (myocardial infarction) ([facility]) x2 Diabetic ulcer of left heel [...] drink = 0.6 oz pur e alcohol) [facility] Utilities Answer Date Recorded In the past 12 months has e electric, gas, oil, or water [employer] threatened to shut off services in your home? No 09/26/2024 Overall Financial Resource Strain (CARDIA) Answe r Date Recorded How hard is it for you to pa y for the very basics like food, housing, medical care, and heating? Somewhat hard 09/26/2024 PHQ-2 Answer Date Recorded PHQ-2 Total Score 2 09/26/2024 [facility] - Occupational [...] things needed for daily living? No 09/14/2023 [facility] IP Transportation Answer D ate Recorded [...] [employer] Medical Devices Implanted Type Area Biomedical Photographer Device Identifier Shelf Expiration Date Model / Serial / Lot Graft Tissue Myriad Thin 5 X 5cm - [id number] Implanted:Qty: 1 on 08/09/2023 by Ramírez Garcia DPM at [facility] Left: Foot [employer] 12/18/2025 [id number] / / [id number] Procedures Procedure Name [...] - 145 mmol/L 09/28/2024 4:39 AM EST [facility] Potassium 4.3 3.5 - 5.0 mmol/L 09/28/2024 4:39 AM EST [facility] Chloride 103 98 - 107 mmol/L 09/28/2024 4:39 AM EST [facility] Total CO2 25 22 - 29 mmol/L 09/28/2024 4:39 AM EST [facility] Anion Gap 7 7 - 16 mmol/L 09/28/2024 4:39 AM EST [facility] Calcium 8.4(L) 8.8 - 10.4 mg/dL 09/28/2024 4:39 AM EST [facility] Glucose Lvl 167(H) 70 - 99 mg/dL 09/28/2024 4:39 AM EST [facility] BUN 21 8 - 23 mg/dL 09/28/2024 4:39 AM [facility] Creatinine 1.21 0.67 - 1.30 mg/dL 09/28/2024 4:39 AM [facility] eGFR (CKD-EPIcr 2020) 66 >=60 mL/min/1.7 3 m2 09/28/2024 4:39 AM EST [facility] Comment:Estimated GFR was ca lculated using the CKD-EPIcr (2020) equation refit without race. The equation is recommended by the National Kidney Foundation - [place] [employer] of Nephrology Task Force. Blood VENOUS BLOOD / Unknown Venipuncture / Unknown 09/28/2024 3:34 AM EST 09/28/2024 4:00 AM EST Angelia Vences DPM CHEMISTRY ORDERABLES Rebekah jruado Result [facility] [address] [place] [address] * (ABNORMAL) HEMOGLOBIN A1C (09/25/2024 11:51 AM EST) Hgb A1C 8.7(H) 4.2 - 5.6 % 09/25/2024 1:42 PM EST [facility] Est. Avg Glucose 203 mg/dL 09/25/2024 1:42 PM EST [facility] Blood VENOUS BLOOD / Unknown Venipuncture / Unknown 09/25/2024 11:51 AM EST 09/25/2024 11:55 AM EST Narrative [facility], [facility] - 09/25/2024 1:42 PM EST REFERENCE RANGE: Normal: 4.0-5.6% Pre-diabetes: 5.7-6.4% Provisional diagnosis of diabetes: >6.4% Hgb F>10% and anything which shortens red cell survival, such as hemolytic anemia, or unstable hemoglobin variants such as HbSS, HbSC, or HbCC, will lower the HbA1c value associated with a given level of glycemic control. us Carolynn Thomas MD CHEMISTRY ORDERABLES Final R esult [facility], [facility] [address] [facility] , [place] [address] [facility] [address] [place] [address] * (ABNORMAL) LIPID PANEL REFLEX (05/30/2024 3:15 PM EDT) Cholesterol 118 <200 mg/dL 05/30/2024 9:22 PM EDT [facility] [employer] Comment: < 200 Desirable 200 - 239 Borderline High >= 240 High Triglyceride 93 <150 mg/dL 05/30/2024 9:22 PM EDT [facility] [employer] Comment: < 150 Normal 150 - 199 Borderline High 200 - 499 High >= 500 Very High HDL 35(L) >=40 mg/dL 05/30/2024 9:22 PM EDT [facility] [employer] Comment: > 60 Optimal 40 - 60 Acceptable < 40 Low LDL Calculated 65 <100 mg/dL 05/30/2024 9:22 PM EDT [facility] [employer] Non-HDL-C Calculated 83 <=129 mg/dL 05/30/2024 9:22 PM EDT [facility] [employer] Comment: <130 Desirable 130-159 Above Desirable 160-189 Borderline High 190-219 High >= 220 Very High Fasting Specimen? No None 024 9:22 PM EDT [facility] Blood VENOUS BLOOD / Unknown Venipuncture / Unknown 05/30/2024 3:15 PM EDT 05/30/2024 3:15 PM EDT Viral Ponce V, DO CHEMISTRY ORDERABLES Final Res ult Performing Organization Address [facility] de Phone Number [facility] [address] [place] [address] , [place] [address] [facility] [address] [place] [address] * HM FIT (05/14/2020) Pathologist [facility] Fecal Immunochemical Test Negative Negative SEP OFFICE Historical Provider HEALTH MAINTENANCE Final Res ult Performing Organization Address [facility] de Phone Number SEP OFFICE * HEPATITIS C ANTIBODY - SCREENING (10/07/2018 11:48 AM EST) Pathologist [facility] Hep C Ab Non-Reactiv e Non-Reacti ve 10/07/2018 9:07 PM EST [facility] Blood VENOUS BLOOD / Unknown Venipuncture / Unknown 10/07/2018 11:48 AM EST 10/07/2018 11:48 AM EST Viral Ponce V, DO HEMATOLOGY ORDERABLES Final Re sult Performing Organization Address [facility] de Phone Number [facility] [address] [place] [address] , [place] [address] * (ABNORMAL) MICROALBUMIN/CREATININE RATIO URINE (10/07/2018 11:48 AM EST) Pathologist [facility] Urine Microalb 192.5 mg/L 10/07/2018 8:38 PM EST [facility] Creatinine 177.4 mg/dL 10/07/2018 8:38 PM EST [facility] Ur Microalb/Creat 109(H) 0 - 30 mg/g 10/07/2018 8:38 PM EST [facility] STRUCTURE OF URINARY TRACT PROPER / Unknown 10/07/2018 11:48 AM EST 10/07/2018 11:48 AM EST us Viral Ponce V, DO URINE ORDERABLES Final Result [facility] [address] [facility] [facility] , [address] [place] [id number] * DIABETES EYE EXAM (02/18/2018) Left Diabetic Retinopathy Not Present Present/Not Present [facility] Comment:[facility] Right Diabetic Retinopathy Not Present Present/Not Present SEP OFFICE 02/18/2018 us Historical Provider HEALTH MAINTENANCE Final Res ult SEP OFFICE from Last 3 Months or Most Recently Relevant to Health Maintenance Insurance [employer] MEDICARE PPO MR [place] MEDICARE PPO MR * Guarantor: Suzan Whitehead Account Type Relation to Patient Date of Phone Billing Address [place] Personal Family Self Advance Directives For more information, please contact: [phone] * Full Code (Latest Code Status on [...] 7:40 PM 06/09/2023 9:48 PM Care Teams Binding Nicker Relationship Specialty Start Date End Date Sunny Ponce V, DO [address] [place] [address] PCP - General Family Medicine 07/22/11
--- OUTSIDE RECORDS SUMMARY | 2025-05-10 13:55 | XMS_ITS | Encounter Summary ---
Author Organization [place] [address] Care Team Providers Care Needle Felt Making Machine Operator Name Role Phone Ponce V, DO, Viral Primary Care Provider [phone] Miriam Muller BA, COS Unavailable Unavailable Miriam Muller BA, COS Unavailable Unavailable Rajwinder Landaverde RN Unavailable Unavailable Simran Hdz, COS Unavailable Unavail able Qi Mauricio RN Unavailable Unavailable Jenny Ortega RN Unavailable Unavail able Encounter Details Date Type Department Care Team (Late st Contact Info) Description 04/20/2018 Patient Outreach [facility] [address] [place] [address] Ponce, Viral V, DO [address] [place] [address] Social History Tobacco Use Types [...] mg/L 10/07/2018 8:38 PM EST [facility] Creatinine 177.4 mg/dL 10/07/2018 8:38 PM EST [facility] Ur Microalb/Creat 109(H) 0 - 30 mg/g 10/07/2018 8:38 PM EST [facility] Urine STRUCTURE OF URINARY TRACT PROPER / Unknown 10/07/2018 11:48 AM EST 10/07/2018 11:48 AM EST us Viral Ponce V, DO URINE ORDERABLES Final Result [facility] [address] [facility] [facility] , [address] [place] [phone] documented in this encounter Visit Diagnoses Diagnosis [...] documented as of this encounter Care Teams Needle Felt Making Machine Operator Relationship Specialty Start Date End Date Sunny Ponce V, DO [address] [place] [address] PCP - General Family Medicine 07/22/11 Miriam Muller BA, COS Case Paper Maker 03/07/1902/18 Miriam Muller BA, COS Case Paper Maker 03/09/1902/19 Rajwinder Landaverde, RN International Freight Forwarder 11/20/19 01/28/20 Simran Hdz BS, COS Case Paper Maker 01/15/23 02/02/23 Qi Mauricio, RN International Freight Forwarder Registered Nurse 09/21/23 10/19/23 Jenny Ortega, RN International Freight Forwarder 09/29/24 10/01/24 documented as of this encounter
--- OUTSIDE RECORDS SUMMARY | 2025-05-10 13:55 | XMS_ITS | Encounter Summary ---
Author Organization [place] [address] Care Team Providers Care Automotive Service Assistant Name Role Phone Ponce V, DO, Viral Primary Care Provider [phone] Miriam Muller BA, COS Unavailable Unavailable Miriam Muller BA, COS Unavailable Unavailable Rajwinder Landaverde RN Unavailable Unavailable Simran Hdz, COS Unavailable Unavail able Qi Mauricio RN Unavailable Unavailable Jenny Ortega RN Unavailable Unavail able Encounter Details Date Type Department Care Team (Late st Contact Info) Description 05/24/2018 Patient Outreach [facility] [address] [place] [address] Ponce, Viral V, DO [address] [place] [address] Social History Tobacco Use Types [...] documented as of this encounter Care Teams Automotive Service Assistant Relationship Specialty Start Date End Date Ponce, Sunny Chavez DO [address] [place] [address] PCP - General Family Medicine 07/22/11 Miriam Muller BA, COS Case Immigration Inspector 03/07/1902/18 Miriam Muller BA, COS Case Immigration Inspector 03/09/1902/19 Rajwinder Landaverde, RN Director Talent 11/20/19 01/28/20 Simran Hdz, BS, COS Case Immigration Inspector 01/15/23 02/02/23 Qi Mauricio, RN Director Talent Registered Nurse 09/21/23 10/19/23 Jenny Ortega, RN Director Talent 09/29/24 10/01/24 documented as of this encounter
--- OUTSIDE RECORDS SUMMARY | 2025-05-10 13:55 | XMS_ITS | Encounter Summary ---
Author Organization [place] [address] Care Team Providers Care Environmental Web Crawler Name Role Phone Ponce V, DO, Viral Primary Care Provider [phone] Miriam Muller BA, COS Unavailable Unavailable Miriam Muller BA, COS Unavailable Unavailable Rajwinder Landaverde RN Unavailable Unavailable Simran Hdz, COS Unavailable Unavail able Qi Mauricio RN Unavailable Unavailable Jenny Ortega RN Unavailable Unavail able Encounter Details Date Type Department Care Team (Late st Contact Info) Description 03/17/2018 Patient Outreach SEP [place] [address] [place] [address] Ponce, Viral V, DO [address] [place] [address] Social History Tobacco Use Types [...] documented as of this encounter Care Teams Environmental Web Crawler Relationship Specialty Start Date End Date Sunny Ponce DO [address] [place] [id number] PCP - General Family Medicine 07/22/11 Miriam Muller BA, COS Case Cigarette Making Examiner 03/07/1902/18 Miriam Muller BA, COS Case Cigarette Making Examiner 03/09/1902/19 Rajwinder Landaverde, RN Lacquerer 11/20/19 01/28/20 Simran Hdz BS, COS Case Cigarette Making Examiner 01/15/23 02/02/23 Qi Mauricio, RN Lacquerer Registered Nurse 09/21/23 10/19/23 Jenny Ortega, RN Lacquerer 09/29/24 10/01/24 documented as of this encounter
== END 2025-05-10 23:59 | disposition home or self-care (01) ==
LOC: RT 13:40
PROVIDERS: PCP Family Medicine; Visit Provider Physician Assistant
DX: I25.10 Atherosclerotic heart disease of native coronary artery without angina pectoris (principal); I50.20 Unspecified systolic (congestive) heart failure; I95.9 Hypotension, unspecified; E11.9 Type 2 diabetes mellitus without complications; I77.810 Thoracic aortic ectasia
CPT/HCPCS: 93306

== ENCOUNTER 2025-07-03 19:48 | Outpatient (CLI) | payer MEDICARE, MEDICAID, SELFPAY ==
[2025-07-03 20:48] LABS: Occult Blood,Stool Negative (Negative)
== END 2025-07-03 23:59 | disposition home or self-care (01) ==
LOC: LAB 19:49
PROVIDERS: PCP Internal Medicine Adolescent Medicine; Visit Provider Internal Medicine Adolescent Medicine
DX: D64.9 Anemia, unspecified (principal)
CPT/HCPCS: 82272; G0328

== ENCOUNTER 2025-07-09 16:18 | Outpatient (CLI) | payer MEDICARE, MEDICAID, SELFPAY ==
--- OUTSIDE RECORDS SUMMARY | 2015-12-19 10:19 | XMS_ITS | Encounter Summary ---
Author Organization [place] [address] Care Team Providers Care Higher Level Teaching Assistant Name Role Phone Kris Chavez DO, Viral Primary Care Provider [phone] Encounter Details Date Type Department Care Team (Latest Contact Info) Description 12/19/2015 10:19 AM EDT Hospital Encounter [facility] [place] [address] [place] [address] Spring Gaytan APRN [address] [place] [address] Left without seen Social History Tobacco Use Types Packs/Day Years Used Date Smoking Tobacco: Former Cigarettes 0 09/20/1972 - 10/21/1972 Smokeless Tobacco: Former Comments:SMOKED FOR 1 WEEK A S A TEENAGER Alcohol Use Standard Drinks/Week Comments No 0 (1 standard drink = 0.6 oz pur e alcohol) [facility] Utilities Answer Date Recorded In the past 12 months has [employer], gas, oil, or water company threatened to shut off services in your home? No 09/26/2024 Overall Financial Resource Strain (CARDIA) Answe r Date Recorded How hard is it for you to pa y for the very basics like food, housing, medical care, and heating? Somewhat hard 09/26/2024 PHQ-2 Answer Date Recorded PHQ-2 Total Score 2 09/26/2024 [facility] of Occupat ional [facility] - Occupational Stress Questionnaire Answer Date [...] things needed for daily living? No 09/14/2023 [facility] IP Transportation Answer D ate Recorded [...] k containing alcohol? 0 09/25/2024 12:00 AM Juaan Griffith R N How many drinks containing [...] 09/24/2024 2:00 PM Cassie Cee RN * [place] Suicide Severity Rating Scale (Q shift for [...] Component 8.7(09/25/19 11:51 AM EST) No Spring Stveens RMA documented as of this encounter Visit [...] documented as of this encounter Care Teams Higher Level Teaching Assistant Relationship Specialty Start Date End Date Sunny Ponce DO [address] [place] [phone] PCP - General Family Medicine 07/22/11 documented as of this encounter
--- OUTSIDE RECORDS SUMMARY | 2019-11-29 14:21 | XMS_ITS | Encounter Summary ---
Author Organization [place] [address] Care Team Providers Care Textile Engraver Name Role Phone Kris Chavez DO, Viral Primary Care Provider [phone] Rajwinder Landaverde RN Unavailable Unavailable Encounter Details Date Type Department Care Team (Late st Contact Info) Description 11/29/2019 2:21 PM EDT Hospital Encounter [facility] Referral Lab 1 [place] [phone] Mario Tierney MD [address] [facility] [address] [place] [address] Social History Tobacco Use Types Packs/Day Years Used Date Smoking Tobacco: Former Cigarettes 0 09/20/1972 - 10/21/1972 Smokeless Tobacco: Former Comments:SMOKED FOR 1 WEEK A S A TEENAGER Alcohol Use Standard Drinks/Week Comments No 0 (1 standard drink = 0.6 oz pur e alcohol) [facility] Utilities Answer Date Recorded In the past 12 months has [employer], gas, oil, or water [employer] threatened to shut off services in your home? No 09/26/2024 Overall Financial Resource Strain (CARDIA) Answe r Date Recorded How hard is it for you to pa y for the very basics like food, housing, medical care, and heating? Somewhat hard 09/26/2024 PHQ-2 Answer Date Recorded PHQ-2 Total Score 2 09/26/2024 [facility] - Occupational Stress Questionnaire Answer Date [...] things needed for daily living? No 09/14/2023 [facility] IP Transportation Answer D ate Recorded [...] 09/25/2024 12:00 AM Juana Griffith RN * Is the person deaf or does he/she have serious difficulty hearing? Answer Date of Assessment Author No 03/06/2019 10:44 AM Arias Yost RMA * Is the person blind or does he/she have serious difficulty seeing even when wearing glasses? Answer Date of Assessment Author No 03/06/2019 10:44 AM Arias Yost RMA * Does this person have serious difficulty walking or climbing stairs? Answer Date of Assessment Author Yes 03/06/2019 10:44 AM Arias Yost RMA * Does this person have difficulty dressing or bathing? Answer Date of Assessment Author Yes 03/06/2019 10:44 AM Arias Yost RMA * Because of a physical, mental or emotional condition, does this person have difficulty doing errands alone such as visiting a doctor's office or shopping? Answer Date of Assessment Author Yes 03/06/2019 10:44 AM EDT Arias Stevens, RMA * Question Answer Date of Assessment [...] 09/24/2024 2:00 PM Cassie Cee RN * [place] Suicide Severity Rating Scale (Q shift for [...] 05/25/2023 9:54 AM Patsy Sparks CCMA * Because of a physical, mental [...] AM EDT [facility] UA Bacteria 3+(A) Negative /HPF 11/30/2019 8:34 AM EDT [facility] Urine 11/29/2019 2:21 PM EDT 11/30/2019 8:00 AM EDT Mario Tierney MD URINE ORDERABLES Final Result [facility] [place] [address] [facility] , [address] [place] [phone] documented in this encounter Visit Diagnoses Not on filedocumented in this encounter Additional Health Concerns Infection Onset Date Last Indicated Resolved Time Ectoparasite (Lice, Bed Bugs , Scabies) 06/09/2023 06/10/2023 06/30/2023 10:12 PM EDT R/O COVID-09/10/2023 09/10/2023 09/10/2023 4:21 PM EST COVID-19 09/10/2023 09/10/2023 09/30/2023 10:1 2 PM EST Ectoparasite (Lice, Bed Bugs , Scabies) 09/28/2024 09/28/2024 10/18/2024 10:12 PM EST Assessment Noted Time PHQ-9 Depression Total Score: 2 03/06/20 10:44 AM EDT PHQ-2 Depression Total Score: 2 03/06/20 10:44 AM EDT documented as of this encounter Care Teams Textile Engraver Relationship Specialty Start Date End Date Sunny Ponce V, DO [address] [place] [phone] PCP - General Family Medicine 07/22/11 Rajwinder Landaverde, RN Bomb Loader 11/20/19 01/28/20 documented as of this encounter
--- OUTSIDE RECORDS SUMMARY | 2019-12-04 05:00 | XMS_ITS | Encounter Summary ---
Author Organization [place] [address] Care Team Providers Care Fashion Coordinator Name Role Phone Kris Chavez DO, Viral Primary Care Provider [phone] Rajwinder Landaverde RN Unavailable Unavailable Encounter Details Date Type Department Care Team (Late st Contact Info) Description 12/04/2019 5:00 AM EDT Hospital Encounter [facility] Referral Lab 1 [place] [phone] Mario Tierney MD [address] [facility] [address] [place] [address] Social History Tobacco Use Types Packs/Day Years Used Date Smoking Tobacco: Former Cigarettes 0 09/20/1972 - 10/21/1972 Smokeless Tobacco: Former Comments:SMOKED FOR 1 WEEK A S A TEENAGER Alcohol Use Standard Drinks/Week Comments No 0 (1 standard drink = 0.6 oz pur e alcohol) [facility] Utilities Answer Date Recorded In the past 12 months has [employer], gas, oil, or water [employer] threatened to shut off services in your home? No 09/26/2024 Overall Financial Resource Strain (CARDIA) Answe r Date Recorded How hard is it for you to pa y for the very basics like food, housing, medical care, and heating? Somewhat hard 09/26/2024 PHQ-2 Answer Date Recorded PHQ-2 Total Score 2 09/26/2024 [facility] - Occupational Stress Questionnaire Answer [...] things needed for daily living? No 09/14/2023 [facility] IP Transportation [...] 09/24/2024 2:00 PM Cassie Cee RN * [place] Suicide Severity Rating Scale (Q shift for [...] documented as of this encounter Care Teams Fashion Coordinator Relationship Specialty Start Date End Date Sunny Ponce V, [address] [place] [phone] PCP - General Family Medicine 07/22/11 Rajwinder Landaverde, RN Tow Truck Dispatcher 11/20/19 01/28/20 documented as of this encounter
--- OUTSIDE RECORDS SUMMARY | 2025-07-09 16:21 | XMS_ITS | Clinical Summary ---
Author Organization [facility] are Address [address] [place] [address] Phone Care Team Providers Care [place] Worker Name Role Phone Dale Jeffries MD Primary Care Physician [ ] Conditions or Problems No information available. Medications No information available. Medications Administered No information available. Allergies, Adverse Reactions, Alerts No information available. Results No information available. Plan of Care No information available. Procedures No information available. Vital Signs No information available. Immunizations No information available. Advance Directives No information available.
--- OUTSIDE RECORDS SUMMARY | 2025-07-09 16:23 | XMS_ITS | Clinical Summary ---
Author Organization [facility] Address [address] [place] [address] [place] [address] Phone Care Team Providers Care Microfilm Machine Operator Name Role Phone Kris Chavez DO, Viral Primary Care Provider [phone] Allergies Active Allergy Reactions Criticality Noted Date Comments Codeine Swelling 11/04/2010 Erythromycin Swelling 01/03/1996 Cephalexin Swelling 11/04/2010 Minocycline 11/17/2012 Penicillins Swelling 11/04/2010 PCN Family Unable To Assess Swelling 11/04/2010 mycin Medications MULTI-VITAMIN ORALIndications:Sc reening for colon cancer,Gastroesoph ageal reflux disease without esophagitis,Essent ial hypertension,Type 2 diabetes mellitus with complication, without long-term current use of insulin ([facility]),Hyperlipidem ia with target LDL less than 100,Weakness,Debil [...] M type 2 (diabetes mellitus, type 2) ([facility]) Patient has accu chek roman needs supplies dx 250.00 test twice day Patient states he only checks a FSBS every other day. 200 Each 11 07/16/20 23 Active Blood-Glucose Meter [facility] KitIndications:DM type 2 (diabetes mellitus, type 2) ([facility]) Test twice daily 1 Kit 07/16/20 23 Active cyanocobalamin 1,000 mcg Oral Tablet Take 1,000 mcg by mouth daily. Active Lancets [facility] MiscIndications:DM type 2 (diabetes mellitus, type 2) ([facility]) accu chek roman dx 250.00 test 2x day 200 Each 11 11/02/19 24 Active cyclobenzaprine (FLEXERIL) 5 mg Oral TabletIndications: Muscle spasm TAKE 1 TABLET BY MOUTH EVERY 8 HOURS NEEDED FOR MUSCLE SPASM 90 Tablet 03/15/20 24 Active metFORMIN (GLUCOPHAGE) 850 mg Oral TabletIndications: Type 2 diabetes mellitus with complication, without long-term current use of insulin ([facility]) Take 1 tablet by mouth twice daily 180 Tablet 1 07/21/20 24 Active fUROsemide (LASIX) 40 mg Oral TabletIndications: Lymphedema,Fluid retention in legs,Peripheral edema Take 1 Tablet by mouth every 12 hours. 180 Tablet 1 11/22/19 25 Active glimepiride (AMARYL) 4 mg Oral TabletIndications: Type 2 diabetes mellitus with complication, without long-term current use of insulin ([facility]) TAKE 1 TAB BY MOUTH EVERY MORNING. THIS REPLACES GLIPIZIDE. 90 Tablet 1 11/22/19 25 Active lisinopriL (PRINIVIL;ZESTRIL) 40 mg Oral TabletIndications: Essential hypertension Take 1 Tablet by mouth daily. 90 Tablet 1 11/22/19 25 Active potassium chloride (KLOR-CON) 10 mEq Oral Tablet Sustained ReleaseIndications :Lymphedema,Fluid retention in legs,Peripheral edema,Essential hypertension,Type 2 diabetes mellitus with complication, without long-term current use of insulin ([facility]) Take 1 Tablet by mouth 2 times [...] No results found for this basename: MICROALBUR, [id number], URINEMICROAL Retinopathy unavailable Neuropathy negative Hypertension complicating [...] fat layer exposed 12/16/2017 08/18/2018 Atherosclerosis of [place] of left leg with ulceration of other part of lower left leg 01/16/2016 08/05/2017 Atherosclerosis of [place] of right leg with ulceration [...] problem list Stasis dermatitis 07/11/2015 Obesity 03/09/2019 Immunizations Immunization Administration Dates Next Due Influenza High Dose 05/30/2024 Influenza Virus Vaccine Quadrivalant, Flublok Influenza, Injectable, MDCK, PF, Quadrivalent Moderna SARS-CoV-2 Vaccine 12+ Yrs (Light blue b order) 05/23/2021 Pneumococcal Conjugate Vaccine 20 Valent 023 Tdap 11/01/2013 Surgical History Surgery Date Site/Laterality Comments STOMACH SURGERY 2008 gastric bypass KNEE SURGERY knee tendon repair PILONIDAL CYST EXCISION TONSILLECTOMY TOE AMPUTATION 05/18/2023 Foot/Ankle/Left LEFT FIFTH TOE AMPUTATION; Surgeon: Moe Guerrero DPM; Location: [facility] OR; Service: Podiatry IR PICC INSERTION EQUAL OR > 5 YEARS 08/07/2023 IR PICC INSERTION EQUAL OR > 5 YEARS 08/07/2023 Sujey Suresh PA-C [facility] IR FOOT SURGERY 08/09/2023 Foot/Ankle/Left LEFT FOOT INCISION AND DRAINAGE HEEL DEBRIDMENT with SKIN SUBSTITUTE; Surgeon: Ramírez Garcia DPM; Location: [facility]; Service: Podiatry Medical devices from this surgery are in the Medical Devices section. FOOT SURGERY 09/12/2023 Foot/Ankle/Left INCISION AND DRAINAGE/DEBRIDEMENT left foot; Surgeon: Angelia Vences DPM; Location: [facility]; Service: Podiatry FOOT SURGERY 09/15/2023 Foot/Ankle/Left LEFT FOOT FIFTH RAY AMPUTATION WITH DELAYED PRIMARY CLOSURE; Surgeon: Angelia Vences DPM; Location: [facility]; Service: Podiatry LAYER WOUND CLOSURE 09/15/2023 Left Surgeon: Angelia Vences DPM; Location: [facility]; Service: Podiatry TOE SURGERY 09/27/2024 Foot/Ankle/Right RIGHT FOOT THIRD TOE AMPUTATION; Surgeon: Angelia Vences DPM; Location: [facility]; Service: Podiatry Medical History Medical History Date Comments Unspecified sleep apnea Rheumatic disease as child CHF (congestive heart failure) ([facility]) Heart murmur Hypertension Arthritis Cancer ([facility]) skin cancer face Morbid obesity ([facility]) Diabetes mellitus ([facility]) type II Red bugs [place] (myocardial infarction) ([facility]) x2 Diabetic ulcer of left heel associated with type 2 diabetes mellitus, with fat layer exposed ([facility]) 08/04/2023 Diabetic ulcer of toe of lef t foot associated with diabetes mellitus due to underlying condition, with fat layer exposed ([facility]) 08/04/2023 Diabetic ulcer of toe of lef t foot associated with type 2 diabetes mellitus, with necrosis of muscle ([facility]) 05/16/2023 Diabetic foot infection ([facility]) 09/14/2023 Open wound of left foot 08/09/2023 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 No 09/26/2024 Overall Financial Resource Strain (CARDIA) Answe r Date Recorded How hard is it for you to pa y for the very basics like food, housing, medical care, and heating? Somewhat hard 09/26/2024 PHQ-2 Answer Date Recorded PHQ-2 Total Score 2 09/26/2024 [facility] - Occupational [...] things needed for daily living? No 09/14/2023 [facility] HRSN [facility] IP Transportation Answer D ate [...] on file Sexual Orientation Not on file Last Filed Vital Signs Vital Sign Reading [...] - Td or Tdap) 11/01/2023 11/01/2013, 09/20/2011 AAA Screening 2024 Hemoglobin A1c 03/25/2025 09/25/2024, 05/21, 05/30/2024, Additional history exists COVID-19 Vaccine ( season) 2025 05/23/2021 Influenza Vaccine (#1) 2025 , 08/08/2023, 07/29/2020, [...] Pressure 166/89(10/10 2:25 PM EST) No Spring Stevens, RMA BMI (Calculated) < 30 General 56.4( [...] Component 8.7(09/25/19 11:51 AM EST) No Spring Stevens, RMAlan Medical Devices Implanted Type Area Medical Recruiter Device Identifier Shelf Expiration Date Model / Serial / Lot Graft Tissue Myriad Thin 5 X 5cm - [id number] Implanted:Qty: 1 on 08/09/2023 by Ramírez Garcia DPM at [facility] Left: Foot [employer] 12/18/2025 [id number] / / [id number] Procedures Procedure Name [...] - 145 mmol/L 09/28/2024 4:39 AM EST [facility] Potassium 4.3 3.5 - 5.0 mmol/L 09/28/2024 4:39 AM [facility] Chloride 103 98 - 107 mmol/L 09/28/2024 4:39 AM [facility] Total CO2 25 22 - 29 mmol/L 09/28/2024 4:39 AM [facility] Anion Gap 7 7 - 16 mmol/L 09/28/2024 4:39 AM [facility] Calcium 8.4(L) 8.8 - 10.4 mg/dL 09/28/2024 4:39 AM [facility] Glucose Lvl 167(H) 70 - 99 mg/dL 09/28/2024 4:39 AM [facility] BUN 21 8 - 23 mg/dL 09/28/2024 4:39 AM [facility] Creatinine 1.21 0.67 - 1.30 mg/dL 09/28/2024 4:39 AM [facility] eGFR (CKD-EPIcr 2020) 66 >=60 mL/min/1.7 3 m2 09/28/2024 4:39 AM [facility] Comment:Estimated GFR was ca lculated using the CKD-EPIcr (2020) equation refit without race. The equation is recommended by the National Kidney Foundation - [place] Society of Nephrology Task Force. Blood VENOUS BLOOD / Unknown Venipuncture / Unknown 09/28/2024 3:34 AM EST 09/28/2024 4:00 AM EST Angelia Vences DPM CHEMISTRY ORDERABLES Rebekah l Result [facility] [address] [place] [address] * (ABNORMAL) HEMOGLOBIN A1C (09/25/2024 11:51 AM EST) Hgb A1C 8.7(H) 4.2 - 5.6 % 09/25/2024 1:42 PM EST [facility] Est. Avg Glucose 203 mg/dL 09/25/2024 1:42 PM EST [facility] Blood VENOUS BLOOD / Unknown Venipuncture / Unknown 09/25/2024 11:51 AM EST 09/25/2024 11:55 AM EST Narrative [facility] - 09/25/2024 1:42 PM EST REFERENCE RANGE: Normal: 4.0-5.6% Pre-diabetes: 5.7-6.4% Provisional diagnosis of diabetes: >6.4% Hgb F>10% and anything which shortens red cell survival, such as hemolytic anemia, or unstable hemoglobin variants such as HbSS, HbSC, or HbCC, will lower the HbA1c value associated with a given level of glycemic control. us Carolynn Thomas MD CHEMISTRY ORDERABLES Final R esult [facility] [address] [facility], [place] [address] [facility] [address] [place] [address] * (ABNORMAL) LIPID PANEL REFLEX (05/30/2024 3:15 PM EDT) Cholesterol 118 <200 mg/dL 05/30/2024 9:22 PM EDT [facility], [facility] Comment: < 200 Desirable 200 - 239 Borderline High >= 240 High Triglyceride 93 <150 mg/dL 05/30/2024 9:22 PM EDT [facility], [facility] Comment: < 150 Normal 150 - 199 Borderline High 200 - 499 High >= 500 Very High HDL 35(L) >=40 mg/dL 05/30/2024 9:22 PM EDT [facility], [facility] Comment: > 60 Optimal 40 - 60 Acceptable < 40 Low LDL Calculated 65 <100 mg/dL 05/30/2024 9:22 PM EDT [facility], [facility] Non-HDL-C Calculated 83 <=129 mg/dL 05/30/2024 9:22 PM EDT [facility], [facility] Comment: <130 Desirable 130-159 Above Desirable 160-189 Borderline High 190-219 High >= 220 Very High Fasting Specimen? No None 024 9:22 PM EDT [facility] Blood VENOUS BLOOD / Unknown Venipuncture / Unknown 05/30/2024 3:15 PM EDT 05/30/2024 3:15 PM EDT us Viral Ponce V, DO CHEMISTRY ORDERABLES Final Res ult Performing Organization Address [facility] Co de Phone Number [facility], [facility] [address] [facility] , [address] [place] [id number] [facility] [address] [place] [id number] * HM FIT (05/14/2020) Pathologist [facility] Fecal Immunochemical Test Negative Negative SEP OFFICE us Historical Provider HEALTH MAINTENANCE Final Res ult Performing Organization Address [facility] Co de Phone Number SEP OFFICE * HEPATITIS C ANTIBODY - SCREENING (10/07/2018 11:48 AM EST) Pathologist [facility] Hep C Ab Non-Reactiv e Non-Reacti ve 10/07/2018 9:07 PM EST [facility] Blood VENOUS BLOOD / Unknown Venipuncture / Unknown 10/07/2018 11:48 AM EST 10/07/2018 11:48 AM EST us Viral Ponce V, DO HEMATOLOGY ORDERABLES Final Re sult Performing Organization Address [facility] Co de Phone Number [facility] [address] [facility] , [place] [address] * (ABNORMAL) MICROALBUMIN/CREATININE RATIO URINE (10/07/2018 11:48 AM EST) Pathologist [facility] Urine Microalb 192.5 mg/L 10/07/2018 8:38 PM EST [facility] Urine Creatinine 177.4 mg/dL 10/07/2018 8:38 PM EST [facility] Ur Microalb/Creat 109(H) 0 - 30 mg/g 10/07/2018 8:38 PM EST [facility] Urine STRUCTURE OF URINARY TRACT PROPER / Unknown 10/07/2018 11:48 AM EST 10/07/2018 11:48 AM EST us Viral Ponce V, DO URINE ORDERABLES Final Result [facility] [address] [facility] , [address] [place] [id number] * DIABETES EYE EXAM (02/18/2018) Left Diabetic [...] Advance Directives For more information, please contact: [phone] * Full Code (Latest Code Status on [...] 7:40 PM 06/09/2023 9:48 PM Care Teams Microfilm Machine Operator Relationship Specialty Start Date End Date Sunny Ponce DO [address] [place] [phone] PCP - General Family Medicine 07/22/11
--- OUTSIDE RECORDS SUMMARY | 2025-07-09 16:25 | XMS_ITS | Encounter Summary ---
Author Organization [place] [address] Care Team Providers Care Elevated Guard Name Role Phone Ponce V, DO, Viral Primary Care Provider [phone] Miriam Muller BA, COS Unavailable Unavailable Miriam Muller BA, COS Unavailable Unavailable Rajwinder Landaverde RN Unavailable Unavailable Simran Hdz, COS Unavailable Unavail able Qi Mauricio RN Unavailable Unavailable Jenny Ortega RN Unavailable Unavail able Encounter Details Date Type Department Care Team (Late st Contact Info) Description 05/24/2018 Patient Outreach [facility] [address] [place] [address] Ponce, Viral V, DO [address] [place] [address] Social History Tobacco Use Types [...] documented as of this encounter Care Teams Elevated Guard Relationship Specialty Start Date End Date Ponce, Sunny Chavez DO [address] [place] [phone] PCP - General Family Medicine 07/22/11 Miriam Muller BA, COS Case Drone Pilot 03/07/1902/18 Miriam Muller BA, COS Case Drone Pilot 03/09/1902/19 Rajwinder Landaverde, RN Jack Setter 11/20/19 01/28/20 Simran Hdz, BS, COS Case Drone Pilot 01/15/23 02/02/23 Qi Mauricio, RN Jack Setter Registered Nurse 09/21/23 10/19/23 Jenny Ortega, RN Jack Setter 09/29/24 10/01/24 documented as of this encounter
--- OUTSIDE RECORDS SUMMARY | 2025-07-09 16:25 | XMS_ITS | Encounter Summary ---
Author Organization [place] Address [facility] [place] [address] Care Team Providers Care Parts Back Counter Man Name Role Phone Kris Chavez DO, Viral Primary Care Provider [phone] Miriam Muller BA, COS Unavailable Unavailable Miriam Muller BA, COS Unavailable Unavailable Rajwinder Landaverde RN Unavailable Unavailable Simran Hdz, COS Unavailable Unavail able Qi Mauricio RN Unavailable Unavailable eJnny Ortega RN Unavailable Unavail able Encounter Details Date Type Department Care Team (Late st Contact Info) Description 02/28/2019 Lab Requisition [facility] CLAUDIA Mauricio [address] Sergio Bobo, DPM [address] [facility], [address] [place] [phone] Cellulitis of left lower extremity Social History [...] Growth(A) 03/03/2019 1:18 PM EDT PREFERRED [facility], [facility] Culture Sparse growth of Staphylococcus aureus SUSCEPTIB ILITY RESULT 03/03/2019 1:18 PM EDT [facility], [facility] Culture Sparse growth of Streptococcus agalactiae (Group B) SUSCEPTIB ILITY RESULT 03/03/2019 1:18 PM EDT [facility], [facility] Comment:Penicillin and Ampic illin are antibiotics of choice for treatment of beta-hemolytic streptococcal infections. Stain Few Gram positive cocci(A) 03/03/2019 1:18 PM EDT [facility], [facility] Stain Few Gram positive rods(A) 03/03/2019 1:18 PM EDT [facility], [facility] Stain Few WBCs 03/03/2019 1:18 PM EDT [facility], [facility] Swab STRUCTURE OF LEFT LOWER LEG / [...] MICROBIOLOGY - GENERAL ORD ERABLES Final Result [facility], [facility] [address] [facility] , [place] [address] documented in this encounter Visit Diagnoses Diagnosis [...] documented as of this encounter Care Teams Parts Back Counter Man Relationship Specialty Start Date End Date Sunny Ponce V, DO [address] [place] [phone] PCP - General Family Medicine 07/22/11 Miriam Muller BA, COS Case Urology Physician Assistant 03/07/1902/18 Miriam Muller BA, COS Case Urology Physician Assistant 03/09/1902/19 Rajwinder Landaverde, RN Medical Researcher 11/20/19 01/28/20 Simran Hdz BS, COS Case Urology Physician Assistant 01/15/23 02/02/23 Qi Mauricio, RN Medical Researcher Registered Nurse 09/21/23 10/19/23 Jenny Ortega, RN Medical Researcher 09/29/24 10/01/24 documented as of this encounter
--- OUTSIDE RECORDS SUMMARY | 2025-07-09 16:25 | XMS_ITS | Encounter Summary ---
Author Organization [place] [address] Care Team Providers Care Shear Grinder Operator Helper Name Role Phone Ponce V, DO, Viral Primary Care Provider [phone] Miriam Muller BA, COS Unavailable Unavailable Miriam Muller BA, COS Unavailable Unavailable Rajwinder Landaverde RN Unavailable Unavailable Simran Hdz, COS Unavailable Unavail able iQ Mauricio RN Unavailable Unavailable Jenny Ortega RN Unavailable Unavail able Encounter Details Date Type Department Care Team (Late st Contact Info) Description 08/04/2018 Patient Outreach [facility] [address] [place] [address] Ponce, Viral V, DO [address] [place] [address] Social History Tobacco Use Types [...] 102 <=200 mg/dL 10/07/2018 8:27 PM EST [facility] Comment: < 200 Desirable 200 - 239 Borderline High >= 240 High Triglyceride 107 <=150 mg/dL 10/07/2018 8:27 PM EST [facility] Comment: < 150 Normal 150 - 199 Borderline High 200 - 499 High >= 500 Very High HDL 34(L) >=40 mg/dL 10/07/2018 8:27 PM EST [facility] Comment: > 60 Optimal 40 - 60 Acceptable < 40 Low LDL Calculated 47 <=100 mg/dL 10/07/2018 8:27 PM EST [facility] Comment: < 100 Optimal 100 - 129 Near or above optimal 130 - 159 Borderline High 160 - 189 High >= 190 Very High Non-HDL-C Calculated 68 <=129 mg/dL 10/07/2018 8:27 PM EST [facility] Comment: <130 Desirable 130-159 Above Desirable 160-189 Borderline High 190-219 High >= 220 Very High Blood VENOUS BLOOD / Unknown Venipuncture / Unknown 10/07/2018 11:48 AM EST 10/07/2018 11:48 AM EST us Viral Ponce V, DO CHEMISTRY ORDERABLES Final Res ult Performing Organization Address [facility]/ZIP Co de Phone Number [facility], [facility] [address] [facility] , [place] [address] * (ABNORMAL) HEPATIC FUNCTION PANEL (10/07/2018 11:48 [...] ORDERABLES Final Res ult Performing Organization Address [facility]/ZIP Co de Phone Number [facility], [facility] [address] [facility] , [place] [address] * (ABNORMAL) HEMOGLOBIN A1C (10/07/2018 [...] ORDERABLES Final Res ult [facility], [facility] [address] [facility] , [place] [address] * (ABNORMAL) BASIC METABOLIC PANEL (10/07/2018 11:48 [...] mL/min/1.7 3 m2 10/07/2018 8:27 PM EST [facility] GFR Non Afr Am 91 >=60 mL/min/1.7 3 m2 10/07/2018 8:27 PM EST [facility] Comment: This estimated GFR was calculated [...] CHEMISTRY ORDERABLES Final Res ult [facility] [address] [facility], [place] [address] [facility] [address] [place] [address] documented in this encounter Visit Diagnoses [...] documented as of this encounter Care Teams Shear Grinder Operator Helper Relationship Specialty Start Date End Date Sunny Ponce DO [address] [place] [phone] PCP - General Family Medicine 07/22/11 Miriam Muller BA, COS Case Freelance Art Director 03/07/1902/18 Miriam Muller BA, COS Case Freelance Art Director 03/09/1902/19 Rajwinder Landaverde, RN Housekeeping Attendant 11/20/19 01/28/20 Simran Hdz, BS, COS Case Freelance Art Director 01/15/23 02/02/23 Qi Mauricio, RN Housekeeping Attendant Registered Nurse 09/21/23 10/19/23 Jenny Ortega, RN Housekeeping Attendant 09/29/24 10/01/24 documented as of this encounter
--- OUTSIDE RECORDS SUMMARY | 2025-07-09 16:25 | XMS_ITS | Encounter Summary ---
Author Organization [place] [address] Care Team Providers Care Azure Principal Solution Specialist Name Role Phone Ponce V, DO, Viral Primary Care Provider [phone] Miriam Muller BA, COS Unavailable Unavailable Miriam Muller BA, COS Unavailable Unavailable Rajwinder Landaverde RN Unavailable Unavailable Simran Hdz, COS Unavailable Unavail able Qi Mauricio RN Unavailable Unavailable Jenny Ortega RN Unavailable Unavail able Encounter Details Date Type Department Care Team (Late st Contact Info) Description 04/20/2018 Patient Outreach [facility] [address] [place] [address] Ponce, Viral V, DO [address] [place] [address] Social History Tobacco Use Types [...] mg/L 10/07/2018 8:38 PM EST [facility], [facility] Urine Creatinine 177.4 mg/dL 10/07/2018 8:38 PM EST [facility] Ur Microalb/Creat 109(H) 0 - 30 mg/g 10/07/2018 8:38 PM EST [facility], [facility] [facility] Urine STRUCTURE OF URINARY TRACT PROPER / Unknown 10/07/2018 11:48 AM EST 10/07/2018 11:48 AM EST us Viral Ponce V, DO URINE ORDERABLES Final Result [facility], [facility] [address] [facility] , [address] [place] [phone] documented in this encounter Visit Diagnoses Diagnosis [...] documented as of this encounter Care Teams Azure Principal Solution Specialist Relationship Specialty Start Date End Date Sunny Ponce V, DO [address] [place] [phone] PCP - General Family Medicine 07/22/11 Miriam Muller BA, COS Case Asp Developer 03/07/1902/18 Miriam Muller BA, COS Case Asp Developer 03/09/1902/19 Rajwinder Landaverde, RN Ux Information Architect 11/20/19 01/28/20 Simran Hdz BS, COS Case Asp Developer 01/15/23 02/02/23 Qi Mauricio, RN Ux Information Architect Registered Nurse 09/21/23 10/19/23 Jenny Ortega, RN Ux Information Architect 09/29/24 10/01/24 documented as of this encounter
--- OUTSIDE RECORDS SUMMARY | 2025-07-09 16:25 | XMS_ITS | Encounter Summary ---
Author Organization [employer] [place] [address] Care Team Providers Care Radio Sportscaster Name Role Phone Ponce V, DO, Viral Primary Care Provider [phone] Miriam Muller BA, COS Unavailable Unavailable Miriam Muller BA, COS Unavailable Unavailable Rajwinder Landaverde RN Unavailable Unavailable Simran Hdz, COS Unavailable Unavail able Qi Mauricio RN Unavailable Unavailable Jenny Ortega RN Unavailable Unavail able Encounter Details Date Type Department Care Team (Late st Contact Info) Description 03/17/2018 Patient Outreach [facility] [place] [address] [place] [address] Ponce, Viral V, DO [address] [place] [address] Social History Tobacco Use Types [...] documented as of this encounter Care Teams Radio Sportscaster Relationship Specialty Start Date End Date Sunny Ponce DO [address] [place] [address] PCP - General Family Medicine 07/22/11 Miriam Muller BA, COS Case Loader [employer] 03/07/1902/18 Miriam uMller BA, COS Case Loader [employer] 03/09/1902/19 Rajwinder Landaverde, RN Spiral Machine Operator 11/20/19 01/28/20 Simran Hdz BS, COS Case Loader [employer] 01/15/23 02/02/23 Qi Mauricio, RN Spiral Machine Operator Registered Nurse 09/21/23 10/19/23 Jenny Ortega, RN Spiral Machine Operator 09/29/24 10/01/24 documented as of this encounter
--- OUTSIDE RECORDS SUMMARY | 2025-07-09 16:25 | XMS_ITS | Encounter Summary ---
Author Organization [place] [address] Care Team Providers Care Senior Accounts Payable Clerk Name Role Phone Ponce V, DO, Viral Primary Care Provider [phone] Miriam Muller BA, COS Unavailable Unavailable Miriam Muller BA, COS Unavailable Unavailable Rajwinder Landaverde RN Unavailable Unavailable Simran Hdz, COS Unavailable Unavail able Qi Mauricio RN Unavailable Unavailable Jenny Ortega RN Unavailable Unavail able Encounter Details Date Type Department Care Team (Late st Contact Info) Description 06/29/2018 Patient Outreach [facility] [address] [place] [address] Ponce, Viral V, DO [address] [place] [address] Social History Tobacco Use Types [...] as of this encounter Care Teams Senior Accounts Payable Clerk Relationship Specialty Start Date End Date Ponce, Sunny Chavez DO [address] [place] [phone] PCP - General Family Medicine 07/22/11 Miriam Muller BA, COS Case Test Desk Operator 03/07/1902/18 Miriam Muller BA, COS Case Test Desk Operator 03/09/1902/19 Rajwinder Landaverde, RN Hay Chopper 11/20/19 01/28/20 Simran Hdz, BS, COS Case Test Desk Operator 01/15/23 02/02/23 Qi Mauricio, RN Hay Chopper Registered Nurse 09/21/23 10/19/23 Jenny Ortega, RN Hay Chopper 09/29/24 10/01/24 documented as of this encounter
[2025-07-09 17:46] LABS: Occult Blood,Stool Negative (Negative)
== END 2025-07-09 23:59 | disposition home or self-care (01) ==
LOC: LAB.DROPOF 16:21
PROVIDERS: PCP Internal Medicine Adolescent Medicine; Visit Provider Nurse Practitioner Family
DX: D64.9 Anemia, unspecified (principal)
CPT/HCPCS: 82272; G0328

== ENCOUNTER 2025-07-12 15:01 | Outpatient (CLI) | payer MEDICARE, MEDICAID, SELFPAY ==
--- OUTSIDE RECORDS SUMMARY | 2015-12-19 10:19 | XMS_ITS | Encounter Summary ---
Author Organization [place] [address] Care Team Providers Care Creping Machine Operator Name Role Phone Kris Chavez DO, Viral Primary Care Provider [phone] Encounter Details Date Type Department Care Team (Latest Contact Info) Description 12/19/2015 10:19 AM EDT Hospital Encounter [facility] W[facility] [place] [address] [place] [address] Spring Gaytan APRN [address] [place] [address] Left without seen Social History Tobacco Use Types Packs/Day Years Used Date Smoking Tobacco: Former Cigarettes 0 09/20/1972 - 10/21/1972 Smokeless Tobacco: Former Comments:SMOKED FOR 1 WEEK A S A TEENAGER Alcohol Use Standard Drinks/Week Comments No 0 (1 standard drink = 0.6 oz pur e alcohol) [facility] Utilities Answer Date Recorded In the past 12 months has [employer], gas, oil, or water company threatened to shut off services in your home? No 09/26/2024 Overall Financial Resource Strain (CARDIA) Answe r Date Recorded How hard is it for you to pa y for the very basics like food, housing, medical care, and heating? Somewhat hard 09/26/2024 PHQ-2 Answer Date Recorded PHQ-2 Total Score 2 09/26/2024 [facility] of Occupat ional [facility] - Occupational Stress Questionnaire Answer Date [...] things needed for daily living? No 09/14/2023 [facility] IP Transportation Answer D ate Recorded [...] 09/24/2024 2:00 PM Cassie Cee RN * [place] Suicide Severity Rating Scale (Q shift for [...] documented as of this encounter Care Teams Creping Machine Operator Relationship Specialty Start Date End Date Sunny Ponce DO [address] [place] [phone] PCP - General Family Medicine 07/22/11 documented as of this encounter
--- OUTSIDE RECORDS SUMMARY | 2019-11-29 14:21 | XMS_ITS | Encounter Summary ---
Author Organization [place] [address] Care Team Providers Care Process Checker Name Role Phone Kris Chavez DO, Viral Primary Care Provider [phone] Rajwinder Landaverde RN Unavailable Unavailable Encounter Details Date Type Department Care Team (Late st Contact Info) Description 11/29/2019 2:21 PM EDT Hospital Encounter [facility] Referral Lab 1 [place] [phone] Mario Tierney MD [address] [facility] [address] [place] [address] Social History Tobacco Use Types Packs/Day Years Used Date Smoking Tobacco: Former Cigarettes 0 09/20/1972 - 10/21/1972 Smokeless Tobacco: Former Comments:SMOKED FOR 1 WEEK A S A TEENAGER Alcohol Use Standard Drinks/Week Comments No 0 (1 standard drink = 0.6 oz pur e alcohol) [facility] Utilities Answer Date Recorded In the past 12 months has [employer], gas, oil, or water [employer] threatened to shut off services in your home? No 09/26/2024 Overall Financial Resource Strain (CARDIA) Answe r Date Recorded How hard is it for you to pa y for the very basics like food, housing, medical care, and heating? Somewhat hard 09/26/2024 PHQ-2 Answer Date Recorded PHQ-2 Total Score 2 09/26/2024 [facility] - Occupational Stress Questionnaire Answer [...] things needed for daily living? No 09/14/2023 [facility] IP Transportation Answer D ate Recorded In [...] 09/24/2024 2:00 PM Cassie Cee RN * [place] Suicide Severity Rating Scale (Q shift for [...] URINE ORDERABLES Final Result [facility], [employer] [address] [facility] , [address] [place] [phone] documented in this encounter Visit Diagnoses Not [...] documented as of this encounter Care Teams Process Checker Relationship Specialty Start Date End Date Sunny Ponec V, DO [address] [place] [phone] PCP - General Family Medicine 07/22/11 Rajwinder Landaverde, RN Hospital Coordinator 11/20/19 01/28/20 documented as of this encounter
--- OUTSIDE RECORDS SUMMARY | 2019-12-04 05:00 | XMS_ITS | Encounter Summary ---
Author Organization [place] [address] Care Team Providers Care Front End Web Developer Name Role Phone Kris Chavez DO, Viral Primary Care Provider [phone] Rajwinder Landaverde RN Unavailable Unavailable Encounter Details Date Type Department Care Team (Late st Contact Info) Description 12/04/2019 5:00 AM EDT Hospital Encounter [facility] Referral Lab 1 [place] [phone] Mario Tierney MD [address] [facility] [address] [place] [address] Social History Tobacco Use Types Packs/Day Years Used Date Smoking Tobacco: Former Cigarettes 0 09/20/1972 - 10/21/1972 Smokeless Tobacco: Former Comments:SMOKED FOR 1 WEEK A S A TEENAGER Alcohol Use Standard Drinks/Week Comments No 0 (1 standard drink = 0.6 oz pur e alcohol) [facility] Utilities Answer Date Recorded In the past 12 months has [employer], gas, oil, or water [employer] threatened to shut off services in your home? No 09/26/2024 Overall Financial Resource Strain (CARDIA) Answe r Date Recorded How hard is it for you to pa y for the very basics like food, housing, medical care, and heating? Somewhat hard 09/26/2024 PHQ-2 Answer Date Recorded PHQ-2 Total Score 2 09/26/2024 [facility] - Occupational Stress Questionnaire Answer Date Recorded [...] things needed for daily living? 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 06/10/2023 06/30/2023 10:12 PM EDT R/O COVID-09/10/2023 09/10/2023 09/10/2023 4:21 PM EST COVID-09/10/2023 09/10/2023 09/30/2023 10:1 2 PM EST Ectoparasite (Lice, Bed Bugs , Scabies) 09/28/2024 09/28/2024 10/18/2024 10:12 PM EST Assessment Noted Time PHQ-9 Depression Total Score: 2 03/06/20 10:44 AM EDT PHQ-2 Depression Total Score: 2 03/06/20 10:44 AM EDT documented as of this encounter Care Teams Front End Web Developer Relationship Specialty Start Date End Date Sunny Ponce V, [address] [place] [phone] PCP - General Family Medicine 07/22/11 Rajwinder Landaverde, RN Air Sealing Technician 11/20/19 01/28/20 documented as of this encounter
--- OUTSIDE RECORDS SUMMARY | 2025-07-12 15:29 | XMS_ITS | Clinical Summary ---
Author Organization [facility] are Address [address] [place] [address] Phone Care Team Providers Care Log Buncher Name Role Phone Dale Jeffries MD Primary Care Physician [phone] [ ] Conditions or Problems No information available. Medications No information available. Medications Administered No information available. Allergies, Adverse Reactions, Alerts No information available. Results No information available. Plan of Care No information available. Procedures No information available. Vital Signs No information available. Immunizations No information available. Advance Directives No information available.
--- OUTSIDE RECORDS SUMMARY | 2025-07-12 15:30 | XMS_ITS | Encounter Summary ---
Author Organization [place] [address] Care Team Providers Care Physician Assistant Primary Care Name Role Phone Ponce V, DO, Viral Primary Care Provider [phone] Miriam Muller BA, COS Unavailable Unavailable Miriam Muller BA, COS Unavailable Unavailable Rajwinder Landaverde RN Unavailable Unavailable Simran Hdz, COS Unavailable Unavail able Qi Mauricio RN Unavailable Unavailable Jenny Ortega RN Unavailable Unavail able Encounter Details Date Type Department Care Team (Late st Contact Info) Description 04/20/2018 Patient Outreach [facility] [address] [place] [address] Ponce, Viral V, DO [address] [place] [address] Social History Tobacco Use Types [...] RATIO URINE (10/07/2018 11:48 AM EST) Urine Albumin 192.5 mg/L 10/07/2018 8:38 PM EST [facility] Urine Creatinine 177.4 mg/dL 10/07/2018 8:38 PM EST [facility] Ur Albumin/Creat Ratio 109(H) 0 - 30 mg/g 10/07/2018 8:38 PM EST [facility] Urine STRUCTURE OF URINARY TRACT PROPER / Unknown 10/07/2018 11:48 AM EST 10/07/2018 11:48 AM EST us Viral Ponce V, DO URINE ORDERABLES Final Result [facility] [address] [facility] , [address] [place] [id number] documented in this encounter Visit Diagnoses Diagnosis [...] documented as of this encounter Care Teams Physician Assistant Primary Care Relationship Specialty Start Date End Date Sunny Ponce V, DO [address] [place] [phone] PCP - General Family Medicine 07/22/11 Miriam Muller BA, COS Case Battery Engineer 03/07/1902/18 Miriam Muller BA, COS Case Battery Engineer 03/09/1902/19 Rajwinder Landaverde, RN Disabilities Caregiver 11/20/19 01/28/20 Simran Hdz BS, COS Case Battery Engineer 01/15/23 02/02/23 Qi Mauricio, RN Disabilities Caregiver Registered Nurse 09/21/23 10/19/23 Jenny Ortega, RN Disabilities Caregiver 09/29/24 10/01/24 documented as of this encounter
--- OUTSIDE RECORDS SUMMARY | 2025-07-12 15:30 | XMS_ITS | Encounter Summary ---
Author Organization [facility] Address [facility] [place] [address] Care Team Providers Care Organ Builder Name Role Phone Kris Chavez DO, Viral Primary Care Provider [phone] Miriam Muller BA, COS Unavailable Unavailable Miriam Muller BA, COS Unavailable Unavailable Rajwinedr Landaverde RN Unavailable Unavailable Simran Hdz, COS Unavailable Unavail able Qi Mauricio RN Unavailable Unavailable Jenny Ortega RN Unavailable Unavail able Encounter Details Date Type Department Care Team (Late st Contact Info) Description 02/28/2019 Lab Requisition [facility] CLA[place] Mauricio [id number] Sergio Bobo, DPM [address] [facility], [address] [place] [id number] Cellulitis of left lower extremity Social History [...] 03/03/2019 1:18 PM EDT [facility] Culture Sparse growth of Staphylococcus aureus SUSCEPTIB ILITY RESULT 03/03/2019 1:18 PM EDT [facility] Culture Sparse growth of Streptococcus agalactiae (Group B) SUSCEPTIB ILITY RESULT 03/03/2019 1:18 PM EDT [facility] Comment:Penicillin and Ampic illin are antibiotics of choice for treatment of beta-hemolytic streptococcal infections. Stain Few Gram positive cocci(A) 03/03/2019 1:18 PM EDT [facility] Stain Few Gram positive rods(A) 03/03/2019 1:18 PM EDT [facility] Stain Few WBCs 03/03/2019 1:18 PM EDT [facility] Swab STRUCTURE OF LEFT LOWER LEG / [...] MICROBIOLOGY - GENERAL ORD ERABLES Final Result [facility], [facility] [address] [facility] , [place] [address] documented in this encounter Visit Diagnoses Diagnosis [...] documented as of this encounter Care Teams Organ Builder Relationship Specialty Start Date End Date Sunny Ponce V, DO [address] [place] [address] PCP - General Family Medicine 07/22/11 Miriam Muller BA, COS Case Business Law Teacher 03/07/1902/18 Miriam Muller BA, COS Case Business Law Teacher 03/09/1902/19 Rajwindre Landaverde, RN Underwear Welter 11/20/19 01/28/20 Simran Hdz BS, COS Case Business Law Teacher 01/15/23 02/02/23 Qi Mauricio, RN Underwear Welter Registered Nurse 09/21/23 10/19/23 Jenny Ortega, RN Underwear Welter 09/29/24 10/01/24 documented as of this encounter
--- OUTSIDE RECORDS SUMMARY | 2025-07-12 15:30 | XMS_ITS | Encounter Summary ---
Author Organization [place] [address] Care Team Providers Care Call Center Consultant Name Role Phone Ponce V, DO, Viral Primary Care Provider [phone] Miriam Muller BA, COS Unavailable Unavailable Miriam Muller BA, COS Unavailable Unavailable Rajwinder Landaverde RN Unavailable Unavailable Simran Hdz, COS Unavailable Unavail able Qi Mauricio RN Unavailable Unavailable Jenny Ortega RN Unavailable Unavail able Encounter Details Date Type Department Care Team (Late st Contact Info) Description 03/17/2018 Patient Outreach [facility] [place] [address] [place] [address] Ponce, Viral V, DO [address] [place] [address] Social History Tobacco Use Types [...] documented as of this encounter Care Teams Call Center Consultant Relationship Specialty Start Date End Date Sunny Ponce DO [address] [place] [address] PCP - General Family Medicine 07/22/11 Miriam Muller BA, COS Case Environmental Epidemiologist 03/07/1902/18 Miriam Muller BA, COS Case Environmental Epidemiologist 03/09/1902/19 Rajwinder Landaverde, RN Animal Pathologist 11/20/19 01/28/20 Simran Hdz BS, COS Case Environmental Epidemiologist 01/15/23 02/02/23 Qi Mauricio, RN Animal Pathologist Registered Nurse 09/21/23 10/19/23 Jenny Ortega, RN Animal Pathologist 09/29/24 10/01/24 documented as of this encounter
--- OUTSIDE RECORDS SUMMARY | 2025-07-12 15:30 | XMS_ITS | Clinical Summary ---
Author Organization [facility] Address [address] [place] [address] [place] [address] Phone Care Team Providers Care Large Animal Veterinarian Name Role Phone Kris Chavez DO, Viral Primary Care Provider Allergies Active Allergy Reactions Criticality Noted Date Comments Codeine Swelling 11/04/2010 Erythromycin Swelling 01/03/1996 Cephalexin Swelling 11/04/2010 Minocycline 11/17/2012 Penicillins Swelling 11/04/2010 PCN Family Unable To Assess Swelling 11/04/2010 mycin Medications MULTI-VITAMIN ORALIndications:Sc reening for colon cancer,Gastroesoph ageal reflux disease without esophagitis,Essent ial hypertension,Type 2 diabetes mellitus with complication, without long-term current use of insulin ([facility]),Hyperlipidem ia with target LDL less than [...] M type 2 (diabetes mellitus, type 2) ([facility]) Patient has accu chek roman needs supplies dx 250.00 test twice day Patient states he only checks a FSBS every other day. 200 Each 11 07/16/20 23 Active Blood-Glucose Meter [facility] KitIndications:DM type 2 (diabetes mellitus, type 2) ([facility]) Test twice daily 1 Kit 07/16/20 23 Active cyanocobalamin 1,000 mcg Oral Tablet Take 1,000 mcg by mouth daily. Active Lancets [facility] MiscIndications:DM type 2 (diabetes mellitus, type 2) ([facility]) accu chek roman dx 250.00 test 2x day 200 Each 11 11/02/19 24 Active cyclobenzaprine (FLEXERIL) 5 mg Oral TabletIndications: Muscle spasm TAKE 1 TABLET BY MOUTH EVERY 8 HOURS NEEDED FOR MUSCLE SPASM 90 Tablet 03/15/20 24 Active metFORMIN (GLUCOPHAGE) 850 mg Oral TabletIndications: Type 2 diabetes mellitus with complication, without long-term current use of insulin ([facility]) Take 1 tablet by mouth twice daily 180 Tablet 1 07/21/20 24 Active fUROsemide (LASIX) 40 mg Oral TabletIndications: Lymphedema,Fluid retention in legs,Peripheral edema Take 1 Tablet by mouth every 12 hours. 180 Tablet 1 11/22/19 25 Active glimepiride (AMARYL) 4 mg Oral TabletIndications: Type 2 diabetes mellitus with complication, without long-term current use of insulin ([facility]) TAKE 1 TAB BY MOUTH EVERY MORNING. THIS REPLACES GLIPIZIDE. 90 Tablet 1 11/22/19 25 Active lisinopriL (PRINIVIL;ZESTRIL) 40 mg Oral TabletIndications: Essential hypertension Take 1 Tablet by mouth daily. 90 Tablet 1 11/22/19 25 Active potassium chloride (KLOR-CON) 10 mEq Oral Tablet Sustained ReleaseIndications :Lymphedema,Fluid retention in legs,Peripheral edema,Essential hypertension,Type 2 diabetes mellitus with complication, without long-term current use of insulin ([facility]) Take 1 Tablet by mouth 2 [...] No results found for this basename: MICROALBUR, [id number], URINEMICROAL Retinopathy unavailable Neuropathy negative Hypertension complicating [...] fat layer exposed 12/16/2017 08/18/2018 Atherosclerosis of [place] of left leg with ulceration of other part of lower left leg 01/16/2016 08/05/2017 Atherosclerosis of [place] of right leg with ulceration [...] TOE AMPUTATION; Surgeon: Moe Guerrero DPM; Location: [facility] MAIN OR; Service: Podiatry IR PICC INSERTION EQUAL OR > 5 YEARS 08/07/2023 IR PICC INSERTION EQUAL OR > 5 YEARS 08/07/2023 Sujey Suresh PA-C [facility] IR FOOT SURGERY 08/09/2023 Foot/Ankle/Left LEFT FOOT INCISION AND DRAINAGE HEEL DEBRIDMENT with SKIN SUBSTITUTE; Surgeon: Ramírez Garcia DPM; Location: [facility] MA[facility] OR; Service: Podiatry Medical devices from this surgery are in the Medical Devices section. FOOT SURGERY 09/12/2023 Foot/Ankle/Left INCISION AND DRAINAGE/DEBRIDEMENT left foot; Surgeon: Angelia Vences DPM; Location: [facility] MA[facility] OR; Service: Podiatry FOOT SURGERY 09/15/2023 Foot/Ankle/Left LEFT FOOT FIFTH RAY AMPUTATION WITH DELAYED PRIMARY CLOSURE; Surgeon: Angelia Vences DPM; Location: [facility] OR; Service: Podiatry LAYER WOUND CLOSURE 09/15/2023 Left Surgeon: Angelia Vences DPM; Location: [facility] OR; Service: Podiatry TOE SURGERY 09/27/2024 Foot/Ankle/Right RIGHT FOOT THIRD TOE AMPUTATION; Surgeon: Angelia Vences DPM; Location: [facility] MA[facility] OR; Service: Podiatry Medical History Medical History Date Comments Unspecified sleep apnea Rheumatic disease as child CHF (congestive heart failure) ([facility]) Heart murmur Hypertension Arthritis Cancer ([facility]) skin cancer face Morbid obesity ([facility]) Diabetes mellitus ([facility]) type II [place] (myocardial infarction) ([facility]) x2 Diabetic ulcer of left heel associated with type 2 diabetes mellitus, with fat layer exposed ([facility]) 08/04/2023 Diabetic ulcer of toe of lef t foot associated with diabetes mellitus due to underlying condition, with fat layer exposed ([facility]) 08/04/2023 Diabetic ulcer of toe of lef t foot associated with type 2 diabetes mellitus, with necrosis of muscle ([facility]) 05/16/2023 Diabetic foot infection ([facility]) 09/14/2023 Open wound of left foot 08/09/2023 Osteomyelitis of fifth toe of left foot Skin ulcer of left heel with fat layer exposed ( [facility]) 06/10/2023 Pain due to onychomycosis of [...] Date Recorded PHQ-2 Total Score 2 09/26/2024 [facility] - Occupational Stress [...] things needed for daily living? No 09/14/2023 [facility] IP Transportation Answer D ate Recorded [...] Colonoscopy 2004 Sigmoidoscopy 2004 Virtual Colonography 2004 RSV or 60+ (1 - Risk 50-74 years 1-dose series) 2009 Zoster (1 of 2) 2009 Kidney Health: uACR 10/07/2019 10/07/2018 FIT 05/14/2021 [...] Stevens, RMAlan Medical Devices Implanted Type Area Sales And Marketing Representative Device Identifier Shelf Expiration Date Model / Serial / Lot Graft Tissue Myriad Thin 5 X 5cm - [id number] Implanted:Qty: 1 on 08/09/2023 by Ramírez Garcia DPM at [facility] Left: Foot [employer] 12/18/2025 [id number] / / [id number] Procedures Procedure Name Priority Date/Time Associated Diagnosis Comments BASIC METABOLIC PANEL STEF 09/28/2024 3:34 AM EST HEMOGLOBIN A1C Routine 09/25/2024 11:51 AM EST LIPID PANEL REFLEX Routine 05/30/2024 3: 15 PM EDT Dyslipidemia FIT Routine 05/14/2020 ALBUMIN/CREATININE RATIO, RANDOM URINE Routine 10/07/2018 11:48 AM EST HCV ANTIBODY SCREEN W/ REFLEX Routine 10/07/2018 11:48 AM EST Need for hepatitis C screening test DIABETES EYE EXAM Routine 02/18/2018 from Last 3 Months or Most Recently Relevant to Health Maintenance Results * (ABNORMAL) BASIC METABOLIC PANEL (09/28/2024 3:34 AM EST) Sodium 135(L) 136 - 145 mmol/L 09/28/2024 4:39 AM EST [facility] Potassium 4.3 3.5 - 5.0 mmol/L 09/28/2024 4:39 AM [facility] Chloride 103 98 - 107 mmol/L 09/28/2024 4:39 AM [facility] Total CO2 25 22 - 29 mmol/L 09/28/2024 4:39 AM [facility] Anion Gap 7 7 - 16 mmol/L 09/28/2024 4:39 AM [facility] Calcium 8.4(L) 8.8 - 10.4 mg/dL 09/28/2024 4:39 AM [facility] Glucose Lvl 167(H) 70 - 99 mg/dL 09/28/2024 4:39 AM [facility] BUN 21 8 - 23 mg/dL 09/28/2024 4:39 AM [facility] Creatinine 1.21 0.67 - 1.30 mg/dL 09/28/2024 4:39 AM [facility] eGFR (CKD-EPIcr 2020) 66 >=60 mL/min/1.7 3 m2 09/28/2024 4:39 AM [facility] Comment:Estimated GFR was ca lculated using the CKD-EPIcr (2020) equation refit without race. The equation is recommended by the National Kidney Foundation - [place] [employer] of Nephrology Task Force. Blood VENOUS BLOOD / Unknown Venipuncture / Unknown 09/28/2024 3:34 AM EST 09/28/2024 4:00 AM EST Angelia Vences DPM CHEMISTRY ORDERABLES Rebekah l Result [facility] [address] [place] [address] * (ABNORMAL) HEMOGLOBIN A1C (09/25/2024 11:51 AM EST) Hgb A1C 8.7(H) 4.2 - 5.6 % 09/25/2024 1:42 PM EST [facility] Est. Avg Glucose 203 mg/dL 09/25/2024 1:42 PM EST [facility] Blood VENOUS BLOOD / Unknown Venipuncture / Unknown 09/25/2024 11:51 AM EST 09/25/2024 11:55 AM EST Narrative [facility]REFERRED [facility] 09/25/2024 1:42 PM EST REFERENCE RANGE: Normal: 4.0-5.6% Pre-diabetes: 5.7-6.4% Provisional diagnosis of diabetes: >6.4% Hgb F>10% and anything which shortens red cell survival, such as hemolytic anemia, or unstable hemoglobin variants such as HbSS, HbSC, or HbCC, will lower the HbA1c value associated with a given level of glycemic control. us Carolynn Thomas MD CHEMISTRY ORDERABLES Final R esult [facility] [address] [facility], [place] [address] [facility] [address] [place] [address] * (ABNORMAL) LIPID PANEL REFLEX (05/30/2024 3:15 PM EDT) Cholesterol 118 <200 mg/dL 05/30/2024 9:22 PM EDT [facility], [facility] Comment: < 200 Desirable 200 - 239 Borderline High >= 240 High Triglyceride 93 <150 mg/dL 05/30/2024 9:22 PM EDT [facility], [facility] Comment: < 150 Normal 150 - 199 Borderline High 200 - 499 High >= 500 Very High HDL 35(L) >=40 mg/dL 05/30/2024 9:22 PM EDT [facility], [facility] Comment: > 60 Optimal 40 - 60 Acceptable < 40 Low LDL Calculated 65 <100 mg/dL 05/30/2024 9:22 PM EDT [facility], [facility] Non-HDL-C Calculated 83 <=129 mg/dL 05/30/2024 9:22 PM EDT [facility], [facility] Comment: <130 Desirable 130-159 Above Desirable 160-189 Borderline High 190-219 High >= 220 Very High Fasting Specimen? No None 024 9:22 PM EDT [facility] Blood VENOUS BLOOD / Unknown Venipuncture / Unknown 05/30/2024 3:15 PM EDT 05/30/2024 3:15 PM EDT us Viral Ponce V, DO CHEMISTRY ORDERABLES Final Res ult Performing Organization Address [facility] Co de Phone Number [facility] [address] [facility] , [address] [place] [id number] [facility] [address] [place] [phone] * HM FIT (05/14/2020) Pathologist [facility] Fecal Immunochemical Test Negative Negative SEP OFFICE us Historical Provider HEALTH MAINTENANCE Final Res ult Performing Organization Address [facility] Co de Phone Number SEP OFFICE * HEPATITIS C ANTIBODY - SCREENING (10/07/2018 11:48 AM EST) Pathologist [facility] Hep C Ab Non-Reactiv e Non-Reacti ve 10/07/2018 9:07 PM EST [facility] Blood VENOUS BLOOD / Unknown Venipuncture / Unknown 10/07/2018 11:48 AM EST 10/07/2018 11:48 AM EST us Viral Ponce V, DO HEMATOLOGY ORDERABLES Final Re sult Performing Organization Address [facility] Co de Phone Number [facility] [address] [facility] , [place] [address] * (ABNORMAL) MICROALBUMIN/CREATININE RATIO URINE (10/07/2018 11:48 AM EST) Pathologist [facility] Urine Albumin 192.5 mg/L 10/07/2018 8:38 PM EST [facility] Urine Creatinine 177.4 mg/dL 10/07/2018 8:38 PM EST [facility] Ur Albumin/Creat Ratio 109(H) 0 - 30 mg/g 10/07/2018 8:38 PM EST [facility] Urine STRUCTURE OF URINARY TRACT PROPER / Unknown 10/07/2018 11:48 AM EST 10/07/2018 11:48 AM EST us Viral Ponce V, DO URINE ORDERABLES Final Result [facility] [address] [facility] , [place] [address] * DIABETES EYE EXAM (02/18/2018) Left Diabetic Retinopathy Not Present Present/Not Present [facility] Comment:[facility] Right Diabetic Retinopathy Not Present Present/Not Present SEP OFFICE 02/18/2018 us Historical Provider HEALTH MAINTENANCE Final Res ult SEP OFFICE from Last 3 Months or Most Recently Relevant to Health Maintenance Insurance [employer] MEDICARE PPO [place] [id number] [employer] MEDICARE PPO MR * Guarantor: Suzan Whitehead Account Type Relation to Patient Date of Phone Billing Address [place] Personal Family Self Advance Directives For more information, please contact: [phone] * Full Code (Latest Code Status on [...] 7:40 PM 06/09/2023 9:48 PM Care Teams Large Animal Veterinarian Relationship Specialty Start Date End Date Sunny Ponce DO [address] [place] [address] PCP - General Family Medicine 07/22/11
--- OUTSIDE RECORDS SUMMARY | 2025-07-12 15:30 | XMS_ITS | Encounter Summary ---
Author Organization [place] [address] Care Team Providers Care Pipe Organ Mechanic Apprentice Name Role Phone Ponce V, DO, Viral Primary Care Provider [phone] Miriam Muller BA, COS Unavailable Unavailable Miriam Muller BA, COS Unavailable Unavailable Rajwinder Landaverde RN Unavailable Unavailable Simran Hdz, COS Unavailable Unavail able Qi Mauricio RN Unavailable Unavailable Jenny Ortega RN Unavailable Unavail able Encounter Details Date Type Department Care Team (Late st Contact Info) Description 05/24/2018 Patient Outreach SE[facility] [address] [place] [address] Ponce, Viral V, DO [address] [place] [address] Social History Tobacco Use Types [...] documented as of this encounter Care Teams Pipe Organ Mechanic Apprentice Relationship Specialty Start Date End Date Ponce, Sunny Chavez DO [address] [place] [address] PCP - General Family Medicine 07/22/11 Miriam Muller BA, COS Case Silversmith Apprentice 03/07/1902/18 Miriam Muller BA, COS Case Silversmith Apprentice 03/09/1902/19 Rajwinder Landaverde, RN Residential Glazier 11/20/19 01/28/20 Simran Hdz, BS, COS Case Silversmith Apprentice 01/15/23 02/02/23 Qi Mauricio, RN Residential Glazier Registered Nurse 09/21/23 10/19/23 Jenny Ortega, RN Residential Glazier 09/29/24 10/01/24 documented as of this encounter
--- OUTSIDE RECORDS SUMMARY | 2025-07-12 15:30 | XMS_ITS | Encounter Summary ---
Author Organization [place] [address] Care Team Providers Care Speech Correction Assistant Name Role Phone Ponce V, DO, Viral Primary Care Provider [phone] Miriam Muller BA, COS Unavailable Unavailable Miriam Muller BA, COS Unavailable Unavailable Rajwinder Landaverde RN Unavailable Unavailable Simran Hdz, COS Unavailable Unavail able Qi Mauricio RN Unavailable Unavailable Jenny Ortega RN Unavailable Unavail able Encounter Details Date Type Department Care Team (Late st Contact Info) Description 06/29/2018 Patient Outreach [facility] [address] [place] [address] Ponce, Viral V, DO [address] [place] [address] Social History Tobacco Use Types [...] documented as of this encounter Care Teams Speech Correction Assistant Relationship Specialty Start Date End Date Ponce, Sunny Chavez DO [address] [place] [phone] PCP - General Family Medicine 07/22/11 Miriam Muller BA, COS Case Family Consumer Science Teacher 03/07/1902/18 Miriam Muller BA, COS Case Family Consumer Science Teacher 03/09/1902/19 Rajwinder Landaverde, RN [employer]center Solution Architect 11/20/19 01/28/20 Simran Hdz, BS, COS Case Family Consumer Science Teacher 01/15/23 02/02/23 Qi Mauricio, RN [employer] Solution Architect Registered Nurse 09/21/23 10/19/23 Jenny Ortega, RN [employer] Solution Architect 09/29/24 10/01/24 documented as of this encounter
--- OUTSIDE RECORDS SUMMARY | 2025-07-12 15:30 | XMS_ITS | Encounter Summary ---
Author Organization [place] [address] Care Team Providers Care Belt Loop Machine Operator Name Role Phone Ponce V, DO, Viral Primary Care Provider [phone] Miriam Muller BA, COS Unavailable Unavailable Miriam Muller BA, COS Unavailable Unavailable Rajwinder Landaverde RN Unavailable Unavailable Simran Hdz, COS Unavailable Unavail able Qi Mauricio RN Unavailable Unavailable Jenny Ortega RN Unavailable Unavail able Encounter Details Date Type Department Care Team (Late st Contact Info) Description 08/04/2018 Patient Outreach [facility] [address] [place] [address] Ponce, Viral V, DO [address] [place] [address] Social History Tobacco Use [...] Not on track(2024 10:49 AM EST) No Urusla Vazquez, RN Note: Patient will maintain optimal [...] LIPID SCREEN (10/07/2018 11:48 AM EST) Pathologist [facility] Cholesterol 102 <=200 mg/dL 10/07/2018 8:27 PM EST Contently Comment: < 200 Desirable 200 - 239 Borderline High >= 240 High Triglyceride 107 <=150 mg/dL 10/07/2018 8:27 PM EST Contently Comment: < 150 Normal 150 - 199 Borderline High 200 - 499 High >= 500 Very High HDL 34(L) >=40 mg/dL 10/07/2018 8:27 PM EST Contently Comment: > 60 Optimal 40 - 60 Acceptable < 40 Low LDL Calculated 47 <=100 mg/dL 10/07/2018 8:27 PM EST Contently Comment: < 100 Optimal 100 - 129 Near or above optimal 130 - 159 Borderline High 160 - 189 High >= 190 Very High Non-HDL-C Calculated 68 <=129 mg/dL 10/07/2018 8:27 PM EST Contently Comment: <130 Desirable 130-159 Above Desirable 160-189 Borderline High 190-219 High >= 220 Very High Blood VENOUS BLOOD / Unknown Venipuncture / Unknown 10/07/2018 11:48 AM EST 10/07/2018 11:48 AM EST us Viral Ponce V, DO CHEMISTRY ORDERABLES Final Res ult Performing Organization Address [facility]/ZIP Co de Phone Number [facility] [address] , [place] [address] * (ABNORMAL) HEPATIC FUNCTION PANEL (10/07/2018 11:48 [...] Address [facility]/ZIP Co de Phone Number [facility] [address] [facility] , [place] [address] * (ABNORMAL) HEMOGLOBIN A1C (10/07/2018 [...] ORDERABLES Final Res ult [facility] [address] [facility] [facility] , [place] [address] * (ABNORMAL) BASIC METABOLIC PANEL (10/07/2018 11:48 [...] m2 10/07/2018 8:27 PM EST [facility] GFR Non Afr Am 91 >=60 mL/min/1.7 3 m2 10/07/2018 8:27 PM EST [facility] Comment: This estimated GFR was calculated [...] CHEMISTRY ORDERABLES Final Res ult [facility] [address], [place] [address] [facility] [address] [place] [id number] documented in this encounter Visit Diagnoses [...] documented as of this encounter Care Teams Belt Loop Machine Operator Relationship Specialty Start Date End Date Sunny Ponce DO [address] [place] [phone] PCP - General Family Medicine 07/22/11 Miriam Muller BA, COS Case Shell Mold Bonding Machine Operator 03/07/1902/18 Mriiam Muller BA, COS Case Shell Mold Bonding Machine Operator 03/09/1902/19 Rajwinder Landaverde, RN Remote Recruiter 11/20/19 01/28/20 Simran Hdz, BS, COS Case Shell Mold Bonding Machine Operator 01/15/23 02/02/23 Qi Mauricio, RN Remote Recruiter Registered Nurse 09/21/23 10/19/23 Jenny Ortega, RN Remote Recruiter 09/29/24 10/01/24 documented as of this encounter
--- OUTSIDE RECORDS SUMMARY | 2025-07-12 15:30 | XMS_ITS | Encounter Summary ---
Author Organization [place] [address] Care Team Providers Care Ballpoint Pen Assembly Machine Operator Name Role Phone Ponce V, DO, Viral Primary Care Provider [phone] Miriam Muller BA, COS Unavailable Unavailable Miriam Muller BA, COS Unavailable Unavailable Rajwinder Landaverde RN Unavailable Unavailable Simran Hdz, COS Unavailable Unavail able Qi Mauricio RN Unavailable Unavailable Jenny Ortega RN Unavailable Unavail able Encounter Details Date Type Department Care Team (Late st Contact Info) Description 09/08/2018 Patient Outreach [facility] [address] [place] [address] Ponce, Viral V, DO [address] [place] [address] Social History Tobacco Use Types [...] On track(2018 10:55 AM EDT) No Anjana Varghees LPN HEMOGLOBIN A1C < 7.0 Result Component [...] documented as of this encounter Care Teams Ballpoint Pen Assembly Machine Operator Relationship Specialty Start Date End Date Sunny Ponce DO [address] [place] [phone] PCP - General Family Medicine 07/22/11 Miriam Muller BA, COS Case Knowledge Engineer 03/07/1902/18 Miriam Muller BA, COS Case Knowledge Engineer 03/09/1902/19 Rajwinder Landaverde, RN Cryolite Recovery Operator 11/20/19 01/28/20 Simran Hdz BS, COS Case Knowledge Engineer 01/15/23 02/02/23 Qi Mauricio, RN Cryolite Recovery Operator Registered Nurse 09/21/23 10/19/23 Jenny Ortega, RN Cryolite Recovery Operator 09/29/24 10/01/24 documented as of this encounter
[2025-07-12 15:31] LABS: Occult Blood,Stool Positive (Negative)
== END 2025-07-12 23:59 | disposition home or self-care (01) ==
LOC: LAB.DROPOF 15:02
PROVIDERS: Nurse Practitioner Family; PCP Internal Medicine Adolescent Medicine; Visit Provider Internal Medicine Adolescent Medicine
DX: D64.9 Anemia, unspecified (principal)
CPT/HCPCS: 82272; G0328

== ENCOUNTER 2025-09-04 08:25 | Outpatient (CLI) | payer MEDICARE, MEDICAID, SELFPAY ==
--- NOTE | 2025-09-04 11:35 | ECG_ITS ---
APPROVED REPORT Exam: Resting ECG HR:68 bpm ECG Measurements Heart Rate 68 AXES IA 219 P 48 QRSd 139 QRS 213 QT 418 T 43 QTc 435 Conclusion SINUS RHYTHM WITH FIRST DEGREE AV BLOCK RIGHT AXIS DEVIATION [QRS AXIS > 100] RIGHT BUNDLE BRANCH BLOCK [120+ ms QRS DURATION, UPRIGHT V1, 40+ ms S IN I/aVL/V4/V5/V6] INFERIOR MYOCARDIAL INFARCTION , PROBABLY OLD [40+ ms Q WAVE AND/OR ST/T ABNORMALITY IN II/aVF] ANTEROLATERAL MYOCARDIAL INFARCTION , OF INDETERMINATE AGE [40+ ms Q WAVE IN I/aVL/V3-V6] ABNORMAL ECG UNCONFIRMED REPORT Electronically signed by : Mike Cunningham MD 09/05/2025 11:40:15
== END 2025-09-04 23:59 | disposition home or self-care (01) ==
LOC: LAB.DROPOF 09-05 08:25
PROVIDERS: PCP Internal Medicine Adolescent Medicine; Visit Provider Physician Assistant
DX: I44.0 Atrioventricular block, first degree (principal); I45.10 Unspecified right bundle-branch block; I25.2 Old myocardial infarction; I25.10 Atherosclerotic heart disease of native coronary artery without angina pectoris; R94.31 Abnormal electrocardiogram [ECG] [EKG]
CPT/HCPCS: 93005

== ENCOUNTER 2025-09-04 11:30 | Emergency (ER) | payer MEDICARE, MEDICAID, SELFPAY ==
--- OUTSIDE RECORDS SUMMARY | 2015-12-19 09:19 | XMS_ITS | Encounter Summary ---
Author Organization [place] [address] Care Team Providers Care Artillery Meteorological Man Name Role Phone Kris Chavez DO, Viral Primary Care Provider [phone] Encounter Details Date Type Department Care Team (Latest Contact Info) Description 12/19/2015 10:19 AM EDT Hospital Encounter [facility] [place] [address] [place] [address] Spring Gaytan APRN [address] [place] [address] Left without seen Social History Tobacco Use Types Packs/Day Years Used Date Smoking Tobacco: Former Cigarettes 0 09/20/1972 - 10/21/1972 Smokeless Tobacco: Former Comments:SMOKED FOR 1 WEEK A S A TEENAGER Alcohol Use Standard Drinks/Week Comments No 0 (1 standard drink = 0.6 oz pur e alcohol) [facility] Utilities Answer Date Recorded In the past 12 months has [employer], gas, oil, or water company threatened to shut off services in your home? No 09/26/2024 Overall Financial Resource Strain (CARDIA) Answe r Date Recorded How hard is it for you to pa y for the very basics like food, housing, medical care, and heating? Somewhat hard 09/26/2024 PHQ-2 Answer Date Recorded PHQ-2 Total Score 2 09/26/2024 [facility] of Occupat ional [facility] - Occupational Stress Questionnaire Answer Date Recorded Do you feel stress - tense, restless, nervous, or anxious, or unable to sleep at night because your mind is troubled all the time - these days? Only a little 09/26/2024 Exercise Vital Sign Answer Date Recorde d On average, how many days pe r week do you engage in moderate to strenuous exercise (like a brisk walk)? 0 days 09/26/2024 On average, how many minutes do you engage in exercise at this level? 0 min 09/26/2024 Hunger Vital Sign Answer Date Recorded Within the past 12 months, y ou worried that your food would run out before you got the money to buy more. Never true 09/26/19 25 Within the past 12 months, t he food you bought just didn't last and you didn't have money to get more. Never true 09/26/2024 [facility] - Transportation Answer Date Re corded In the past 12 months, has l ack of transportation kept you from medical appointments or from getting medications? No 08/21 In the past 12 months, has l ack of transportation kept you from meetings, work, or from getting things needed for daily living? No 09/14/2023 [facility] IP Transportation Answer D ate Recorded In the past 12 months, has l ack of reliable transportation kept you from medical appointments, meetings, work or from getting things needed for daily living? No 09/26/2024 Sexually Active Control Partners Comments Yes Female Sex and Gender Information Value Date Recorded Sex Assigned at Not on file Legal Sex Male 11:38 PM EDT Gender Identity Not on file Sexual Orientation Not on file COVID-19 Exposure Response Date Recorded In the last month, have you been in contact with someone who was confirmed or suspected to have Coronavirus / COVID-19? No / Unsure 05/23/2021 1:56 PM EDT documented as of this encounter Functional Status * Question Answer Date of Assessment Author Little interest or pleasure in doing things 1 09/26/2024 12:44 PM Osvaldo Redman RN Feeling down, depressed, or hopeless 1 09/26/2024 12:44 PM Osvaldo Redman RN PHQ-2 Total Score 2 09/26/2024 12:44 PM EST Jocelyn Quezada RN * PHQ-9 Total Score Answer Date of Assessment Author 2 09/26/2024 12:44 PM EST Jocelyn Malloy RN documented as of this encounter Mental Status * Question Answer Entry Date Author Because of a physical, menta l or emotional condition, does this person have difficulty doing errands alone such as visiting a doctor's office or shopping? No 05/25/2023 9:54 AM EDPatsy Dickson CCMA Because of a physical, menta l or emotional condition, does this person have serious difficulty concentrating, remembering or making decisions? No 05/25/2023 9:54 AM EDT Patsy Vilchis CCMA documented in this encounter Plan of Treatment Not on file documented as of this encounter Goals Goal Patient Goal Type Associated Problems Recent Progress Patient-Stated? Author Blood Pressure < 140/90 Blood Pressure 166/89(10/10 2:25 PM EST) No Spring Stevens RMA BMI (Calculated) < 30 General 56.4( 025 7:32 PM EST) No Spring Stevens RMA Maintain a healthy diet, exercise regularly and maintain an ideal body weight General No Anjana Varghese LPN Wound Healing General Not on track(2024 10:49 AM EST) No Ursula Vazquez RN Note: Patient will maintain optimal edema control. 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 Is in conservative care Problem Interventions Assess pain status. Assess wound size, zhou wound, drainage and odor. Educate patient and caregivers on signs and symptoms of infection, wound care, compression therapy and importance of prompt treatment. Assess for peripheral edema. If present , measure ankle, calf and foot circumference on initial visit and as indicated. Palpate pedal pulses. Use doppler if unable to palpate dorsalis pedal or posterior tibial pulses. Assess pedal pulses on each visit. Use doppler if unable to palpate dorsalis pedal or posterior tibial pulses. Obtain initial physician orders for Venous Wounds to include prealbumin, venous studies, ankle-brachial index and appropriate dressing to maintain microenvironment conducive to healing. Refer to PCP and/or Vascular Specialist as indicated. Monitor patient compliance with wound care and edema management. Monitor for complications associated with compression therapy. Stay Tobacco Free Lifestyle On track(2018 10:55 AM EDT) No Anjana Varghese LPN HEMOGLOBIN A1C < 7.0 Result Component 8.7(09/25/19 11:51 AM EST) No Spring Stevens RMA documented as of this encounter Visit Diagnoses Not on filedocumented in this encounter Additional Health Concerns Infection Onset Date Last Indicated Resolved Time Ectoparasite (Lice, Bed Bugs , Scabies) 06/09/2023 06/10/2023 06/30/2023 10:12 PM EDT R/O COVID-19 09/10/2023 09/10/2023 09/10/2023 4:21 PM EST COVID-19 09/10/2023 09/10/2023 09/30/2023 10:1 2 PM EST Ectoparasite (Lice, Bed Bugs , Scabies) 09/28/2024 09/28/2024 10/18/2024 10:12 PM EST documented as of this encounter Care Teams Artillery Meteorological Man Relationship Specialty Start Date End Date Sunny Ponce DO [address] [place] [phone] PCP - General Family Medicine 07/22/11 documented as of this encounter
--- OUTSIDE RECORDS SUMMARY | 2019-11-29 13:21 | XMS_ITS | Encounter Summary ---
Author Organization [place] [address] Care Team Providers Care Theoretical Physics Teacher Name Role Phone Kris Chavez DO, Viral Primary Care Provider [phone] Rajwinder Landaverde RN Unavailable Unavailable Encounter Details Date Type Department Care Team (Late st Contact Info) Description 11/29/2019 2:21 PM EDT Hospital Encounter [facility] Referral Lab 1 [place] [phone] Mario Tierney MD [address] [facility] [address] [place] [address] Social History Tobacco Use Types Packs/Day Years Used Date Smoking Tobacco: Former Cigarettes 0 09/20/1972 - 10/21/1972 Smokeless Tobacco: Former Comments:SMOKED FOR 1 WEEK A S A TEENAGER Alcohol Use Standard Drinks/Week Comments No 0 (1 standard drink = 0.6 oz pur e alcohol) [facility] Utilities Answer Date Recorded In the past 12 months has [employer], gas, oil, or water [employer] threatened to shut off services in your home? No 09/26/2024 Overall Financial Resource Strain (CARDIA) Answe r Date Recorded How hard is it for you to pa y for the very basics like food, housing, medical care, and heating? Somewhat hard 09/26/2024 PHQ-2 Answer Date Recorded PHQ-2 Total Score 2 09/26/2024 [facility] - Occupational Stress Questionnaire Answer Date [...] things needed for daily living? No 09/14/2023 [facility] IP Transportation Answer D ate Recorded [...] on track(2024 10:49 AM EST) No Ursula Vazquez, RN Note: Patient will maintain optimal edema [...] 11/30/2019 8:34 AM EDT [facility] UA Bacteria 3+(A) Negative /HPF 11/30/2019 8:34 AM EDT [facility] Urine 11/29/2019 2:21 PM EDT 11/30/2019 8:00 AM EDT us Mario Tierney MD URINE ORDERABLES Final Result [facility] [address] [facility] , [address] [place] [phone] documented in this encounter Visit Diagnoses Not [...] documented as of this encounter Care Teams Theoretical Physics Teacher Relationship Specialty Start Date End Date Sunny Ponce V, DO [address] [place] [phone] PCP - General Family Medicine 07/22/11 Rajwinder Landaverde, RN Fire Protection Specialist 11/20/19 01/28/20 documented as of this encounter
--- OUTSIDE RECORDS SUMMARY | 2019-12-04 04:00 | XMS_ITS | Encounter Summary ---
Author Organization [place] [address] Care Team Providers Care Distribution Spec Name Role Phone Kris Chavez DO, Viral Primary Care Provider [phone] Rajwinder Landaverde RN Unavailable Unavailable Encounter Details Date Type Department Care Team (Late st Contact Info) Description 12/04/2019 5:00 AM EDT Hospital Encounter [facility] Referral Lab 1 [place] [phone] Mario Tierney MD [address] [facility] [address] [place] [address] Social History Tobacco Use Types Packs/Day Years Used Date Smoking Tobacco: Former Cigarettes 0 09/20/1972 - 10/21/1972 Smokeless Tobacco: Former Comments:SMOKED FOR 1 WEEK A S A TEENAGER Alcohol Use Standard Drinks/Week Comments No 0 (1 standard drink = 0.6 oz pur e alcohol) [facility] Utilities Answer Date Recorded In the past 12 months has [employer], gas, oil, or water [employer] threatened to shut off services in your home? No 09/26/2024 Overall Financial Resource Strain (CARDIA) Answe r Date Recorded How hard is it for you to pa y for the very basics like food, housing, medical care, and heating? Somewhat hard 09/26/2024 PHQ-2 Answer Date Recorded PHQ-2 Total Score 2 09/26/2024 [facility] - Occupational Stress Questionnaire Answer Date [...] things needed for daily living? No 09/14/2023 [facility] IP Transportation Answer D ate Recorded [...] Assessment Author No 03/06/2019 10:44 AM EDArias Cani sp, RMA * Does this person have [...] documented as of this encounter Care Teams Distribution Spec Relationship Specialty Start Date End Date Sunny Ponce DO [address] [place] [phone] PCP - General Family Medicine 07/22/11 Rajwinder Landaverde, RN Pin Machine Tender 11/20/19 01/28/20 documented as of this encounter
[2025-09-04 11:33] VITALS: BP 147/75; PULSE 70; RESP 19; TEMP 36.6; O2SAT 97; BMI 49.5
[2025-09-04 11:34] VITALS: PULSE 70; RESP 14; O2SAT 100
[2025-09-04] MEDS: ASPIRIN 325MG TABLET 325 MG PO (11:39)
--- NOTE | 2025-09-04 11:39 | XR_ITS ---
PROCEDURE INFORMATION: Exam: XR Chest Exam date and time: 09/04/2025 11:51 AM Age: 65 years old Clinical indication: Shortness of breath; Additional info: Short of breath TECHNIQUE: Imaging protocol: Radiologic exam of the chest. Views: 1 view. COMPARISON: CR XR CHEST PORTABLE 04/30/2025 4:32 PM FINDINGS: Lungs: Streaky airspace opacities in lower lobes could be attributed to atelectasis versus developing pneumonia/aspiration in the appropriate clinical context. Pleural spaces: Unremarkable. No pleural effusion. No pneumothorax. Heart/Mediastinum: Cardiomegaly noted. Bones/joints: Unremarkable. IMPRESSION: Streaky airspace opacities in lower lobes could be attributed to atelectasis versus developing pneumonia/aspiration in the appropriate clinical context.
--- NOTE | 2025-09-04 11:44 | ED_ITS ---
<Statement entered by George Hernandez MD - 09/04/25 18:32> George Hernandez MD: I was consulted by the VENU, and we discussed the complexity of the problems being addressed. I approve the treatment and management plan for this patient's care in the emergency department, thus performing a substantive portion of the medical decision making. Discharge Plan Disposition Patient Disposition: Home, Self-Care Prescriptions Prescriptions: No Action isosorbide mononitrate 60 mg tablet extended release 24 hr 60 mg PO DAILY Qty: 30 2RF glimepiride 4 mg tablet 4 mg PO DAILY cyanocobalamin (vitamin B-12) 1,000 mcg Tablet 1,000 mcg PO DAILY carvedilol 3.125 mg Tablet 3.125 mg PO BID 30 Days Qty: 60 0RF pantoprazole 40 mg Tablet,Delayed Release (Dr/Ec) 40 mg PO HS 30 Days Qty: 30 0RF Jardiance 10 mg Tablet 10 mg PO DAILY 30 Days Qty: 30 0RF Entresto 24-26 mg Tablet 1 tab PO BID 30 Days Qty: 60 0RF furosemide [Lasix] 40 mg tablet 40 mg PO BIDL 30 Days Qty: 60 0RF atorvastatin 40 mg tablet 40 mg PO DAILY 30 Days Qty: 30 0RF metformin 850 mg tablet 850 mg PO BIDWMEAL 30 Days Qty: 60 0RF aspirin 81 mg tablet 81 mg PO DAILY Qty: 30 0RF prasugrel HCl 10 mg Tablet 10 mg PO DAILY 30 Days Qty: 30 0RF Referrals Follow up/Referrals: Mike Cunningham MD [Primary Care Provider, Internal Medicine] - See instructions Activity Restrictions/Add. Instructions Additional Instructions/Restrictions: Take isosorbide as directed by cardiology. Please make an appointment as directed. If any other problems or concerns please return to the ED. Clinical Impressions Clinical Impression: Chest pain Instructions Patient Instructions: DI for Chest Pain Print Language Print Language: Wolof Discharge ED Provider: George Hernandez HPI General Chief Complaint: Chest Pain Stated Complaint: CP Time Seen by Provider: 09/04/25 11:32 Mode of Arrival: EMS Source of Information: Patient Description of Symptoms (Recalled from ER Triage Doc. by RN): KATHLEEN STATES HE HAS HAD INTERMITTENT LEFT SIDED CHEST PAIN WITH TIGHTNESS PRESSURE AND SHARPNESS BRONWYN ONE WEEK. DENIES SHORTNESS OF BREATH. History of Present Illness HPI narrative: 65-year-old male presents to the ED today with history of shortness of breath, congestive heart failure, diabetes. Patient also has history of NSTEMI, had a left heart cath on 02/28/2025 that showed chronically occluded circumflex with collateral. Patient was being seen in Francois Penn's office this morning and had some EKG changes and was complaining of chest pain and shortness of breath so he sent him over here to the ER for workup. Patient does complain of chest pain, shortness of breath all over the past week off and on. He does have some numbness in his left arm. He says occasionally the chest pain is tight sometimes it is sharp that comes and goes. No nausea, vomiting or diarrhea. Denies headache. He does have some weakness. Related Data Home Medications ?Medication ?Instructions ?Recorded ?Confirmed glimepiride 4 mg tablet 4 mg PO DAILY 02/23/2509/04 cyanocobalamin (vitamin B-12) 1,000 mcg PO DAILY 02/2409/04/25 1,000 mcg tablet Previous Rx's ?Medication ?Instructions ?Recorded aspirin 81 mg tablet 81 mg PO DAILY #30 tabs 02/18 atorvastatin 40 mg tablet 40 mg PO DAILY 30 days #30 t abs 02/27/25 carvedilol 3.125 mg tablet 3.125 mg PO BID 30 days #60 tabs 02/27/25 empagliflozin 10 mg tablet 10 mg PO DAILY 30 days #30 tabs 02/27/25 (Jardiance) furosemide 40 mg tablet (Lasix) 40 mg PO BIDL 30 days #60 tabs 02/27/25 metformin 850 mg tablet 850 mg PO BIDWMEAL Diabetes 30 02/27/25 days #60 tabs pantoprazole 40 mg tablet,delayed 40 mg PO HS 30 days #30 tabs 02/27/25 release sacubitril 24 mg-valsartan 26 mg 1 tab PO BID 30 days #60 tabs 02/27/25 tablet (Entresto) prasugrel HCl 10 mg tablet 10 mg PO DAILY 30 days #30 tabs 02/28/25 isosorbide mononitrate 60 mg 60 mg PO DAILY #30 tabs 1 11/05/24 tablet,extended release 24 hr Allergies Allergy/AdvReac Type Severity Reaction Status Date / Time cephalexin (From KEFLEX) Allergy Unknown Swelling Verified 09/04/25 10:40 of Lip/Tongue/Throat codeine (CODEINE) Allergy Unknown Swelling Verified 09/04/25 10:40 of Lip/Tongue/Throat Penicillins (PENICILLINS) Allergy Unknown Anaphylaxis Verified 09/04/25 10:40 [facility] Disclaimer: The information contained in this section may have been updated after the patient was seen, as this information can be updated by other users. Medical History SOB (shortness of breath) Congestive heart failure Diabetes Surgical History History of left knee surgery Family History Other Cancer Heart attack Social History Smoking Status: Never smoker alcohol intake: never current occupational status: disabled and other Travel in the last 8 weeks?: None Have you lived/traveled outside US in past 30 days?: No Contact w/someone who lives/traveled outside US past 30 days?: No Exposure to someone with infectious disease in past 14 days?: No Do you have a fever (greater than 100.4 F or 38 C)?: No Have you tested positive for COVID-19?: No Exposed to someone with COVID-19 in past 14 days?: No Do you have a sore throat?: No Do you have a cough?: No Do you have any weakness?: No Do you have any diarrhea?: No Are you experiencing any unusual bleeding?: No Do you have any muscle aches/pain?: No Do you have any abdominal pain?: No Are you experiencing loss of taste or smell?: No Other Medical History Have you received the Flu Vaccine for this season: No Have you received the Pneumonia Vaccine: No ROS Obtained: Yes Systems reviewed as appropriate & no additional complaints except as documented Constitutional Constitutional: Reports as per HPI Physical Exam General General appearance: alert and in no apparent distress Head Head exam: normocephalic Eye Eye exam: Present normal appearance and PERRL ENT ENT exam: Present normal exam and mucous membranes moist Neck Neck exam: Present normal inspection and trachea midline Chest Chest inspection: Present symmetric chest wall rise Respiratory Respiratory exam: Present normal lung sounds bilaterally Cardiovascular Cardiovascular exam: Present regular rate, normal rhythm, normal heart sounds, +S1 and +S2 Abdominal Exam Abdominal exam: Present soft and normal bowel sounds Extremities Exam Extremities exam: Present edema Neurological Exam Neurological exam: Present alert, oriented X3 and other (Uses walker with assistance) Psychiatric Psychiatric exam: Present normal mood Skin Skin exam: Present warm and dry HEART Score HEART Score HEART Score assessment performed?: Yes History (anamnesis): Highly suspicious ECG: Non-specific disturbance Age: >65 years Risk factors: Atherosclerosis history Troponin: </= normal limit HEART Score: 7 Critical Care Critical Care Time Critical Care Time: No Medical Decision Making Fito Inquiry Pt receiving controlled substance: No Fito was queried for this patient: No Vital Signs Vital Signs: 09/04/25 11:33 09/04/25 11:34 09/04/25 12:01 Temperature 97.9 F Temperature Source Oral Pulse Rate 70 71 Pulse Rate [Right Radial] 70 Respiratory Rate 19 14 11 L Blood Pressure 161/59 H Blood Pressure [Right Arm] 147/75 H Blood Pressure Mean [Right Arm] 99 Blood Pressure Source [Right Arm] Automatic Cuff Blood Pressure Position [Right Arm] Supine 02 Sat by Pulse Oximetry 97 100 97 Oxygen Delivery Method Room Air 09/04/25 12:31 Temperature Temperature Source Pulse Rate 63 Pulse Rate [Right Radial] Respiratory Rate 16 Blood Pressure 142/72 H Blood Pressure [Right Arm] Blood Pressure Mean [Right Arm] Blood Pressure Source [Right Arm] Blood Pressure Position [Right Arm] 02 Sat by Pulse Oximetry 96 Oxygen Delivery Method Lab Data Labs: Lab Results 09/04/25 11:45: WBC 5.3, RBC 4.90, Hgb 14.5, Hct 44.3, MCV 90.4, MCH 29.6, MCHC 32.7, RDW 14.1, Plt Count 156, MPV 8.9, Neut % (Auto) 67.5, Lymph % (Auto) 21.0, Harney % (Auto) 7.8, Eos % (Auto) 2.7, Baso % (Auto) 0.6, Neut # (Auto) 3.6, Lymph # (Auto) 1.1, Harney # (Auto) 0.4, Eos # (Auto) 0.1, Baso # (Auto) 0.0, PT 10.6, INR 0.95, D-Dimer < 0.25, Sodium 139, Potassium 3.8, Chloride 104, Carbon Dioxide 27, Anion Gap 11.8, BUN 20, Creatinine 0.90, Estimated Creat Clear 77, Estimated GFR 84, Est GFR ( Amer) 102, Glucose 208 H, Calcium 8.9, Magnesium 1.9, Total Bilirubin 0.6, AST 22, ALT 22, Alkaline Phosphatase 134 H, Troponin I < 0.01, NT-Pro-B Natriuret Pep 1570 H, Total Protein 7.0, Albumin 3.9, Globulin 3.1, Albumin/Globulin Ratio 1.3, Lipase 58 09/04/25 11:45 09/04/25 11:45 Response Orders (Tests/Meds): ED MEDICATIONS Discontinued Medications Generic Name Dose Route Start Last Admin Trade Name Freq PRN Reason Stop Dose Admin Aspirin 325 mg 09/04/25 11:34 09/04/25 11:39 Aspirin 325mg Tablet PO 09/04/25 11:35 325 mg ONCE ONE Administration ORDERS Category Date Time Status Chest XR -- portable [XR chest portable] Stat Exams 09/04/25 11:39 Completed BNP [NT Pro Brain Natriuretic Pep.] Stat Lab 09/04/25 11:45 Completed CBC [Complete Blood Count Auto Diff] Stat Lab 09/04/25 11:45 Completed Comprehensive Metabolic Panel Stat Lab 09/04/25 11:45 Completed D-Dimer Stat Lab 09/04/25 11:45 Completed Lipase Stat Lab 09/04/25 11:45 Completed Magnesium Stat Lab 09/04/25 11:45 Completed PT INR [Prothrombin Time INR] Stat Lab 09/04/25 11:45 Completed Trop I [Troponin I] Stat Lab 09/04/25 11:45 Completed Troponin I Q3H Lab 09/04/25 14:45 Ordered Troponin I Q3H Lab 09/04/25 17:45 Ordered MDM Narrative Medical Decision Narrative: patient is a 65-year-old male presenting to the emergency department for evaluation of chest pain and shortness of breath for a week. Patient is hemodynamically stable and nontoxic-appearing upon arrival, afebrile. Differential diagnosis includes ACS, CAD, AZ, PE, among others. Workup will be conducted with hematologic labs, specific imaging, provocative tests. Initial inventions include analgesics. Initial workup reviewed by me hematologic labs are remarkable for Patient also has history of NSTEMI normal white count, normal H&H, lites have been normal including kidney and liver function the troponin was less than 0.01. BNP was 1570. Francois Penn came down to see him looked at his EKG and patient feels better and is safe for discharge home. He can return to the office next week. Patient agreeable.
--- OUTSIDE RECORDS SUMMARY | 2025-09-04 11:48 | XMS_ITS | Clinical Summary ---
Author Organization [employer] [facility] are Address [address] [place] [address] Phone Care Team Providers Care Nail Feeder Name Role Phone Dale Jeffries MD Primary [...]
--- OUTSIDE RECORDS SUMMARY | 2025-09-04 11:49 | XMS_ITS | Encounter Summary ---
Author Organization [place] [address] Care Team Providers Care Bobcat Driver/Labor Name Role Phone Ponce V, DO, Viral Primary Care Provider [phone] Miraim Muller BA, COS Unavailable Unavailable Miriam Muller BA, COS Unavailable Unavailable Rajwinder Landaverde RN Unavailable Unavailable Simran Hdz, COS Unavailable Unavail able Qi Mauricio RN Unavailable Unavailable Jenny Ortega RN Unavailable Unavail able Encounter Details Date Type Department Care Team (Late st Contact Info) Description 05/24/2018 Patient Outreach [facility] [address] [place] [address] Ponce, Viral V, DO [address] [place] [address] Social History Tobacco Use Types [...] On track(2018 10:55 AM EDT) No Anjana Vraghese LPN HEMOGLOBIN A1C < 7.0 Result Component [...] documented as of this encounter Care Teams Bobcat Driver/Labor Relationship Specialty Start Date End Date Ponce, Sunny Chavez DO [address] [place] [address] PCP - General Family Medicine 07/22/11 Miriam Muller BA, COS Case Clothing Consultant 03/07/1902/18 Miriam Muller BA, COS Case Clothing Consultant 03/09/1902/19 Rajwinder Landaverde, RN Laundry Washer 11/20/19 01/28/20 Simran Hdz, BS, COS Case Clothing Consultant 01/15/23 02/02/23 Qi Mauricio, RN Laundry Washer Registered Nurse 09/21/23 10/19/23 Jenny Ortega, RN Laundry Washer 09/29/24 10/01/24 documented as of this encounter
--- OUTSIDE RECORDS SUMMARY | 2025-09-04 11:49 | XMS_ITS | Clinical Summary ---
Author Organization [facility] Address [address] [place] [address] [place] [address] Phone Care Team Providers Care Pullman Conductor Name Role Phone Kris Chavez DO, Viral Primary Care Provider [phone] Allergies Active Allergy Reactions Criticality Noted Date Comments Codeine Swelling 11/04/2010 Erythromycin Swelling 01/03/1996 Cephalexin Swelling 11/04/2010 Minocycline 11/17/2012 Penicillins Swelling 11/04/2010 PCN Family Unable To Assess Swelling 11/04/2010 mycin Medications MULTI-VITAMIN ORALIndications:Sc reening for colon cancer,Gastroesoph ageal reflux disease without esophagitis,Essent ial hypertension,Type 2 diabetes mellitus with complication, without long-term current use of insulin ([facility]),Hyperlipidem ia with target LDL less than 100,Weakness,Debil [...] M type 2 (diabetes mellitus, type 2) ([facility]) Patient has accu chek roman needs supplies dx 250.00 test twice day Patient states he only checks a FSBS every other day. 200 Each 11 07/16/20 23 Active Blood-Glucose Meter [facility] [place] KitIndications:DM type 2 (diabetes mellitus, type 2) ([facility]) Test twice daily 1 Kit 07/16/20 23 Active cyanocobalamin 1,000 mcg Oral Tablet Take 1,000 mcg by mouth daily. Active Lancets [facility] [place] MiscIndications:DM type 2 (diabetes mellitus, type 2) ([facility]) accu chek roman dx 250.00 test 2x day 200 Each 11 11/02/19 24 Active cyclobenzaprine (FLEXERIL) 5 mg Oral TabletIndications: Muscle spasm TAKE 1 TABLET BY MOUTH EVERY 8 HOURS NEEDED FOR MUSCLE SPASM 90 Tablet 03/15/20 24 Active metFORMIN (GLUCOPHAGE) 850 mg Oral TabletIndications: Type 2 diabetes mellitus with complication, without long-term current use of insulin ([facility]) Take 1 tablet by mouth twice daily 180 Tablet 1 07/21/20 24 Active fUROsemide (LASIX) 40 mg Oral TabletIndications: Lymphedema,Fluid retention in legs,Peripheral edema Take 1 Tablet by mouth every 12 hours. 180 Tablet 1 11/22/19 25 Active glimepiride (AMARYL) 4 mg Oral TabletIndications: Type 2 diabetes mellitus with complication, without long-term current use of insulin ([facility]) TAKE 1 TAB BY MOUTH EVERY MORNING. THIS REPLACES GLIPIZIDE. 90 Tablet 1 11/22/19 25 Active lisinopriL (PRINIVIL;ZESTRIL) 40 mg Oral TabletIndications: Essential hypertension Take 1 Tablet by mouth daily. 90 Tablet 1 11/22/19 25 Active potassium chloride (KLOR-CON) 10 mEq Oral Tablet Sustained ReleaseIndications :Lymphedema,Fluid retention in legs,Peripheral edema,Essential hypertension,Type 2 diabetes mellitus with complication, without long-term current use of insulin ([facility]) Take 1 Tablet by mouth 2 times [...] No results found for this basename: MICROALBUR, [id number], URINEMICROAL Retinopathy unavailable Neuropathy negative Hypertension complicating [...] fat layer exposed 12/16/2017 08/18/2018 Atherosclerosis of [place] of left leg with ulceration of other part of lower left leg 01/16/2016 08/05/2017 Atherosclerosis of [place] of right leg with ulceration [...] Encounters Date Type Department Care Team Description 07/17/2025 Patient Outreach SEP P [address] [place] [address] Sunny Ponce V, DO Central Patient Navigator Outreach (AWV) from Last 3 Months Immunizations Immunization Administration [...] TOE AMPUTATION; Surgeon: Moe Guerrero DPM; Location: [facility] MAIN OR; Service: Podiatry IR PICC INSERTION EQUAL OR > 5 YEARS 08/07/2023 IR PICC INSERTION EQUAL OR > 5 YEARS 08/07/2023 Sujey Suresh PA-C [facility] IR FOOT SURGERY 08/09/2023 Foot/Ankle/Left LEFT FOOT INCISION AND DRAINAGE HEEL DEBRIDMENT with SKIN SUBSTITUTE; Surgeon: Ramírez Garcia DPM; Location: [facility] MAIN OR; Service: Podiatry Medical devices from this surgery are in the Medical Devices section. FOOT SURGERY 09/12/2023 Foot/Ankle/Left INCISION AND DRAINAGE/DEBRIDEMENT left foot; Surgeon: Angelia Vences DPM; Location: [facility] MAIN OR; Service: Podiatry FOOT SURGERY 09/15/2023 Foot/Ankle/Left LEFT FOOT FIFTH RAY AMPUTATION WITH DELAYED PRIMARY CLOSURE; Surgeon: Angelia Vences DPM; Location: [facility] MAIN OR; Service: Podiatry LAYER WOUND CLOSURE 09/15/2023 Left Surgeon: Angelia Vences DPM; Location: [facility] MAIN OR; Service: Podiatry TOE SURGERY 09/27/2024 Foot/Ankle/Right RIGHT FOOT THIRD TOE AMPUTATION; Surgeon: Angelia Vences DPM; Location: [facility] MAIN OR; Service: Podiatry Medical History Medical History Date Comments Unspecified sleep apnea Rheumatic disease as child CHF (congestive heart failure) ([facility]) Heart murmur Hypertension Arthritis Cancer (HCC) skin cancer face Morbid obesity ([facility]) Diabetes mellitus ([facility]) type II Red bugs ID (myocardial infarction) ([facility]) x2 Diabetic ulcer of left heel associated with type 2 diabetes mellitus, with fat layer exposed ([facility]) 08/04/2023 Diabetic ulcer of toe of lef t foot associated with diabetes mellitus due to underlying condition, with fat layer exposed ([facility]) 08/04/2023 Diabetic ulcer of toe of lef t foot associated with type 2 diabetes mellitus, with necrosis of muscle ([facility]) 05/16/2023 Diabetic foot infection (HCC) 09/14/2023 Open [...] In the past 12 months has e [employer], gas, oil, or water [employer] threatened to shut off services in your home? No 09/26/2024 Overall Financial Resource Strain (CARDIA) Answe r Date Recorded How hard is it for you to pa y for the very basics like food, housing, medical care, and heating? Somewhat hard 09/26/2024 PHQ-2 Answer Date Recorded PHQ-2 Total Score 2 09/26/2024 [facility] - Occupational [...] things needed for daily living? No 09/14/2023 [facility] IP Transportation Answer D ate Recorded [...] Stevens RMA Medical Devices Implanted Type Area Child Study Team Director Device Identifier Shelf Expiration Date Model / Serial / Lot Graft Tissue Myriad Thin 5 X 5cm - [id number] Implanted:Qty: 1 on 08/09/2023 by Ramírez Garcia DPM at [facility] Left: Foot [employer] 12/18/2025 [id number] S / / [id number] Procedures Procedure Name [...] - 145 mmol/L 09/28/2024 4:39 AM EST [facility] Potassium 4.3 3.5 - 5.0 mmol/L 09/28/2024 4:39 AM EST [facility] Chloride 103 98 - 107 mmol/L 09/28/2024 4:39 AM EST [facility] Total CO2 25 22 - 29 mmol/L 09/28/2024 4:39 AM EST [facility] Anion Gap 7 7 - 16 mmol/L 09/28/2024 4:39 AM EST [facility] Calcium 8.4(L) 8.8 - 10.4 mg/dL 09/28/2024 4:39 AM EST [facility] Glucose Lvl 167(H) 70 - 99 mg/dL 09/28/2024 4:39 AM EST [facility] BUN 21 8 - 23 mg/dL 09/28/2024 4:39 AM EST [facility] Creatinine 1.21 0.67 - 1.30 mg/dL 09/28/2024 4:39 AM [facility] eGFR (CKD-EPIcr 2020) 66 >=60 mL/min/1.7 3 m2 09/28/2024 4:39 AM EST [facility] Comment:Estimated GFR was ca lculated using the CKD-EPIcr (2020) equation refit without race. The equation is recommended by the National Kidney Foundation - [place] [employer] of Nephrology Task Force. Blood VENOUS BLOOD / Unknown Venipuncture / Unknown 09/28/2024 3:34 AM EST 09/28/2024 4:00 AM EST Aneglia Vences DPM CHEMISTRY ORDERABLES Rebekah adrien Result [facility] [address] [place] [address] * (ABNORMAL) HEMOGLOBIN A1C (09/25/2024 11:51 AM EST) Pathologist [facility] Hgb A1C 8.7(H) 4.2 - 5.6 % 09/25/2024 1:42 PM EST [facility] My 1%, [facility] Est. Avg Glucose 203 mg/dL 09/25/2024 1:42 PM EST [facility] Blood VENOUS BLOOD / Unknown Venipuncture / Unknown 09/25/2024 11:51 AM EST 09/25/2024 11:55 AM EST Narrative [facility] [employer], [facility] - 09/25/2024 1:42 PM EST REFERENCE RANGE: Normal: 4.0-5.6% Pre-diabetes: 5.7-6.4% Provisional diagnosis of diabetes: >6.4% Hgb F>10% and anything which shortens red cell survival, such as hemolytic anemia, or unstable hemoglobin variants such as HbSS, HbSC, or HbCC, will lower the HbA1c value associated with a given level of glycemic control. us Carolynn Thomas MD CHEMISTRY ORDERABLES Final R esult [facility] My 1%, [facility] [address] [facility] , [place] [address] [facility] [address] [place] [address] * (ABNORMAL) LIPID PANEL REFLEX (05/30/2024 3:15 PM EDT) [facility] Cholesterol 118 <200 mg/dL 05/30/2024 9:22 PM EDT [facility] My 1%, [facility] Comment: < 200 Desirable 200 - 239 Borderline High >= 240 High Triglyceride 93 <150 mg/dL 05/30/2024 9:22 PM EDT [facility] My 1%, [facility] Comment: < 150 Normal 150 - 199 Borderline High 200 - 499 High >= 500 Very High HDL 35(L) >=40 mg/dL 05/30/2024 9:22 PM EDT [facility] My 1%, [facility] Comment: > 60 Optimal 40 - 60 Acceptable < 40 Low LDL Calculated 65 <100 mg/dL 05/30/2024 9:22 PM EDT [facility] My 1%, [facility] Non-HDL-C Calculated 83 <=129 mg/dL 05/30/2024 9:22 PM EDT [facility] My 1%[facility] Comment: <130 Desirable 130-159 Above Desirable 160-189 Borderline High 190-219 High >= 220 Very High Fasting Specimen? No None 024 9:22 PM EDT [facility] Blood VENOUS BLOOD / Unknown Venipuncture / Unknown 05/30/2024 3:15 PM EDT 05/30/2024 3:15 PM EDT Viral Ponce V, DO CHEMISTRY ORDERABLES Final Res ult Performing Organization Address [facility] de Phone Number [facility] [address] [place] [address] , [place] [address] [facility] [address] [place] [address] * HM FIT (05/14/2020) Pathologist [facility] Fecal Immunochemical Test Negative Negative SEP OFFICE Historical Provider HEALTH MAINTENANCE Final Res ult Performing Organization Address [facility] [place] de Phone Number SEP OFFICE * HEPATITIS C ANTIBODY - SCREENING (10/07/2018 11:48 AM EST) Pathologist [facility] Hep C Ab Non-Reactiv e Non-Reacti ve 10/07/2018 9:07 PM EST [facility] Blood VENOUS BLOOD / Unknown Venipuncture / Unknown 10/07/2018 11:48 AM EST 10/07/2018 11:48 AM EST Viral Ponce V, DO HEMATOLOGY ORDERABLES Final Re sult Performing Organization Address [facility] de Phone Number [employer] [facility] [address] , [place] [address] * (ABNORMAL) MICROALBUMIN/CREATININE RATIO URINE (10/07/2018 11:48 AM EST) Pathologist [facility] Urine Albumin 192.5 mg/L 10/07/2018 8:38 PM EST [facility] Urine Creatinine 177.4 mg/dL 10/07/2018 8:38 PM EST [employer] [facility] Ur Albumin/Creat Ratio 109(H) 0 - 30 mg/g 10/07/2018 8:38 PM EST [facility] Urine STRUCTURE OF URINARY TRACT PROPER / Unknown 10/07/2018 11:48 AM EST 10/07/2018 11:48 AM EST us Viral Ponce V, DO URINE ORDERABLES Final Result [facility] [address] [facility] , [place] [address] * DIABETES EYE EXAM (02/18/2018) Left Diabetic Retinopathy Not Present Present/Not Present SEP OFFICE Comment:[facility] Right Diabetic Retinopathy Not Present Present/Not Present SEP OFFICE 02/18/2018 us Historical Provider HEALTH MAINTENANCE Final Res ult SEP OFFICE from Last 3 Months or Most Recently Relevant to Health Maintenance Insurance HU[employer]NA MEDICARE [place]PO [place] [employer] * Guarantor: Suzan Whitehead Account Type Relation to Patient Date of Phone Billing Address [place] Personal Family Self Advance Directives For more information, please contact: [phone] * Full Code (Latest Code Status on [...] 7:40 PM 06/09/2023 9:48 PM Care Teams Pullman Conductor Relationship Specialty Start Date End Date Sunny Ponce DO [address] [place] [address] PCP - General Family Medicine 07/22/11
--- OUTSIDE RECORDS SUMMARY | 2025-09-04 11:49 | XMS_ITS | Encounter Summary ---
Author Organization [place] Address [facility] [place] [address] Care Team Providers Care Projection Camera Operator Name Role Phone Kris Chavez DO, Viral Primary Care Provider [phone] Miriam Muller BA, COS Unavailable Unavailable Miriam Muller BA, COS Unavailable Unavailable Rajwinder Landaverde RN Unavailable Unavailable Simran Hdz, COS Unavailable Unavail able Qi Mauricio RN Unavailable Unavailable Jenny Ortega RN Unavailable Unavail able Encounter Details Date Type Department Care Team (Late st Contact Info) Description 02/28/2019 Lab Requisition [facility] [place] [address] Sergio Bobo, DPM [address] [facility], [address] [place] [id number] Cellulitis of left lower extremity Social History [...] Growth(A) 03/03/2019 1:18 PM EDT [facility] [place] [place] Culture Sparse growth of Staphylococcus aureus SUSCEPTIB ILITY RESULT 03/03/2019 1:18 PM EDT [facility] [place] [place] Culture Sparse growth of Streptococcus agalactiae (Group B) SUSCEPTIB ILITY RESULT 03/03/2019 1:18 PM EDT [email or web address] [place] [place] Comment:Penicillin and Ampic illin are antibiotics of choice for treatment of beta-hemolytic streptococcal infections. Stain Few Gram positive cocci(A) 03/03/2019 1:18 PM EDT [facility] [place] [place] Stain Few Gram positive rods(A) 03/03/2019 1:18 PM EDT [email or web address] [place] [place] Stain Few WBCs 03/03/2019 1:18 PM EDT [email or web address] [place], [place] Swab STRUCTURE OF LEFT LOWER LEG / [...] MICROBIOLOGY - GENERAL ORD ERABLES Final Result [facility] [place], [facility] [address] [facility] , [place] [address] documented in this encounter Visit Diagnoses Diagnosis [...] documented as of this encounter Care Teams Projection Camera Operator Relationship Specialty Start Date End Date Sunny Ponce V, DO [address] [place] [address] PCP - General Family Medicine 07/22/11 Miriam Muller BA, COS Case Bagging Salvager 03/07/1902/18 Miriam Muller BA, COS Case Bagging Salvager 03/09/1902/19 Rajwinder Landaverde, RN Director Of Cardiopulmonary Services 11/20/19 01/28/20 Simran Hdz BS, COS Case Bagging Salvager 01/15/23 02/02/23 Qi Mauricio, RN Director Of Cardiopulmonary Services Registered Nurse 09/21/23 10/19/23 Jenny Ortega, RN Director Of Cardiopulmonary Services 09/29/24 10/01/24 documented as of this encounter
--- OUTSIDE RECORDS SUMMARY | 2025-09-04 11:49 | XMS_ITS | Encounter Summary ---
Author Organization [place] [address] Care Team Providers Care Agent Name Role Phone Ponce V, DO, Viral Primary Care Provider [phone] Miriam Muller BA, COS Unavailable Unavailable Miriam Muller BA, COS Unavailable Unavailable Rajwinder Landaverde RN Unavailable Unavailable Simran Hdz, COS Unavailable Unavail able Qi Mauricio RN Unavailable Unavailable Jenny Ortega RN Unavailable Unavail able Encounter Details Date Type Department Care Team (Late st Contact Info) Description 08/04/2018 Patient Outreach SEP [facility] [address] [place] [address] Ponce, Viral V, DO [address] [place] [address] Social History Tobacco Use [...] LIPID SCREEN (10/07/2018 11:48 AM EST) Pathologist [facility] Cholesterol 102 <=200 mg/dL 10/07/2018 8:27 PM EST [facility] Comment: < 200 Desirable 200 - 239 Borderline High >= 240 High Triglyceride 107 <=150 mg/dL 10/07/2018 8:27 PM EST [facility] Comment: < 150 Normal 150 - 199 Borderline High 200 - 499 High >= 500 Very High HDL 34(L) >=40 mg/dL 10/07/2018 8:27 PM EST [facility] Comment: > 60 Optimal 40 - 60 Acceptable < 40 Low LDL Calculated 47 <=100 mg/dL 10/07/2018 8:27 PM EST [facility] Comment: < 100 Optimal 100 - 129 Near or above optimal 130 - 159 Borderline High 160 - 189 High >= 190 Very High Non-HDL-C Calculated 68 <=129 mg/dL 10/07/2018 8:27 PM EST [facility] Comment: <130 Desirable 130-159 Above Desirable 160-189 Borderline High 190-219 High >= 220 Very High Blood VENOUS BLOOD / Unknown Venipuncture / Unknown 10/07/2018 11:48 AM EST 10/07/2018 11:48 AM EST us Viral Ponce V, DO CHEMISTRY ORDERABLES Final Res ult Performing Organization Address [facility]/ZIP Co de Phone Number [facility] [address] [facility] , [place] [address] * (ABNORMAL) HEPATIC FUNCTION PANEL (10/07/2018 11:48 [...] ORDERABLES Final Res ult Performing Organization Address [facility]/ZIP Co de Phone Number [facility] [address] [facility] , [place] [address] * (ABNORMAL) HEMOGLOBIN A1C (10/07/2018 [...] ORDERABLES Final Res ult [facility] [address] [facility] , [place] [address] * (ABNORMAL) BASIC METABOLIC PANEL (10/07/2018 11:48 [...] m2 10/07/2018 8:27 PM EST [facility] GFR Non Afr Am 91 >=60 mL/min/1.7 3 m2 10/07/2018 8:27 PM EST [facility] Comment: This estimated GFR was calculated [...] CHEMISTRY ORDERABLES Final Res ult [facility] [address] [facility], [place] [address] [facility] [address] [place] [address] documented in this encounter Visit Diagnoses [...] documented as of this encounter Care Teams Agent Relationship Specialty Start Date End Date Sunny Ponce DO [address] [place] [phone] PCP - General Family Medicine 07/22/11 Miriam Muller BA, COS Case Rod Straightener 03/07/1902/18 Miriam Muller BA, COS Case Rod Straightener 03/09/1902/19 Rajwinder Landaverde, RN Seaming Inspector 11/20/19 01/28/20 Simran Hdz, BS, COS Case Rod Straightener 01/15/23 02/02/23 Qi Mauricio, RN Seaming Inspector Registered Nurse 09/21/23 10/19/23 Jenny Ortega, RN Seaming Inspector 09/29/24 10/01/24 documented as of this encounter
--- OUTSIDE RECORDS SUMMARY | 2025-09-04 11:49 | XMS_ITS | Encounter Summary ---
Author Organization [place] [address] Care Team Providers Care Business Records Manager Name Role Phone Kris V DO, Viral Primary Care Provider [phone] Reason for Visit * Reason Onset Date Comments Central Patient Navigator Outreach 07/17/2025 AWV Encounter Details Date Type Department Care Team (Late st Contact Info) Description 07/17/2025 Patient Outreach SEP [facility] [address] [place], [place] [id number] Sunny Ponce V, DO [address] [place] [address] Central Patient Navigator Outreach (AWV) Social History Tobacco Use Types Packs/Day Years Used Date Smoking Tobacco: Former Cigarettes 0 09/20/1972 - 10/21/1972 Smokeless Tobacco: Former Comments:SMOKED FOR 1 WEEK A S A TEENAGER Alcohol Use Standard Drinks/Week Comments No 0 (1 standard drink = 0.6 oz pur e alcohol) [facility] Utilities Answer Date Recorded In the [...] Date Recorded PHQ-2 Total Score 2 09/26/2024 [facility] [place] of Occupat ional [facility] - Occupational Stress Questionnaire Answer [...] needed for daily living? No 09/14/2023 [facility] IP Transportation Answer D ate Recorded In [...] Entry Date Author No 05/25/2023 9:54 AM EDT Brenda Vilchis CCMA documented in this encounter Progress Notes * Christy Miller - 07/17/2025 10:15 AM EDT Patient Outreach: Care Gap Outreach Attempt Count: 1st Care Gaps Addressed phone manager: Annual Wellness Visit Outcome:Baru Exchanget Message Sent and No answer/busy Call back number: [phone] documented in this encounter Plan of Treatment [...] filedocumented in this encounter Additional Health Concerns Assessment Noted Time PHQ-9 Depression Total Score: 2 09/26/19 12:44 PM EST PHQ-2 Depression Total Score: 2 09/26/19 12:44 PM EST documented as of this encounter Care Teams Business Records Manager Relationship Specialty Start Date End Date Sunny Ponce DO [address] [place] [phone] PCP - General Family Medicine 07/22/11 documented as of this encounter
--- OUTSIDE RECORDS SUMMARY | 2025-09-04 11:49 | XMS_ITS | Encounter Summary ---
Author [place] [address] Care Team Providers Care Tray Service Worker Name Role Phone Ponce V, DO, Viral Primary Care Provider [phone] Mriiam Muller BA, COS Unavailable Unavailable Miriam Muller BA, COS Unavailable Unavailable Rajwinder Landaverde RN Unavailable Unavailable Simran Hdz, COS Unavailable Unavail able Qi Mauricio RN Unavailable Unavailable Jenny Ortega RN Unavailable Unavail able Encounter Details Date Type Department Care Team (Late st Contact Info) Description 09/08/2018 Patient Outreach SEP [facility] [address] [place] [address] Ponce, Viral V, DO [address] [place] [address] Social History Tobacco Use Types [...] Assessment Author Yes 04/04/2018 3:30 PM EDT Arias Stevens RMAlan documented as of this encounter Mental Status * Because of a physical, mental or emotional condition, does this person have serious difficulty concentrating, remembering or making decisions? Answer Entry Date Author Yes 04/04/2018 3:30 PM EDT [facility] RMAlan documented in this encounter Plan of Treatment [...] documented as of this encounter Care Teams Tray Service Worker Relationship Specialty Start Date End Date Sunny Ponce DO [address] [place] [phone] PCP - General Family Medicine 07/22/11 Miriam Muller BA, COS Case Lapidarist 03/07/1902/18 Miriam Muller BA, COS Case Lapidarist 03/09/1902/19 Rajwinder Landaverde, RN Sheet Rock Nailer 11/20/19 01/28/20 Simran Hdz BS, COS Case Lapidarist 01/15/23 02/02/23 Qi Mauricio, RN Sheet Rock Nailer Registered Nurse 09/21/23 10/19/23 Jenny Ortega, RN Sheet Rock Nailer 09/29/24 10/01/24 documented as of this encounter
--- OUTSIDE RECORDS SUMMARY | 2025-09-04 11:49 | XMS_ITS | Encounter Summary ---
Author Organization [place] [address] Care Team Providers Care Paper Control Clerk Name Role Phone Ponce V, DO, Viral Primary Care Provider [phone] Miriam Muller BA, COS Unavailable Unavailable Miriam Muller BA, COS Unavailable Unavailable Rajwinder Landaverde RN Unavailable Unavailable Simran Hdz, COS Unavailable Unavail able Qi Mauricio RN Unavailable Unavailable Jenny Ortega RN Unavailable Unavail able Encounter Details Date Type Department Care Team (Late st Contact Info) Description 06/29/2018 Patient Outreach [facility] [address] [place] [address] Ponce, Viral V, DO [address] [place] [address] Social History Tobacco Use Types [...] documented as of this encounter Care Teams Paper Control Clerk Relationship Specialty Start Date End Date Ponce, Sunny Chavez DO [address] [place] [address] PCP - General Family Medicine 07/22/11 Miriam Muller BA, COS Case Chief Mechanical Engineer 03/07/1902/18 Miriam Muller BA, COS Case Chief Mechanical Engineer 03/09/1902/19 Rajwinder Landaverde, RN Mine Safety Manager 11/20/19 01/28/20 Simran Hdz, BS, COS Case Chief Mechanical Engineer 01/15/23 02/02/23 Qi Mauricio, RN Mine Safety Manager Registered Nurse 09/21/23 10/19/23 Jenny Ortega, RN Mine Safety Manager 09/29/24 10/01/24 documented as of this encounter
--- OUTSIDE RECORDS SUMMARY | 2025-09-04 11:50 | XMS_ITS | Encounter Summary ---
Author Organization [place] [address] Care Team Providers Care Freight Air Brake Fitter Name Role Phone Ponce V, DO, Viral Primary Care Provider [phone] Miriam Muller BA, COS Unavailable Unavailable Miriam Muller BA, COS Unavailable Unavailable Rajwinder Landaverde RN Unavailable Unavailable Simran Hdz, COS Unavailable Unavail able Qi Mauricio RN Unavailable Unavailable Jenny Ortega RN Unavailable Unavail able Encounter Details Date Type Department Care Team (Late st Contact Info) Description 04/20/2018 Patient Outreach [facility] [address] [place] [address] Ponce, Viral V, DO [address] [place] [address] Social History Tobacco Use Types [...] mg/L 10/07/2018 8:38 PM EST [facility] Urine Creatinine 177.4 mg/dL 10/07/2018 8:38 PM EST [facility] Ur Albumin/Creat Ratio 109(H) 0 - 30 mg/g 10/07/2018 8:38 PM EST [facility] Urine STRUCTURE OF URINARY TRACT PROPER / Unknown 10/07/2018 11:48 AM EST 10/07/2018 11:48 AM EST us Viral Ponce V, DO URINE ORDERABLES Final Result [facility] , [address] [place] [id number] documented in this encounter Visit Diagnoses Diagnosis [...] documented as of this encounter Care Teams Freight Air Brake Fitter Relationship Specialty Start Date End Date Sunny Ponce V, DO [address] [place] [address] PCP - General Family Medicine 07/22/11 Miriam Muller BA, COS Case Construction Director 03/07/1902/18 Miriam Muller BA, COS Case Construction Director 03/09/1902/19 Rajwinder Landaverde, RN Packing House Supervisor 11/20/19 01/28/20 Simran Hdz BS, COS Case Construction Director 01/15/23 02/02/23 Qi Mauricio, RN Packing House Supervisor Registered Nurse 09/21/23 10/19/23 Jenny Ortega, RN Packing House Supervisor 09/29/24 10/01/24 documented as of this encounter
--- OUTSIDE RECORDS SUMMARY | 2025-09-04 11:50 | XMS_ITS | Encounter Summary ---
Author Organization [place] [address] Care Team Providers Care Cattle Broker Name Role Phone Ponce V, DO, Viral Primary Care Provider [phone] Miriam Muller BA, COS Unavailable Unavailable Miriam Muller BA, COS Unavailable Unavailable Rajwinder Landaverde RN Unavailable Unavailable Simran Hdz, COS Unavailable Unavail able Qi Mauricio RN Unavailable Unavailable Jenny Ortega RN Unavailable Unavail able Encounter Details Date Type Department Care Team (Late st Contact Info) Description 03/17/2018 Patient Outreach [facility] [place] [address] [place] [address] Ponce, Viral V, DO [address] [place] [address] Social History Tobacco Use Types [...] documented as of this encounter Care Teams Cattle Broker Relationship Specialty Start Date End Date Sunny Ponce DO [address] [place] [address] PCP - General Family Medicine 07/22/11 Miriam Muller BA, COS Case Exhibitions Curator 03/07/1902/18 Miriam Muller BA, COS Case Exhibitions Curator 03/09/1902/19 Rajwinder Landaverde, RN Pilot Submersible 11/20/19 01/28/20 Simran Hdz BS, COS Case Exhibitions Curator 01/15/23 02/02/23 Qi Mauricio, RN Pilot Submersible Registered Nurse 09/21/23 10/19/23 Jenny Ortega, RN Pilot Submersible 09/29/24 10/01/24 documented as of this encounter
[2025-09-04 11:59] LABS: Hematocrit 44.3 % (42.0-52.0); Hemoglobin 14.5 g/dL (14.1-18.0); Immature Granulocytes % 0.4 %; Mean Corpuscular HGB Conc 32.7 g/dL (31.8-35.4); Mean Corpuscular Hemoglobin 29.6 pg (27.0-31.2); Mean Corpuscular Volume 90.4 fl (80-94); Nucleated Red Blood Cells % 0 %; Platelet Count 156 K/mm3 (142-424); Red Blood Count 4.90 M/mm3 (4.60-6.20); Red Cell Distribution Width-SD 47.0 fL; White Blood Count 5.3 K/mm3 (4.8-10.8)
[2025-09-04 12:01] VITALS: BP 161/59; PULSE 71; RESP 11; O2SAT 97
[2025-09-04 12:09] LABS: INR 0.95 (0.9-1.1); Prothrombin Time 10.6 seconds (10.1-12.5)
[2025-09-04 12:17] LABS: Alanine Aminotransferase 22 U/L (12-78); Albumin Level 3.9 g/dl (3.5-5.0); Albumin/Globulin Ratio 1.3 (1.1-1.8); Alkaline Phosphatase 134 U/L (38-126); Anion Gap 11.8 mEq/L (5-15); Aspartate Amino Transferase 22 U/L (17-59); Bilirubin,Total 0.6 mg/dl (0.2-1.3); Blood Urea Nitrogen 20 mg/dl (9-20); Calcium 8.9 mg/dl (8.4-10.2); Carbon Dioxide 27 mmol/L (22.0-30.0); Chloride 104 mmol/L (98-107); Creatinine Clearance Estimated 77 mL/min (50-200); Creatinine,Serum 0.90 mg/dl (0.66-1.25); Estimated Glomerular Filt Rate 84 ml/min (>60); GFR (African American) 102 ML/MIN (>60); Globulin 3.1 g/dL (1.3-3.2); Glucose 208 mg/dl (74-100); Lipase 58 U/L (23-300); Magnesium 1.9 mg/dl (1.6-2.3); Potassium 3.8 mmoL/L (3.5-5.1); Sodium 139 mmol/L (136-145); Total Protein,Serum 7.0 g/dl (6.3-8.2)
[2025-09-04 12:21] LABS: D-Dimer < 0.25 ug/mL (0.0-0.5)
[2025-09-04 12:29] LABS: NT Pro Brain Natriuretic Pep. 1570 pg/mL (0-125)
[2025-09-04 12:31] VITALS: BP 142/72; PULSE 63; RESP 16; O2SAT 96
[2025-09-04 12:32] LABS: Troponin I < 0.01 ng/ml (0.00-0.034)
[2025-09-04 13:01] VITALS: BP 132/77; PULSE 63; O2SAT 97
[2025-09-04 13:12] VITALS: BP 132/77; PULSE 76; RESP 16; TEMP 36.9; O2SAT 99
--- NOTE | 2025-09-04 13:12 | PC.NURSE ---
REPORT GIVEN TO [facility]
== END 2025-09-04 13:51 | disposition home or self-care (01) ==
PROVIDERS: Nurse Practitioner; Emergency Provider Student in an Organized Health Care Education/Training Program; PCP Internal Medicine Adolescent Medicine
DX: R07.9 Chest pain, unspecified (principal); R06.02 Shortness of breath; I11.0 Hypertensive heart disease with heart failure; I50.20 Unspecified systolic (congestive) heart failure; E11.65 Type 2 diabetes mellitus with hyperglycemia; Z79.84 Long term (current) use of oral hypoglycemic drugs
CPT/HCPCS: 71045; 80053; 83690; 83735; 83880; 84484; 85025; 85378; 85610; 99284; 99285

== ENCOUNTER 2025-09-16 04:17 | Emergency (ER) | payer MEDICARE, MEDICAID, SELFPAY ==
--- OUTSIDE RECORDS SUMMARY | 2015-12-19 09:19 | XMS_ITS | Encounter Summary ---
Author Organization [place] [address] Care Team Providers Care Senior Process Control Tech Name Role Phone Kris Chavez DO, Viral Primary Care Provider [phone] Encounter Details Date Type Department Care Team (Latest Contact Info) Description 12/19/2015 10:19 AM EDT Hospital Encounter [facility] W[facility] [place] [address] [place] [address] Spring Gaytan APRN [address] [place] [address] Left without seen Social History Tobacco Use Types Packs/Day Years Used Date Smoking Tobacco: Former Cigarettes 0 09/20/1972 - 10/21/1972 Smokeless Tobacco: Former Comments:SMOKED FOR 1 WEEK A S A TEENAGER Alcohol Use Standard Drinks/Week Comments No 0 (1 standard drink = 0.6 oz pur e alcohol) [facility] Utilities Answer Date Recorded In the past 12 months has [employer], gas, oil, or water company threatened to shut off services in your home? No 09/26/2024 Overall Financial Resource Strain (CARDIA) Answe r Date Recorded How hard is it for you to pa y for the very basics like food, housing, medical care, and heating? Somewhat hard 09/26/2024 PHQ-2 Answer Date Recorded PHQ-2 Total Score 2 09/26/2024 [facility] of Occupat ional [facility] - Occupational Stress Questionnaire Answer Date Recorded [...] things needed for daily living? No 09/14/2023 [facility] IP Transportation Answer D ate Recorded In [...] on track(2024 10:49 AM EST) No Ursula aVzquez RN Note: Patient will maintain optimal edema [...] documented as of this encounter Care Teams Senior Process Control Tech Relationship Specialty Start Date End Date Sunny Ponce DO [address] [place] [phone] PCP - General Family Medicine 07/22/11 documented as of this encounter
--- OUTSIDE RECORDS SUMMARY | 2019-11-29 13:21 | XMS_ITS | Encounter Summary ---
Author Organization [place] [address] Care Team Providers Care Software Technician Name Role Phone Kris Chavez DO, Viral Primary Care Provider [phone] Rajwinder Landaverde RN Unavailable Unavailable Encounter Details Date Type Department Care Team (Late st Contact Info) Description 11/29/2019 2:21 PM EDT Hospital Encounter [facility] Referral Lab [address] [place] [phone] Mario Tierney MD [address] [facility] [address] [place] [address] Social History Tobacco Use Types Packs/Day Years Used Date Smoking Tobacco: Former Cigarettes 0 09/20/1972 - 10/21/1972 Smokeless Tobacco: Former Comments:SMOKED FOR 1 WEEK A S A TEENAGER Alcohol Use Standard Drinks/Week Comments No 0 (1 standard drink = 0.6 oz pur e alcohol) [facility] Utilities Answer Date Recorded In the past 12 months has [employer], gas, oil, or water [employer] threatened to shut off services in your home? No 09/26/2024 Overall Financial Resource Strain (CARDIA) Answe r Date Recorded How hard is it for you to pa y for the very basics like food, housing, medical care, and heating? Somewhat hard 09/26/2024 PHQ-2 Answer Date Recorded PHQ-2 Total Score 2 09/26/2024 [facility] - Occupational Stress Questionnaire Answer [...] things needed for daily living? No 09/14/2023 [facility] IP Transportation Answer D ate Recorded [...] * Question Answer Date of Assessment Author Is [...] 05/25/2023 9:54 AM Patsy Sparks CCMA * Is the person deaf or does he/she have serious difficulty hearing? Answer Date of Assessment Author No 03/06/2019 10:44 AM EDArias Cain sp, RMA * Is the person blind or does he/she have serious difficulty seeing even when wearing glasses? Answer Date of Assessment Author No 03/06/2019 10:44 AM EDArias Cain sp, RMA * Does this person have serious difficulty walking or climbing stairs? Answer Date of Assessment Author Yes 03/06/2019 10:44 AM EDArias Cain sp, RMA * Does this person have difficulty dressing or bathing? Answer Date of Assessment Author Yes 03/06/2019 10:44 AM EDArias Cain sp, RMA * Because of a physical, mental or emotional condition, does this person have difficulty doing errands alone such as visiting a doctor's office or shopping? Answer Date of Assessment Author Yes 03/06/2019 10:44 AM EDArias Cain sp, RMA * Question Answer Date of Assessment Author Little interest or pleasure in doing things 1 09/26/2024 12:44 PM Osvaldo Redman RN Feeling down, depressed, or hopeless 1 09/26/2024 12:44 PM Osvaldo Redman RN PHQ-2 Total Score 2 09/26/2024 12:44 PM Jocelyn Redman RN * PHQ-9 Total Score Answer Date of Assessment Author 2 09/26/2024 12:44 PM Jocelyn Dover RN documented as of this encounter Mental Status * Question Answer Entry Date Author Because of a physical, menta l or emotional condition, does this person have difficulty doing errands alone such as visiting a doctor's office or shopping? No 05/25/2023 9:54 AM EDT Patsy Vilchis CCMA Because of a physical, menta l or emotional condition, does this person have serious difficulty concentrating, remembering or making decisions? No 05/25/2023 9:54 AM EDT Patsy Vilchis CCMA * Because of a physical, mental or emotional condition, does this person have serious difficulty concentrating, remembering or making decisions? Answer Entry Date Author Yes 03/06/2019 10:44 AM EDT Arias Stevens RMA documented in this encounter Plan of Treatment Not on file documented as of this encounter Goals Goal Patient Goal Type Associated Problems Recent Progress Patient-Stated? Author Blood Pressure < 140/90 Blood Pressure 166/89(10/10 2:25 PM EST) No Spring Stevens RMA BMI (Calculated) < 30 General 56.4( 7:32 PM EST) No Spring Stevens RMA Maintain a healthy diet, exercise regularly and maintain an ideal body weight General No Anjana Varghese LPN Wound Healing General Not on track(2024 10:49 AM EST) No Ursula Vazqeuz, RN Note: Patient will maintain optimal edema [...] Stevens RMA documented as of this encounter Results * (ABNORMAL) URINALYSIS (11/29/2019 2:21 PM EDT) UA Color Yellow 11/30/2019 8:34 AM EDT [facility] UA Appear Hazy(A) Clear 11/30/2019 8:34 AM EDT [facility] UA Glucose Negative Negative mg/dL 11/30/2019 8:34 AM EDT [facility] UA Ketones Negative Negative mg/dL 11/30/2019 8:34 AM EDT [facility] UA Blood Small(A) Negative 11/30/2019 8:34 AM EDT [facility] UA pH 5.0 5.0 - 8.0 pH 11/30/2019 8:34 AM EDT [facility] UA Protein 30(A) Negative mg/dL 11/30/2019 8:34 AM EDT [facility] UA Urobilinogen Normal <=1 mg/dL 0 8:34 AM EDT [facility] UA Bili Negative Negative 11/30/2019 8:34 AM EDT [facility] UA Nitrite Positive(A) Negative 11/30/2019 8:34 AM EDT [facility] UA Leuk Est Large(A) Negative 11/30/2019 8:34 AM EDT [facility] UA Spec Grav 1.011 1.001 - 1.035 no units 11/30/2019 8:34 AM EDT [facility] Comment:Reference range joseph d for random specimens only. UA WBC 128(H) 0 - 4 /HPF 11/30/2019 8:34 AM EDT [facility] UA RBC 6(H) 0 - 3 /HPF 11/30/2019 8:34 AM EDT [facility] UA Squam Epi 2+ /LPF 11/30/2019 8:34 AM EDT [facility] UA Mucus Trace /LPF 11/30/2019 8:34 AM EDT [facility] UA Bacteria 3+(A) Negative /HPF 11/30/2019 8:34 AM EDT [facility] Urine 11/29/2019 2:21 PM EDT 11/30/2019 8:00 AM EDT us Mario Tierney MD URINE ORDERABLES Final Result [facility] [employer] [address] [facility] , [address] [place] [phone] documented in this encounter Visit Diagnoses Not on filedocumented in this encounter Additional Health Concerns Infection Onset Date Last Indicated Resolved Time Ectoparasite (Lice, Bed Bugs , Scabies) 06/09/2023 06/10/2023 06/30/2023 10:12 PM EDT R/O COVID-19 09/10/2023 09/10/2023 09/10/2023 4:21 PM EST COVID-19 09/10/2023 09/10/2023 09/30/2023 10:1 2 PM EST Ectoparasite (Lice, Bed Bugs , Scabies) 09/28/2024 09/28/2024 10/18/2024 10:12 PM EST Assessment Noted Time PHQ-9 Depression Total Score: 2 03/06/20 19 10:44 AM EDT PHQ-2 Depression Total Score: 2 03/06/20 19 10:44 AM EDT documented as of this encounter Care Teams Software Technician Relationship Specialty Start Date End Date Sunny Ponce V, DO [address] [place] [phone] PCP - General Family Medicine 07/22/11 Rajwinder Landaverde, RN Food Crops Farm Hand 11/20/19 01/28/20 documented as of this encounter
--- OUTSIDE RECORDS SUMMARY | 2019-12-04 04:00 | XMS_ITS | Encounter Summary ---
Author Organization [place] [address] Care Team Providers Care Accounts Specialist Name Role Phone Kris Chavez DO, Viral Primary Care Provider [phone] Rajwinder Landaverde RN Unavailable Unavailable Encounter Details Date Type Department Care Team (Late st Contact Info) Description 12/04/2019 5:00 AM EDT Hospital Encounter [facility] Referral Lab 1 [place] [phone] Mario Tierney MD [address] [facility] [address] [place] [address] Social History Tobacco Use Types Packs/Day Years Used Date Smoking Tobacco: Former Cigarettes 0 09/20/1972 - 10/21/1972 Smokeless Tobacco: Former Comments:SMOKED FOR 1 WEEK A S A TEENAGER Alcohol Use Standard Drinks/Week Comments No 0 (1 standard drink = 0.6 oz pur e alcohol) [facility] Utilities Answer Date Recorded In the past 12 months has [employer], gas, oil, or water [facility] threatened to shut off services in your home? No 09/26/2024 Overall Financial Resource Strain (CARDIA) Answe r Date Recorded How hard is it for you to pa y for the very basics like food, housing, medical care, and heating? Somewhat hard 09/26/2024 PHQ-2 Answer Date Recorded PHQ-2 Total Score 2 09/26/2024 [facility] - Occupational Stress Questionnaire Answer [...] things needed for daily living? No 09/14/2023 [facility] IP Transportation Answer D ate Recorded [...] documented in this encounter Plan of Treatment Scheduled Orders Name Type Priority Associated Diagnoses Orde r Schedule RENAL FUNCTION PANEL Lab Routine ONCE for 1 Occurrences starting 12/04/2019 until 01/08/2020 documented as of this encounter Goals Goal Patient Goal Type Associated Problems Recent Progress Patient-Stated? Author Blood Pressure < 140/90 Blood Pressure 166/89(10/10 2:25 PM EST) No Akin Stevensa, RMA BMI (Calculated) < 30 General 56.4( 7:32 PM EST) No Spring Stevens RMAlan Maintain a healthy diet, exercise regularly and [...] documented as of this encounter Care Teams Accounts Specialist Relationship Specialty Start Date End Date Sunny Ponce DO [address] [place] [phone] PCP - General Family Medicine 07/22/11 Rajwinder Landaverde, RN Reporting Coordinator 11/20/19 01/28/20 documented as of this encounter
--- OUTSIDE RECORDS SUMMARY | 2025-05-23 08:16 | XMS_ITS | Encounter Summary ---
Author Name [facility] Organization [facility] [place] [place] Address [address] [place] [address] Care Team Providers Care Structural Steel Painter Name Role Phone DAYSI BEARD Primary Care Provider Unavailabl e Insurance Providers: All historical and current Section Date Range: From patient's date of to the date document was created. This section includes the names of all active insurance providers for the patient. Insurance Provider Type of Coverage Plan Name Start of Policy Coverage End of Policy Coverage Group Number Member ID Insurance Provider's Telephone Number Policy Mchugh's Name Patient's Relationship to Policy Mchugh WELLCARE MCR (WNR) MEDICARE ADVANTAGE [facility] (WNR) Sep 20, 2017 [id number] KELY CHOUDHARY PATIENT WELLCARE MCR (WNR) MEDICARE ADVANTAGE MCR (WNR) Sep 20, 2017 [id number] KELY CHOUDHARY PATIENT WELLCARE(W NR) MEDICARE (M) MCR (WNR) Sep 20, 2017 [id number] KELY CHOUDHARY PATIENT Selected Encounter This section includes the information on record at [place] for the Encounter. Date/Time Encounter Type Encounter Description Reason Provider Source May 23, 2025 01:16 PM CASE MANAGEMENT ADMIN PAT ACTIVTIES (MASNONCT) ICD-10-CM Z41.8 Encntr for oth proc for purpose oth [facility] TRISHA ANN Santiago Encounter Template Text not used by VA Assessments - Encounter Diagnoses This section includes the primary and secondary diagnoses documented for the Encounter. Date/Time Primary/Secondary Diagnosis Diagnosis Name Provider Source May 23, 2025 01:51 PM PRIMARY Encntr for oth proc for purpose oth [facility] SETHTRISHA MALI Plan of Treatment: Future Appointments (+ 6 months) and Future Tests (+/- 45 days) The Plan of Treatment section includes future care activities for the patient from all [place] treatmentfacilities. This section includes future appointments and future orders which are active, pending or scheduled. Active, Pending, and Scheduled Orders This section includes a listing of several types of active, pending, and scheduled orders, including clinic medications orders, diagnostic test orders, procedure orders and consult orders; where the start date of the order is 45 days before the date of the Encounter or 45 days after the date of theEncounter. The data comes from all [place] treatment facilities. Test Date/Time Test Type Test Details Facility Name Jun 12, 2025 12:00 AM Laboratory - Chemi stry Order OCCULT BLOOD FIT X1 SCREEN(MFP ONLY) STOOL (CHEM/HEM) FECES SP ~VISN Mailed FIT Program Order, Kits will be mailed to [place]. [facility] Social History: Smoking Status (Most current) and Tobacco Use (All prior to encounter date) This section includes the most current, and the historical, smoking and tobacco- related health factors from the VA facility where the Encounter took place. Current Smoking Status This section includes the most current smoking, or tobacco-related health factor, from the VA facility where the Encounter took place. Date/Time Current Smoking Status Comment Anant rushing Mar 12, 2005 01:33 PM TOBACCO LIFETIME NON-USER [place] Advance Directives: All historical and current Section Date Range: From patient's date of to the date document was created. This section includes ALL of a patient's completed or amended VA Advance and Rescinded Directives. The entries below indicate that a directive exists for the patient, but an actual copy is not included with this document. The data comes from all [place] facilities. Date Advance Directives Provider Source Nov 10, 2011 ADVANCE DIRECTIVE [place] Oct 19, 2011 ADVANCE DIRECTIVE DISCUSSION CLAUDIA ROCK RA [facility] January 20, 2000 RESCINDED ADVANCE BRITT RUBALCAVA Encounter Notes: All associated encounter notes This section contains the clinical notes associated to the Encounter. Date/Time Encounter Note(s) Provider Source May 23, 2025 01:17 PM RN TRANSITION NOTE: LOCAL TITLE: TRAVELING COORDINATION STANDARD TITLE: RN TRANSITION NOTE DATE OF NOTE: MAY 23, 2025@13:17 ENTRY DATE: MAY 23, 2025@13:17:08 AUTHOR: TRISHA ANN EXP COSIGNER: URGENCY: STATUS: COMPLETED SENDING TV/R consult to [facility] system for relocation. Local consult received for this requesting care coordination through the TVC process. Consult reviewed by this coordinator and forwarded via TVC IFC. Will monitor progress via Task Tracker. /es/ TRISHA ANN RN Signed: 05/23/2025 13:51 TRISHA ANN [place]
--- OUTSIDE RECORDS SUMMARY | 2025-05-23 08:40 | XMS_ITS ---
Author Name [facility] [place] Organization [facility] [place] Address [address] [place] [address] Care Team Providers Care Filter Press Supervisor Name Role Phone DAYSI BEARD Primary Care [...] Policy Mchugh WELLCARE MCR (WNR) MEDICARE ADVANTAGE [facility] (WNR) Sep 20, 2017 [id number] [phone] KELY CHOUDHARY PATIENT WELLCARE MCR (WNR) MEDICARE ADVANTAGE MCR (WNR) Sep 20, 2017 [id number] KELY CHOUDHARY PATIENT WELLCARE(W NR) MEDICARE (M) MCR (WNR) Sep 20, 2017 [id number] KELY CHOUHDARY PATIENT Selected Encounter This section includes the information on record at [place] for the Encounter. Date/Time Encounter Type Encounter Description Reason Pro vider Source May 23, 2025 01:40 PM Outpatient Encounter ADMIN PAT ACTIVTIES (MASNONCT) IHE Encounter Template Text not used by VA Plan of Treatment: Future Appointments (+ 6 months) and Future Tests (+/- 45 days) The Plan of Treatment section includes future care activities for the patient from all [place] treatmentfacilities. This section includes future appointments and [...] of theEncounter. The data comes from all [place] treatment facilities. Test Date/Time Test Type Test Details Facility Name Jun 12, 2025 12:00 AM Laboratory - Chemi stry Order OCCULT BLOOD FIT X1 SCREEN(MFP ONLY) STOOL (CHEM/HEM) FECES SP ~VISN Mailed FIT Program Order, Kits will be mailed to [place]. [facility] Advance Directives: All historical and current Section Date Range: From patient's date of to the date document was created. This section includes ALL of a patient's completed or amended VA Advance and Rescinded Directives. The entries below indicate that a directive exists for the patient, but an actual copy is not included with this document. The data comes from all [place] facilities. Date Advance Directives Provider Source Nov 10, 2011 ADVANCE DIRECTIVE [place] Oct 19, 2011 ADVANCE DIRECTIVE DISCUSSION CARLOS ALBERTO ROCK RA [facility] January 20, 2000 RESCINDED ADVANCE DIRECTIVE BRITT GRISSOM Encounter Notes: All associated encounter notes This section contains the clinical notes associated to the Encounter. Date/Time Encounter Note(s) Provider Source May 23, 2025 01:49 PM ADMINISTRATIVE NOT E: LOCAL TITLE: HEALTH BENEFITS ADMINISTRATIVE NOTE STANDARD TITLE: ADMINISTRATIVE NOTE DATE OF NOTE: MAY 23, 2025@13:49 ENTRY DATE: MAY 23, 2025@13:49:56 AUTHOR: GEORGINA DIA EXP COSIGNER: URGENCY: STATUS: COMPLETED HEALTH BENEFITS ADMINISTRATIVE NOTE Has ADDENDA Eligible for enrollment: Yes has been enrolled and assigned to priority group 5 HBA enrolled May /sonia DIA Signed: 05/23/2025 13:52 05/23/2025 ADDENDUM STATUS: COMPLETED Received an email to load for. [place] loaded. ILDA CHOUDHARY May [phone] [place]'s destination address: [address] [place]. [address] [place]'s telephone number: [phone] Approximate date of departure: May 1) Primary Care appointment requested. Polina Silver RN BSN Traveling Coordinator [address] [address] C- [phone] O- [phone] ext [phone] e-mail [email or web address] /pilar/ GEORGINA DIA Signed: 05/23/2025 13:54 GEORGINA DIA-[facility]
--- OUTSIDE RECORDS SUMMARY | 2025-05-23 10:28 | XMS_ITS | Encounter Summary ---
Author Name [facility] [place] Organization [facility] [place] Address [address] [place] [address] Care Team Providers Care Plate Mill Hand Name Role Phone KISHA DAYSI Primary Care Provider Unavailabl e Insurance Providers: [...] Name Patient's Relationship to Policy Mchugh WELLCARE [facility] (WNR) MEDICARE ADVANTAGE [facility] (WNR) Sep 20, 2017 [id number] KELY CHOUDHARY PATIENT WELLCARE MCR (WNR) MEDICARE ADVANTAGE MCR (WNR) Sep 20, 2017 [id number] [phone] KELY CHOUDHARY PATIENT WELLCARE(W NR) MEDICARE (M) MCR (WNR) Sep 20, 2017 [id number] KELY CHOUDHARY PATIENT Selected Encounter This section includes the information on record at [place] for the Encounter. Date/Time Encounter Type Encounter Description Reason Provider Source May 23, 2025 03:28 PM TARGETED CASE MANAGEMENT ADMIN PAT ACTIVTIES (MASNONCT) ALEJANDRA JIMENEZ I[place] Encounter Template Text not used by [place] Plan of Treatment: Future Appointments (+ 6 months) and Future Tests (+/- 45 days) The Plan of Treatment section includes future care activities for the patient from all [place] treatmentfacilities. This section includes future appointments and [...] of theEncounter. The data comes from all [place] treatment facilities. Test Date/Time Test Type Test Details Facility Name Jun 12, 2025 12:00 AM Laboratory - Chemi stry Order OCCULT BLOOD FIT X1 SCREEN(MFP ONLY) STOOL (CHEM/HEM) FECES SP ~VISN Mailed FIT Program Order, Kits will be mailed to . [facility] Advance Directives: All historical and current Section Date Range: From patient's date of to the date document was created. This section includes ALL of a patient's completed or amended VA Advance and Rescinded Directives. The entries below indicate that a directive exists for the patient, but an actual copy is not included with this document. The data comes from all [place] facilities. Date Advance Directives Provider Source Nov 10, 2011 ADVANCE DIRECTIVE [place] Oct 19, 2011 ADVANCE DIRECTIVE DISCUSSION CLAUDIA ROCK RA [facility] January 20, 2000 RESCINDED ADVANCE DIRECTIVE BRITT GRISSOM Encounter Notes: All associated encounter notes This section contains the clinical notes associated to the Encounter. Date/Time Encounter Note(s) Provider Source May 23, 2025 03:28 PM MAP MAKER NOTE: LOCAL TITLE: C COORDINATOR NOTE STANDARD TITLE: MAP MAKER NOTE DATE OF NOTE: MAY 23, 2025@15:28 ENTRY DATE: MAY 23, 2025@15:28:07 AUTHOR: MAYO JIMENEZ EXP COSIGNER: URGENCY: STATUS: COMPLETED [facility] COORDINATOR NOTE Has ADDENDA Consult received, relocated to the following address: [address] [place] [phone] 's telephone number: [phone] /es/ MAYO JIMENEZ RN BSN Traveling Coordinator Signed: 05/23/2025 15:28 05/24/2025 ADDENDUM STATUS: COMPLETED Noted new pt. consult prev. entered, pending scheduling. /es/ MAYO ANGELESN Traveling [place] Coordinator Signed: 05/24/2025 13:06 MAYO JIMENEZ-[facility]
--- OUTSIDE RECORDS SUMMARY | 2025-05-28 11:36 | XMS_ITS | Encounter Summary ---
Author Name [facility] [place] [facility] [place] Organization [facility] [place] Address [address] [place] [address] Care Team Providers Care Hand Patcher Name Role Phone DAYSI BEARD Primary Care [...] Policy Mchugh WELLCARE MCR (WNR) MEDICARE ADVANTAGE [facility] (WNR) Sep 20, 2017 [id number] KELY CHOUDHARY PATIENT WELLCARE MCR (WNR) MEDICARE ADVANTAGE MCR (WNR) Sep 20, 2017 [id number] KELY CHOUDHARY PATIENT WELLCARE(W NR) MEDICARE (M) MCR (WNR) Sep 20, 2017 [id number] KELY CHOUDHARY PATIENT Selected Encounter This section includes the information on record at [place] for the Encounter. Date/Time Encounter Type Encounter Description Reason Pro vider Source May 28, 2025 04:36 PM Outpatient Encounter ADMIN PAT ACTIVTIES (MASNONCT) IHE Encounter Template Text not used by [place] Plan of Treatment: Future Appointments (+ 6 months) and Future Tests (+/- 45 days) The Plan of Treatment section includes future care activities for the patient from all [place] treatmentfacilities. This section includes future appointments and [...] of theEncounter. The data comes from all [place] treatment facilities. Test Date/Time Test Type Test Details Facility Name Jun 12, 2025 12:00 AM Laboratory - Chemi stry Order OCCULT BLOOD FIT X1 SCREEN(MFP ONLY) STOOL (CHEM/HEM) FECES SP ~VISN Mailed FIT Program Order, Kits will be mailed to [facility]. [facility] Advance Directives: All historical and current Section Date Range: From patient's date of to the date document was created. This section includes ALL of a patient's completed or amended VA Advance and Rescinded Directives. The entries below indicate that a directive exists for the patient, but an actual copy is not included with this document. The data comes from all [place] facilities. Date Advance Directives Provider Source Nov 10, 2011 ADVANCE DIRECTIVE [place] Oct 19, 2011 ADVANCE DIRECTIVE DISCUSSION CLAUDIA [facility] RA [facility] January 20, 2000 RESCINDED ADVANCE DIRECTIVE BRITT GRISSOM Encounter Notes: All associated encounter notes This section contains the clinical notes associated to the Encounter. Date/Time Encounter Note(s) Provider Source May 28, 2025 04:42 PM PRIMARY CARE NATALI RS: LOCAL TITLE: PC LETTER NEW PATIENT CONTACT STANDARD TITLE: PRIMARY CARE LETTERS DATE OF NOTE: MAY 28, 2025@16:42 ENTRY DATE: MAY 28, 2025@16:43:08 AUTHOR: AKIL VIVASIGNER: URGENCY: STATUS: COMPLETED [facility] [address] [place] [address] Leonardo CHOUDHARY [address] [place] [address] Dear Leonardo CHOUDHARY, Thank you for your interest in Primary Care. We have received a request to schedule an appointment for you with a Primary Care Provider, however, we have been unable to reach you by phone. Please call us at , ext: [phone] or ext: [phone] to schedule an appointment that is convenient for you. You can reach us Wednesday thru from 10 am - 4 pm, excluding federal holidays. Please be advised that we do not have voicemail. If you are not interested in Primary Care, please contact us to let us know. We look forward to hearing from you. Sincerely, [facility] Primary Care Services AKIL VIVAS [facility] May 28, 2025 04:36 PM PRIMARY CARE ADMIN ISTRATIVE NOTE: LOCAL TITLE: PC NEW PATIENT CONTACT NOTE STANDARD TITLE: PRIMARY CARE ADMINISTRATIVE NOTE DATE OF NOTE: MAY 28, 2025@16:36 ENTRY DATE: MAY 28, 2025@16:37 AUTHOR: AKIL VIVAS EXP COSIGNER: URGENCY: STATUS: COMPLETED Is patient Post 9-11, OEF/OIF/OND ? Patient is not a Post 9-11 . I have attempted to contact patient to schedule a new patient appointment. I was unable to reach the patient via phone because: There was no answer, and no answering machine. YOUR CALL CANNOT BE COMPLETED AT THIS TIME. A letter asking the patient to contact to schedule an appointment has been mailed to the patient on 05/28/25. If no response by 06/11/2025 consult will be discontinued and a new one will need to be entered if wishes to schedule in the future. /pilar/ AKIL VIVAS LEAD AMSA Signed: 05/28/2025 16:40 AKIL VIVASYoli [facility]
--- OUTSIDE RECORDS SUMMARY | 2025-06-08 04:40 | XMS_ITS | Continuity of Care Document ---
Author Name [facility] Organization [facility] Care Team Providers Care Gis Scientist Name Role Phone [facility] Unavailable Unavailable Problems Combined list of problems from Department of Defense and Veterans Affairs facilities. It does not include entries that were removed or entered in error. Problem Status Onset Date Problem Type Date of Resolution Comments Source Acquired Keratoderma (ICD-9-CM 701.1) Active Condition [place] Angina Active Condition [place] Anxiety Disorder * (ICD-9-CM 300.00) Active Condition [place] Chronic airway obstruction Active Condition [place] CYCLOTHYMIC DISORDER Active Condition [place] Depressive Disorder NOS * (ICD-9-CM 311.) Active Condition [place] Dermatophytosis of nail (ICD-9-CM 110.1) Active Condition [place] DIABETES MELLI W/O COMP TYP II Active Condition [place] Edema Podiatry (ICD-9-CM 782.3) Active Condition [place] Fasciitis * (ICD-9-CM 729.4) Active Condition [place] Foot pain Active Condition [place] HYPERTENSION NOS Active Condition [facility] [facility] Morbid obesity Active Condition [place] NONSP TB SKIN TEXT REACT WO TB Active Condition [place] OBESITY, UNSP Active Condition [place] Obstructive Sleep Apnea (Adult) (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) Active Condition [place] Onychomycosis of toenails Active Condition [place] Pain in limb (ICD-9-CM 729.5) Active Condition [place] Posttraumatic stress disorder Active Condition [place] RHEUMATOID ARTHRITIS Active Condition [place] 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 Medication Details Route Status Indication(s) Patie nt Instructions Prescription Expires Prescription Number Last Dispense Date Ordering Provider Order Date Order Qty Source ASPIRIN 325MG TAB,EC TAKE ONE TABLET BY MOUTH EVERY DAY ORAL ACTIVE MICHAEL DAY 2011 [place] ATENOLOL 25MG TAB TAKE ONE TABLET BY MOUTH EVERY DAY ORAL ACTIVE SINDY GARCIA TTHEW D 2011 [facility] FUROSEMIDE 20MG TAB TAKE ONE TABLET BY MOUTH EVERY DAY ORAL ACTIVE STRATTONALFREDODC TTHEW D 2011 [facility] GLYBURIDE 1.25MG TAB TAKE ONE TABLET BY MOUTH TWICE A DAY ORAL ACTIVE SINDY GARCIA TTHEW D 2011 [facility] LISINOPRIL 40MG TAB TAKE ONE-HALF TABLET BY MOUTH EVERY DAY ORAL ACTIVE JOSEDC TTHEW D 2011 [facility] METFORMIN HCL 500MG TAB TAKE ONE TABLET BY MOUTH TWICE A DAY ORAL ACTIVE JOSEDC TTHEW D 2011 [facility] POTASSIUM CHLORIDE 8MEQ TAB,SA TAKE ONE TABLET BY MOUTH EVERY DAY ORAL ACTIVE JOSEDC TTHEW D 2011 [facility] SIMVASTATIN 20MG TAB TAKE ONE-HALF TABLET BY MOUTH AT BEDTIME ORAL ACTIVE JOSEDC TTHEW D 2011 [facility] Allergies, Adverse Reactions, Alerts Combined list of allergies from Department of Defense and Veterans Affairs facilities. It does not include entries that were removed or entered in error. Substance Category Reaction Severity Reaction type Status Date Reported Comments Source CEPHALOSPORIN S Propensity to adverse reactions to drug (finding) SWELLING (NON-SPEC IFIC) active 6 [place] ERYTHROMYCIN Propensity to adverse reactions to drug (finding) SWELLING (NON-SPEC IFIC) active 6 [place] MINOCIN 100MG PELLET CAPSULE Propensity to adverse reactions to drug (finding) SWELLING (NON-SPEC IFIC) active 6 [place] PENICILLIN Propensity to adverse reactions to drug (finding) SWELLING (NON-SPEC IFIC) active 6 [place] Immunizations Combined list of available immunizations from the Department of Defense and Veterans Affairs facilities. Immunization Series Date Given Administered By Site Reaction Lot Number CVX Code Drug [employer] Manager Status Comments Source TDAP 2013 115 complet ed HISTORICA L INFORMATI ON - FROM OTHER REGISTRY, [facility] TD(ADULT) UNSPECIFIED FORMULATION 2011 139 complet ed cannot recall last vaccine but it has been in last 10 years [place] PNEUMOCOCCAL, UNSPECIFIED FORMULATION 1999 DINA HARDY 109 complet ed [place] INFLUENZA (HISTORICAL) 1999 88 complet ed [place] TETANUS TOXOID, UNSPECIFIED FORMULATION 1995 112 complet ed [place] Results Combined list of recent chemistry, hematology and other laboratory results from Department of Defense and Veterans Affairs, ranging from 15 months to all on record, depending upon the facility. Order Name Results Value Reference Range Date Interpretation Specimen Comments Source HEMOGLOBI N A1c HEMOGLOBIN A1C/HEMOGLO BIN.TOTAL IN BLOOD BY ELECTROPHOR ESIS 7.1 <5.6 - 5.6 12/22 H Specimen Type: BLOOD Comment: Interpretat ion: Normal: < 5.7% (<39 mmol/mol) Prediabetes (high risk for diabetes): 5.7% to 6.4% (39 to 46 mmol/mol). Diabetes: > or equal to 6.5% (?48 mmol/mol) Note: [facility] lab uses Capillary Electrophor esis by [employer] (Capillarys 3 [place]). The coefficient of variation in our lab was calculated to be between 0.7-2.3%, which is compliant with the NPSG recommendat ion of less than 3%. This analytical method can be impacted by hemoglobin variants. Values obtained from A1C measurement s can vary. For typical A1C assays, a reported value of 7.0% could be between 6.82% and 7.18% if measured by a reference method. A reported value of 9.0% could be between 8.82% and 9.18%. Clinical decisions should be based on longitudina l patterns of results. References: 1. Management Algorithm ? Leann Maria, et al [place] [employer]ocrin[employer] gy Consensus Statement: Comprehensi ve Type 2 Diabetes 2022 Update, Endocrine Practice, Volume 29, Issue 5,2022,Page s [phone], [email or web address]://doi [email or web address]/[email or web address]. 2. [email or web address]. [email or web address].org/[place] Pdata.asp. Ordering Provider: SORAIDA BEARD Report Released Date/Time: Dec 23, 2023 10:30 AM Reporting Lab: [address] Performing Lab: [address] [address] [place] VITAMIN D,25-OH 25-HYDROXYV ITAMIN D3 [MASS/VOLUM E] IN SERUM OR PLASMA 40 ng/mL 12/22 Specimen Type: SERUM No comment entered. Ordering Provider: SORAIDA BEARD Report Released Date/Time: Dec 23, 2023 10:30 AM Reporting Lab: [place] [id number] Performing Lab: [address] [address] [place] PROSTATIC SPECIFIC AG PROSTATE SPECIFIC AG [MASS/VOLUM E] IN SERUM OR PLASMA 0.54 ng/mL 0 - 4.0 12/22 Specimen Type: SERUM No comment entered. Ordering Provider: SORAIDA BEARD Report Released Date/Time: Dec 23, 2023 10:30 AM Reporting Lab: [address] [address] Performing Lab: [address] [address] [place] THYROID PROFILE THYROXINE (T4) FREE [MASS/VOLUM E] IN SERUM OR PLASMA 1.07 ng/dL 0.89 - 1.76 12/22 Specimen Type: PLASMA No comment entered. Ordering Provider: SORAIDA BEARD Report Released Date/Time: Dec 23, 2023 10:30 AM Reporting Lab: [address] [address] Performing Lab: [address] [address] [place] THYROID PROFILE TSH 1.80 u[IU]/ mL 0.55 - 4.78 12/22 Specimen Type: PLASMA No comment entered. Ordering Provider: SORAIDA BEARD Report Released Date/Time: Dec 23, 2023 10:30 AM Reporting Lab: [address] [address] Performing Lab: [address] [address] [facility] LIPID PANEL CHOLESTEROL [MASS/VOLUM E] IN SERUM OR PLASMA 101 mg/dL 0 - 199 12/22 Specimen Type: PLASMA Comment: Standardize d eGFR Interpretat ion Estimated Glomerular Filtration Rate (eGFR) calculated using the 2020 Chronic Kidney Disease-Epi demiology (CKD-EPI) Collaborati on creatinine equation; units of measure are mL/min/1.73 m2. Results are only valid for adults (?18 years) whose serum creatinine is in a steady state. eGFR calculation s are not valid for patients with acute kidney injury and for patients on dialysis. Creatinine- based estimates of kidney function may also be inaccurate in patients with reduced creatinine generation due to decreased muscle mass (e.g., malnutritio n, severe hypoalbumin emia, sarcopenia, chronic neuromuscul ar disease, amputations , severe heart failure or liver disease) and in patients with increased creatinine generation due to increased muscle mass (e.g., muscle builders, anabolic steroids) or increased dietary intake. As drug clearance is proportiona l to total GFR and not GFR indexed to body surface area (BSA), in individuals with a BSA substantial ly different than 1.73 m2, drug dosing should be based the reported eGFR value de-indexed from BSA by multiplying by the individual' s BSA and dividing by 1.73. CKD is diagnosed based on abnormaliti es of kidney structure or function, present for >3 months, with implication s for health and disease. CKD is classified and staged based on cause, eGFR and albuminuria (quantified as urine albumin to creatinine ratio). An eGFR >60 mL/min/1.73 m2 in the absence of increased urine albumin excretion or structural abnormaliti es does not represent CKD. eGFR CKD stage Interpretat ion (mL/min/1.7 3 m2) >=90 G1 Normal 60-89 G2 Mild decrease 45-59 G3A Mild to moderate decrease 30-44 G3B Moderate to severe decrease 15-29 G4 Severe decrease <15 G5 Kidney failure Ordering Provider: SORAIDA BEARD Report Released Date/Time: Dec 23, 2023 10:30 AM Reporting Lab: [address] [address] Performing Lab: [address] [address] [facility] LIPID PANEL TRIGLYCERID E [MASS/VOLUM E] IN SERUM OR PLASMA 102 mg/dL 0 - 150 12/22 Specimen Type: PLASMA Comment: Standardize d eGFR Interpretat ion Estimated Glomerular Filtration Rate (eGFR) calculated using the 2020 Chronic Kidney Disease-Epi demiology (CKD-EPI) Collaborati on creatinine equation; units of measure are mL/min/1.73 m2. Results are only valid for adults (?18 years) whose serum creatinine is in a steady state. eGFR calculation s are not valid for patients with acute kidney injury and for patients on dialysis. Creatinine- based estimates of kidney function may also be inaccurate in patients with reduced creatinine generation due to decreased muscle mass (e.g., malnutritio n, severe hypoalbumin emia, sarcopenia, chronic neuromuscul ar disease, amputations , severe heart failure or liver disease) and in patients with increased creatinine generation due to increased muscle mass (e.g., muscle builders, anabolic steroids) or increased dietary intake. As drug clearance is proportiona l to total GFR and not GFR indexed to body surface area (BSA), in individuals with a BSA substantial ly different than 1.73 m2, drug dosing should be based the reported eGFR value de-indexed from BSA by multiplying by the individual' s BSA and dividing by 1.73. CKD is diagnosed based on abnormaliti es of kidney structure or function, present for >3 months, with implication s for health and disease. CKD is classified and staged based on cause, eGFR and albuminuria (quantified as urine albumin to creatinine ratio). An eGFR >60 mL/min/1.73 m2 in the absence of increased urine albumin excretion or structural abnormaliti es does not represent CKD. eGFR CKD stage Interpretat ion (mL/min/1.7 3 m2) >=90 G1 Normal 60-89 G2 Mild decrease 45-59 G3A Mild to moderate decrease 30-44 G3B Moderate to severe decrease 15-29 G4 Severe decrease <15 G5 Kidney failure Ordering Provider: SORAIDA BEARD Report Released Date/Time: Dec 23, 2023 10:30 AM Reporting Lab: [address] [address] Performing Lab: [address] [address] [facility] LIPID PANEL CHOLESTEROL IN HDL [MASS/VOLUM E] IN SERUM OR PLASMA 31 mg/dL 40 - 60 12/22 L Specimen Type: PLASMA Comment: Standardize d eGFR Interpretat ion Estimated Glomerular Filtration Rate (eGFR) calculated using the 2020 Chronic Kidney Disease-Epi demiology (CKD-EPI) Collaborati on creatinine equation; units of measure are mL/min/1.73 m2. Results are only valid for adults (?18 years) whose serum creatinine is in a steady state. eGFR calculation s are not valid for patients with acute kidney injury and for patients on dialysis. Creatinine- based estimates of kidney function may also be inaccurate in patients with reduced creatinine generation due to decreased muscle mass (e.g., malnutritio n, severe hypoalbumin emia, sarcopenia, chronic neuromuscul ar disease, amputations , severe heart failure or liver disease) and in patients with increased creatinine generation due to increased muscle mass (e.g., muscle builders, anabolic steroids) or increased dietary intake. As drug clearance is proportiona l to total GFR and not GFR indexed to body surface area (BSA), in individuals with a BSA substantial ly different than 1.73 m2, drug dosing should be based the reported eGFR value de-indexed from BSA by multiplying by the individual' s BSA and dividing by 1.73. CKD is diagnosed based on abnormaliti es of kidney structure or function, present for >3 months, with implication s for health and disease. CKD is classified and staged based on cause, eGFR and albuminuria (quantified as urine albumin to creatinine ratio). An eGFR >60 mL/min/1.73 m2 in the absence of increased urine albumin excretion or structural abnormaliti es does not represent CKD. eGFR CKD stage Interpretat ion (mL/min/1.7 3 m2) >=90 G1 Normal 60-89 G2 Mild decrease 45-59 G3A Mild to moderate decrease 30-44 G3B Moderate to severe decrease 15-29 G4 Severe decrease <15 G5 Kidney failure Ordering Provider: SORAIDA BEARD Report Released Date/Time: Dec 23, 2023 10:30 AM Reporting Lab: [place] [employer] [facility] [phone] Performing Lab: [place] [facility] [address] [facility] LIPID PANEL CHOLESTEROL IN LDL [MASS/VOLUM E] IN SERUM OR PLASMA BY CALCULATION cancmg /dL 12/22 Specimen Type: PLASMA Comment: Standardize d eGFR Interpretat ion Estimated Glomerular Filtration Rate (eGFR) calculated using the 2020 Chronic Kidney Disease-Epi demiology (CKD-EPI) Collaborati on creatinine equation; units of measure are mL/min/1.73 m2. Results are only valid for adults (?18 years) whose serum creatinine is in a steady state. eGFR calculation s are not valid for patients with acute kidney injury and for patients on dialysis. Creatinine- based estimates of kidney function may also be inaccurate in patients with reduced creatinine generation due to decreased muscle mass (e.g., malnutritio n, severe hypoalbumin emia, sarcopenia, chronic neuromuscul ar disease, amputations , severe heart failure or liver disease) and in patients with increased creatinine generation due to increased muscle mass (e.g., muscle builders, anabolic steroids) or increased dietary intake. As drug clearance is proportiona l to total GFR and not GFR indexed to body surface area (BSA), in individuals with a BSA substantial ly different than 1.73 m2, drug dosing should be based the reported eGFR value de-indexed from BSA by multiplying by the individual' s BSA and dividing by 1.73. CKD is diagnosed based on abnormaliti es of kidney structure or function, present for >3 months, with implication s for health and disease. CKD is classified and staged based on cause, eGFR and albuminuria (quantified as urine albumin to creatinine ratio). An eGFR >60 mL/min/1.73 m2 in the absence of increased urine albumin excretion or structural abnormaliti es does not represent CKD. eGFR CKD stage Interpretat ion (mL/min/1.7 3 m2) >=90 G1 Normal 60-89 G2 Mild decrease 45-59 G3A Mild to moderate decrease 30-44 G3B Moderate to severe decrease 15-29 G4 Severe decrease <15 G5 Kidney failure Ordering Provider: SORAIDA BEARD Report Released Date/Time: Dec 23, 2023 10:30 AM Reporting Lab: [place] [employer] [facility] [phone] Performing Lab: [place] [address] [address] [facility] [address] [facility] I LIPID PANEL CHOLESTEROL IN LDL [MASS/VOLUM E] IN SERUM OR PLASMA BY DIRECT ASSAY 57 mg/dL 5 - 189 12/22 Specimen Type: PLASMA Comment: Standardize d eGFR Interpretat ion Estimated Glomerular Filtration Rate (eGFR) calculated using the 2020 Chronic Kidney Disease-Epi demiology (CKD-EPI) Collaborati on creatinine equation; units of measure are mL/min/1.73 m2. Results are only valid for adults (?18 years) whose serum creatinine is in a steady state. eGFR calculation s are not valid for patients with acute kidney injury and for patients on dialysis. Creatinine- based estimates of kidney function may also be inaccurate in patients with reduced creatinine generation due to decreased muscle mass (e.g., malnutritio n, severe hypoalbumin emia, sarcopenia, chronic neuromuscul ar disease, amputations , severe heart failure or liver disease) and in patients with increased creatinine generation due to increased muscle mass (e.g., muscle builders, anabolic steroids) or increased dietary intake. As drug clearance is proportiona l to total GFR and not GFR indexed to body surface area (BSA), in individuals with a BSA substantial ly different than 1.73 m2, drug dosing should be based the reported eGFR value de-indexed from BSA by multiplying by the individual' s BSA and dividing by 1.73. CKD is diagnosed based on abnormaliti es of kidney structure or function, present for >3 months, with implication s for health and disease. CKD is classified and staged based on cause, eGFR and albuminuria (quantified as urine albumin to creatinine ratio). An eGFR >60 mL/min/1.73 m2 in the absence of increased urine albumin excretion or structural abnormaliti es does not represent CKD. eGFR CKD stage Interpretat ion (mL/min/1.7 3 m2) >=90 G1 Normal 60-89 G2 Mild decrease 45-59 G3A Mild to moderate decrease 30-44 G3B Moderate to severe decrease 15-29 G4 Severe decrease <15 G5 Kidney failure Ordering Provider: SORAIDA BEARD Report Released Date/Time: Dec 23, 2023 10:30 AM Reporting Lab: [place] [employer] [facility] [phone] Performing Lab: [place] [address] [facility] [address] [facility] METABOLIC PANEL UREA NITROGEN [MASS/VOLUM E] IN SERUM OR PLASMA 19 mg/dL 9.0 - 23.0 12/22 Specimen Type: PLASMA Comment: Standardize d eGFR Interpretat ion Estimated Glomerular Filtration Rate (eGFR) calculated using the 2020 Chronic Kidney Disease-Epi demiology (CKD-EPI) Collaborati on creatinine equation; units of measure are mL/min/1.73 m2. Results are only valid for adults (?18 years) whose serum creatinine is in a steady state. eGFR calculation s are not valid for patients with acute kidney injury and for patients on dialysis. Creatinine- based estimates of kidney function may also be inaccurate in patients with reduced creatinine generation due to decreased muscle mass (e.g., malnutritio n, severe hypoalbumin emia, sarcopenia, chronic neuromuscul ar disease, amputations , severe heart failure or liver disease) and in patients with increased creatinine generation due to increased muscle mass (e.g., muscle builders, anabolic steroids) or increased dietary intake. As drug clearance is proportiona l to total GFR and not GFR indexed to body surface area (BSA), in individuals with a BSA substantial ly different than 1.73 m2, drug dosing should be based the reported eGFR value de-indexed from BSA by multiplying by the individual' s BSA and dividing by 1.73. CKD is diagnosed based on abnormaliti es of kidney structure or function, present for >3 months, with implication s for health and disease. CKD is classified and staged based on cause, eGFR and albuminuria (quantified as urine albumin to creatinine ratio). An eGFR >60 mL/min/1.73 m2 in the absence of increased urine albumin excretion or structural abnormaliti es does not represent CKD. eGFR CKD stage Interpretat ion (mL/min/1.7 3 m2) >=90 G1 Normal 60-89 G2 Mild decrease 45-59 G3A Mild to moderate decrease 30-44 G3B Moderate to severe decrease 15-29 G4 Severe decrease <15 G5 Kidney failure Ordering Provider: SORAIDA BEARD Report Released Date/Time: Dec 23, 2023 10:30 AM Reporting Lab: [place] [employer] [facility] [address] Performing Lab: [place] [employer] [facility] [address] IRIS BARONE METABOLIC PANEL GLUCOSE [MASS/VOLUM E] IN SERUM OR PLASMA 165 mg/dL 74 - 106 12/22 H Specimen Type: PLASMA Comment: Standardize d eGFR Interpretat ion Estimated Glomerular Filtration Rate (eGFR) calculated using the 2020 Chronic Kidney Disease-Epi demiology (CKD-EPI) Collaborati on creatinine equation; units of measure are mL/min/1.73 m2. Results are only valid for adults (?18 years) whose serum creatinine is in a steady state. eGFR calculation s are not valid for patients with acute kidney injury and for patients on dialysis. Creatinine- based estimates of kidney function may also be inaccurate in patients with reduced creatinine generation due to decreased muscle mass (e.g., malnutritio n, severe hypoalbumin emia, sarcopenia, chronic neuromuscul ar disease, amputations , severe heart failure or liver disease) and in patients with increased creatinine generation due to increased muscle mass (e.g., muscle builders, anabolic steroids) or increased dietary intake. As drug clearance is proportiona l to total GFR and not GFR indexed to body surface area (BSA), in individuals with a BSA substantial ly different than 1.73 m2, drug dosing should be based the reported eGFR value de-indexed from BSA by multiplying by the individual' s BSA and dividing by 1.73. CKD is diagnosed based on abnormaliti es of kidney structure or function, present for >3 months, with implication s for health and disease. CKD is classified and staged based on cause, eGFR and albuminuria (quantified as urine albumin to creatinine ratio). An eGFR >60 mL/min/1.73 m2 in the absence of increased urine albumin excretion or structural abnormaliti es does not represent CKD. eGFR CKD stage Interpretat ion (mL/min/1.7 3 m2) >=90 G1 Normal 60-89 G2 Mild decrease 45-59 G3A Mild to moderate decrease 30-44 G3B Moderate to severe decrease 15-29 G4 Severe decrease <15 G5 Kidney failure Ordering Provider: SORAIDA BEARD Report Released Date/Time: Dec 23, 2023 10:30 AM Reporting Lab: [place] [employer] [facility] [phone] Performing Lab: [place] [employer] [facility] [phone] [facility] [place] [employer] METABOLIC PANEL SODIUM [MOLES/VOLU ME] IN SERUM OR PLASMA 136 mmol/L 136 - 145 12/22 Specimen Type: PLASMA Comment: Standardize d eGFR Interpretat ion Estimated Glomerular Filtration Rate (eGFR) calculated using the 2020 Chronic Kidney Disease-Epi demiology (CKD-EPI) Collaborati on creatinine equation; units of measure are mL/min/1.73 m2. Results are only valid for adults (?18 years) whose serum creatinine is in a steady state. eGFR calculation s are not valid for patients with acute kidney injury and for patients on dialysis. Creatinine- based estimates of kidney function may also be inaccurate in patients with reduced creatinine generation due to decreased muscle mass (e.g., malnutritio n, severe hypoalbumin emia, sarcopenia, chronic neuromuscul ar disease, amputations , severe heart failure or liver disease) and in patients with increased creatinine generation due to increased muscle mass (e.g., muscle builders, anabolic steroids) or increased dietary intake. As drug clearance is proportiona l to total GFR and not GFR indexed to body surface area (BSA), in individuals with a BSA substantial ly different than 1.73 m2, drug dosing should be based the reported eGFR value de-indexed from BSA by multiplying by the individual' s BSA and dividing by 1.73. CKD is diagnosed based on abnormaliti es of kidney structure or function, present for >3 months, with implication s for health and disease. CKD is classified and staged based on cause, eGFR and albuminuria (quantified as urine albumin to creatinine ratio). An eGFR >60 mL/min/1.73 m2 in the absence of increased urine albumin excretion or structural abnormaliti es does not represent CKD. eGFR CKD stage Interpretat ion (mL/min/1.7 3 m2) >=90 G1 Normal 60-89 G2 Mild decrease 45-59 G3A Mild to moderate decrease 30-44 G3B Moderate to severe decrease 15-29 G4 Severe decrease <15 G5 Kidney failure Ordering Provider: SORAIDA BEARD Report Released Date/Time: Dec 23, 2023 10:30 AM Reporting Lab: [place] [employer] [facility] [phone] Performing Lab: [place] [employer] [facility] [phone] [facility] POTASSIUM [MOLES/VOLU ME] IN SERUM OR PLASMA 4.3 mmol/L 3.4 - 5.1 12/22 Specimen Type: PLASMA Comment: Standardize d eGFR Interpretat ion Estimated Glomerular Filtration Rate (eGFR) calculated using the 2020 Chronic Kidney Disease-Epi demiology (CKD-EPI) Collaborati on creatinine equation; units of measure are mL/min/1.73 m2. Results are only valid for adults (?18 years) whose serum creatinine is in a steady state. eGFR calculation s are not valid for patients with acute kidney injury and for patients on dialysis. Creatinine- based estimates of kidney function may also be inaccurate in patients with reduced creatinine generation due to decreased muscle mass (e.g., malnutritio n, severe hypoalbumin emia, sarcopenia, chronic neuromuscul ar disease, amputations , severe heart failure or liver disease) and in patients with increased creatinine generation due to increased muscle mass (e.g., muscle builders, anabolic steroids) or increased dietary intake. As drug clearance is proportiona l to total GFR and not GFR indexed to body surface area (BSA), in individuals with a BSA substantial ly different than 1.73 m2, drug dosing should be based the reported eGFR value de-indexed from BSA by multiplying by the individual' s BSA and dividing by 1.73. CKD is diagnosed based on abnormaliti es of kidney structure or function, present for >3 months, with implication s for health and disease. CKD is classified and staged based on cause, eGFR and albuminuria (quantified as urine albumin to creatinine ratio). An eGFR >60 mL/min/1.73 m2 in the absence of increased urine albumin excretion or structural abnormaliti es does not represent CKD. eGFR CKD stage Interpretat ion (mL/min/1.7 3 m2) >=90 G1 Normal 60-89 G2 Mild decrease 45-59 G3A Mild to moderate decrease 30-44 G3B Moderate to severe decrease 15-29 G4 Severe decrease <15 G5 Kidney failure Ordering Provider: SORAIDA BEARD Report Released Date/Time: Dec 23, 2023 10:30 AM Reporting Lab: [facility] [id number] Performing Lab: [facility] [id number] [facility] COMPREHEN SIVE METABOLIC PANEL CHLORIDE [MOLES/VOLU ME] IN SERUM OR PLASMA 104 mmol/L 98 - 107 12/22 Specimen Type: PLASMA Comment: Standardize d eGFR Interpretat ion Estimated Glomerular Filtration Rate (eGFR) calculated using the 2020 Chronic Kidney Disease-Epi demiology (CKD-EPI) Collaborati on creatinine equation; units of measure are mL/min/1.73 m2. Results are only valid for adults (?18 years) whose serum creatinine is in a steady state. eGFR calculation s are not valid for patients with acute kidney injury and for patients on dialysis. Creatinine- based estimates of kidney function may also be inaccurate in patients with reduced creatinine generation due to decreased muscle mass (e.g., malnutritio n, severe hypoalbumin emia, sarcopenia, chronic neuromuscul ar disease, amputations , severe heart failure or liver disease) and in patients with increased creatinine generation due to increased muscle mass (e.g., muscle builders, anabolic steroids) or increased dietary intake. As drug clearance is proportiona l to total GFR and not GFR indexed to body surface area (BSA), in individuals with a BSA substantial ly different than 1.73 m2, drug dosing should be based the reported eGFR value de-indexed from BSA by multiplying by the individual' s BSA and dividing by 1.73. CKD is diagnosed based on abnormaliti es of kidney structure or function, present for >3 months, with implication s for health and disease. CKD is classified and staged based on cause, eGFR and albuminuria (quantified as urine albumin to creatinine ratio). An eGFR >60 mL/min/1.73 m2 in the absence of increased urine albumin excretion or structural abnormaliti es does not represent CKD. eGFR CKD stage Interpretat ion (mL/min/1.7 3 m2) >=90 G1 Normal 60-89 G2 Mild decrease 45-59 G3A Mild to moderate decrease 30-44 G3B Moderate to severe decrease 15-29 G4 Severe decrease <15 G5 Kidney failure Ordering Provider: SORAIDA BEARD Report Released Date/Time: Dec 23, 2023 10:30 AM Reporting Lab: [place] [id number] [facility] [phone] Performing Lab: [address] [phone] [facility] COMPREHEN SIVE METABOLIC PANEL CARBON DIOXIDE, TOTAL [MOLES/VOLU ME] IN SERUM OR PLASMA 28 mmol/L 20 - 31 12/22 Specimen Type: PLASMA Comment: Standardize d eGFR Interpretat ion Estimated Glomerular Filtration Rate (eGFR) calculated using the 2020 Chronic Kidney Disease-Epi demiology (CKD-EPI) Collaborati on creatinine equation; units of measure are mL/min/1.73 m2. Results are only valid for adults (?18 years) whose serum creatinine is in a steady state. eGFR calculation s are not valid for patients with acute kidney injury and for patients on dialysis. Creatinine- based estimates of kidney function may also be inaccurate in patients with reduced creatinine generation due to decreased muscle mass (e.g., malnutritio n, severe hypoalbumin emia, sarcopenia, chronic neuromuscul ar disease, amputations , severe heart failure or liver disease) and in patients with increased creatinine generation due to increased muscle mass (e.g., muscle builders, anabolic steroids) or increased dietary intake. As drug clearance is proportiona l to total GFR and not GFR indexed to body surface area (BSA), in individuals with a BSA substantial ly different than 1.73 m2, drug dosing should be based the reported eGFR value de-indexed from BSA by multiplying by the individual' s BSA and dividing by 1.73. CKD is diagnosed based on abnormaliti es of kidney structure or function, present for >3 months, with implication s for health and disease. CKD is classified and staged based on cause, eGFR and albuminuria (quantified as urine albumin to creatinine ratio). An eGFR >60 mL/min/1.73 m2 in the absence of increased urine albumin excretion or structural abnormaliti es does not represent CKD. eGFR CKD stage Interpretat ion (mL/min/1.7 3 m2) >=90 G1 Normal 60-89 G2 Mild decrease 45-59 G3A Mild to moderate decrease 30-44 G3B Moderate to severe decrease 15-29 G4 Severe decrease <15 G5 Kidney failure Ordering Provider: SORAIDA BEARD Report Released Date/Time: Dec 23, 2023 10:30 AM Reporting Lab: [facility] [phone] Performing Lab: [facility]ENTER[facility] [employer] [facility] [id number] [place] COMPREHEN SIVE METABOLIC PANEL CALCIUM [MASS/VOLUM E] IN SERUM OR PLASMA 9.1 mg/dL 8.7 - 10.4 12/22 Specimen Type: PLASMA Comment: Standardize d eGFR Interpretat ion Estimated Glomerular Filtration Rate (eGFR) calculated using the 2020 Chronic Kidney Disease-Epi demiology (CKD-EPI) Collaborati on creatinine equation; units of measure are mL/min/1.73 m2. Results are only valid for adults (?18 years) whose serum creatinine is in a steady state. eGFR calculation s are not valid for patients with acute kidney injury and for patients on dialysis. Creatinine- based estimates of kidney function may also be inaccurate in patients with reduced creatinine generation due to decreased muscle mass (e.g., malnutritio n, severe hypoalbumin emia, sarcopenia, chronic neuromuscul ar disease, amputations , severe heart failure or liver disease) and in patients with increased creatinine generation due to increased muscle mass (e.g., muscle builders, anabolic steroids) or increased dietary intake. As drug clearance is proportiona l to total GFR and not GFR indexed to body surface area (BSA), in individuals with a BSA substantial ly different than 1.73 m2, drug dosing should be based the reported eGFR value de-indexed from BSA by multiplying by the individual' s BSA and dividing by 1.73. CKD is diagnosed based on abnormaliti es of kidney structure or function, present for >3 months, with implication s for health and disease. CKD is classified and staged based on cause, eGFR and albuminuria (quantified as urine albumin to creatinine ratio). An eGFR >60 mL/min/1.73 m2 in the absence of increased urine albumin excretion or structural abnormaliti es does not represent CKD. eGFR CKD stage Interpretat ion (mL/min/1.7 3 m2) >=90 G1 Normal 60-89 G2 Mild decrease 45-59 G3A Mild to moderate decrease 30-44 G3B Moderate to severe decrease 15-29 G4 Severe decrease <15 G5 Kidney failure Ordering Provider: SORAIDA BEARD Report Released Date/Time: Dec 23, 2023 10:30 AM Reporting Lab: [facility] [phone] Performing Lab: [place] [employer] [facility] [phone] [place] COMPREHEN [place]IVE METABOLIC PANEL ALBUMIN [MASS/VOLUM E] IN SERUM OR PLASMA 3.2 g/dL 3.4 - 5.0 12/22 L Specimen Type: PLASMA Comment: Standardize d eGFR Interpretat ion Estimated Glomerular Filtration Rate (eGFR) calculated using the 2020 Chronic Kidney Disease-Epi demiology (CKD-EPI) Collaborati on creatinine equation; units of measure are mL/min/1.73 m2. Results are only valid for adults (?18 years) whose serum creatinine is in a steady state. eGFR calculation s are not valid for patients with acute kidney injury and for patients on dialysis. Creatinine- based estimates of kidney function may also be inaccurate in patients with reduced creatinine generation due to decreased muscle mass (e.g., malnutritio n, severe hypoalbumin emia, sarcopenia, chronic neuromuscul ar disease, amputations , severe heart failure or liver disease) and in patients with increased creatinine generation due to increased muscle mass (e.g., muscle builders, anabolic steroids) or increased dietary intake. As drug clearance is proportiona l to total GFR and not GFR indexed to body surface area (BSA), in individuals with a BSA substantial ly different than 1.73 m2, drug dosing should be based the reported eGFR value de-indexed from BSA by multiplying by the individual' s BSA and dividing by 1.73. CKD is diagnosed based on abnormaliti es of kidney structure or function, present for >3 months, with implication s for health and disease. CKD is classified and staged based on cause, eGFR and albuminuria (quantified as urine albumin to creatinine ratio). An eGFR >60 mL/min/1.73 m2 in the absence of increased urine albumin excretion or structural abnormaliti es does not represent CKD. eGFR CKD stage Interpretat ion (mL/min/1.7 3 m2) >=90 G1 Normal 60-89 G2 Mild decrease 45-59 G3A Mild to moderate decrease 30-44 G3B Moderate to severe decrease 15-29 G4 Severe decrease <15 G5 Kidney failure Ordering Provider: SORAIDA BEARD Report Released Date/Time: Dec 23, 2023 10:30 AM Reporting Lab: [place] [employer] [facility] [phone] Performing Lab: [place] [facility] [id number] [place] COMPREHEN SIVE METABOLIC PANEL BILIRUBIN.T OTAL [MASS/VOLUM E] IN SERUM OR PLASMA 0.3 mg/dL 0.3 - 1.2 12/22 Specimen Type: PLASMA Comment: Standardize d eGFR Interpretat ion Estimated Glomerular Filtration Rate (eGFR) calculated using the 2020 Chronic Kidney Disease-Epi demiology (CKD-EPI) Collaborati on creatinine equation; units of measure are mL/min/1.73 m2. Results are only valid for adults (?18 years) whose serum creatinine is in a steady state. eGFR calculation s are not valid for patients with acute kidney injury and for patients on dialysis. Creatinine- based estimates of kidney function may also be inaccurate in patients with reduced creatinine generation due to decreased muscle mass (e.g., malnutritio n, severe hypoalbumin emia, sarcopenia, chronic neuromuscul ar disease, amputations , severe heart failure or liver disease) and in patients with increased creatinine generation due to increased muscle mass (e.g., muscle builders, anabolic steroids) or increased dietary intake. As drug clearance is proportiona l to total GFR and not GFR indexed to body surface area (BSA), in individuals with a BSA substantial ly different than 1.73 m2, drug dosing should be based the reported eGFR value de-indexed from BSA by multiplying by the individual' s BSA and dividing by 1.73. CKD is diagnosed based on abnormaliti es of kidney structure or function, present for >3 months, with implication s for health and disease. CKD is classified and staged based on cause, eGFR and albuminuria (quantified as urine albumin to creatinine ratio). An eGFR >60 mL/min/1.73 m2 in the absence of increased urine albumin excretion or structural abnormaliti es does not represent CKD. eGFR CKD stage Interpretat ion (mL/min/1.7 3 m2) >=90 G1 Normal 60-89 G2 Mild decrease 45-59 G3A Mild to moderate decrease 30-44 G3B Moderate to severe decrease 15-29 G4 Severe decrease <15 G5 Kidney failure Ordering Provider: SORAIDA BEARD Report Released Date/Time: Dec 23, 2023 10:30 AM Reporting Lab: [place] [employer] [facility] [phone] Performing Lab: [place] [employer] [facility] [phone] [facility] COMPREHEN [facility] METABOLIC PANEL ASPARTATE AMINOTRANSF ERASE [ENZYMATIC ACTIVITY/VO LUME] IN SERUM OR PLASMA 13 U/L 0 - 33.9 12/22 Specimen Type: PLASMA Comment: Standardize d eGFR Interpretat ion Estimated Glomerular Filtration Rate (eGFR) calculated using the 2020 Chronic Kidney Disease-Epi demiology (CKD-EPI) Collaborati on creatinine equation; units of measure are mL/min/1.73 m2. Results are only valid for adults (?18 years) whose serum creatinine is in a steady state. eGFR calculation s are not valid for patients with acute kidney injury and for patients on dialysis. Creatinine- based estimates of kidney function may also be inaccurate in patients with reduced creatinine generation due to decreased muscle mass (e.g., malnutritio n, severe hypoalbumin emia, sarcopenia, chronic neuromuscul ar disease, amputations , severe heart failure or liver disease) and in patients with increased creatinine generation due to increased muscle mass (e.g., muscle builders, anabolic steroids) or increased dietary intake. As drug clearance is proportiona l to total GFR and not GFR indexed to body surface area (BSA), in individuals with a BSA substantial ly different than 1.73 m2, drug dosing should be based the reported eGFR value de-indexed from BSA by multiplying by the individual' s BSA and dividing by 1.73. CKD is diagnosed based on abnormaliti es of kidney structure or function, present for >3 months, with implication s for health and disease. CKD is classified and staged based on cause, eGFR and albuminuria (quantified as urine albumin to creatinine ratio). An eGFR >60 mL/min/1.73 m2 in the absence of increased urine albumin excretion or structural abnormaliti es does not represent CKD. eGFR CKD stage Interpretat ion (mL/min/1.7 3 m2) >=90 G1 Normal 60-89 G2 Mild decrease 45-59 G3A Mild to moderate decrease 30-44 G3B Moderate to severe decrease 15-29 G4 Severe decrease <15 G5 Kidney failure Ordering Provider: SORAIDA BEARD Report Released Date/Time: Dec 23, 2023 10:30 AM Reporting Lab: [place] [employer] [facility] [phone] Performing Lab: [place] [employer] [facility] [phone] [facility] COMPREHEN SIVE METABOLIC PANEL PROTEIN [MASS/VOLUM E] IN SERUM OR PLASMA 6.8 g/dL 6.0 - 8.0 12/22 Specimen Type: PLASMA Comment: Standardize d eGFR Interpretat ion Estimated Glomerular Filtration Rate (eGFR) calculated using the 2020 Chronic Kidney Disease-Epi demiology (CKD-EPI) Collaborati on creatinine equation; units of measure are mL/min/1.73 m2. Results are only valid for adults (?18 years) whose serum creatinine is in a steady state. eGFR calculation s are not valid for patients with acute kidney injury and for patients on dialysis. Creatinine- based estimates of kidney function may also be inaccurate in patients with reduced creatinine generation due to decreased muscle mass (e.g., malnutritio n, severe hypoalbumin emia, sarcopenia, chronic neuromuscul ar disease, amputations , severe heart failure or liver disease) and in patients with increased creatinine generation due to increased muscle mass (e.g., muscle builders, anabolic steroids) or increased dietary intake. As drug clearance is proportiona l to total GFR and not GFR indexed to body surface area (BSA), in individuals with a BSA substantial ly different than 1.73 m2, drug dosing should be based the reported eGFR value de-indexed from BSA by multiplying by the individual' s BSA and dividing by 1.73. CKD is diagnosed based on abnormaliti es of kidney structure or function, present for >3 months, with implication s for health and disease. CKD is classified and staged based on cause, eGFR and albuminuria (quantified as urine albumin to creatinine ratio). An eGFR >60 mL/min/1.73 m2 in the absence of increased urine albumin excretion or structural abnormaliti es does not represent CKD. eGFR CKD stage Interpretat ion (mL/min/1.7 3 m2) >=90 G1 Normal 60-89 G2 Mild decrease 45-59 G3A Mild to moderate decrease 30-44 G3B Moderate to severe decrease 15-29 G4 Severe decrease <15 G5 Kidney failure Ordering Provider: SORAIDA BEARD Report Released Date/Time: Dec 23, 2023 10:30 AM Reporting Lab: [place] [employer] [facility] [phone] Performing Lab: [place] [employer] [facility] [phone] IRIS BARONE METABOLIC PANEL ANION GAP IN SERUM OR PLASMA 8 mmol/L 10 - 20 12/22 L Specimen Type: PLASMA Comment: Standardize d eGFR Interpretat ion Estimated Glomerular Filtration Rate (eGFR) calculated using the 2020 Chronic Kidney Disease-Epi demiology (CKD-EPI) Collaborati on creatinine equation; units of measure are mL/min/1.73 m2. Results are only valid for adults (?18 years) whose serum creatinine is in a steady state. eGFR calculation s are not valid for patients with acute kidney injury and for patients on dialysis. Creatinine- based estimates of kidney function may also be inaccurate in patients with reduced creatinine generation due to decreased muscle mass (e.g., malnutritio n, severe hypoalbumin emia, sarcopenia, chronic neuromuscul ar disease, amputations , severe heart failure or liver disease) and in patients with increased creatinine generation due to increased muscle mass (e.g., muscle builders, anabolic steroids) or increased dietary intake. As drug clearance is proportiona l to total GFR and not GFR indexed to body surface area (BSA), in individuals with a BSA substantial ly different than 1.73 m2, drug dosing should be based the reported eGFR value de-indexed from BSA by multiplying by the individual' s BSA and dividing by 1.73. CKD is diagnosed based on abnormaliti es of kidney structure or function, present for >3 months, with implication s for health and disease. CKD is classified and staged based on cause, eGFR and albuminuria (quantified as urine albumin to creatinine ratio). An eGFR >60 mL/min/1.73 m2 in the absence of increased urine albumin excretion or structural abnormaliti es does not represent CKD. eGFR CKD stage Interpretat ion (mL/min/1.7 3 m2) >=90 G1 Normal 60-89 G2 Mild decrease 45-59 G3A Mild to moderate decrease 30-44 G3B Moderate to severe decrease 15-29 G4 Severe decrease <15 G5 Kidney failure Ordering Provider: SORAIDA BEARD Report Released Date/Time: Dec 23, 2023 10:30 AM Reporting Lab: [place] [employer] [facility] [phone] Performing Lab: [place] [employer] [facility] [phone] [place] COMPREHEN SIVE METABOLIC PANEL ALKALINE PHOSPHATASE [ENZYMATIC ACTIVITY/VO LUME] IN SERUM OR PLASMA 136 U/L 46 - 116 12/22 H Specimen Type: PLASMA Comment: Standardize d eGFR Interpretat ion Estimated Glomerular Filtration Rate (eGFR) calculated using the 2020 Chronic Kidney Disease-Epi demiology (CKD-EPI) Collaborati on creatinine equation; units of measure are mL/min/1.73 m2. Results are only valid for adults (?18 years) whose serum creatinine is in a steady state. eGFR calculation s are not valid for patients with acute kidney injury and for patients on dialysis. Creatinine- based estimates of kidney function may also be inaccurate in patients with reduced creatinine generation due to decreased muscle mass (e.g., malnutritio n, severe hypoalbumin emia, sarcopenia, chronic neuromuscul ar disease, amputations , severe heart failure or liver disease) and in patients with increased creatinine generation due to increased muscle mass (e.g., muscle builders, anabolic steroids) or increased dietary intake. As drug clearance is proportiona l to total GFR and not GFR indexed to body surface area (BSA), in individuals with a BSA substantial ly different than 1.73 m2, drug dosing should be based the reported eGFR value de-indexed from BSA by multiplying by the individual' s BSA and dividing by 1.73. CKD is diagnosed based on abnormaliti es of kidney structure or function, present for >3 months, with implication s for health and disease. CKD is classified and staged based on cause, eGFR and albuminuria (quantified as urine albumin to creatinine ratio). An eGFR >60 mL/min/1.73 m2 in the absence of increased urine albumin excretion or structural abnormaliti es does not represent CKD. eGFR CKD stage Interpretat ion (mL/min/1.7 3 m2) >=90 G1 Normal 60-89 G2 Mild decrease 45-59 G3A Mild to moderate decrease 30-44 G3B Moderate to severe decrease 15-29 G4 Severe decrease <15 G5 Kidney failure Ordering Provider: SORAIDA BEARD Report Released Date/Time: Dec 23, 2023 10:30 AM Reporting Lab: [place] [employer] [facility] [phone] Performing Lab: [place] [employer] [facility] [phone] [facility] I COMPREHEN SIVE METABOLIC PANEL ALANINE AMINOTRANSF ERASE [ENZYMATIC ACTIVITY/VO LUME] IN SERUM OR PLASMA BY WITH P-5'-P 9 U/L 10 - 49 12/22 L Specimen Type: PLASMA Comment: Standardize d eGFR Interpretat ion Estimated Glomerular Filtration Rate (eGFR) calculated using the 2020 Chronic Kidney Disease-Epi demiology (CKD-EPI) Collaborati on creatinine equation; units of measure are mL/min/1.73 m2. Results are only valid for adults (?18 years) whose serum creatinine is in a steady state. eGFR calculation s are not valid for patients with acute kidney injury and for patients on dialysis. Creatinine- based estimates of kidney function may also be inaccurate in patients with reduced creatinine generation due to decreased muscle mass (e.g., malnutritio n, severe hypoalbumin emia, sarcopenia, chronic neuromuscul ar disease, amputations , severe heart failure or liver disease) and in patients with increased creatinine generation due to increased muscle mass (e.g., muscle builders, anabolic steroids) or increased dietary intake. As drug clearance is proportiona l to total GFR and not GFR indexed to body surface area (BSA), in individuals with a BSA substantial ly different than 1.73 m2, drug dosing should be based the reported eGFR value de-indexed from BSA by multiplying by the individual' s BSA and dividing by 1.73. CKD is diagnosed based on abnormaliti es of kidney structure or function, present for >3 months, with implication s for health and disease. CKD is classified and staged based on cause, eGFR and albuminuria (quantified as urine albumin to creatinine ratio). An eGFR >60 mL/min/1.73 m2 in the absence of increased urine albumin excretion or structural abnormaliti es does not represent CKD. eGFR CKD stage Interpretat ion (mL/min/1.7 3 m2) >=90 G1 Normal 60-89 G2 Mild decrease 45-59 G3A Mild to moderate decrease 30-44 G3B Moderate to severe decrease 15-29 G4 Severe decrease <15 G5 Kidney failure Ordering Provider: SORAIDA BEARD Report Released Date/Time: Dec 23, 2023 10:30 AM Reporting Lab: [place] [employer] [facility] [id number] Performing Lab: [place] [employer] [facility] [phone] IRIS BARONE METABOLIC PANEL CREATININE [MASS/VOLUM E] IN SERUM OR PLASMA 1.07 mg/dL 0.5 - 1.10 12/22 Specimen Type: PLASMA Comment: Standardize d eGFR Interpretat ion Estimated Glomerular Filtration Rate (eGFR) calculated using the 2020 Chronic Kidney Disease-Epi demiology (CKD-EPI) Collaborati on creatinine equation; units of measure are mL/min/1.73 m2. Results are only valid for adults (?18 years) whose serum creatinine is in a steady state. eGFR calculation s are not valid for patients with acute kidney injury and for patients on dialysis. Creatinine- based estimates of kidney function may also be inaccurate in patients with reduced creatinine generation due to decreased muscle mass (e.g., malnutritio n, severe hypoalbumin emia, sarcopenia, chronic neuromuscul ar disease, amputations , severe heart failure or liver disease) and in patients with increased creatinine generation due to increased muscle mass (e.g., muscle builders, anabolic steroids) or increased dietary intake. As drug clearance is proportiona l to total GFR and not GFR indexed to body surface area (BSA), in individuals with a BSA substantial ly different than 1.73 m2, drug dosing should be based the reported eGFR value de-indexed from BSA by multiplying by the individual' s BSA and dividing by 1.73. CKD is diagnosed based on abnormaliti es of kidney structure or function, present for >3 months, with implication s for health and disease. CKD is classified and staged based on cause, eGFR and albuminuria (quantified as urine albumin to creatinine ratio). An eGFR >60 mL/min/1.73 m2 in the absence of increased urine albumin excretion or structural abnormaliti es does not represent CKD. eGFR CKD stage Interpretat ion (mL/min/1.7 3 m2) >=90 G1 Normal 60-89 G2 Mild decrease 45-59 G3A Mild to moderate decrease 30-44 G3B Moderate to severe decrease 15-29 G4 Severe decrease <15 G5 Kidney failure Ordering Provider: SORAIDA BEARD Report Released Date/Time: Dec 23, 2023 10:30 AM Reporting Lab: [facility] [address] Performing Lab: [facility] PortsSAMPSON REGION[facility] MEDICAL CENTERAmerican [employer] [facility] [phone] IRIS BLANCOEN SIVE METABOLIC PANEL GLOMERULAR FILTRATION RATE/1.73 SQ M.PREDICTED [VOLUME RATE/AREA] IN SERUM, PLASMA OR BLOOD BY CREATININE- BASED FORMULA (CKD-EPI 2020) 77 90 12/22 Specimen Type: PLASMA Comment: Standardize d eGFR Interpretat ion Estimated Glomerular Filtration Rate (eGFR) calculated using the 2020 Chronic Kidney Disease-Epi demiology (CKD-EPI) Collaborati on creatinine equation; units of measure are mL/min/1.73 m2. Results are only valid for adults (?18 years) whose serum creatinine is in a steady state. eGFR calculation s are not valid for patients with acute kidney injury and for patients on dialysis. Creatinine- based estimates of kidney function may also be inaccurate in patients with reduced creatinine generation due to decreased muscle mass (e.g., malnutritio n, severe hypoalbumin emia, sarcopenia, chronic neuromuscul ar disease, amputations , severe heart failure or liver disease) and in patients with increased creatinine generation due to increased muscle mass (e.g., muscle builders, anabolic steroids) or increased dietary intake. As drug clearance is proportiona l to total GFR and not GFR indexed to body surface area (BSA), in individuals with a BSA substantial ly different than 1.73 m2, drug dosing should be based the reported eGFR value de-indexed from BSA by multiplying by the individual' s BSA and dividing by 1.73. CKD is diagnosed based on abnormaliti es of kidney structure or function, present for >3 months, with implication s for health and disease. CKD is classified and staged based on cause, eGFR and albuminuria (quantified as urine albumin to creatinine ratio). An eGFR >60 mL/min/1.73 m2 in the absence of increased urine albumin excretion or structural abnormaliti es does not represent CKD. eGFR CKD stage Interpretat ion (mL/min/1.7 3 m2) >=90 G1 Normal 60-89 G2 Mild decrease 45-59 G3A Mild to moderate decrease 30-44 G3B Moderate to severe decrease 15-29 G4 Severe decrease <15 G5 Kidney failure Ordering Provider: SORAIDA BEARD Report Released Date/Time: Dec 23, 2023 10:30 AM Reporting Lab: [place] [employer] [facility] [phone] Performing Lab: [place] [facility] [phone] [facility] I CBC WITH DIFF LEUKOCYTES [#/VOLUME] CORRECTED FOR NUCLEATED ERYTHROCYTE S IN BLOOD BY AUTOMATED COUNT 7.0 10*3/u L 4.7 - 11 12/22 Specimen Type: BLOOD No comment entered. Ordering Provider: SORAIDA BEARD Report Released Date/Time: Dec 23, 2023 10:30 AM Reporting Lab: [address] [phone] Performing Lab: [address] [address] [place] CBC WITH DIFF ERYTHROCYTE S [#/VOLUME] IN BLOOD BY AUTOMATED COUNT 4.44 10*6/u L 4.5 - 6 12/22 L Specimen Type: BLOOD No comment entered. Ordering Provider: SORAIDA BEARD Report Released Date/Time: Dec 23, 2023 10:30 AM Reporting Lab: [address] [address] Performing Lab: [address] [address] [place] CBC WITH DIFF HEMOGLOBIN [MASS/VOLUM E] IN BLOOD 12.0 g/dL 13.5 - 17.5 12/22 L Specimen Type: BLOOD No comment entered. Ordering Provider: SORAIDA BEARD Report Released Date/Time: Dec 23, 2023 10:30 AM Reporting Lab: [address] [phone] Performing Lab: [address] [address] [facility] CBC WITH DIFF HEMATOCRIT [VOLUME FRACTION] OF BLOOD BY AUTOMATED COUNT 36.8 42 - 52 12/22 L Specimen Type: BLOOD No comment entered. Ordering Provider: SORAIDA BEARD Report Released Date/Time: Dec 23, 2023 10:30 AM Reporting Lab: [address] [address] Performing Lab: [address] [address] [facility] CBC WITH DIFF MCV [ENTITIC VOLUME] BY AUTOMATED COUNT 83.0 fL 82 - 98 12/22 Specimen Type: BLOOD No comment entered. Ordering Provider: SORAIDA BEARD Report Released Date/Time: Dec 23, 2023 10:30 AM Reporting Lab: [address] [address] Performing Lab: [address] [address] [facility] CBC WITH DIFF MCH [ENTITIC MASS] BY AUTOMATED COUNT 26.9 pg 27 - 31 12/22 L Specimen Type: BLOOD No comment entered. Ordering Provider: SORAIDA BEARD Report Released Date/Time: Dec 23, 2023 10:30 AM Reporting Lab: [place] [id number] Performing Lab: [address] CBC WITH DIFF MCHC [MASS/VOLUM E] BY AUTOMATED COUNT 32.5 g/dL 30 - 37 12/22 Specimen Type: BLOOD No comment entered. Ordering Provider: SORAIDA BEARD Report Released Date/Time: Dec 23, 2023 10:30 AM Reporting Lab: [place] [id number] Performing Lab: [place] [id number] [place] [address] CBC WITH DIFF PLATELETS [#/VOLUME] IN BLOOD BY AUTOMATED COUNT 216 10*3/u L 140 - 400 12/22 Specimen Type: BLOOD No comment entered. Ordering Provider: SORAIDA BEARD Report Released Date/Time: Dec 23, 2023 10:30 AM Reporting Lab: [place] [id number] Performing Lab: [place] [phone] [facility] CBC WITH DIFF PLATELET MEAN VOLUME [ENTITIC VOLUME] IN BLOOD BY AUTOMATED COUNT 7.5 fL 8 - 13 12/22 L Specimen Type: BLOOD No comment entered. Ordering Provider: SORAIDA BEARD Report Released Date/Time: Dec 23, 2023 10:30 AM Reporting Lab: [place] [id number] Performing Lab: [address] [phone] [facility] CBC WITH DIFF ERYTHROCYTE DISTRIBUTIO N WIDTH [RATIO] BY AUTOMATED COUNT 16.2 11 - 15 12/22 H Specimen Type: BLOOD No comment entered. Ordering Provider: SORAIDA BEARD Report Released Date/Time: Dec 23, 2023 10:30 AM Reporting Lab: [facility] [address] Performing Lab: [facility] [address] [place] CBC WITH DIFF NEUTROPHILS /100 LEUKOCYTES IN BLOOD BY AUTOMATED COUNT 76.3 45 - 72 12/22 H Specimen Type: BLOOD No comment entered. Ordering Provider: SORAIDA BEARD Report Released Date/Time: Dec 23, 2023 10:30 AM Reporting Lab: [facility] [address] [place] [address] Performing Lab: [address] [address] [place] CBC WITH DIFF MONOCYTES/1 00 LEUKOCYTES IN BLOOD BY AUTOMATED COUNT 6.5 3 - 11 12/22 Specimen Type: BLOOD No comment entered. Ordering Provider: SORAIDA BEARD Report Released Date/Time: Dec 23, 2023 10:30 AM Reporting Lab: [address] [phone] Performing Lab: [facility] [address] [place] CBC WITH DIFF LYMPHOCYTES /100 LEUKOCYTES IN BLOOD BY AUTOMATED COUNT 14.8 17 - 45.0 12/22 L Specimen Type: BLOOD No comment entered. Ordering Provider: SORAIDA BEARD Report Released Date/Time: Dec 23, 2023 10:30 AM Reporting Lab: [facility] [address] Performing Lab: [facility] [address] [place] CBC WITH DIFF EOSINOPHILS /100 LEUKOCYTES IN BLOOD BY AUTOMATED COUNT 2.0 0 - 5 12/22 Specimen Type: BLOOD No comment entered. Ordering Provider: SORAIDA BEARD Report Released Date/Time: Dec 23, 2023 10:30 AM Reporting Lab: [facility] [address] Performing Lab: [facility] [address] [place] CBC WITH DIFF BASOPHILS/1 00 LEUKOCYTES IN BLOOD BY AUTOMATED COUNT 0.4 0 - 2.0 12/22 Specimen Type: BLOOD No comment entered. Ordering Provider: SORAIDA BEARD Report Released Date/Time: Dec 23, 2023 10:30 AM Reporting Lab: [place] [address] Performing Lab: [place] [address] [place] CBC WITH DIFF NEUTROPHILS [#/VOLUME] IN BLOOD BY AUTOMATED COUNT 5.3 10*3/u L 1.8 - 7.8 12/22 Specimen Type: BLOOD No comment entered. Ordering Provider: SORAIDA BEARD Report Released Date/Time: Dec 23, 2023 10:30 AM Reporting Lab: [place] [address] Performing Lab: [place] [address] [facility] CBC WITH DIFF EOSINOPHILS [#/VOLUME] IN BLOOD BY AUTOMATED COUNT 0.1 10*3/u L 0.00 - 0.50 12/22 Specimen Type: BLOOD No comment entered. Ordering Provider: SORAIDA BEARD Report Released Date/Time: Dec 23, 2023 10:30 AM Reporting Lab: [place] [address] Performing Lab: [place] [address] [facility] CBC WITH DIFF BASOPHILS [#/VOLUME] IN BLOOD BY AUTOMATED COUNT 0.0 10*3/u L 0.0 - 0.20 12/22 Specimen Type: BLOOD No comment entered. Ordering Provider: SORAIDA BEARD Report Released Date/Time: Dec 23, 2023 10:30 AM Reporting Lab: [place] [address] Performing Lab: [address] CBC WITH DIFF MONOCYTES [#/VOLUME] IN BLOOD BY AUTOMATED COUNT 0.5 10*3/u L 0.20 - 0.80 12/22 Specimen Type: BLOOD No comment entered. Ordering Provider: SORAIDA BEARD Report Released Date/Time: Dec 23, 2023 10:30 AM Reporting Lab: [address] [address] Performing Lab: [address] [address] [place] CBC WITH DIFF LYMPHOCYTES [#/VOLUME] IN BLOOD BY AUTOMATED COUNT 1.0 10*3/u L 1.00 - 4.00 12/22 Specimen Type: BLOOD No comment entered. Ordering Provider: SORAIDA BEARD Report Released Date/Time: Dec 23, 2023 10:30 AM Reporting Lab: [address] [address] Performing Lab: [address] [address] [place] Encounters Combined list of: 1) Encounters from Department of Veterans Affairs facilities going backup to the last 18 months, not all VA inpatient encounters are included; 2) Encounters from the Department of [facility] facilities going backup to 280 months. Location Location Details Encounter Type Encounter Number Reason For Visit Attending Provider ADM Date DC Date Status Disposition Source [facility] Encounter [id number] 05/24 [facility] [place] [id number] 12[place]21 [facility] [place] [id number] 12/22 [facility] [place] [id number] 12/25 [facility] [facility] [id number] 01/19 [facility] [place] [id number] 01/31 [facility] [place] [id number] 05/23 [facility] [place] [id number] 05/23 [place] [facility] [place] [id number] Diagnos is: ICD-10- CM Z41.8 Encntr for oth proc for purpose oth than [facility] JULES ANN A 05[facility]23 [facility] Outpatient Encounter [id number] 05/23 [place] [facility] TARGETED CASE MANAGEMENT [id number] [place] MAYO Fuentes 05/23 [place] [facility] Outpatient Encounter [id number] 05/28 [place] [facility] Outpatient Encounter [id number] [facility] ANN A 06[facility]01 [facility] CASE MANAGEMENT [id number] Diagnos is: ICD-10- CM Z13.9 Encount er for screeni ng, unspeci BARTOLO Noyola 06/08 [facility] Social History Combined list of available smoking, tobacco, and other social history from Department of Defense and Veterans Affairs facilities. Social History Type Response Date Comment [facility] e Tobacco smoking status [facility] NEVER USED 12/23/2023 [facility] History of tobacco use CA-TOBACCO QUIT 15 YRS OR MORE 01/06/2019 [facility] History of tobacco use TOBACCO LIFETIME NON-USER 02/18/2018 only smoked 2-3 weeks [facility] History of tobacco use TOBACCO LIFETIME NON-USER 08/20/2017 [facility] History of tobacco use TOBACCO LIFETIME NON-USER 02/06/2015 [facility] History of tobacco use TOBACCO FORMER USER 7 YEARS OR MORE 06/19/2014 [facility] History of tobacco use TOBACCO FORMER USER 7 YEARS OR MORE 11/09/2012 [facility] History of tobacco use TOBACCO FORMER USER 7 YEARS OR MORE 04/14/2012 [facility] History of tobacco use TOBACCO LIFETIME NON-USER 03/12/2005 [place] Advance Directives List of completed, amended, or rescinded Advance Directives on record at [facility] facilities. An actual copy of the Directive is not included. Date Advance Directive Provider Source 11/10/2011 ADVANCE DIRECTIVE [place] 10/19/2011 ADVANCE DIRECTIVE DISCUSSION CLAUDIA ROCK RA [facility] 01/20/2000 RESCINDED ADVANCE DIRECTIVE BRITT GRISSOM
[2025-09-16 04:18] VITALS: BP 131/73; PULSE 75; RESP 16; TEMP 36.8; O2SAT 97; BMI 50.2
--- NOTE | 2025-09-16 04:18 | ECG_ITS ---
APPROVED REPORT Exam: Resting ECG HR:69 bpm ECG Measurements Heart Rate 69 AXES WA 208 P 62 QRSd 138 QRS 233 QT 423 T 47 QTc 442 Conclusion SINUS RHYTHM RIGHT AXIS DEVIATION [QRS AXIS > 100] RIGHT BUNDLE BRANCH BLOCK [120+ ms QRS DURATION, UPRIGHT V1, 40+ ms S IN I/aVL/V4/V5/V6] INFERIOR MYOCARDIAL INFARCTION , PROBABLY OLD [40+ ms Q WAVE AND/OR ST/T ABNORMALITY IN II/aVF] ANTEROLATERAL MYOCARDIAL INFARCTION , OF INDETERMINATE AGE [40+ ms Q WAVE IN I/aVL/V3-V6] ABNORMAL ECG Electronically signed by : JAI COHEN, 09/18/2025 08:48:46
--- NOTE | 2025-09-16 04:25 | XR_ITS ---
PROCEDURE INFORMATION: Exam: XR Chest Exam date and time: 09/16/2025 4:54 AM Age: 65 years old Clinical indication: Pain; Left-sided; Additional info: Cp L side TECHNIQUE: Imaging protocol: Radiologic exam of the chest. Views: 1 view. COMPARISON: CR XR CHEST PORTABLE 09/04/2025 11:51 AM FINDINGS: Lungs: The left lung base and to a lesser extent portions of the right lung base are obscured by overlying abdominal pannus soft tissues. There is also lordotic projection of the thorax with some patient rotation. The regions of the lungs are not obscured by extrinsic soft tissues demonstrate no evidence of pulmonary consolidation. Suggestion of subtle right perihilar hazy densities which could be related to infection. Pleural spaces: Limited evaluation. No overt evidence of pleural effusion or pneumothorax. Heart/Mediastinum: The cardiac silhouette is mostly obscured by extrinsic soft tissues. Aortic arch calcification noted. Bones/joints: Degenerative change of the thoracic spine. IMPRESSION: Limited chest radiograph. Consider repeat chest radiograph. Suggestion of subtle right perihilar hazy densities which could be related to infection.
[2025-09-16] MEDS: ASPIRIN 81MG CHEWABLE TABLET 324 MG PO (04:54)
--- OUTSIDE RECORDS SUMMARY | 2025-09-16 04:55 | XMS_ITS | Clinical Summary ---
Author Organization [facility] are Address [address] [place] [address] Phone Care Team Providers Care Alodize Machine Operator Name Role Phone Dale Jeffries MD Primary Care Physician [phone] [ ] Conditions or Problems No information available. Medications No information available. Medications Administered No information available. Allergies, Adverse Reactions, Alerts No information available. Results No information available. Plan of Care No information available. Procedures No information available. Vital Signs No information available. Immunizations No information available. Advance Directives No information available.
--- OUTSIDE RECORDS SUMMARY | 2025-09-16 04:56 | XMS_ITS | Encounter Summary ---
Author Organization [place] [address] Care Team Providers Care Fiberglass Product Tester Name Role Phone Ponce V, DO, Viral Primary Care Provider [phone] Miriam Muller BA, COS Unavailable Unavailable Miriam Muller BA, COS Unavailable Unavailable Rajwinder Landaverde RN Unavailable Unavailable Simran Hdz, COS Unavailable Unavail able Qi Mauricio RN Unavailable Unavailable Jenny Ortega RN Unavailable Unavail able Encounter Details Date Type Department Care Team (Late st Contact Info) Description 05/24/2018 Patient Outreach [facility] [place] [facility] [address] [place] [address] Ponce, Viral V, DO [address] [place] [address] Social History Tobacco Use Types [...] Assessment Author No 04/04/2018 3:30 PM EDT Devnie RMA * Does this person have serious [...] documented as of this encounter Care Teams Fiberglass Product Tester Relationship Specialty Start Date End Date Ponce, Sunny Chavez DO [address] [place] [address] PCP - General Family Medicine 07/22/11 Miriam Muller BA, COS Case Offbearer Sewer Pipe 03/07/1902/18 Miriam Muller BA, COS Case Offbearer Sewer Pipe 03/09/1902/19 Rajwinder Landaverde, RN Trust Vault Clerk 11/20/19 01/28/20 Simran Hdz, BS, COS Case Offbearer Sewer Pipe 01/15/23 02/02/23 Qi Mauricio, RN Trust Vault Clerk Registered Nurse 09/21/23 10/19/23 Jenny Ortega, RN Trust Vault Clerk 09/29/24 10/01/24 documented as of this encounter
--- OUTSIDE RECORDS SUMMARY | 2025-09-16 04:56 | XMS_ITS | Encounter Summary ---
Author Organization [place] [address] Care Team Providers Care Trailer Mechanic Name Role Phone Ponce V, DO, Viral Primary Care Provider [phone] Miriam Muller BA, COS Unavailable Unavailable Miriam Muller BA, COS Unavailable Unavailable Rajwinder Landaverde RN Unavailable Unavailable Simran Hdz, COS Unavailable Unavail able Qi Mauricio RN Unavailable Unavailable Jenny Ortega RN Unavailable Unavail able Encounter Details Date Type Department Care Team (Late st Contact Info) Description 08/04/2018 Patient Out[facility] [address] [place] [address] Ponce, Viral V, DO [address] [place] [address] Social History Tobacco Use Types [...] 102 <=200 mg/dL 10/07/2018 8:27 PM EST [facility] Comment: < 200 Desirable 200 - 239 Borderline High >= 240 High Triglyceride 107 <=150 mg/dL 10/07/2018 8:27 PM EST [facility] Comment: < 150 Normal 150 - 199 Borderline High 200 - 499 High >= 500 Very High HDL 34(L) >=40 mg/dL 10/07/2018 8:27 PM EST [facility] Comment: > 60 Optimal 40 - 60 Acceptable < 40 Low LDL Calculated 47 <=100 mg/dL 10/07/2018 8:27 PM EST [facility] Comment: < 100 Optimal 100 - 129 Near or above optimal 130 - 159 Borderline High 160 - 189 High >= 190 Very High Non-HDL-C Calculated 68 <=129 mg/dL 10/07/2018 8:27 PM EST [facility] Comment: <130 Desirable 130-159 Above Desirable 160-189 Borderline High 190-219 High >= 220 Very High Blood VENOUS BLOOD / Unknown Venipuncture / Unknown 10/07/2018 11:48 AM EST 10/07/2018 11:48 AM EST us Viral Ponce V, DO CHEMISTRY ORDERABLES Final Res ult Performing Organization Address [facility]/ZIP Co de Phone Number [facility] [address] [facility] , [place] [address] * (ABNORMAL) HEPATIC FUNCTION PANEL (10/07/2018 11:48 [...] Res ult Performing Organization Address [facility]/ZIP Co de Phone Number [facility] [address] [facility] , [place] [address] * (ABNORMAL) HEMOGLOBIN A1C (10/07/2018 [...] ORDERABLES Final Res ult [facility] [address] [facility] , [place] [address] * (ABNORMAL) BASIC METABOLIC PANEL (10/07/2018 11:48 [...] mL/min/1.7 3 m2 10/07/2018 8:27 PM EST [facility] GFR Non Afr Am 91 >=60 mL/min/1.7 3 m2 10/07/2018 8:27 PM EST [facility] Comment: This estimated GFR [...] CHEMISTRY ORDERABLES Final Res ult [facility], [place] [address] [facility] [address] [place] [address] documented in this encounter Visit Diagnoses [...] documented as of this encounter Care Teams Trailer Mechanic Relationship Specialty Start Date End Date Sunny Ponce DO [address] [place] [address] PCP - General Family Medicine 07/22/11 Miriam Muller BA, COS Case Grinding And Polishing Laborer 03/07/1902/18 Miriam Muller BA, COS Case Grinding And Polishing Laborer 03/09/1902/19 Rajwinder Landaverde, RN Motorcycle Police Officer 11/20/19 01/28/20 Simran Hdz, BS, COS Case Grinding And Polishing Laborer 01/15/23 02/02/23 Qi Mauricio, RN Motorcycle Police Officer Registered Nurse 09/21/23 10/19/23 Jenny Ortega, RN Motorcycle Police Officer 09/29/24 10/01/24 documented as of this encounter
--- OUTSIDE RECORDS SUMMARY | 2025-09-16 04:56 | XMS_ITS | Encounter Summary ---
Author Organization [place] [address] Care Team Providers Care Enterprise Account Manager Name Role Phone Ponce V, DO, Viral Primary Care Provider [phone] Miriam Muller BA, COS Unavailable Unavailable Miriam Muller BA, COS Unavailable Unavailable Rajwinder Landaverde RN Unavailable Unavailable Simran Hdz, COS Unavailable Unavail able Qi Mauricio RN Unavailable Unavailable Jenny Ortega RN Unavailable Unavail able Encounter Details Date Type Department Care Team (Late st Contact Info) Description 04/20/2018 Patient Outreach [facility] [place] [facility] [address] [place] [address] Ponce, Viral V, DO [address] [place] [address] Social History Tobacco Use Types [...] mg/L 10/07/2018 8:38 PM EST [facility] Creatinine 177.4 mg/dL 10/07/2018 8:38 PM EST [facility] Albumin/Creat Ratio 109(H) 0 - 30 mg/g 10/07/2018 8:38 PM EST [facility] Urine STRUCTURE OF URINARY TRACT PROPER / Unknown 10/07/2018 11:48 AM EST 10/07/2018 11:48 AM EST us Viral Ponce V, DO URINE ORDERABLES Final Result [facility] [address] [facility] , [address] [place] [id number] documented in this encounter Visit Diagnoses Diagnosis [...] documented as of this encounter Care Teams Enterprise Account Manager Relationship Specialty Start Date End Date Sunny Ponce V, DO [address] [place] [address] PCP - General Family Medicine 07/22/11 Miriam Muller BA, COS Case Filling Station Equipment Mechanic 03/07/1902/18 Miriam Muller BA, COS Case Filling Station Equipment Mechanic 03/09/1902/19 Rajwinder Landaverde, RN Junior Underwriter 11/20/19 01/28/20 Simran Hdz BS, COS Case Filling Station Equipment Mechanic 01/15/23 02/02/23 Qi Mauricio, RN Junior Underwriter Registered Nurse 09/21/23 10/19/23 Jenny Ortega, RN Junior Underwriter 09/29/24 10/01/24 documented as of this encounter
--- OUTSIDE RECORDS SUMMARY | 2025-09-16 04:56 | XMS_ITS | Encounter Summary ---
Author Organization [facility] Address [facility] [place] [address] Care Team Providers Care Visual Basic .Net Developer Name Role Phone Kris Chavez DO, Viral Primary Care Provider [phone] Miriam Muller BA, COS Unavailable Unavailable Miriam Muller BA, COS Unavailable Unavailable Rajwinder Landaverde RN Unavailable Unavailable Simran Hdz, COS Unavailable Unavail able iQ Mauricio RN Unavailable Unavailable Jenny Ortega RN Unavailable Unavail able Encounter Details Date Type Department Care Team (Late st Contact Info) Description 02/28/2019 Lab Requisition [facility] CLAUDIA Mauricio [address] S[address] Bobo, DPM [address] [facility], [address] [place] [id number] Cellulitis of left lower extremity Social History [...] Growth(A) 03/03/2019 1:18 PM EDT [facility] Culture Sparse growth of Staphylococcus aureus SUSCEPTIB ILITY RESULT 03/03/2019 1:18 PM EDT [facility] Sparse growth of Streptococcus agalactiae (Group B) SUSCEPTIB ILITY RESULT 03/03/2019 1:18 PM EDT [facility] Comment:Penicillin and Ampic illin are antibiotics of choice for treatment of beta-hemolytic streptococcal infections. Stain Few Gram positive cocci(A) 03/03/2019 1:18 PM EDT [facility] Stain Few Gram positive rods(A) 03/03/2019 1:18 PM EDT [facility] Stain Few WBCs 03/03/2019 1:18 PM EDT [facility] Swab STRUCTURE OF LEFT LOWER LEG / [...] MICROBIOLOGY - GENERAL ORD ERABLES Final Result [facility] [address] [facility] , [place] [address] documented in this encounter Visit Diagnoses Diagnosis [...] documented as of this encounter Care Teams Visual Basic .Net Developer Relationship Specialty Start Date End Date Sunny Ponce V, DO [address] [place] [address] PCP - General Family Medicine 07/22/11 Miriam Muller BA, COS Case Food Broker 03/07/1902/18 Miriam Muller BA, COS Case Food Broker 03/09/1902/19 Rajwinder Landaverde, RN Flight Control Tower Operator 11/20/19 01/28/20 Simran Hdz BS, COS Case Food Broker 01/15/23 02/02/23 Qi Mauricio, RN Flight Control Tower Operator Registered Nurse 09/21/23 10/19/23 Jenny Ortega, RN Flight Control Tower Operator 09/29/24 10/01/24 documented as of this encounter
--- OUTSIDE RECORDS SUMMARY | 2025-09-16 04:56 | XMS_ITS | Encounter Summary ---
Author Organization [place] [address] Care Team Providers Care Webbing Tacker Name Role Phone Ponce V, DO, Viral Primary Care Provider [phone] Miriam Muller BA, COS Unavailable Unavailable Miriam Muller BA, COS Unavailable Unavailable Rajwinder Landaverde RN Unavailable Unavailable Simran Hdz, COS Unavailable Unavail able Qi Mauricio RN Unavailable Unavailable Jenny Ortega RN Unavailable Unavail able Encounter Details Date Type Department Care Team (Late st Contact Info) Description 06/29/2018 Patient Outreach [facility] [address] [place] [address] Ponce, Viral V, DO [address] [place] [address] Social History Tobacco Use Types [...] documented as of this encounter Care Teams Webbing Tacker Relationship Specialty Start Date End Date Ponce, Sunny Chavez DO [address] [place] [address] PCP - General Family Medicine 07/22/11 Miriam Muller BA, COS Case Airframe Technical Officer 03/07/1902/18 Miriam Muller BA, COS Case Airframe Technical Officer 03/09/1902/19 Rajwinder Landaverde, RN Boat Deckhand 11/20/19 01/28/20 Simran Hdz, BS, COS Case Airframe Technical Officer 01/15/23 02/02/23 Qi Mauricio, RN Boat Deckhand Registered Nurse 09/21/23 10/19/23 Jenny Ortega, RN Boat Deckhand 09/29/24 10/01/24 documented as of this encounter
--- OUTSIDE RECORDS SUMMARY | 2025-09-16 04:56 | XMS_ITS | Encounter Summary ---
Author [place] [address] Care Team Providers Care Catering Staff Member Name Role Phone Ponce V, DO, Viral Primary Care Provider [phone] Miriam Muller BA, COS Unavailable Unavailable Miriam Muller BA, COS Unavailable Unavailable Rajwinder Landaverde RN Unavailable Unavailable Simran Hdz, COS Unavailable Unavail able Qi Mauricio RN Unavailable Unavailable Jenny Ortega RN Unavailable Unavail able Encounter Details Date Type Department Care Team (Late st Contact Info) Description 09/08/2018 Patient Outreach [facility] [place] [facility] [address] [place] [address] Ponce, Viral V, DO [address] [place] [address] Social History Tobacco Use Types [...] documented as of this encounter Care Teams Catering Staff Member Relationship Specialty Start Date End Date Sunny Ponce DO [address] [place] [address] PCP - General Family Medicine 07/22/11 Miriam Muller BA, COS Case Upholstery Restorer 03/07/1902/18 Miriam Muller BA, COS Case Upholstery Restorer 03/09/1902/19 Rajwinder Landaverde, RN Food Service Assistant 11/20/19 01/28/20 Simran Hdz BS, COS Case Upholstery Restorer 01/15/23 02/02/23 Qi Mauricio, RN Food Service Assistant Registered Nurse 09/21/23 10/19/23 Jenny Ortega, RN Food Service Assistant 09/29/24 10/01/24 documented as of this encounter
--- OUTSIDE RECORDS SUMMARY | 2025-09-16 04:56 | XMS_ITS | Encounter Summary ---
Author Organization [place] [address] Care Team Providers Care Compliance Attorney Name Role Phone Ponce V, DO, Viral Primary Care Provider [phone] Miriam Muller BA, COS Unavailable Unavailable Miriam Muller BA, COS Unavailable Unavailable Rajwinder Landaverde RN Unavailable Unavailable Simran Hdz, COS Unavailable Unavail able Qi Mauricio RN Unavailable Unavailable Jenny Ortega RN Unavailable Unavail able Encounter Details Date Type Department Care Team (Late st Contact Info) Description 03/17/2018 Patient Outreach [facility] [place] [address] [place] [address] Ponce, Viral V, DO [address] [place] [address] Social History Tobacco Use Types [...] Interventions Assess pain status. Assess wound size, zohu wound, drainage and odor. Educate patient and [...] documented as of this encounter Care Teams Compliance Attorney Relationship Specialty Start Date End Date Sunny Ponce DO [address] [place] [address] PCP - General Family Medicine 07/22/11 Miriam Muller BA, COS Case Customer Support Advisor 03/07/1902/18 Miriam Muller BA, COS Case Customer Support Advisor 03/09/1902/19 Rajwinder Landaverde, RN Sustainable Development Policy Analyst 11/20/19 01/28/20 Simran Hdz BS, COS Case Customer Support Advisor 01/15/23 02/02/23 Qi Mauricio, RN Sustainable Development Policy Analyst Registered Nurse 09/21/23 10/19/23 Jenny Ortega, RN Sustainable Development Policy Analyst 09/29/24 10/01/24 documented as of this encounter
--- OUTSIDE RECORDS SUMMARY | 2025-09-16 04:56 | XMS_ITS | Clinical Summary ---
Author Organization [facility] Address [address] [place] [address] [place] [address] Phone Care Team Providers Care Field Support Rep Name Role Phone Kris Chavez DO, Viral Primary Care Provider [phone] Allergies Active Allergy Reactions Criticality Noted Date [...] Each 11 07/16/20 23 Active Blood-Glucose Meter [facility] KitIndications:DM type 2 (diabetes mellitus, type 2) ([facility]) Test twice daily 1 Kit 07/16/20 23 Active cyanocobalamin 1,000 mcg Oral Tablet Take 1,000 mcg by mouth daily. Active Lancets [facility] MiscIndications:DM type 2 (diabetes [...] No results found for this basename: MICROALBUR, [id number], URINEMICROAL Retinopathy unavailable Neuropathy negative Hypertension complicating [...] fat layer exposed 12/16/2017 08/18/2018 Atherosclerosis of [place] of left leg with ulceration of other part of lower left leg 01/16/2016 08/05/2017 Atherosclerosis of [place] of right leg with ulceration [...] SEP P [address] [place] [address] Sunny Ponce V, DO Central [...] TOE AMPUTATION; Surgeon: Moe Guerrero DPM; Location: [facility] MAIN OR; Service: Podiatry IR PICC INSERTION EQUAL OR > 5 YEARS 08/07/2023 IR PICC INSERTION EQUAL OR > 5 YEARS 08/07/2023 Sujey Suresh PA-C [facility] IR FOOT SURGERY 08/09/2023 Foot/Ankle/Left LEFT FOOT INCISION AND DRAINAGE HEEL DEBRIDMENT with SKIN SUBSTITUTE; Surgeon: Ramírez Garcia DPM; Location: [facility] MAIN OR; Service: Podiatry Medical devices from this surgery are in the Medical Devices section. FOOT SURGERY 09/12/2023 Foot/Ankle/Left INCISION AND DRAINAGE/DEBRIDEMENT left foot; Surgeon: Angelia Vences DPM; Location: [facility] MAIN OR; Service: Podiatry FOOT SURGERY 09/15/2023 Foot/Ankle/Left LEFT FOOT [place] AMPUTATION WITH DELAYED PRIMARY CLOSURE; Surgeon: Angelia Vences DPM; Location: [facility] MA[facility] OR; Service: Podiatry LAYER WOUND CLOSURE 09/15/2023 Left Surgeon: Angelia Vences DPM; Location: [facility] MA[facility] OR; Service: Podiatry TOE SURGERY 09/27/2024 Foot/Ankle/Right RIGHT FOOT THIRD TOE AMPUTATION; Surgeon: Angelia Vences DPM; Location: [facility] MA[facility] OR; Service: Podiatry Medical History Medical History Date Comments Unspecified sleep apnea Rheumatic disease as child CHF (congestive heart failure) ([facility]) Heart murmur Hypertension Arthritis Cancer (HCC) skin cancer face Morbid obesity ([facility]) Diabetes mellitus ([facility]) type II Red bugs DC (myocardial infarction) ([facility]) x2 Diabetic ulcer of left heel associated with type 2 diabetes mellitus, with fat layer exposed ([facility]) 08/04/2023 Diabetic ulcer of toe of lef t foot associated with diabetes mellitus due to underlying condition, with fat layer exposed ([facility]) 08/04/2023 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 No 09/26/2024 Overall Financial Resource Strain (CARDIA) Answe r Date Recorded How hard is it for you to pa y for the very basics like food, housing, medical care, and heating? Somewhat hard 09/26/2024 PHQ-2 Answer Date Recorded PHQ-2 Total Score 2 09/26/2024 [facility] - Occupational [...] 09/14/2023 [facility] IP Transportation Answer D ate Recorded [...] [employer] Medical Devices Implanted Type Area Burn Table Operator Device Identifier Shelf Expiration Date Model / Serial / Lot Graft Tissue Myriad Thin 5 X 5cm - [id number] Implanted:Qty: 1 on 08/09/2023 by Ramírez Garcia DPM at [facility] Left: Foot [employer] 12/18/2025 [id number] / / [id number] Procedures Procedure Name [...] - 145 mmol/L 09/28/2024 4:39 AM EST [facility] Potassium 4.3 3.5 - 5.0 mmol/L 09/28/2024 4:39 AM EST [facility] Chloride 103 98 - 107 mmol/L 09/28/2024 4:39 AM EST [facility] Total CO2 25 22 - 29 mmol/L 09/28/2024 4:39 AM EST [facility] Anion Gap 7 7 - 16 mmol/L 09/28/2024 4:39 AM EST [facility] Calcium 8.4(L) 8.8 - 10.4 mg/dL 09/28/2024 4:39 AM EST [facility] Glucose Lvl 167(H) 70 - 99 mg/dL 09/28/2024 4:39 AM EST [facility] BUN 21 8 - 23 mg/dL 09/28/2024 4:39 AM EST [facility] Creatinine 1.21 0.67 - 1.30 mg/dL 09/28/2024 4:39 AM [facility] eGFR (CKD-EPIcr 2020) 66 >=60 mL/min/1.7 3 m2 09/28/2024 4:39 AM EST [facility] Comment:Estimated GFR was ca lculated using the CKD-EPIcr (2020) equation refit without race. The equation is recommended by the National Kid[employer] - [place] [employer] Nephrology Task Force. Blood VENOUS BLOOD / Unknown Venipuncture / Unknown 09/28/2024 3:34 AM EST 09/28/2024 4:00 AM EST Angelia Vences DPM CHEMISTRY ORDERABLES Rebekah adrien Result [facility] [address] [place] [address] * (ABNORMAL) HEMOGLOBIN A1C (09/25/2024 11:51 AM EST) Pathologist [facility] Hgb A1C 8.7(H) 4.2 - 5.6 % 09/25/2024 1:42 PM EST [facility] Est. Avg Glucose 203 mg/dL 09/25/2024 1:42 PM EST [facility] Blood VENOUS BLOOD / Unknown Venipuncture / Unknown 09/25/2024 11:51 AM EST 09/25/2024 11:55 AM EST Narrative [facility] [employer], [facility] - 09/25/2024 1:42 PM EST REFERENCE RANGE: Normal: 4.0-5.6% Pre-diabetes: 5.7-6.4% Provisional diagnosis of diabetes: >6.4% Hgb F>10% and anything which shortens red cell survival, such as hemolytic anemia, or unstable hemoglobin variants such as HbSS, HbSC, or HbCC, will lower the HbA1c value associated with a given level of glycemic control. us Carolynn Thomas MD CHEMISTRY ORDERABLES Final R esult [facility] [address] [facility] , [place] [address] [facility] [address] [place] [address] * (ABNORMAL) LIPID PANEL REFLEX (05/30/2024 3:15 PM EDT) [facility] Cholesterol 118 <200 mg/dL 05/30/2024 9:22 PM EDT [facility] [employer] Comment: < 200 Desirable 200 - 239 Borderline High >= 240 High Triglyceride 93 <150 mg/dL 05/30/2024 9:22 PM EDT [facility] [employer] Comment: < 150 Normal 150 - 199 Borderline High 200 - 499 High >= 500 Very High HDL 35(L) >=40 mg/dL 05/30/2024 9:22 PM EDT [facility] Comment: > 60 Optimal 40 - 60 Acceptable < 40 Low LDL Calculated 65 <100 mg/dL 05/30/2024 9:22 PM EDT [facility] Non-HDL-C Calculated 83 <=129 mg/dL 05/30/2024 9:22 PM EDT [facility] Comment: <130 Desirable 130-159 Above Desirable 160-189 Borderline High 190-219 High >= 220 Very High Fasting Specimen? No None 024 9:22 PM EDT [facility] Blood VENOUS BLOOD / Unknown Venipuncture / Unknown 05/30/2024 3:15 PM EDT 05/30/2024 3:15 PM EDT Viral Ponce V, DO CHEMISTRY ORDERABLES Final Res ult Performing Organization Address [facility] de Phone Number [facility] [address] [place] [address] , [place] [address] [facility] [address] [place] [address] * HM FIT (05/14/2020) Pathologist [facility] Fecal Immunochemical Test Negative Negative SEP OFFICE Historical Provider HEALTH MAINTENANCE Final Res ult Performing Organization Address [facility] de Phone Number SEP OFFICE * HEPATITIS C ANTIBODY - SCREENING (10/07/2018 11:48 AM EST) Pathologist [facility] Hep C Ab Non-Reactiv e Non-Reacti ve 10/07/2018 9:07 PM EST [facility] Blood VENOUS BLOOD / Unknown Venipuncture / Unknown 10/07/2018 11:48 AM EST 10/07/2018 11:48 AM EST Viral Ponce V, DO HEMATOLOGY ORDERABLES Final Re sult Performing Organization Address [facility] de Phone Number [employer] [address] [facility] , [place] [address] * (ABNORMAL) MICROALBUMIN/CREATININE RATIO URINE (10/07/2018 11:48 AM EST) Pathologist [facility] Urine Albumin 192.5 mg/L 10/07/2018 8:38 PM EST [employer] Urine Creatinine 177.4 mg/dL 10/07/2018 8:38 PM EST [employer] Ur Albumin/Creat Ratio 109(H) 0 - 30 mg/g 10/07/2018 8:38 PM EST [facility] STRUCTURE OF URINARY TRACT PROPER / Unknown 10/07/2018 11:48 AM EST 10/07/2018 11:48 AM EST us Viral Ponce V, DO URINE ORDERABLES Final Result [facility] [address] [facility] , [place] [address] * DIABETES EYE EXAM (02/18/2018) Left Diabetic [...] Advance Directives For more information, please contact: [phone] * Full Code (Latest Code Status on [...] 7:40 PM 06/09/2023 9:48 PM Care Teams Field Support Rep Relationship Specialty Start Date End Date Sunny Ponce DO [address] [place] [id number] PCP - General Family Medicine 07/22/11
[2025-09-16] MEDS: NITROGLYCERIN 0.4MG SL TABLET 0.4 MG SL (04:58)
[2025-09-16 05:24] LABS: Lactate Venous 2.0 mmol/L (0.4-2.0); VBG HCO3 23.6 mmol/L (23-30); VBG PCO2 44.8 mmol/L (35-51); VBG PH 7.34 mmol/L (7.31-7.41); VBG PO2 57.3 mmol/L (28-40)
[2025-09-16 05:30] LABS: Hematocrit 44.1 % (42.0-52.0); Hemoglobin 14.8 g/dL (14.1-18.0); Immature Granulocytes % 0.3 %; Mean Corpuscular HGB Conc 33.6 g/dL (31.8-35.4); Mean Corpuscular Hemoglobin 30.5 pg (27.0-31.2); Mean Corpuscular Volume 90.7 fl (80-94); Nucleated Red Blood Cells % 0 %; Platelet Count 183 K/mm3 (142-424); Red Blood Count 4.86 M/mm3 (4.60-6.20); Red Cell Distribution Width-SD 47.0 fL; White Blood Count 7.1 K/mm3 (4.8-10.8)
[2025-09-16 05:41] LABS: Albumin Level 3.9 g/dl (3.5-5.0); Chloride 103 mmol/L (98-107)
[2025-09-16 05:42] LABS: D-Dimer 0.42 ug/mL (0.0-0.5); Potassium 4.1 mmoL/L (3.5-5.1); Sodium 137 mmol/L (136-145)
[2025-09-16 05:44] LABS: Alanine Aminotransferase 19 U/L (12-78); Anion Gap 10.1 mEq/L (5-15); Aspartate Amino Transferase 24 U/L (17-59); Blood Urea Nitrogen 21 mg/dl (9-20); Carbon Dioxide 28 mmol/L (22.0-30.0); Creatinine Clearance Estimated 77 mL/min (50-200); Creatinine,Serum 0.90 mg/dl (0.66-1.25); Estimated Glomerular Filt Rate 84 ml/min (>60); GFR (African American) 102 ML/MIN (>60)
[2025-09-16 05:45] LABS: Albumin/Globulin Ratio 1.3 (1.1-1.8); Alkaline Phosphatase 125 U/L (38-126); Bilirubin,Total 0.6 mg/dl (0.2-1.3); Calcium 9.5 mg/dl (8.4-10.2); Globulin 2.9 g/dL (1.3-3.2); Glucose 173 mg/dl (74-100); Total Protein,Serum 6.8 g/dl (6.3-8.2)
[2025-09-16 05:54] LABS: NT Pro Brain Natriuretic Pep. 1730 pg/mL (0-125)
[2025-09-16 06:00] LABS: Troponin I < 0.01 ng/ml (0.00-0.034)
[2025-09-16] MEDS: FUROSEMIDE 40MG/4ML VIAL 40 MG IV (06:05)
--- NOTE | 2025-09-16 06:32 | ED_ITS ---
Discharge Plan Disposition Patient Disposition: Home, Self-Care Prescriptions Prescriptions: No Action isosorbide mononitrate 60 mg tablet extended release 24 hr 60 mg PO DAILY Qty: 30 2RF glimepiride 4 mg tablet 4 mg PO DAILY cyanocobalamin (vitamin B-12) 1,000 mcg Tablet 1,000 mcg PO DAILY carvedilol 3.125 mg Tablet 3.125 mg PO BID 30 Days Qty: 60 0RF pantoprazole 40 mg Tablet,Delayed Release (Dr/Ec) 40 mg PO HS 30 Days Qty: 30 0RF Jardiance 10 mg Tablet 10 mg PO DAILY 30 Days Qty: 30 0RF Entresto 24-26 mg Tablet 1 tab PO BID 30 Days Qty: 60 0RF furosemide [Lasix] 40 mg tablet 40 mg PO BIDL 30 Days Qty: 60 0RF atorvastatin 40 mg tablet 40 mg PO DAILY 30 Days Qty: 30 0RF metformin 850 mg tablet 850 mg PO BIDWMEAL 30 Days Qty: 60 0RF aspirin 81 mg tablet 81 mg PO DAILY Qty: 30 0RF prasugrel HCl 10 mg Tablet 10 mg PO DAILY 30 Days Qty: 30 0RF Referrals Follow up/Referrals: Mike Cunningham MD [Primary Care Provider, Internal Medicine] - See instructions Activity Restrictions/Add. Instructions Additional Instructions/Restrictions: At this time it was felt you are safe to be discharged home. If new or worsening symptoms please do not hesitate to return the emergency department. Please follow-up with cardiology as discussed your appointment is 12?31 at 0900. Clinical Impressions Clinical Impression: Chest pain, Morbid obesity Print Language Print Language: Yi Discharge ED Provider: Franklin Blake HPI <Franklin Blake MD - Last Filed: 09/16/25 06:57> General Chief Complaint: Chest Pain Stated Complaint: Chest Pain Time Seen by Provider: 09/16/25 04:25 Mode of Arrival: EMS Source of Information: Patient and EMS Description of Symptoms (Recalled from ER Triage Doc. by RN): pt reports left sided chest pressure that began 2 hours ago, pt reports nursing facility gave him 3 nitro sublingual tabs and felt slight relief. pt reports no radiation at this time History of Present Illness HPI narrative: 65-year-old male presents to the ER from [facility] and rehab with [facility] for chest pain beginning 2 hours prior to arrival. He reports chest tightness but no shortness of breath. Denies headache, dizziness, numbness, tingling, or weakness. No associated nausea, vomiting, or diarrhea. Denies any radiation of pain. He does have a history of stents placed in February. He states he took 3 nitro prior to arrival with some relief of symptoms. He has a history of CHF, diabetes, NSTEMI, bipolar, morbid obesity, hypertensive heart disease, right bundle branch block. He has no recent illness. No other complaints or concerns. Related Data Home Medications ?Medication ?Instructions ?Recorded ?Confirmed glimepiride 4 mg tablet 4 mg PO DAILY 02/23/2509/04 cyanocobalamin (vitamin B-12) 1,000 mcg PO DAILY 02/2409/04/25 1,000 mcg tablet Previous Rx's ?Medication ?Instructions ?Recorded aspirin 81 mg tablet 81 mg PO DAILY #30 tabs 02/18 atorvastatin 40 mg tablet 40 mg PO DAILY 30 days #30 t abs 02/27/25 carvedilol 3.125 mg tablet 3.125 mg PO BID 30 days #60 tabs 02/27/25 empagliflozin 10 mg tablet 10 mg PO DAILY 30 days #30 tabs 02/27/25 (Jardiance) furosemide 40 mg tablet (Lasix) 40 mg PO BIDL 30 days #60 tabs 02/27/25 metformin 850 mg tablet 850 mg PO BIDWMEAL Diabetes 30 02/27/25 days #60 tabs pantoprazole 40 mg tablet,delayed 40 mg PO HS 30 days #30 tabs 02/27/25 release sacubitril 24 mg-valsartan 26 mg 1 tab PO BID 30 days #60 tabs 02/27/25 tablet (Entresto) prasugrel HCl 10 mg tablet 10 mg PO DAILY 30 days #30 tabs 02/28/25 isosorbide mononitrate 60 mg 60 mg PO DAILY #30 tabs 1 11/05/24 tablet,extended release 24 hr Allergies Allergy/AdvReac Type Severity Reaction Status Date / Time cephalexin (From KEFLEX) Allergy Unknown Swelling Verified 09/04/25 10:40 of Lip/Tongue/Throat codeine (CODEINE) Allergy Unknown Swelling Verified 09/04/25 10:40 of Lip/Tongue/Throat Penicillins (PENICILLINS) Allergy Unknown Anaphylaxis Verified 09/04/25 10:40 PFS <Franklin Blake MD - Last Filed: 09/16/25 06:57> [facility] Disclaimer: The information contained in this section may have been updated after the patient was seen, as this information can be updated by other users. Medical History SOB (shortness of breath) Congestive heart failure Diabetes Surgical History History of left knee surgery Family History Other Cancer Heart attack Social History Smoking Status: Never smoker alcohol intake: never current occupational status: disabled and other Travel in the last 8 weeks?: None Other Medical History Have you received the Flu Vaccine for this season: No Have you received the Pneumonia Vaccine: No <Franklin Blake MD - Last Filed: 09/16/25 06:57> ROS Obtained: Yes Systems reviewed as appropriate & no additional complaints except as documented Per HPI Physical Exam <Franklin Blake MD - Last Filed: 09/16/25 06:57> General General appearance: alert, in no apparent distress and obese Head Head exam: atraumatic and normocephalic Eye Eye exam: Present PERRL and EOMI ENT ENT exam: Present mucous membranes moist Neck Neck exam: Present normal inspection and full ROM Chest Chest inspection: Present symmetric chest wall rise; Absent tenderness Respiratory Respiratory exam: Present normal lung sounds bilaterally; Absent respiratory distress, wheezes or stridor Cardiovascular Cardiovascular exam: Present regular rate and normal rhythm Abdominal Exam Abdominal exam: Present soft; Absent distention or tenderness Extremities Exam Extremities exam: Present normal capillary refill and edema (Tense swelling in the bilateral distal lower extremities, discoloration of the lower extremities with mild erythema and some hyperpigmentation); Absent tenderness Neurological Exam Neurological exam: Present alert and oriented X3; Absent motor sensory deficit Psychiatric Psychiatric exam: Present normal affect and normal mood Skin Skin exam: Present warm and dry HEART Score <Franklin Blake MD - Last Filed: 09/16/25 06:57> HEART Score HEART Score assessment performed?: Yes History (anamnesis): Slightly suspicious ECG: Non-specific disturbance Age: >65 years Risk factors: Atherosclerosis history Troponin: </= normal limit HEART Score: 5 <Hoang Acevedo MD - Last Filed: 09/16/25 08:05> HEART Score HEART Score: 5 Critical Care <Franklin Blake MD - Last Filed: 09/16/25 06:57> Critical Care Time Critical Care Time: No Medical Decision Making <Franklin Blake MD - Last Filed: 09/16/25 06:57> Medical Records Medical records reviewed: Yes I reviewed the patient's medical records. Fito Inquiry Pt receiving controlled substance: No Vital Signs Vital Signs: 09/16/25 04:18 09/16/25 07:21 09/16/25 07:21 Temperature 98.2 F Temperature Source Oral Pulse Rate 61 Pulse Rate [Right] 75 Respiratory Rate 16 Blood Pressure 157/84 H Blood Pressure [Right Arm] 131/73 Blood Pressure Mean 98 Blood Pressure Mean [Right Arm] 92 02 Sat by Pulse Oximetry 97 99 Oxygen Delivery Method Room Air 09/16/25 07:30 09/16/25 07:30 Temperature Temperature Source Pulse Rate 65 Pulse Rate [Right] Respiratory Rate Blood Pressure 126/84 Blood Pressure [Right Arm] Blood Pressure Mean 94 Blood Pressure Mean [Right Arm] 02 Sat by Pulse Oximetry 94 L Oxygen Delivery Method Lab Data Labs: Lab Results 09/16/25 05:19: WBC 7.1, RBC 4.86, Hgb 14.8, Hct 44.1, MCV 90.7, MCH 30.5, MCHC 33.6, RDW 14.2, Plt Count 183, MPV 9.2, Neut % (Auto) 64.2, Lymph % (Auto) 25.3, [place] % (Auto) 7.6, Eos % (Auto) 2.0, Baso % (Auto) 0.6, Neut # (Auto) 4.6, Lymph # (Auto) 1.8, [place] # (Auto) 0.5, Eos # (Auto) 0.1, Baso # (Auto) 0.0, D-Dimer 0.42, VBG pH 7.34, VBG pCO2 44.8, VBG pO2 57.3 H, VBG HCO3 23.6, VBG Total CO2 25.0, VBG O2 Saturation 88.0 H, VBG Base Excess -2.1, VBG Lactic Acid 2.0, Sodium 137, Potassium 4.1, Chloride 103, Carbon Dioxide 28, Anion Gap 10.1, BUN 21 H, Creatinine 0.90, Estimated Creat Clear 77, Estimated GFR 84, Est GFR ( Amer) 102, Glucose 173 H, Calcium 9.5, Total Bilirubin 0.6, AST 24, ALT 19, Alkaline Phosphatase 125, Troponin I < 0.01, NT-Pro-B Natriuret Pep 1730 H, Total Protein 6.8, Albumin 3.9, Globulin 2.9, Albumin/Globulin Ratio 1.3 09/16/25 07:20: Troponin I < 0.01 09/16/25 05:19 09/16/25 05:19 Response Orders (Tests/Meds): ED MEDICATIONS Generic Name Dose Route Start Last Admin Trade Name Freq PRN Reason Stop Dose Admin Nitroglycerin 0.4 mg 09/16/25 04:25 09/16/25 04:58 Nitroglycerin 0.4mg Sl Tablet SL 09/17/25 04:25 0.4 mg Q5MINP PRN Administration Chest Pain Discontinued Medications Generic Name Dose Route Start Last Admin Trade Name Freq PRN Reason Stop Dose Admin Aspirin 324 mg 09/16/25 04:25 09/16/25 04:54 Aspirin 81mg Chewable Tablet PO 09/16/25 04:26 324 mg ONCE ONE Administration Furosemide 40 mg 09/16/25 06:02 09/16/25 06:05 Furosemide 40mg/4ml Vial IV 09/16/25 06:03 40 mg ONCE ONE Administration ORDERS Category Date Time Status XR chest portable Stat Exams 09/16/25 04:25 Completed Complete Blood Count Auto Diff Stat Lab 09/16/25 05:19 Completed Comprehensive Metabolic Panel Stat Lab 09/16/25 05:19 Completed D-Dimer Stat Lab 09/16/25 05:19 Completed NT Pro Brain Natriuretic Pep. Stat Lab 09/16/25 05:19 Completed Troponin I Q3H Lab 09/16/25 07:20 Completed Troponin I Q3H Lab 09/16/25 10:30 Ordered Troponin I Stat Lab 09/16/25 05:19 Completed Venous Blood Gas Stat RT 09/16/25 05:19 Completed MDM Narrative Medical Decision Narrative: In summary, this 65-year-old male with comorbidities described in the HPI presents to the emergency department today with chest pain. On initial evaluation patient is hemodynamically stable, afebrile, morbidly obese, he still reports mild chest pain but has no chest wall tenderness, benign cardiopulmonary exam aside from tense swelling in the lower legs, benign abdomen, GCS 15, exam otherwise unremarkable. Differential diagnosis includes but is not limited to ACS, PE, esophageal spasm, pneumothorax, musculoskeletal etiology, electrolyte abnormality, dehydration, volume overload, among others. Based on these concerns, I ordered hematologic and serum labs, cardiac workup, D-dimer, VBG. ECG personally interpreted demonstrates sinus rhythm, rate 69, right axis deviation, right bundle branch block, normal QTc, no STEMI. Patient received aspirin and a single nitro for treatment. He had resolution of symptoms with this. Labs personally reviewed demonstrate normal CBC, VBG with normal pH, normal pCO2, normal VBG lactic. CMP with trace prerenal azotemia. Patient is tolerating oral intake and I do not want to volume overload him given his clinical findings so I am not giving IV fluids. Troponin undetectably low less than 0.01 BNP further elevated compared to prior now 1730 up from 1570 previously. IV Lasix administered as a one-time dose. Patient is asymptomatic from chest pain and has no shortness of breath so I do not believe he requires continued Lasix administration. D-dimer normal at 0.42 by years criteria PE is excluded. Chest x-ray personally interpreted demonstrates no acute intrathoracic abnormality. No lobar infiltrate. Radiology read comments on the possibility of subtle right perihilar haziness however I do not believe this correlates clinically and will not be pursuing further intervention or management of this at this time. Patient remains asymptomatic on reassessment. He was placed into ED observation at 0600 for continued symptomatic monitoring and serial troponins to rule out evolving MO. He remains on the cardiac cath lab radiology technologist and has been frequently reassessed. He continues to be hemodynamically stable and asymptomatic. Patient handed off to Dr. Acevedo in stable condition for repeat troponin and disposition. <Hoang Acevedo MD - Last Filed: 09/16/25 08:05> Vital Signs Vital Signs: 09/16/25 04:18 09/16/25 07:21 09/16/25 07:21 Temperature 98.2 F Temperature Source Oral Pulse Rate 61 Pulse Rate [Right] 75 Respiratory Rate 16 Blood Pressure 157/84 H Blood Pressure [Right Arm] 131/73 Blood Pressure Mean 98 Blood Pressure Mean [Right Arm] 92 02 Sat by Pulse Oximetry 97 99 Oxygen Delivery Method Room Air 09/16/25 07:30 09/16/25 07:30 Temperature Temperature Source Pulse Rate 65 Pulse Rate [Right] Respiratory Rate Blood Pressure 126/84 Blood Pressure [Right Arm] Blood Pressure Mean 94 Blood Pressure Mean [Right Arm] 02 Sat by Pulse Oximetry 94 L Oxygen Delivery Method Lab Data Labs: Lab Results 09/16/25 05:19: WBC 7.1, RBC 4.86, Hgb 14.8, Hct 44.1, MCV 90.7, MCH 30.5, MCHC 33.6, RDW 14.2, Plt Count 183, MPV 9.2, Neut % (Auto) 64.2, Lymph % (Auto) 25.3, [place] % (Auto) 7.6, Eos % (Auto) 2.0, Baso % (Auto) 0.6, Neut # (Auto) 4.6, Lymph # (Auto) 1.8, [place] # (Auto) 0.5, Eos # (Auto) 0.1, Baso # (Auto) 0.0, D-Dimer 0.42, VBG pH 7.34, VBG pCO2 44.8, VBG pO2 57.3 H, VBG HCO3 23.6, VBG Total CO2 25.0, VBG O2 Saturation 88.0 H, VBG Base Excess -2.1, VBG Lactic Acid 2.0, Sodium 137, Potassium 4.1, Chloride 103, Carbon Dioxide 28, Anion Gap 10.1, BUN 21 H, Creatinine 0.90, Estimated Creat Clear 77, Estimated GFR 84, Est GFR ( Amer) 102, Glucose 173 H, Calcium 9.5, Total Bilirubin 0.6, AST 24, ALT 19, Alkaline Phosphatase 125, Troponin I < 0.01, NT-Pro-B Natriuret Pep 1730 H, Total Protein 6.8, Albumin 3.9, Globulin 2.9, Albumin/Globulin Ratio 1.3 09/16/25 07:20: Troponin I < 0.01 Response Orders (Tests/Meds): ED MEDICATIONS Generic Name Dose Route Start Last Admin Trade Name Freq PRN Reason Stop Dose Admin Nitroglycerin 0.4 mg 09/16/25 04:25 09/16/25 04:58 Nitroglycerin 0.4mg Sl Tablet SL 09/17/25 04:25 0.4 mg Q5MINP PRN Administration Chest Pain Discontinued Medications Generic Name Dose Route Start Last Admin Trade Name Amy PRN Reason Stop Dose Admin Aspirin 324 mg 09/16/25 04:25 09/16/25 04:54 Aspirin 81mg Chewable Tablet PO 09/16/25 04:26 324 mg ONCE ONE Administration Furosemide 40 mg 09/16/25 06:02 09/16/25 06:05 Furosemide 40mg/4ml Vial IV 09/16/25 06:03 40 mg ONCE ONE Administration ORDERS Category Date Time Status XR chest portable Stat Exams 09/16/25 04:25 Completed Complete Blood Count Auto Diff Stat Lab 09/16/25 05:19 Completed Comprehensive Metabolic Panel Stat Lab 09/16/25 05:19 Completed D-Dimer Stat Lab 09/16/25 05:19 Completed NT Pro Brain Natriuretic Pep. Stat Lab 09/16/25 05:19 Completed Troponin I Q3H Lab 09/16/25 07:20 Completed Troponin I Q3H Lab 09/16/25 10:30 Ordered Troponin I Stat Lab 09/16/25 05:19 Completed Venous Blood Gas Stat RT 09/16/25 05:19 Completed MDM Narrative Medical Decision Narrative: In summary, this 65-year-old male with comorbidities described in the HPI presents to the emergency department today with chest pain. On initial evaluation patient is hemodynamically stable, afebrile, morbidly obese, he still reports mild chest pain but has no chest wall tenderness, benign cardiopulmonary exam aside from tense swelling in the lower legs, benign abdomen, GCS 15, exam otherwise unremarkable. Differential diagnosis includes but is not limited to ACS, PE, esophageal spasm, pneumothorax, musculoskeletal etiology, electrolyte abnormality, dehydration, volume overload, among others. Based on these concerns, I ordered hematologic and serum labs, cardiac workup, D-dimer, VBG. ECG personally interpreted demonstrates sinus rhythm, rate 69, right axis deviation, right bundle branch block, normal QTc, no STEMI. Patient received aspirin and a single nitro for treatment. He had resolution of symptoms with this. Labs personally reviewed demonstrate normal CBC, VBG with normal pH, normal pCO2, normal VBG lactic. CMP with trace prerenal azotemia. Patient is tolerating oral intake and I do not want to volume overload him given his clinical findings so I am not giving IV fluids. Troponin undetectably low less than 0.01 BNP further elevated compared to prior now 1730 up from 1570 previously. IV Lasix administered as a one-time dose. Patient is asymptomatic from chest pain and has no shortness of breath so I do not believe he requires continued Lasix administration. D-dimer normal at 0.42 by years criteria PE is excluded. Chest x-ray personally interpreted demonstrates no acute intrathoracic abnormality. No lobar infiltrate. Radiology read comments on the possibility of subtle right perihilar haziness however I do not believe this correlates clinically and will not be pursuing further intervention or management of this at this time. Patient remains asymptomatic on reassessment. He was placed into ED observation at 0600 for continued symptomatic monitoring and serial troponins to rule out evolving MO. He remains on the cardiac cath lab radiology technologist and has been frequently reassessed. He continues to be hemodynamically stable and asymptomatic. Patient handed off to Dr. Acevedo in stable condition for repeat troponin and disposition. Hoang Acevedo: Upon assumption of care patient is asleep in bed. The patient was placed in observation status at 0700. Medical necessity for observational status is serial troponins. The patient was provided serial reevaluations and cardiac cath lab radiology technologist while awaiting results. Workup thus far reviewed by me, hematologic labs are nonactionable initial troponin undetectably low EKG no acute ST elevation. Serial troponins undetectably low upon repeat evaluation patient is chest pain-free. Given this patient is appropriate for outpatient management at this time. Total time in observation 65 minutes.
[2025-09-16 07:21] VITALS: BP 157/84; PULSE 61; O2SAT 99
[2025-09-16 07:30] VITALS: BP 126/84; PULSE 65; O2SAT 94
[2025-09-16 07:52] LABS: Troponin I < 0.01 ng/ml (0.00-0.034)
[2025-09-16 08:00] VITALS: BP 139/78; PULSE 61; O2SAT 93
[2025-09-16 08:46] VITALS: BP 139/78; PULSE 61; RESP 18; TEMP 36.7; O2SAT 93
== END 2025-09-16 08:51 | disposition home or self-care (01) ==
PROVIDERS: Emergency Provider Emergency Medicine; PCP Internal Medicine Adolescent Medicine
DX: R07.9 Chest pain, unspecified (principal); E66.01 Morbid (severe) obesity due to excess calories; I11.0 Hypertensive heart disease with heart failure; I50.9 Heart failure, unspecified; E11.9 Type 2 diabetes mellitus without complications; Z79.84 Long term (current) use of oral hypoglycemic drugs
CPT/HCPCS: 71045; 80053; 82803; 83880; 84484; 85025; 85378; 93005; 96374; 99285; J1938